=== PATIENT | male | born 1965 | race Caucasian/White ===

== ENCOUNTER 2017-02-20 15:48 | Emergency (ER) | payer SELFPAY ==
--- NOTE | 2017-02-20 15:55 | ER Document Report ---
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 Pain is rated as 10/10 in the upper epigastric region radiating up into his chest and down his abdomen. Hurts all over his abdomen. Never has had this happen before. Mild nausea. No vomiting. Denies any change in bowel or bladder function. Denies any previous history of aneurysm. Does state that he has hypertension and takes Norvasc, lisinopril and aspirin. Also has a history of atrial fibrillation. TRAVEL OUTSIDE OF THE [place] IN LAST 30 DAYS: No - HPI Onset: Just prior to arrival - Related Data Allergies/Adverse Reactions: No Known Allergies Allergy (Verified 06/18/15 19:56) Home Medications: Current Home Medications Amlodipine Besylate [Norvasc 10 mg Tablet] 10 mg PO DAILY 02/20/17 [History] Past Medical History - Social History Smoking Status: Former Smoker Frequency of alcohol use: None Drug Abuse: None Family History: Reviewed & Not Pertinent, Hypertension, Other - Past Medical History Cardiac Medical History: Reports: Hx Hypertension, Other - Atrial fibrillation Renal/ Medical History: Reports: Hx Kidney Stones GI Medical History: Reports: Hx Gastroesophageal Reflux Disease Psychiatric Medical History: Reports: Hx Anxiety, Hx Depression - Immunizations Immunizations up to date: Yes Hx Diphtheria, Pertussis, Tetanus Vaccination: Yes Review of Systems - Review of Systems Constitutional: No symptoms reported, Diaphoresis, Weakness EENT: No symptoms reported Cardiovascular: No symptoms reported, Chest pain Respiratory: No symptoms reported Gastrointestinal: No symptoms reported, Abdomen distended, Abdominal pain Genitourinary: No symptoms reported Male Genitourinary: No symptoms reported Musculoskeletal: No symptoms reported Skin: No symptoms reported Hematologic/Lymphatic: No symptoms reported Neurological/Psychological: No symptoms reported Physical Exam - Vital signs Vitals: Temp Pulse Resp BP Pulse Ox 97.5 F 63 26 H 200/96 H 97 02/20/17 15:54 02/20/17 15:54 02/20/17 15:54 02/20/17 15:54 02/20/17 15:54 Interpretation: Normal, Hypertensive, Bradycardic - General General appearance: Appears well, Alert In distress: Severe - HEENT Head: Normocephalic, Atraumatic Eyes: Normal Pupils: PERRL - Respiratory Respiratory status: No respiratory distress Chest status: Nontender Breath sounds: Normal Chest palpation: Normal - Cardiovascular Rhythm: Regular, Bradycardia Heart sounds: Normal auscultation Murmur: No - Abdominal Inspection: Normal Distension: No distension, Distended Bowel sounds: Hypoactive Tenderness: Nontender, Tender, Other - Diffuse Organomegaly: No organomegaly - Back Back: Normal, Nontender - Extremities General upper extremity: Normal inspection, Nontender, Normal color, Normal ROM , Normal temperature General lower extremity: Normal inspection, Nontender, Normal color, Normal ROM , Normal temperature, Normal weight bearing. No: Nano's sign - Neurological Neuro grossly intact: Yes Cognition: Normal Orientation: AAOx4 [place] Coma Scale Eye Opening: Spontaneous [place] Coma Scale Verbal: Oriented João Coma Scale Motor: Obeys Commands João Coma Scale Total: 15 Speech: Normal Motor strength normal: LUE, RUE, LLE, RLE Sensory: Normal - Psychological Associated symptoms: Normal affect, Normal mood - Skin Skin Temperature: Warm Skin Moisture: Diaphoretic Skin Color: Normal Course - Re-evaluation Re-evalutation: 02/20/17 17:15 Based on physical exam time of triage there was concern for aortic dissection. Patient had very elevated upper extremity blood pressure about almost nonexistent lower extremity and complaining of numbness in the left leg. Stat CT scan of the chest abdomen and pelvis aortogram performed. Stat read pending but I did look at the films while patient was in the scanner and it does appear the patient has a aortic dissection. Call was placed to thoracic surgery at [facility]. Pending transfer at this time. Will start on a nitroglycerin drip as patient's heart rate is already in the 40s. Does not need rate control at this time. Patient is in critical condition. Spoke with Dr. Destin Blackwell who has accepted the patient. - Vital Signs Vital signs: Temp Pulse Resp BP Pulse Ox 97.5 F 63 29 H 177/91 H 93 02/20/17 15:54 02/20/17 15:54 02/20/17 16:46 02/20/17 16:46 02/20/17 16:46 - Laboratory Result Diagrams: 02/20/17 16:34 02/20/17 16:34 Laboratory results interpreted by me: 02/20/17 02/20/17 16:34 16:34 WBC 11.7 H Sodium 147.2 H BUN 24 H Creatinine 1.70 H Est GFR ( Amer) 52 L Est GFR (Non-Af Amer) 43 L Glucose 139 H Calcium 10.4 H - Diagnostic Test Radiology reviewed: Reports reviewed Radiology results interpreted by me: 02/20/17 17:08 CT chest abdomen and pelvis a a dissection protocol appears to have dissection from aortic arch down to abdominal aorta. 02/20/17 17:46 Please see results from radiology. Confirms aortic dissection - EKG Interpretation by Me Rate: Bradycardia Rhythm: A.Fib Critical Care Note - Critical Care Note Total time excluding time spent on procedures (mins): 90 Comments: Hypertension, abdominal pain, aortic dissection Discharge - Discharge Clinical Impression: Aortic dissection Qualifiers: Aortic location: thoracoabdominal aorta Qualified Code(s): I71.03 - Dissection of thoracoabdominal aorta Condition: Critical Disposition: [facility]
[2017-02-20] MEDS ORDERED: HYDROMORPHONE HCL INJ/PF 2 MG/ML AMPULE IV ONE ×2 (16:15→17:38)
[2017-02-20 16:55] LABS: ABSOLUTE EOSINOPHILS # (AUTO) 0.2 10^3/uL (0.0-0.6); ABSOLUTE LYMPHOCYTES (AUTO) 2.5 10^3/uL (0.5-4.7); ABSOLUTE MONOCYTES (AUTO) 0.9 10^3/uL (0.1-1.4); ABSOLUTE NEUT (AUTO) 8.1 10^3/uL (1.7-8.2); BASOPHILS % (AUTO) 0.3 % (0-2); EOSINOPHILS % (AUTO) 1.9 % (0-6); HEMATOCRIT 44.7 % (37.9-51.0); HEMOGLOBIN 15.5 g/dL (13.5-17.0); HGB HCT DIFFERENCE 1.8; LYMPHOCYTES % (AUTO) 21.3 % (13-45); MEAN CORPUSCULAR HEMOGLOBIN 30.5 pg (27.0-33.4); MEAN CORPUSCULAR HGB CONC 34.7 g/dL (32.0-36.0); MEAN CORPUSCULAR VOLUME 88 fl (80-97); MONOCYTES % (AUTO) 7.7 % (3-13); RED BLOOD COUNT 5.08 10^6/uL (4.35-5.55); RED CELL DISTRIBUTION WIDTH 13.2 % (11.5-14.0); SEGMENTED NEUTROPHILS % (AUTO) 68.8 % (42-78); WHITE BLOOD COUNT 11.7 10^3/uL (4.0-10.5)
--- NOTE | 2017-02-20 16:56 | RADIOLOGY REPORT (SQ) ---
EXAM DESCRIPTION: CHEST SINGLE VIEW COMPLETED DATE/TIME: 02/20/2017 4:46 pm REASON FOR STUDY: sob COMPARISON: 06/18/2015 EXAM PARAMETERS: NUMBER OF VIEWS: One view. TECHNIQUE: Single frontal radiographic view of the chest acquired. RADIATION DOSE: NA LIMITATIONS: None. FINDINGS: LUNGS AND PLEURA: No opacities, masses or pneumothorax. No pleural effusion. MEDIASTINUM AND HILAR STRUCTURES: No masses. Contour normal. HEART AND VASCULAR STRUCTURES: Heart normal in size. Normal vasculature. BONES: No acute findings. HARDWARE: None in the chest. OTHER: No other significant finding. IMPRESSION: NO ACUTE RADIOGRAPHIC FINDING IN THE CHEST. TECHNICAL DOCUMENTATION: JOB ID: [id number]
[2017-02-20] MEDS ORDERED: NITROGLYCERIN/D5W 50 MG/250 ML RTUINJ IV PRN (17:07)
[2017-02-20] MEDS ORDERED: NITROGLYCERIN/D5W 50 MG/250 ML RTUINJ IV ONE (17:07)
[2017-02-20 17:08] LABS: ALANINE AMINOTRANSFERASE 55 U/L (21-72); ALBUMIN 4.5 g/dL (3.5-5.0); ALKALINE PHOSPHATASE 70 U/L (38-126); ANION GAP 14 (5-19); ASPARTATE AMINO TRANSFERASE 23 U/L (17-59); BILIRUBIN,DIRECT 0.4 mg/dL (0.0-0.4); BILIRUBIN,TOTAL 0.7 mg/dL (0.2-1.3); BLOOD UREA NITROGEN 24 mg/dL (7-20); CALCIUM 10.4 mg/dL (8.4-10.2); CARBON DIOXIDE 26 mmol/L (22-30); CHLORIDE 107 mmol/L (98-107); CREATINE KINASE 134 U/L (55-170); GLUCOSE 139 mg/dL (75-110); LIPASE 139.7 U/L (23-300); POTASSIUM 4.4 mmol/L (3.6-5.0); SODIUM 147.2 mmol/L (137-145); TOTAL PROTEIN 7.3 g/dL (6.3-8.2)
[2017-02-20 17:19] LABS: CREATINE KINASE MB 1.57 ng/mL (<4.55)
[2017-02-20 17:22] LABS: TROPONIN I < 0.012 ng/mL
[2017-02-20] MEDS ORDERED: ONDANSETRON HCL INJ/PF 4 MG/2 ML SDV ONE (17:22)
[2017-02-20] MEDS ORDERED: HYDROMORPHONE HCL INJ/PF 2 MG/ML AMPULE ONE (17:23)
--- NOTE | 2017-02-20 17:30 | RADIOLOGY REPORT (SQ) ---
EXAM DESCRIPTION: CTA CHEST; CTA ABDOMEN/PELVIS W WO COMPLETED DATE/TIME: 02/20/2017 5:03 pm REASON FOR STUDY: Severe chest and abdominal pain concern for aneury COMPARISON: Chest radiograph 02/20/2017 CONTRAST TYPE AND DOSE: contrast/concentration: Isovue 370.00 mg/ml; Total Contrast Delivered: 100.0 ml; Total Saline Delivered: 60.0 ml RENAL FUNCTION: Due to the severity of the patient's condition, the treating physician opted to proc eed with imaging prior to laboratory results being obtained. TECHNIQUE: CT scan of the chest performed using helical scanning technique with dynamic intravenous contrast injection. Images reviewed with lung, soft tissue and bone windows. Reconstructed coronal a nd sagittal MPR images reviewed. All images stored on PACS. CT scan of the abdomen and pelvis performed with intravenous and oral contrast using helical scanning technique with dynamic intravenous contrast injection. Images reviewed with lung, soft tissue and b one windows. Reconstructed coronal and sagittal MPR images reviewed. Delayed images for evaluation of the urinary system also acquired and evaluated. All images stored on PACS. All CT scanners at this facility use dose modulation, iterative reconstruction, and/or weight based d osing when appropriate to reduce radiation dose to as low as reasonably achievable (ALARA). [facility]: Dose Right [facility]: CareDose [facility]: Dose Right [facility]: Teradose 4D [facility]: [employer] Technologies RADIATION DOSE: Up-to-date CT equipment and radiation dose reduction techniques were employed. CTDIv ol: 22.5 - 72.3 mGy. DLP: 2698 mGy-cm. . LIMITATIONS: None. FINDINGS: CHEST: AXILLAE: No adenopathy. CHEST WALL: No masses. No subcutaneous air. LUNGS: No nodules or masses. No pneumothorax. No infiltrates. PLEURA: No effusions. No calcifications. THYROID: No masses or significant asymmetry. HILAR AND MEDIASTINAL STRUCTURES: No identified masses or abnormal nodes. AORTA AND GREAT VESSELS: There is an aortic dissection which originates just distal to the left subcl randy artery origin, and continues along the abdominal aorta, extending into both iliac artery is not ing non opacification of the left external iliac artery which appears to receive collateral filling a t the level of the inguinal canal. Notably, the left renal artery is not opacified, arising from the false lumen. The remaining visceral branches arise from the true lumen, and demonstrate opacificati on. PULMONARY ARTERIES: No identified pulmonary emboli. Study not optimized for the pulmonary arteries. HEART: No pericardial effusion. HARDWARE AND LIFELINES: None. BONES: No significant finding. OTHER: No other significant finding. ABDOMEN AND PELVIS: LIVER: Normal size. No masses. No dilated ducts. SPLEEN: Normal size. No focal lesions. PANCREAS: No masses. No significant calcifications. No adjacent inflammation or peripancreatic flui d collections. Pancreatic duct not dilated. GALLBLADDER: No identified stones by CT criteria. No inflammatory changes to suggest cholecystitis. ADRENAL GLANDS: No significant masses or asymmetry. RIGHT KIDNEY AND URETER: No solid masses. Nonobstructing nephroliths. No hydronephrosis or hydrou reter. LEFT KIDNEY AND URETER: Non opacification of the left renal artery as discussed above. No solid mass es. Nonobstructing nephroliths. No hydronephrosis or hydroureter. RETROPERITONEUM: No retroperitoneal adenopathy, hemorrhage or masses. LARGE AND SMALL BOWEL: No dilatation. No masses. No wall thickening. APPENDIX: Not visualized. ABDOMINAL WALL: Bilateral fat containing inguinal hernias. PERITONEAL CAVITY: No free air. No free fluid. No peritoneal implants or masses. PELVIS: No mass or free fluid. Normal bladder. BONES: No significant or acute findings. OTHER: No other significant finding. IMPRESSION: Aortic dissection extending from just distal to the left subclavian artery origin into t he bilateral iliac arteries. Non opacification of the left renal artery. Non opacification of the l eft external iliac artery, noting collateral flow re- constituting at the level of the femoral artery . COMMENT: Pertinent findings on the imaging study reported as a CRITICAL RESULT to the ER front Rasheeda daly at17:11 on 02/20/2017. She indicated that Dr. Hendrix is aware of the findings and is currently on the phone with the transfer facility. Category of Critical Result: Aortic dissection TECHNICAL DOCUMENTATION: JOB ID: [id number] Quality ID # [id number]: Final reports with documentation of one or more dose reduction techniques (e.g., Au tomated exposure control, adjustment of the mA and/or kV according to patient size, use of iterative reconstruction technique) 2010 [employer]- All Rights Reserved
[2017-02-20] MEDS ORDERED: ONDANSETRON HCL INJ/PF 4 MG/2 ML SDV IV ONE (17:38)
[2017-02-20] MEDS ORDERED: NITROGLYCERIN 0.4 MG/TAB 25 TAB/BOTTLE SL ONE (17:47)
[2017-02-20 18:56] VITALS: BP 161/74
--- NOTE | 2017-02-22 06:27 | EKG REPORT ---
SEVERITY:- ABNORMAL ECG - SINUS BRADYCARDIA LEFT VENTRICULAR HYPERTROPHY : Confirmed by: Arianna Khan MD 22-Feb-2017 06:26:02
== END 2017-02-20 18:45 | disposition short-term general hospital (02) ==
LOC: ER 15:48
DX: I71.03 Dissection of thoracoabdominal aorta (principal); R10.13 Epigastric pain; R07.9 Chest pain, unspecified; Z87.891 Personal history of nicotine dependence
CPT/HCPCS: 93005; 96376; 99291; 99292; 96374; 96375; 36415; 82553; 82550; 83690; 85025; 80053; 84484; 71010; 71275; 74174; 93010; J1170; J2405; J3490

== ENCOUNTER 2017-03-30 19:00 | Emergency (ER) | payer SELFPAY ==
--- NOTE | 2017-03-30 19:48 | ER Document Report ---
ED Medical Screen (RME) - General Chief Complaint: Foot Pain Stated Complaint: LEFT FOOT PAIN Time Seen by Provider: 03/30/17 19:47 Notes: Patient recently had surgery for aortic dissection. He states he was just discharged from the hospital at [facility] 2 days ago. He states he is having a rash and pain to the left foot. Patient has a 2+ dorsalis pedis pulse on the left. TRAVEL OUTSIDE OF THE [place] IN LAST 30 DAYS: No - Related Data Allergies/Adverse Reactions: No Known Allergies Allergy (Verified 03/30/17 19:04) Past Medical History - Social History Chew tobacco use (# tins/day): No Frequency of alcohol use: None Drug Abuse: None - Past Medical History Cardiac Medical History: Reports: Hx Atrial Fibrillation, Hx Hypertension Renal/ Medical History: Reports: Hx Kidney Stones. Denies: Hx Peritoneal Dialysis GI Medical History: Reports: Hx Gastroesophageal Reflux Disease Psychiatric Medical History: Reports: Hx Anxiety, Hx Depression Past Surgical History: Reports: Hx Cardiac Surgery - stent aorta, Hx Kidney ( Renal Surgery) - stent rt kidney, Hx Vascular Surgery - femoral bypass - Immunizations Immunizations up to date: Yes Hx Diphtheria, Pertussis, Tetanus Vaccination: Yes Physical Exam - Vital signs Vitals: Temp Pulse Resp BP Pulse Ox 97.7 F 57 L 14 153/86 H 98 03/30/17 19:05 03/30/17 19:05 03/30/17 19:05 03/30/17 19:05 03/30/17 19:05 Course - Vital Signs Vital signs: Temp Pulse Resp BP Pulse Ox 97.7 F 57 L 14 153/86 H 98 03/30/17 19:05 03/30/17 19:05 03/30/17 19:05 03/30/17 19:05 03/30/17 19:05
--- NOTE | 2017-03-30 20:08 | RADIOLOGY REPORT (SQ) ---
EXAM DESCRIPTION: FOOT LEFT COMPLETE COMPLETED DATE/TIME: 03/30/2017 7:59 pm REASON FOR STUDY: pain COMPARISON: None. NUMBER OF VIEWS: Three views. TECHNIQUE: AP, lateral and oblique radiographic images acquired of the left foot. LIMITATIONS: None. FINDINGS: MINERALIZATION: Normal. BONES: No acute fracture or dislocation. No worrisome bone lesions. JOINTS: No effusions. SOFT TISSUES: No soft tissue swelling. No foreign body. OTHER: No other significant finding. IMPRESSION: NEGATIVE STUDY OF THE LEFT FOOT. NO RADIOGRAPHIC EVIDENCE OF ACUTE INJURY. TECHNICAL DOCUMENTATION: JOB ID: [id number] [employer]- All Rights Reserved
[2017-03-30 20:30] LABS: ABSOLUTE BASOPHILS # (AUTO) 0.1 10^3/uL (0.0-0.2); ABSOLUTE EOSINOPHILS # (AUTO) 0.5 10^3/uL (0.0-0.6); ABSOLUTE LYMPHOCYTES (AUTO) 1.9 10^3/uL (0.5-4.7); ABSOLUTE MONOCYTES (AUTO) 0.7 10^3/uL (0.1-1.4); BASOPHILS % (AUTO) 1.1 % (0-2); EOSINOPHILS % (AUTO) 8.1 % (0-6); HEMATOCRIT 24.4 % (37.9-51.0); HEMOGLOBIN 8.2 g/dL (13.5-17.0); HGB HCT DIFFERENCE 0.2; LYMPHOCYTES % (AUTO) 30.6 % (13-45); MEAN CORPUSCULAR HGB CONC 33.6 g/dL (32.0-36.0); MEAN CORPUSCULAR VOLUME 86 fl (80-97); MONOCYTES % (AUTO) 11.7 % (3-13); RED BLOOD COUNT 2.83 10^6/uL (4.35-5.55); RED CELL DISTRIBUTION WIDTH 14.3 % (11.5-14.0); SEGMENTED NEUTROPHILS % (AUTO) 48.5 % (42-78); WHITE BLOOD COUNT 6.1 10^3/uL (4.0-10.5)
[2017-03-30 20:50] LABS: ALANINE AMINOTRANSFERASE 49 U/L (21-72); ALBUMIN 3.9 g/dL (3.5-5.0); ALKALINE PHOSPHATASE 111 U/L (38-126); ANION GAP 14 (5-19); ASPARTATE AMINO TRANSFERASE 18 U/L (17-59); BILIRUBIN,DIRECT 0.4 mg/dL (0.0-0.4); BILIRUBIN,TOTAL 0.4 mg/dL (0.2-1.3); BLOOD UREA NITROGEN 35 mg/dL (7-20); CALCIUM 9.6 mg/dL (8.4-10.2); CARBON DIOXIDE 20 mmol/L (22-30); CHLORIDE 110 mmol/L (98-107); CREATININE RESULT 3.61 mg/dL (0.52-1.25); GLUCOSE 94 mg/dL (75-110); POTASSIUM 5.1 mmol/L (3.6-5.0); SODIUM 143.6 mmol/L (137-145)
--- NOTE | 2017-03-30 22:02 | ER Document Report ---
ED General - General Chief Complaint: Foot Pain Stated Complaint: LEFT FOOT PAIN Time Seen by Provider: 03/30/17 19:47 Notes: Patient is a 51 year old male who presents to the ED complaining of left foot sensitivity and pain for approximately one week. PMH s/f aortic dissection on with bifemoral bypass at [facility] and then transfer to [facility] for cath stent placement within his aorta and right renal artery. Complications from his injury resulted in renal failure resulting in HD. HE states his last dialysis was 03/19 and was discharged 03/27. His BUN/Creatinine at d/c was 35/ 3.8 and H/H 26/7.4. Has been making urine without difficulty. Presents this evening complaining of foot sensitivity and pain. He states it has become progressively worse since discharge on wednesday. He has a follow up appointment for this with [facility] vascular surgeon Dr. Lara tomorrow TRAVEL OUTSIDE OF THE [place] IN LAST 30 DAYS: No - Related Data Allergies/Adverse Reactions: No Known Allergies Allergy (Verified 03/30/17 19:04) Past Medical History - Social History Smoking Status: Unknown if Ever Smoked Chew tobacco use (# tins/day): No Frequency of alcohol use: None Drug Abuse: None Family History: Reviewed & Not Pertinent, Hypertension, Other Patient has suicidal ideation: No Patient has homicidal ideation: No - Past Medical History Cardiac Medical History: Reports: Hx Atrial Fibrillation, Hx Hypertension Renal/ Medical History: Reports: Hx Kidney Stones. Denies: Hx Peritoneal Dialysis GI Medical History: Reports: Hx Gastroesophageal Reflux Disease Psychiatric Medical History: Reports: Hx Anxiety, Hx Depression Past Surgical History: Reports: Hx Cardiac Surgery - stent aorta, Hx Kidney ( Renal Surgery) - stent rt kidney, Hx Vascular Surgery - femoral bypass - Immunizations Immunizations up to date: Yes Hx Diphtheria, Pertussis, Tetanus Vaccination: Yes Review of Systems - Review of Systems Constitutional: No symptoms reported Cardiovascular: No symptoms reported Respiratory: No symptoms reported Gastrointestinal: No symptoms reported Musculoskeletal: See HPI Skin: See HPI -: Yes All other systems reviewed and negative Physical Exam - Vital signs Vitals: Temp Pulse Resp BP Pulse Ox 97.7 F 57 L 14 153/86 H 98 03/30/17 19:05 03/30/17 19:05 03/30/17 19:05 03/30/17 19:05 03/30/17 19:05 - General General appearance: Appears well, Alert In distress: None - Cardiovascular Rhythm: Regular Heart sounds: Normal auscultation, S1 appreciated, S2 appreciated Murmur: No Gallop: None auscultated Pulses: Normal: Radial, Femoral, Posterior tibial, Dorsalis pedis Normal capillary refill: Yes - Abdominal Inspection: Normal Distension: No distension Bowel sounds: Normal Tenderness: Nontender Organomegaly: No organomegaly - Extremities General lower extremity: No: Nano's sign Calf: Normal, Tender - along posterior calf. No: Unable to bear weight Ankle: Other - superficial senisitvty to gentle touch. No: Deformity, Ecchymosis, Edema, Limited ROM, Unable to bear weight Foot: Other - superficial sensitivity to gentle touch. No: Deformity, Ecchymosis, Edema, Metatarsal compress. pain, Unable to bear weight - Neurological Neuro grossly intact: Yes Cognition: Normal Orientation: AAOx4 João Coma Scale Eye Opening: Spontaneous [place] Coma Scale Verbal: Oriented [place] Coma Scale Motor: Obeys Commands João Coma Scale Total: 15 Motor strength normal: LLE, RLE Additional motor exam normals: No: Weakness Sensory: Normal - Skin Skin Temperature: Warm - left foot and ankle cooler then right LE. Skin Moisture: Dry Skin Color: Normal Skin Turgor: Elastic Skin irregularity: Rash Location of irregularity: Extremities - bilateral feet and ankles Character of irregularity: Macular, Papular. negative: Vesicular, Erythematous , Petechial Irregularity with: negative: Swelling, Tenderness, Warmth, Lymphangitis, Induration, Thickening, Scaling, Well defined border, Crusting, Inflammation, Weeping, Rough texture-sand paper, Pityriasis rosea, Other Course - Re-evaluation Re-evalutation: 03/30/17 23:02 Patient is a 51 year old male who is hemodynamically stable, no acute distress and afebrile. CBC without evidence of anemia or leukocytosis. Chemistry with a improved BUN and creatinine since discharge. INR subtherapeutic at 1.5. I did consult with [facility] vascular fellow administration specialist Dr. Murphy to obtain pre-discharge labs and consult. Patients labs today have improved. His presentation today is consistent with vasculitis vs neuropathy. No evidence of acute injury on xray. Will discharge home with voltaren gel and to follow up with [facility] surgery tomorrow - Vital Signs Vital signs: Temp Pulse Resp BP Pulse Ox 98.1 F 60 16 151/78 H 100 03/30/17 23:17 03/30/17 23:17 03/30/17 23:17 03/30/17 23:17 03/30/17 23:17 - Laboratory Result Diagrams: 03/30/17 20:09 03/30/17 20:09 Laboratory results interpreted by me: 03/30/17 03/30/17 03/30/17 20:09 20:09 20:09 RBC 2.83 L Hgb 8.2 L Hct 24.4 L RDW 14.3 H Plt Count 451 H Eosinophils % 8.1 H PT 19.4 H Potassium 5.1 H Chloride 110 H Carbon Dioxide 20 L BUN 35 H Creatinine 3.61 H Est GFR ( Amer) 22 L Est GFR (Non-Af Amer) 18 L - Diagnostic Test Radiology reviewed: Image reviewed, Reports reviewed Discharge - Discharge Clinical Impression: Left foot pain Condition: Good Disposition: HOME, SELF-CARE Additional Instructions: Your symptoms today are consistent with either a peripheral neuropathy likely related to your previous procedure and a vasculitis which is inflammation of the small blood vessels in your foot. Please use the medication as directed and follow-up with Dr. Lara tomorrow. Prescriptions: Diclofenac Sodium [Voltaren] 2 - 3 gm TP ASDIR PRN #1 gel..gram. PRN Reason: Referrals: RACHANA GARCIA PA-C [Primary Care Provider] - Follow up as needed
[2017-03-30 22:16] LABS: PROTHROMBIN TIME 19.4 SEC (11.4-15.4)
[2017-03-30] MEDS ORDERED: HYDROCODONE/ACETAMINOPHEN 5-325 MG 6 TAB/DSPK PO PRN (22:55)
[2017-03-30] MEDS ORDERED: HYDROCODONE/ACETAMINOPHEN 5-325 MG TABLET PO ONE (22:55)
[2017-03-30 23:19] VITALS: BP 151/78
== END 2017-03-30 23:17 | disposition home or self-care (01) ==
LOC: ER 19:00
DX: M79.672 Pain in left foot (principal); Z95.828 Presence of other vascular implants and grafts
CPT/HCPCS: 36415; 80053; 85025; 85610; 99283

== ENCOUNTER → 2017-04-27 | Outpatient (CLI) | payer SELFPAY ==
[2017-04-27 18:10] LABS: PROTHROMBIN TIME 15.3 SEC (11.4-15.4)
== END ==
LOC: OD 17:27
PROVIDERS: ATTEND Nurse Practitioner Family
DX: I71.03 Dissection of thoracoabdominal aorta (principal)
CPT/HCPCS: 36415; 85610

== ENCOUNTER → 2017-12-28 | Outpatient (CLI) | payer OTHER ==
[2017-12-28 16:17] LABS: HEMATOCRIT 40.3 % (37.9-51.0); HEMOGLOBIN 13.8 g/dL (13.5-17.0); MEAN CORPUSCULAR HEMOGLOBIN 30.4 pg (27.0-33.4); MEAN CORPUSCULAR HGB CONC 34.2 g/dL (32.0-36.0); MEAN CORPUSCULAR VOLUME 89 fl (80-97); PLATELET COUNT 258 10^3/uL (150-450); RED BLOOD COUNT 4.53 10^6/uL (4.35-5.55); RED CELL DISTRIBUTION WIDTH 13.1 % (11.5-14.0); WHITE BLOOD COUNT 6.8 10^3/uL (4.0-10.5)
[2017-12-28 16:38] LABS: ANION GAP 13 (5-19); BLOOD UREA NITROGEN 35 mg/dL (7-20); CALCIUM 9.8 mg/dL (8.4-10.2); CARBON DIOXIDE 23 mmol/L (22-30); CHLORIDE 110 mmol/L (98-107); GLUCOSE 91 mg/dL (75-110); POTASSIUM 4.7 mmol/L (3.6-5.0); SODIUM 146.4 mmol/L (137-145)
== END ==
LOC: OD 15:07
DX: I71.00 Dissection of unspecified site of aorta (principal); N17.9 Acute kidney failure, unspecified; I48.91 Unspecified atrial fibrillation; I10 Essential (primary) hypertension; D64.9 Anemia, unspecified; R00.1 Bradycardia, unspecified
CPT/HCPCS: 36415; 80048; 85027

== ENCOUNTER 2019-02-27 07:18 | Observation (INO) | payer SELFPAY ==
--- NOTE | 2019-02-27 08:50 | ER Document Report ---
ED Cardiac - General Chief Complaint: Chest Pain Stated Complaint: BACK PAIN, CHEST PAIN Time Seen by Provider: 02/27/19 08:40 Primary Care Provider: ZITA SHAY [NO LOCAL MD] - Follow up as needed TRAVEL OUTSIDE OF THE [place] IN LAST 30 DAYS: No - HPI Notes: 53-year-old male to the emergency department with complaints of left-sided chest pain that radiates down into his left arm and through to his back at 5 AM this morning. He states that he has increased pain with movement and it hurts to touch his chest. He does also endorse nausea and shortness of breath with his symptoms. He also states that he has numbness and tingling into the left arm and to the left leg. 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 This occurred 2 years ago and he was hospitalized for 43 days at [facility]. He states that he also had bilateral leg bypass. She states that he takes a daily baby aspirin. Denies any fevers, chills, vomiting, diaphoresis. He is never had a heart attack that he knows of. There is no known heart attack history in the family. He does smoke. He is on labetalol for high blood pressure as well as Norvasc. He is also being treated for hyperlipidemia. He and his are not sure who his cryogenics repairer is. They cannot remember his current CT surgeon is at [facility]. He is followed by primary care with Emiliana kwok. He did take a BC powder prior to arrival. He has a history of atrial fib and does report that he has had some sensations of palpitations over the past week. Patient takes a baby aspirin daily. He denies any other blood thinners. - Related Data Allergies/Adverse Reactions: No Known Allergies Allergy (Verified 03/30/17 19:04) Past Medical History - General Information source: Patient, Relative - Social History Smoking Status: Current Every Day Smoker Frequency of alcohol use: None Drug Abuse: None Family History: Hypertension, Other Patient has suicidal ideation: No Patient has homicidal ideation: No - Past Medical History Cardiac Medical History: Reports: Hx Atrial Fibrillation, Hx Hypertension Renal/ Medical History: Reports: Hx Kidney Stones. Denies: Hx Peritoneal Dialysis GI Medical History: Reports: Hx Gastroesophageal Reflux Disease Psychiatric Medical History: Reports: Hx Anxiety, Hx Depression Past Surgical History: Reports: Hx Cardiac Surgery - stent aorta, Hx Kidney (Renal Surgery) - stent rt kidney, Hx Vascular Surgery - femoral bypass - Immunizations Immunizations up to date: Yes Hx Diphtheria, Pertussis, Tetanus Vaccination: Yes Review of Systems - Review of Systems Constitutional: denies: Chills, Fever EENT: No symptoms reported Cardiovascular: Chest pain, Palpitations, Heart racing. denies: Orthopnea, Syncope, Dizziness, Lightheaded Respiratory: Short of breath. denies: Cough, Wheezing Gastrointestinal: Nausea. denies: Abdominal pain, Diarrhea, Vomiting Genitourinary: No symptoms reported Musculoskeletal: No symptoms reported Skin: No symptoms reported Neurological/Psychological: No symptoms reported -: Yes All other systems reviewed and negative Physical Exam - Vital signs Vitals: Temp Pulse Resp BP Pulse Ox 97.6 F 48 L 20 129/95 H 96 02/27/19 07:30 02/27/19 07:30 02/27/19 07:30 02/27/19 07:30 02/27/19 07:30 Interpretation: Normal - General General appearance: Appears well, Alert In distress: None - HEENT Head: Normocephalic, Atraumatic Eyes: Normal Pupils: PERRL - Respiratory Respiratory status: No respiratory distress Chest status: Nontender Breath sounds: Normal Chest palpation: Normal - Cardiovascular Rhythm: Regular Heart sounds: Normal auscultation Murmur: No - Abdominal Inspection: Normal Distension: No distension Bowel sounds: Normal Tenderness: Nontender Organomegaly: No organomegaly - Back Back: Normal, Nontender - Neurological Neuro grossly intact: Yes Cognition: Normal Orientation: AAOx4 Errol Coma Scale Eye Opening: Spontaneous Errol Coma Scale Verbal: Oriented Errol Coma Scale Motor: Obeys Commands Errol Coma Scale Total: 15 Speech: Normal Cranial nerves: Normal. No: Facial palsy, Forehead sparing, Gaze palsy, Sensory deficit, Tongue deviation Cerebellar coordination: Other - when asking to perform a left left lift, he states he cannot; however when asked to perform heel to madrigal, he can lift the leg and attempts to perform heel to madrigal -- this is slowed and difficulty for patient. 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 No: Pronator drift - Psychological Associated symptoms: Normal affect, Normal mood - Skin Skin Temperature: Warm Skin Moisture: Dry Skin Color: Normal Course - Re-evaluation Re-evalutation: 02/27/19 14:20 Chest X-Ray 02/27/19 08:42 IMPRESSION: NO ACUTE RADIOGRAPHIC FINDING IN THE CHEST. Head CT 02/27/19 09:06 IMPRESSION: NORMAL BRAIN CT WITHOUT CONTRAST. EVIDENCE OF ACUTE STROKE: NO. Chest/Abdomen CTA 02/27/19 09:59 IMPRESSION: 1. 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 2. Stable dilatation of the ascending aorta. Laboratory 02/27/19 02/27/19 02/27/19 08:52 08:52 08:52 WBC 7.9 RBC 4.97 Hgb 14.8 Hct 43.8 MCV 88 MCH 29.9 MCHC 33.9 RDW 13.1 Plt Count 187 Lymph % (Auto) 23.6 Mccreary % (Auto) 6.2 Eos % (Auto) 2.3 Baso % (Auto) 0.5 Absolute Neuts (auto) 5.3 Absolute Lymphs (auto) 1.9 Absolute Monos (auto) 0.5 Absolute Eos (auto) 0.2 Absolute Basos (auto) 0.0 Seg Neutrophils % 67.4 PT 13.7 INR 1.05 APTT 28.5 Sodium 140.8 Potassium 4.0 Chloride 107 Carbon Dioxide 23 Anion Gap 11 BUN 26 H Creatinine 1.85 H Est GFR ( Amer) 47 L Est GFR (MDRD) Non-Af 39 L Glucose 110 Calcium 9.7 Magnesium 2.2 Total Bilirubin 0.8 Direct Bilirubin 0.1 Neonat Total Bilirubin Not Reportable Neonat Direct Bilirubin Not Reportable Neonat Indirect Bili Not Reportable AST 16 L ALT 19 Alkaline Phosphatase 82 Troponin I NT-Pro-B Natriuret Pep Total Protein 7.3 Albumin 4.3 02/27/19 02/27/19 08:52 12:38 WBC RBC Hgb Hct MCV MCH MCHC RDW Plt Count Lymph % (Auto) Mccreary % (Auto) Eos % (Auto) Baso % (Auto) Absolute Neuts (auto) Absolute Lymphs (auto) Absolute Monos (auto) Absolute Eos (auto) Absolute Basos (auto) Seg Neutrophils % PT INR APTT Sodium Potassium Chloride Carbon Dioxide Anion Gap BUN Creatinine Est GFR ( Amer) Est GFR (MDRD) Non-Af Glucose Calcium Magnesium Total Bilirubin Direct Bilirubin Neonat Total Bilirubin Neonat Direct Bilirubin Neonat Indirect Bili AST ALT Alkaline Phosphatase Troponin I 0.021 0.020 NT-Pro-B Natriuret Pep 948 H Total Protein Albumin Discussed patient with Dr. Sanderson. We agree that patient should be admitted since he has a HEART score of 4. Currently negative for PE and acute aortic dissection. Did discussed patient with Dr. Patel, hospitalist. He agrees with the plan for admission. Would like for the patient to go to telemetry. Aware of CTA, trending trops, initial EKG. Also aware that patient takes a baby aspirin and is not taking another blood thinner. - Vital Signs Vital signs: Temp Pulse Resp BP Pulse Ox 97.6 F 48 L 13 157/117 H 94 02/27/19 07:30 02/27/19 07:30 02/27/19 13:01 02/27/19 13:01 02/27/19 13:01 - Laboratory Result Diagrams: 02/27/19 08:52 02/27/19 08:52 Laboratory results interpreted by me: 02/27/19 02/27/19 08:52 08:52 BUN 26 H Creatinine 1.85 H Est GFR ( Amer) 47 L Est GFR (MDRD) Non-Af 39 L AST 16 L NT-Pro-B Natriuret Pep 948 H - Diagnostic Test Radiology reviewed: Image reviewed, Reports reviewed Discharge - Discharge Clinical Impression: Chest pain Condition: Stable Disposition: ADMITTED INPATIENT Admitting Provider: Vignesh (Hospitalist) Unit Admitted: Telemetry Referrals: [facility] [NO LOCAL MD] - Follow up as needed
[2019-02-27 09:19] LABS: ABSOLUTE EOSINOPHILS # (AUTO) 0.2 10^3/uL (0.0-0.6); ABSOLUTE LYMPHOCYTES (AUTO) 1.9 10^3/uL (0.5-4.7); ABSOLUTE MONOCYTES (AUTO) 0.5 10^3/uL (0.1-1.4); ABSOLUTE NEUT (AUTO) 5.3 10^3/uL (1.7-8.2); BASOPHILS % (AUTO) 0.5 % (0-2); EOSINOPHILS % (AUTO) 2.3 % (0-6); HEMATOCRIT 43.8 % (37.9-51.0); HEMOGLOBIN 14.8 g/dL (13.5-17.0); LYMPHOCYTES % (AUTO) 23.6 % (13-45); MEAN CORPUSCULAR HEMOGLOBIN 29.9 pg (27.0-33.4); MEAN CORPUSCULAR HGB CONC 33.9 g/dL (32.0-36.0); MEAN CORPUSCULAR VOLUME 88 fl (80-97); MONOCYTES % (AUTO) 6.2 % (3-13); PLATELET COUNT 187 10^3/uL (150-450); RED BLOOD COUNT 4.97 10^6/uL (4.35-5.55); RED CELL DISTRIBUTION WIDTH 13.1 % (11.5-14.0); SEGMENTED NEUTROPHILS % (AUTO) 67.4 % (42-78); TOTAL CELLS COUNTED % (AUTO) 100 %; WHITE BLOOD COUNT 7.9 10^3/uL (4.0-10.5)
[2019-02-27 09:28] LABS: INTERNATIONAL RATION (INR) 1.05; PROTHROMBIN TIME 13.7 SEC (11.4-15.4)
[2019-02-27 09:30] LABS: PARTIAL THROMBOPLASTIN TIME 28.5 SEC (23.5-35.8)
[2019-02-27 09:41] LABS: ALBUMIN 4.3 g/dL (3.5-5.0); ALKALINE PHOSPHATASE 82 U/L (38-126); ANION GAP 11 (5-19); ASPARTATE AMINO TRANSFERASE 16 U/L (17-59); BILIRUBIN,DIRECT 0.1 mg/dL (0.0-0.4); BILIRUBIN,TOTAL 0.8 mg/dL (0.2-1.3); BLOOD UREA NITROGEN 26 mg/dL (7-20); CALCIUM 9.7 mg/dL (8.4-10.2); CARBON DIOXIDE 23 mmol/L (22-30); CHLORIDE 107 mmol/L (98-107); GLUCOSE 110 mg/dL (75-110); TOTAL PROTEIN 7.3 g/dL (6.3-8.2)
--- NOTE | 2019-02-27 09:46 | RADIOLOGY REPORT (SQ) ---
EXAM DESCRIPTION: CT HEAD WITHOUT COMPLETED DATE/TIME: 02/27/2019 9:29 am REASON FOR STUDY: left arm numbness, hx of atrial fib COMPARISON: 2009 TECHNIQUE: Axial images acquired through the brain without intravenous contrast. Images reviewed wi th bone, brain and subdural windows. Additional sagittal and coronal reconstructions were generated. Images stored on PACS. All CT scanners at this facility use dose modulation, iterative reconstruction, and/or weight based d osing when appropriate to reduce radiation dose to as low as reasonably achievable (ALARA). [facility]: Dose Right [facility]: CareDose [facility]: Dose Right [facility]: Teradose 4D [facility]: [place] RADIATION DOSE: CT Rad equipment meets quality standard of care and radiation dose reduction techniq ues were employed. CTDIvol: 53.2 mGy. DLP: 1070 mGy-cm. mGy. LIMITATIONS: None. FINDINGS: VENTRICLES: Normal size and contour. CEREBRUM: No masses. No hemorrhage. No midline shift. No evidence for acute infarction. Normal gra y/white matter differentiation. No areas of low density in the white matter. CEREBELLUM: No masses. No hemorrhage. No alteration of density. No evidence for acute infarction. EXTRAAXIAL SPACES: No fluid collections. No masses. ORBITS AND GLOBE: No intra- or extraconal masses. Normal contour of globe without masses. CALVARIUM: No fracture. PARANASAL SINUSES: No fluid or mucosal thickening. SOFT TISSUES: No mass or hematoma. OTHER: No other significant finding. IMPRESSION: NORMAL BRAIN CT WITHOUT CONTRAST. EVIDENCE OF ACUTE STROKE: NO. COMMENT: Quality ID # [id number]: Final reports with documentation of one or more dose reduction techniques (e.g., Automated exposure control, adjustment of the mA and/or kV according to patient size, use of iterative reconstruction technique) TECHNICAL DOCUMENTATION: JOB ID: [id number] [employer]- All Rights Reserved Reading location - IP/workstation name: [email or web address]
[2019-02-27 09:50] LABS: TROPONIN I 0.021 ng/mL
--- NOTE | 2019-02-27 09:53 | RADIOLOGY REPORT (SQ) ---
EXAM DESCRIPTION: CHEST 2 VIEWS COMPLETED DATE/TIME: 02/27/2019 9:39 am REASON FOR STUDY: chest pain COMPARISON: 06/18/2015. EXAM PARAMETERS: NUMBER OF VIEWS: two views TECHNIQUE: Digital Frontal and Lateral radiographic views of the chest acquired. RADIATION DOSE: NA LIMITATIONS: none FINDINGS: LUNGS AND PLEURA: No opacities, masses or pneumothorax. No pleural effusion. MEDIASTINUM AND HILAR STRUCTURES: No masses or contour abnormalities. HEART AND VASCULAR STRUCTURES: Heart normal size. No evidence for failure. BONES: No acute findings. HARDWARE: Aortic stent. OTHER: No other significant finding. IMPRESSION: NO ACUTE RADIOGRAPHIC FINDING IN THE CHEST. TECHNICAL DOCUMENTATION: JOB ID: [id number] [employer]- All Rights Reserved Reading location - IP/workstation name: [email or web address]
[2019-02-27] MEDS ORDERED: LABETALOL HCL 200 MG TABLET PO ONE (10:04)
[2019-02-27] MEDS ORDERED: NORMAL SALINE 500 ML IV ONE (10:06)
[2019-02-27] MEDS ORDERED: MORPHINE SULFATE 10 MG/ML INJ IV ONE (10:31)
--- NOTE | 2019-02-27 10:58 | RADIOLOGY REPORT (SQ) ---
EXAM DESCRIPTION: CTA CHEST COMPLETED DATE/TIME: 02/27/2019 10:42 am REASON FOR STUDY: eval dissection COMPARISON: 02/20/2017 TECHNIQUE: CT scan of the chest performed using helical scanning technique with dynamic intravenous contrast injection. Images reviewed with lung, soft tissue and bone windows. Reconstructed coronal and sagittal MPR images reviewed. Additional 3 dimensional post-processing performed to develop Maximal Intensity Projection images (IL P). All images stored on PACS. All CT scanners at this facility use dose modulation, iterative reconstruction, and/or weight based d osing when appropriate to reduce radiation dose to as low as reasonably achievable (ALARA). [facility]: Dose Right [facility]: CareDose [facility]: Dose Right [facility]: Teradose 4D [facility]: BIOCUREX CONTRAST TYPE AND DOSE: contrast/concentration: Isovue 350.00 mg/ml; Total Contrast Delivered: 68.0 ml; Total Saline Delivered: 70.0 ml RENAL FUNCTION: BUN 26 creatinine 1.85 RADIATION DOSE: CT Rad equipment meets quality standard of care and radiation dose reduction techniq ues were employed. CTDIvol: 18.4 - 36.4 mGy. DLP: 737 mGy-cm. . LIMITATIONS: None. FINDINGS: LUNGS AND PLEURA: No masses, infiltrates, or pneumothorax. No pleural effusions or pleura l calcifications. 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 Chronic dissection flap extends into the visualized portions of the abdominal aorta. Stable dilatation of the ascending aorta 4.4 cm. HEART: No pericardial effusion. PULMONARY ARTERIES: No emboli visualized in the main pulmonary arteries or the segmental branches. HILAR AND MEDIASTINAL STRUCTURES: No identified masses or abnormal nodes. HARDWARE: None in the chest. UPPER ABDOMEN: See above. Limited exam. Stent in the right renal artery partially visualized. THYROID AND OTHER SOFT TISSUES: No masses. No adenopathy. BONES: No acute or significant finding. 3D MIPS: Confirm above findings. OTHER: No other significant finding. IMPRESSION: 1. 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 2. Stable dilatation of the ascending aorta. COMMENT: Quality ID # [id number]: Final reports with documentation of one or more dose reduction techniques (e.g., Automated exposure control, adjustment of the mA and/or kV according to patient size, use of iterative reconstruction technique) TECHNICAL DOCUMENTATION: JOB ID: [id number] [employer]- All Rights Reserved Reading location - IP/workstation name: [email or web address]
[2019-02-27] MEDS ORDERED: ACETAMINOPHEN 650 MG SUPP.RECT PR PRN (14:53)
[2019-02-27] MEDS ORDERED: ONDANSETRON HCL INJ/PF 4 MG/2 ML SDV IV PRN (14:53)
[2019-02-27] MEDS ORDERED: MORPHINE SULFATE 10 MG/ML INJ IV PRN (14:59)
--- NOTE | 2019-02-27 15:09 | PDOC H&P ---
History of Present Illness Admission Date/PCP: 02/27/19 14:46 DALIA HODGE MD Patient complains of: Chest pain History of Present Illness: JOHN PADILLA is a 53 year old male with history of atrial fibrillation, aortic valve repair, history of DVT, history of kidney failure, hypertension came to the emergency room with complaints of left-sided chest pains and tingling sensation in the arms and legs for the last few days. 2 troponins are negative in the emergency room still complaining of left-sided chest pain 08/24. As per the patient the left-sided chest pains associated with radiation to the back and associated nausea. No sweatiness no headaches no dizzy spells. 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 He is said he is has history of atrial fibrillation not sure whether he is on anticoagulation or not. Past Medical History Cardiac Medical History: Reports: Atrial Fibrillation, Hypertension GI Medical History: Reports: Gastroesophageal Reflux Disease Psychiatric Medical History: Reports: Depression Past Surgical History Past Surgical History: Reports: Vascular Surgery - femoral bypass Social History Smoking Status: Current Every Day Smoker Frequency of Alcohol Use: Occasional Hx Recreational Drug Use: Yes Drugs: Marijuana Hx Prescription Drug Abuse: No - Advance Directive Resuscitation Status: Full Code Family History Family History: Hypertension, Other Parental Family History Reviewed: Yes - History of hypertension. Children Family History Reviewed: Yes Sibling(s) Family History Reviewed.: Yes Medication/Allergy Home Medications: Aspirin [Aspirin 325 mg Tablet] 325 mg PO DAILY #90 tablet 06/19/15 Lisinopril 20 mg PO DAILY 06/19/15 Amlodipine Besylate [Norvasc 10 mg Tablet] 10 mg PO DAILY 02/20/17 Diclofenac Sodium [Voltaren] 2 - 3 gm TP ASDIR PRN #1 gel..gram. 03/30/17 Allergies/Adverse Reactions: No Known Allergies Allergy (Verified 03/30/17 19:04) Review of Systems Constitutional: ABSENT: fatigue, fever(s), headache(s), weakness Eyes: ABSENT: visual disturbances Ears: ABSENT: hearing changes Nose, Mouth, and Throat: ABSENT: sore throat Cardiovascular: PRESENT: chest pain Respiratory: ABSENT: hemoptysis Gastrointestinal: PRESENT: nausea. ABSENT: abdominal pain, coffee ground emesis, diarrhea, dysphagia, heartburn, hematemesis Genitourinary: ABSENT: dysuria Musculoskeletal: ABSENT: deformity, joint swelling Neurological: PRESENT: dizziness Psychiatric: ABSENT: anxiety, depression, homidical ideation, suicidal ideation Endocrine: ABSENT: cold intolerance, heat intolerance, polydipsia, polyuria Physical Exam Vital Signs: Temp Pulse Resp BP Pulse Ox 97.6 F 48 L 13 157/117 H 94 02/27/19 07:30 02/27/19 07:30 02/27/19 13:01 02/27/19 13:01 02/27/19 13:01 Intake & Output 02/26/19 02/27/19 02/28/19 06:59 06:59 06:59 Intake Total 500 Balance 500 Weight 97.976 kg General appearance: PRESENT: no acute distress, cooperative, obese Head exam: PRESENT: atraumatic Eye exam: PRESENT: PERRLA Mouth exam: PRESENT: neck supple Teeth exam: PRESENT: poor dentation Neck exam: ABSENT: carotid bruit, JVD, lymphadenopathy, thyromegaly Respiratory exam: PRESENT: decreased breath sounds Cardiovascular exam: PRESENT: irregular rhythm, tachycardia GI/Abdominal exam: PRESENT: normal bowel sounds, soft. ABSENT: distended, guarding, mass, organolmegaly, rebound, tenderness Rectal exam: PRESENT: deferred Extremities exam: PRESENT: full ROM. ABSENT: calf tenderness, clubbing, pedal edema Neurological exam: PRESENT: alert, awake, oriented to person, oriented to place, oriented to time, oriented to situation, CN II-XII grossly intact. ABSENT: motor sensory deficit Psychiatric exam: PRESENT: appropriate affect, normal mood. ABSENT: homicidal ideation, suicidal ideation Results Laboratory Results: 02/27/19 08:52 02/27/19 08:52 02/27/19 02/27/19 08:52 08:52 WBC 7.9 RBC 4.97 Hgb 14.8 Hct 43.8 MCV 88 MCH 29.9 MCHC 33.9 RDW 13.1 Plt Count 187 Seg Neutrophils % 67.4 Sodium 140.8 Potassium 4.0 Chloride 107 Carbon Dioxide 23 Anion Gap 11 BUN 26 H Creatinine 1.85 H Est GFR ( Amer) 47 L Glucose 110 Calcium 9.7 Magnesium 2.2 Total Bilirubin 0.8 AST 16 L Alkaline Phosphatase 82 Total Protein 7.3 Albumin 4.3 02/27/19 02/27/19 08:52 12:38 Troponin I 0.021 0.020 NT-Pro-B Natriuret Pep 948 H Impressions: Chest X-Ray 02/27/19 08:42 IMPRESSION: NO ACUTE RADIOGRAPHIC FINDING IN THE CHEST. Head CT 02/27/19 09:06 IMPRESSION: NORMAL BRAIN CT WITHOUT CONTRAST. EVIDENCE OF ACUTE STROKE: NO. Chest/Abdomen CTA 02/27/19 09:59 IMPRESSION: 1. 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 2. Stable dilatation of the ascending aorta. Assessment and Plan - Diagnosis (1) Chest pain Is this a current diagnosis for this admission?: Yes Plan: 02/27/2019-patient is going to be admitted to [facility]. To follow the troponin trend. Started on aspirin 25 mg p.o. daily, Eliquis 5 mg p.o. twice daily, lipid panel is requested for the morning. Started on oxygen 2 L nasal cannula and IV morphine 1 mg every 4 as needed for chest pains. GI prophylaxis initiated. Echocardiogram was requested. Started on Cardizem 60 mg p.o. twice daily. We are going to get in touch with the primary care physician Emiliana kwok to get further information about medications. CT of the chest was negative for PE in the emergency room. 2 trops are neg (2) Chronic atrial fibrillation Is this a current diagnosis for this admission?: No Plan: 02/27/2019-patient given the history of chronic atrial fibrillation as per the patient he is taking only 325 mg aspirin and a labetalol for the rate control. To start him on Eliquis 5 mg p.o. twice daily because his chads score is around 4. started on Cardizem 60 mg p.o. twice daily. (3) H/O aortic valve repair Is this a current diagnosis for this admission?: No Plan: 02/27/2019-patient given the history of aortic valve repair 2 years ago. As per the patient is a tear in the attic wall went for the surgery and during the hospital course he developed left lower leg DVT and acute renal failure. He is not sure whether he was started on anticoagulation or not. (4) Tobacco abuse Is this a current diagnosis for this admission?: Yes Plan: 02/27/2019-patient is a chronic smoker to start him on nicotine patch 21 mg daily. - Time Time Spent with patient: 25-34 minutes Smoking Cessation Education: over 10 minutes Medications reviewed and adjusted accordingly: Yes Anticipated discharge: Home
[2019-02-27] MEDS ORDERED: HYDRALAZINE HCL INJ/PF 20 MG/1 ML SDV IV PRN (17:41)
[2019-02-27] MEDS: APIXABAN 5 MG TABLET PO SCH (17:55)
[2019-02-27 19:29] LABS: CREATINE KINASE MB 1.02 ng/mL (<4.55); TROPONIN I 0.022 ng/mL
[2019-02-27 20:39] LABS: URINE AMPHETAMINES SCREEN NEGATIVE; URINE BARBITURATES SCREEN NEGATIVE; URINE BENZODIAZEPINES SCREEN NEGATIVE; URINE COCAINE SCREEN NEGATIVE; URINE METHADONE SCREEN NEGATIVE; URINE PHENCYCLIDINE SCREEN NEGATIVE
[2019-02-27 20:44] LABS: URINE MARIJUANA (THC) SCREEN UNCONFIRMED POSITIVE
[2019-02-27 21:31] LABS: CREATINE KINASE MB 1.07 ng/mL (<4.55); TROPONIN I 0.025 ng/mL
[2019-02-27] MEDS: FAMOTIDINE 20 MG TABLET PO SCH (21:54)
[2019-02-27] MEDS: DILTIAZEM HCL 60 MG TABLET PO SCH (21:54)
[2019-02-27] MEDS ORDERED: ATORVASTATIN CALCIUM 10 MG TABLET PO SCH (22:00)
[2019-02-28 03:07] LABS: ABSOLUTE EOSINOPHILS # (AUTO) 0.2 10^3/uL (0.0-0.6); ABSOLUTE LYMPHOCYTES (AUTO) 1.9 10^3/uL (0.5-4.7); ABSOLUTE MONOCYTES (AUTO) 0.6 10^3/uL (0.1-1.4); ABSOLUTE NEUT (AUTO) 5.8 10^3/uL (1.7-8.2); BASOPHILS % (AUTO) 0.5 % (0-2); EOSINOPHILS % (AUTO) 1.9 % (0-6); HEMATOCRIT 42.7 % (37.9-51.0); HEMOGLOBIN 14.7 g/dL (13.5-17.0); LYMPHOCYTES % (AUTO) 22.3 % (13-45); MEAN CORPUSCULAR HEMOGLOBIN 30.1 pg (27.0-33.4); MEAN CORPUSCULAR HGB CONC 34.4 g/dL (32.0-36.0); MEAN CORPUSCULAR VOLUME 87 fl (80-97); MONOCYTES % (AUTO) 7.4 % (3-13); PLATELET COUNT 184 10^3/uL (150-450); RED BLOOD COUNT 4.89 10^6/uL (4.35-5.55); RED CELL DISTRIBUTION WIDTH 13.1 % (11.5-14.0); SEGMENTED NEUTROPHILS % (AUTO) 67.9 % (42-78); TOTAL CELLS COUNTED % (AUTO) 100 %; WHITE BLOOD COUNT 8.5 10^3/uL (4.0-10.5)
[2019-02-28 03:16] LABS: PROTHROMBIN TIME 14.2 SEC (11.4-15.4)
[2019-02-28 03:23] LABS: ALBUMIN 3.9 g/dL (3.5-5.0); ALKALINE PHOSPHATASE 75 U/L (38-126); ANION GAP 8 (5-19); ASPARTATE AMINO TRANSFERASE 16 U/L (17-59); BILIRUBIN,DIRECT 0.2 mg/dL (0.0-0.4); BILIRUBIN,TOTAL 0.7 mg/dL (0.2-1.3); BLOOD UREA NITROGEN 26 mg/dL (7-20); CALCIUM 9.5 mg/dL (8.4-10.2); CARBON DIOXIDE 23 mmol/L (22-30); CHLORIDE 108 mmol/L (98-107); CHOLESTEROL 144.73 mg/dL (0-200); GLUCOSE 98 mg/dL (75-110); TOTAL PROTEIN 6.7 g/dL (6.3-8.2); TRIGLYCERIDES 196 mg/dL (<150)
[2019-02-28 03:34] LABS: CREATINE KINASE MB 0.86 ng/mL (<4.55); DIRECT LDL 98 mg/dL (<100); TROPONIN I 0.019 ng/mL
[2019-02-28 03:38] LABS: VLDL CHOLESTEROL 39.2 mg/dL (10-31)
[2019-02-28] MEDS ORDERED: INFLUENZA QUAD (6MOS+) 2019-20 VAC 0.5 ML SYR IM ONE (08:00)
[2019-02-28 08:47] VITALS: BP 147/81
[2019-02-28] MEDS: FAMOTIDINE 20 MG TABLET PO SCH (09:12)
[2019-02-28] MEDS: APIXABAN 5 MG TABLET PO SCH (09:12)
[2019-02-28] MEDS: DILTIAZEM HCL 60 MG TABLET PO SCH (09:13)
[2019-02-28] MEDS ORDERED: ATORVASTATIN CALCIUM 10 MG TABLET PO SCH (10:00)
[2019-02-28] MEDS ORDERED: LABETALOL HCL 200 MG TABLET PO SCH (10:00)
[2019-02-28] MEDS ORDERED: ASPIRIN 325 MG TABLET PO SCH (10:00)
[2019-02-28] MEDS ORDERED: (PENDING PHARMACY ID) (Pravastatin Sodium [Pravachol] 40 MG) PO SCH (10:00)
[2019-02-28] MEDS ORDERED: AMLODIPINE BESYLATE 5 MG TABLET PO SCH (10:00)
--- NOTE | 2019-02-28 10:01 | PDOC DISCHARGE SUMMARY ---
Impression - Admit/DC Date/PCP Admission Date/Primary Care Provider: 02/27/19 14:46 RACHANA GARCIA PA-C Discharge Date: 02/28/19 - Discharge Diagnosis (1) Chest pain Is this a current diagnosis for this admission?: Yes (2) Chronic atrial fibrillation Is this a current diagnosis for this admission?: No (3) H/O aortic valve repair Is this a current diagnosis for this admission?: No (4) Tobacco abuse Is this a current diagnosis for this admission?: Yes - Assessment Summary: 53 year old male with history of atrial fibrillation, aortic valve repair, history of DVT, history of kidney failure, hypertension came to the emergency room with complaints of left-sided chest pains and tingling sensation in the arms and legs for the last few days. 2 troponins are negative in the emergency room still complaining of left-sided chest pain 08/24. As per the patient the left-sided chest pains associated with radiation to the back and associated nausea. No sweatiness no headaches no dizzy spells. 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 He is said he is has history of atrial fibrillation not sure whether he is on anticoagulation or not. 02/[id number]-old male with history of hypertension, atrial fibrillation, aortic valve repair not on anticoagulation admitted with chest pains. Patient is chest pain-free this morning 3 troponins are negative. He was started on Eliquis 5 mg p.o. twice daily. Patient was strongly advised to follow-up with Dr. Caldwell in 3 to 5 days. 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 Patient is willing to go home today. - Additional Information Resuscitation Status: Full Code Discharge Diet: Cardiac Discharge Activity: Activity As Tolerated Referrals: RACHANA GARCIA PA-C [Primary Care Provider] - 03/10/19 8:00 am RAD CALDWELL MD [ACTIVE STAFF] - (left a message to call with appointment) Prescriptions: Diltiazem HCl [Cardizem 60 mg Tablet] 60 mg PO Q12 #60 tablet Apixaban [Eliquis 5 mg Tablet] 5 mg PO BID #60 tablet Home Medications: Amlodipine Besylate [Norvasc 5 mg Tablet] 5 mg PO DAILY 02/27/19 Aspirin [Ecotrin 81 mg EC Tablet] 81 mg PO DAILY 02/27/19 Pravastatin Sodium [Pravachol] 40 mg PO DAILY 02/27/19 Apixaban [Eliquis 5 mg Tablet] 5 mg PO BID #60 tablet 02/28/19 Diltiazem HCl [Cardizem 60 mg Tablet] 60 mg PO Q12 #60 tablet 02/28/19 History of Present Illiness History of Present Illness: JOHN PADILLA is a 53 year old male with history of atrial fibrillation, aortic valve repair, history of DVT, history of kidney failure, hypertension came to the emergency room with complaints of left-sided chest pains and tingling sensation in the arms and legs for the last few days. 2 troponins are negative in the emergency room still complaining of left-sided chest pain 4/10. As per the patient the left-sided chest pains associated with radiation to the back and associated nausea. No sweatiness no headaches no dizzy spells. 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 He is said he is has history of atrial fibrillation not sure whether he is on anticoagulation or not. Hospital Course Hospital Course: 53 year old male with history of atrial fibrillation, aortic valve repair, histo ry of DVT, history of kidney failure, hypertension came to the emergency room with complaints of left-sided chest pains and tingling sensation in the arms and legs for the last few days. 2 troponins are negative in the emergency room still complaining of left-sided chest pain 4/10. As per the patient the left- sided chest pains associated with radiation to the back and associated nausea. No sweatiness no headaches no dizzy spells. 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 He is said he is has history of atrial fibrillation not sure whether he is on anticoagulation or not. 02/28/2019-patient is chest pain-free this morning 3 sets of troponins are negative. He was started on Eliquis 5 mg p.o. twice daily during the hospital stay. Discussed the case with Dr. Caldwell is going to follow the patient in his office in 3 to 5 days. No acute events in the last 24 hours. Physical Exam Vital Signs: Temp Pulse Resp BP Pulse Ox 98.6 F 59 L 16 147/81 H 98 02/28/19 09:37 02/28/19 09:37 02/28/19 09:37 02/28/19 09:37 02/28/19 09:37 Intake & Output 02/27/19 02/28/19 03/01/19 06:59 06:59 06:59 Intake Total 680 Output Total 525 Balance 155 Weight 93.6 kg General appearance: PRESENT: no acute distress, cooperative Head exam: PRESENT: atraumatic Eye exam: PRESENT: PERRLA Mouth exam: PRESENT: moist, tongue midline Teeth exam: PRESENT: poor dentation Neck exam: ABSENT: carotid bruit, JVD, lymphadenopathy, thyromegaly Respiratory exam: PRESENT: decreased breath sounds Cardiovascular exam: PRESENT: irregular rhythm. ABSENT: diastolic murmur, rubs, systolic murmur GI/Abdominal exam: PRESENT: normal bowel sounds, soft. ABSENT: distended, guarding, mass, organolmegaly, rebound, tenderness Rectal exam: PRESENT: deferred Extremities exam: PRESENT: full ROM. ABSENT: calf tenderness, clubbing, pedal edema Neurological exam: PRESENT: alert, awake, oriented to person, oriented to place, oriented to time, oriented to situation, CN II-XII grossly intact. ABSENT: motor sensory deficit Psychiatric exam: PRESENT: appropriate affect, normal mood. ABSENT: homicidal ideation, suicidal ideation Results Laboratory Results: WBC 8.5 10^3/uL (4.0-10.5) 02/28/19 02:58 RBC 4.89 10^6/uL (4.35-5.55) 02/28/19 02:58 Hgb 14.7 g/dL (13.5-17.0) 02/28/19 02:58 Hct 42.7 % (37.9-51.0) 02/28/19 02:58 MCV 87 fl (80-97) 02/28/19 02:58 MCH 30.1 pg (27.0-33.4) 02/28/19 02:58 MCHC 34.4 g/dL (32.0-36.0) 02/28/19 02:58 RDW 13.1 % (11.5-14.0) 02/28/19 02:58 Plt Count 184 10^3/uL (150-450) 02/28/19 02:58 Lymph % (Auto) 22.3 % (13-45) 02/28/19 02:58 Woodson % (Auto) 7.4 % (3-13) 02/28/19 02:58 Eos % (Auto) 1.9 % (0-6) 02/28/19 02:58 Baso % (Auto) 0.5 % (0-2) 02/28/19 02:58 Absolute Neuts (auto) 5.8 10^3/uL (1.7-8.2) 02/28/19 02:58 Absolute Lymphs (auto) 1.9 10^3/uL (0.5-4.7) 02/28/19 02:58 Absolute Monos (auto) 0.6 10^3/uL (0.1-1.4) 02/28/19 02:58 Absolute Eos (auto) 0.2 10^3/uL (0.0-0.6) 02/28/19 02:58 Absolute Basos (auto) 0.0 10^3/uL (0.0-0.2) 02/28/19 02:58 Seg Neutrophils % 67.9 % (42-78) 02/28/19 02:58 PT 14.2 SEC (11.4-15.4) 02/28/19 02:58 INR 1.10 02/28/19 02:58 APTT 28.5 SEC (23.5-35.8) 02/27/19 08:52 Sodium 139.1 mmol/L (137-145) 02/28/19 02:58 Potassium 4.0 mmol/L (3.6-5.0) 02/28/19 02:58 Chloride 108 mmol/L (98-107) H 02/28/19 02:58 Carbon Dioxide 23 mmol/L (22-30) 02/28/19 02:58 Anion Gap 8 (5-19) 02/28/19 02:58 BUN 26 mg/dL (7-20) H 02/28/19 02:58 Creatinine 1.86 mg/dL (0.52-1.25) H 02/28/19 02:58 Est GFR ( Amer) 46 (>60) L 02/28/19 02:58 Est GFR (MDRD) Non-Af 38 (>60) L 02/28/19 02:58 Glucose 98 mg/dL (75-110) 02/28/19 02:58 Hemoglobin A1c % 5.8 % (4.7-6.0) 02/28/19 02:58 Calcium 9.5 mg/dL (8.4-10.2) 02/28/19 02:58 Magnesium 2.2 mg/dL (1.6-2.3) 02/28/19 02:58 Total Bilirubin 0.7 mg/dL (0.2-1.3) 02/28/19 02:58 Direct Bilirubin 0.2 mg/dL (0.0-0.4) 02/28/19 02:58 Neonat Total Bilirubin Not Reportable 02/28/19 02:58 Neonat Direct Bilirubin Not Reportable 02/28/19 02:58 Neonat Indirect Bili Not Reportable 02/28/19 02:58 AST 16 U/L (17-59) L 02/28/19 02:58 ALT 18 U/L (<50) 02/28/19 02:58 Alkaline Phosphatase 75 U/L (38-126) 02/28/19 02:58 Creatine Kinase 69 U/L (55-170) 02/28/19 02:58 CK-MB (CK-2) 0.86 ng/mL (<4.55) 02/28/19 02:58 Troponin I 0.019 ng/mL 02/28/19 02:58 NT-Pro-B Natriuret Pep 948 pg/mL (5-900) H 02/27/19 08:52 Total Protein 6.7 g/dL (6.3-8.2) 02/28/19 02:58 Albumin 3.9 g/dL (3.5-5.0) 02/28/19 02:58 Triglycerides 196 mg/dL (<150) H 02/28/19 02:58 Cholesterol 144.73 mg/dL (0-200) 02/28/19 02:58 LDL Cholesterol Direct 98 mg/dL (<100) 02/28/19 02:58 VLDL Cholesterol 39.2 mg/dL (10-31) H 02/28/19 02:58 HDL Cholesterol 25 mg/dL (>40) L 02/28/19 02:58 TSH 1.80 uIU/mL (0.47-4.68) 02/28/19 02:58 Urine Opiates Screen UNCONFIRMED POSITIVE 02/27/19 19:25 Urine Methadone Screen NEGATIVE 02/27/19 19:25 Ur Barbiturates Screen NEGATIVE 02/27/19 19:25 Ur Phencyclidine Scrn NEGATIVE 02/27/19 19:25 Ur Amphetamines Screen NEGATIVE 02/27/19 19:25 U Benzodiazepines Scrn NEGATIVE 02/27/19 19:25 Urine Cocaine Screen NEGATIVE 02/27/19 19:25 U Marijuana (THC) Screen UNCONFIRMED POSITIVE 02/27/19 19:25 02/27/19 02/27/19 02/27/19 08:52 12:38 18:48 CK-MB (CK-2) 1.02 Troponin I 0.021 0.020 0.022 NT-Pro-B Natriuret Pep 948 H 02/27/19 02/28/19 20:40 02:58 CK-MB (CK-2) 1.07 0.86 Troponin I 0.025 0.019 NT-Pro-B Natriuret Pep Impressions: Chest X-Ray 02/27/19 08:42 IMPRESSION: NO ACUTE RADIOGRAPHIC FINDING IN THE CHEST. Head CT 02/27/19 09:06 IMPRESSION: NORMAL BRAIN CT WITHOUT CONTRAST. EVIDENCE OF ACUTE STROKE: NO. Chest/Abdomen CTA 02/27/19 09:59 IMPRESSION: 1. 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 2. Stable dilatation of the ascending aorta. Plan Time Spent: Greater than 30 Minutes Stroke Is this a Stroke Patient?: No Acute Heart Failure - Is this a Heart Failure Patient?: No
--- NOTE | 2019-02-28 21:42 | EKG REPORT ---
SEVERITY:- ABNORMAL ECG - ATRIAL FIBRILLATION LEFT VENTRICULAR HYPERTROPHY BORDERLINE PROLONGED QT INTERVAL : Confirmed by: Agnes Colón 28-Feb-2019 21:41:26
--- NOTE | 2019-02-28 22:39 | XCELERA REPORT ---
[address] [address] Transthoracic Echocardiogram Report Name: JOHN PADILLA Age: 53 yrs Gender: Male : 1965 Patient Status: Inpatient Patient Location: [address] [place], [place] [address]B Study Date: 02/27/2019 07:32 PM Height: 69 in Weight: 216 lb BSA: 2.1 m2 Procedure: A two-dimensional transthoracic echocardiogram with color flow and Doppler was performed. Study Quality: Fair. Reason For Study: chest pain History: chest pain. Ordering Physician: DALIA HODGE Performed By: Tayler Sheldon Interpretation Summary The left ventricle is normal in size. There is mild to moderate concentric left ventricular hypertrophy. LV EF is 55% to 60% The left ventricular wall motion is normal. There is no thrombus. o ASD ,VSD , or PFO seen. The right ventricle is normal in size and function. The right atrium is normal. The left atrial size is normal. There is no evidence of mitral valve prolapse. There is no vegetation seen on the mitral valve. There is no mitral valve stenosis. There is a trace amount of mitral regurgitation There is no aortic valvular vegetation. There is no aortic valve stenosis There is no LVOT obstruction. There is a trace amount of aortic regurgitation There is no tricuspid stenosis. There is a mild amount of tricuspid regurgitation There is mild pulmonary hypertension by echo RVSP is 31 to 36 mm of HG , with RA mean of 5 to 10. There is no pulmonic valvular stenosis. There is no pulmonic valvular regurgitation. The aortic root is normal size. The inferior vena cava appeared normal and decreased > 50% with respiration (RAP 5-10 mmHg) There is no pericardial effusion. MMode/2D Measurements & Calculations RVDd: 3.3 cm LVIDd: 4.7 cm FS: 22.7 % Ao root diam: 3.4 cm IVSd: 1.5 cm LVIDs: 3.7 cm EDV(Teich): 104.3 ml Ao root area: 9.1 cm2 LVPWd: 1.3 cm ESV(Teich): 56.8 ml LA dimension: 3.9 cm EF(Teich): 45.6 % Doppler Measurements & Calculations MV E max delvin: MV P1/2t max delvin: AI max delvin: LV V1 max P.8 cm/sec 81.4 cm/sec 314.3 cm/sec 2.6 mmHg MV A max delvin: MV P1/2t: 48.6 msec AI max P.8 mmHgLV V1 max: 29.8 cm/sec MVA(P1/2t): 4.5 cm2 AI dec slope: 80.0 cm/sec MV E/A: 2.2 MV dec slope: 128.6 cm/sec2 AI P1/2t: 715.9 msec 490.9 cm/sec2 MV dec time: 0.18 sec PA V2 max: TR max delvin: AV P1/2t-pr_phl: MV P1/2t-pr_phl: 84.5 cm/sec 256.0 cm/sec 714.0 msec 48.6 msec PA max PG: TR max P.2 mmHg 2.9 mmHg Left Ventricle The left ventricle is normal in size. There is mild to moderate concentric left ventricular hypertrophy. LV EF is 55% to 60%. Left ventricular systolic function is normal. LV diastolic function could not be adequately assessed due to atrial fibrilation. The left ventricular wall motion is normal. There is no thrombus. o ASD ,VSD , or PFO seen. Right Ventricle The right ventricle is normal in size and function. Atria The right atrium is normal. The left atrial size is normal. Mitral Valve There is no evidence of mitral valve prolapse. There is no vegetation seen on the mitral valve. There is no mitral valve stenosis. There is a trace amount of mitral regurgitation. Aortic Valve There is no aortic valvular vegetation. There is no aortic valve stenosis. There is no LVOT obstruction. There is a trace amount of aortic regurgitation. Tricuspid Valve There is no tricuspid stenosis. There is a mild amount of tricuspid regurgitation. There is mild pulmonary hypertension by echo. RVSP is 31 to 36 mm of HG , with RA mean of 5 to 10. Pulmonic Valve There is no pulmonic valvular stenosis. There is no pulmonic valvular regurgitation. Great Vessels The aortic root is normal size. The inferior vena cava appeared normal and decreased > 50% with respiration (RAP 5-10 mmHg). Effusions There is no pericardial effusion. : DALIA HODGE Lakshmi
== END 2019-02-28 11:10 | disposition home or self-care (01) ==
LOC: ER 07:18 → INTOOBSV 14:46 → EH 14:46 → 3W 17:30
PROVIDERS: ADMIT Internal Medicine; ATTEND Internal Medicine
DX: R07.9 Chest pain, unspecified (principal); I48.20 Chronic atrial fibrillation, unspecified; R11.0 Nausea; R20.2 Paresthesia of skin; F17.200 Nicotine dependence, unspecified, uncomplicated; I10 Essential (primary) hypertension; E78.5 Hyperlipidemia, unspecified; E66.9 Obesity, unspecified; R06.02 Shortness of breath; Z23 Encounter for immunization; Z86.718 Personal history of other venous thrombosis and embolism; Z79.82 Long term (current) use of aspirin; Z82.49 Family history of ischemic heart disease and other diseases of the circulatory system; Z98.890 Other specified postprocedural states
CPT/HCPCS: 93005; 99285; 96361; 96374; 36415 ×2; 82553 ×2; 82550 ×2; 83735 ×2; 84443; 85025 ×2; 85610 ×2; 85730; 80053 ×2; 84484 ×2; 80307; 83036; 80061; 83880; 93306; 71046; 70450; 71275; 90686; 93010; G0378 ×3; J0360; J2270; J3490 ×2; J7040

== ENCOUNTER 2019-06-27 09:44 | Inpatient (IN) | payer SELFPAY ==
[2019-06-27] MEDS ORDERED: ASPIRIN 81 MG TABLET, CHEWABLE PO ONE (10:04)
--- NOTE | 2019-06-27 10:06 | ER Document Report ---
ED Medical Screen (RME) - General Chief Complaint: Shortness Of Breath Stated Complaint: SHORTNESS OF BREATH Time Seen by Provider: 06/27/19 09:59 Primary Care Provider: RACHANA GARCIA PA-C [Primary Care Provider] - Follow up as needed Mode of Arrival: Wheelchair Information source: Patient Notes: Patient presents complaining of shortness of breath for the past 3 to 4 days that is worse with exertion. Patient complains of generalized weakness and feeling fatigued. Patient states he developed left-sided chest pain this morning around 9 AM. Patient reports nausea. Patient does complain of feeling faint. Patient states he is supposed to take Eliquis but he could not afford the medication and has been off of it for the past 2 to 3 months. Patient does report a history of hypertension, DVT as well as a previous repair of an aortic valve tear. I have greeted and performed a rapid initial assessment of this patient. A comprehensive ED assessment and evaluation of the patient, analysis of test results and completion of the medical decision making process will be conducted by additional ED providers. TRAVEL OUTSIDE OF THE [place] IN LAST 30 DAYS: No - Related Data Allergies/Adverse Reactions: No Known Allergies Allergy (Verified 06/27/19 09:59) Past Medical History - Past Medical History Cardiac Medical History: Reports: Hx Atrial Fibrillation, Hx Hypertension Renal/ Medical History: Reports: Hx Kidney Stones. Denies: Hx Peritoneal Dialysis GI Medical History: Reports: Hx Gastroesophageal Reflux Disease Psychiatric Medical History: Reports: Hx Anxiety, Hx Depression Past Surgical History: Reports: Hx Cardiac Surgery - stent aorta, Hx Kidney (Renal Surgery) - stent rt kidney, Hx Vascular Surgery - femoral bypass - Immunizations Immunizations up to date: Yes Hx Diphtheria, Pertussis, Tetanus Vaccination: Yes Physical Exam - Vital signs Vitals: Temp Pulse Resp BP Pulse Ox 97.6 F 85 20 135/88 H 96 06/27/19 09:56 06/27/19 09:56 06/27/19 09:56 06/27/19 09:56 06/27/19 09:56 - Respiratory Respiratory status: Tachypnea Chest status: Tender Breath sounds: Normal - Cardiovascular Rhythm: Regular Heart sounds: S1 appreciated, S2 appreciated Course - Vital Signs Vital signs: Temp Pulse Resp BP Pulse Ox 97.6 F 85 20 135/88 H 96 06/27/19 09:56 06/27/19 09:56 06/27/19 09:56 06/27/19 09:56 06/27/19 09:56 Doctor's Discharge - Discharge Referrals: RACHANA GARCIA PA-C [Primary Care Provider] - Follow up as needed
--- NOTE | 2019-06-27 10:11 | EKG REPORT ---
SEVERITY:- ABNORMAL ECG - ATRIAL FIBRILLATION PROBABLE LEFT VENTRICULAR HYPERTROPHY ABNORMAL T, CONSIDER ISCHEMIA, LATERAL LEADS BORDERLINE PROLONGED QT INTERVAL : Confirmed by: Reynaldo Gutiérrez MD 27-Jun-2019 10:10:53
[2019-06-27 10:37] LABS: ABSOLUTE BASOPHILS # (AUTO) 0.1 10^3/uL (0.0-0.2); ABSOLUTE EOSINOPHILS # (AUTO) 0.2 10^3/uL (0.0-0.6); ABSOLUTE LYMPHOCYTES (AUTO) 1.1 10^3/uL (0.5-4.7); ABSOLUTE MONOCYTES (AUTO) 0.5 10^3/uL (0.1-1.4); ABSOLUTE NEUT (AUTO) 5.5 10^3/uL (1.7-8.2); BASOPHILS % (AUTO) 0.7 % (0-2); EOSINOPHILS % (AUTO) 2.2 % (0-6); HEMATOCRIT 38.6 % (37.9-51.0); HEMOGLOBIN 13.6 g/dL (13.5-17.0); MEAN CORPUSCULAR HEMOGLOBIN 31.2 pg (27.0-33.4); MEAN CORPUSCULAR HGB CONC 35.2 g/dL (32.0-36.0); MEAN CORPUSCULAR VOLUME 89 fl (80-97); MONOCYTES % (AUTO) 6.6 % (3-13); PLATELET COUNT 187 10^3/uL (150-450); RED BLOOD COUNT 4.37 10^6/uL (4.35-5.55); RED CELL DISTRIBUTION WIDTH 13.6 % (11.5-14.0); SEGMENTED NEUTROPHILS % (AUTO) 75.5 % (42-78); TOTAL CELLS COUNTED % (AUTO) 100 %; WHITE BLOOD COUNT 7.3 10^3/uL (4.0-10.5)
--- NOTE | 2019-06-27 10:46 | RADIOLOGY REPORT (SQ) ---
EXAM DESCRIPTION: CHEST 2 VIEWS COMPLETED DATE/TIME: 06/27/2019 10:34 am REASON FOR STUDY: cp, sob COMPARISON: 02/27/2019. EXAM PARAMETERS: NUMBER OF VIEWS: two views TECHNIQUE: Digital Frontal and Lateral radiographic views of the chest acquired. RADIATION DOSE: NA LIMITATIONS: none FINDINGS: LUNGS AND PLEURA: Interstitial prominence. No focal infiltrates, masses or pneumothorax. No pleural effusion. MEDIASTINUM AND HILAR STRUCTURES: No masses or contour abnormalities. HEART AND VASCULAR STRUCTURES: Cardiomegaly. Thoracic aortic stent. BONES: No acute findings. HARDWARE: None in the chest. OTHER: No other significant finding. IMPRESSION: CARDIOMEGALY. INTERSTITIAL PROMINENCE MAY BE DUE TO A COMBINATION OF SCARRING AND MILD INTERSTITIAL EDEMA. TECHNICAL DOCUMENTATION: JOB ID: [id number] 2010 [employer]- All Rights Reserved Reading location - IP/workstation name: [email or web address]
[2019-06-27 10:58] LABS: ALBUMIN 3.6 g/dL (3.5-5.0); ALKALINE PHOSPHATASE 76 U/L (38-126); ANION GAP 11 (5-19); ASPARTATE AMINO TRANSFERASE 26 U/L (17-59); BILIRUBIN,DIRECT 0.4 mg/dL (0.0-0.4); BILIRUBIN,TOTAL 1.2 mg/dL (0.2-1.3); BLOOD UREA NITROGEN 30 mg/dL (7-20); CALCIUM 9.1 mg/dL (8.4-10.2); CARBON DIOXIDE 21 mmol/L (22-30); CHLORIDE 110 mmol/L (98-107); GLUCOSE 103 mg/dL (75-110); TOTAL PROTEIN 6.4 g/dL (6.3-8.2)
[2019-06-27 11:15] LABS: TROPONIN I 0.063 ng/mL
[2019-06-27] MEDS ORDERED: FUROSEMIDE INJ/PF 40 MG/4 ML SDV IV ONE (12:20)
--- NOTE | 2019-06-27 12:31 | ER Document Report ---
ED General - General Chief Complaint: Breathing Difficulty Stated Complaint: SHORTNESS OF BREATH Time Seen by Provider: 06/27/19 09:59 Primary Care Provider: RACHANA GARCIA PA-C [Primary Care Provider] - Follow up as needed Mode of Arrival: Wheelchair TRAVEL OUTSIDE OF THE [place] IN LAST 30 DAYS: No - HPI Notes: Patient is a 54-year-old male who presents the emergency department for evaluation of shortness of breath. He states he has had this in the past, but it seems to have been bad over the last 4 days. He states he wakes up suddenly at 4:00 in the morning very short of breath. He has had some swelling in his legs. He denies any chest tightness or pain right now, but states to me he did have some earlier while he was driving. He cannot tell me anything about how long it lasted. He states to me repeatedly that it "is still sore." He does not have any pain at rest, but states it hurts to push on the area. He states he has been taking his medications as prescribed, with the exception of blood thinners. He had some sort of aortic surgery, is supposed to be on Eliquis. He can no longer afford it. He has not further discussed this with his primary care provider, so has been off blood thinners entirely for the last 2 months. - Related Data Allergies/Adverse Reactions: No Known Allergies Allergy (Verified 06/27/19 09:59) Past Medical History - General Information source: Patient - Social History Smoking Status: Former Smoker Chew tobacco use (# tins/day): No Frequency of alcohol use: nightly Drug Abuse: Marijuana Family History: Hypertension, Other Patient has suicidal ideation: No Patient has homicidal ideation: No - Past Medical History Cardiac Medical History: Reports: Hx Atrial Fibrillation, Hx Hypertension Renal/ Medical History: Reports: Hx Kidney Stones. Denies: Hx Peritoneal Dialysis GI Medical History: Reports: Hx Gastroesophageal Reflux Disease Psychiatric Medical History: Reports: Hx Anxiety, Hx Depression Past Surgical History: Reports: Hx Cardiac Surgery - stent aorta, Hx Kidney (Renal Surgery) - stent rt kidney, Hx Vascular Surgery - femoral bypass - Immunizations Immunizations up to date: Yes Hx Diphtheria, Pertussis, Tetanus Vaccination: Yes Review of Systems - Review of Systems Cardiovascular: See HPI Respiratory: See HPI Physical Exam - Vital signs Vitals: Temp Pulse Resp BP Pulse Ox 97.6 F 85 20 135/88 H 96 06/27/19 09:56 06/27/19 09:56 06/27/19 09:56 06/27/19 09:56 06/27/19 09:56 - Notes Notes: Is a 54-year-old male who appears his stated age in no acute distress. He is mildly conversationally dyspneic. Vital signs reviewed, please refer to chart. Head is normocephalic, atraumatic. Pupils equal round, reactive to light. Neck is supple without meningismus. Heart is irregularly irregular. Lungs reveal mild rales. Abdomen is soft, nontender, normoactive bowel sounds throughout. Extremities without cyanosis, clubbing. Posterior calves are nontender. 2+ pitting edema noted bilaterally. Peripheral pulses are equal. Skin is warm and dry. Patient is awake, alert, neurological exam is nonfocal. Course - Re-evaluation Re-evalutation: 06/27/19 12:29 Patient presents emergency department for evaluation. He had initial laboratory investigations and was placed on a air sampling and monitoring. His chest x-ray shows findings consistent with interstitial edema. His EKG shows new lateral ischemic changes. He has had PND. His initial troponin is indeterminately elevated. The patient denies any chest pain today. He is given IV Lasix. Awaiting second troponin, we will continue to monitor. 06/27/19 14:33 Repeat troponin is indeterminate but not positive. Patient is feeling improved, but remains conversationally dyspneic. Will contact cardiology for consultation. 06/27/19 14:[address] Simons. He agrees that given his new onset heart failure, conversational dyspnea, and EKG changes, as well as being off of his blood thinners, it seems reasonable to admit the patient. I spoke with Dr. Hernandez, he will admit the patient. - Vital Signs Vital signs: Temp Pulse Resp BP Pulse Ox 97.6 F 85 27 H 154/124 H 95 06/27/19 09:56 06/27/19 09:56 06/27/19 14:01 06/27/19 14:01 06/27/19 14:01 - Laboratory Result Diagrams: 06/27/19 10:13 06/27/19 10:13 Laboratory results interpreted by me: 06/27/19 06/27/19 10:13 10:13 Chloride 110 H Carbon Dioxide 21 L BUN 30 H Creatinine 1.88 H Est GFR ( Amer) 46 L Est GFR (MDRD) Non-Af 38 L NT-Pro-B Natriuret Pep 8690 H - Diagnostic Test Radiology reviewed: Reports reviewed Radiology results interpreted by me: 06/27/19 12:29 Chest X-Ray 06/27/19 10:04 IMPRESSION: CARDIOMEGALY. INTERSTITIAL PROMINENCE MAY BE DUE TO A COMBINATION OF SCARRING AND MILD INTERSTITIAL EDEMA. - EKG Interpretation by Me Additional EKG results interpreted by me: 06/27/19 12:30 Atrial fibrillation with a rate of 103 bpm. Normal axis, borderline prolonged QT interval. T wave inversions concerning for ischemia on lateral leads, this is new when compared to prior study. Discharge - Discharge Clinical Impression: Congestive heart failure, Abnormal EKG, Medication noncompliance due to financia Condition: Stable Disposition: ADMITTED INPATIENT Admitting Provider: [facility] Unit Admitted: Telemetry - [facility] Referrals: RACHANA GARCIA PA-C [Primary Care Provider] - Follow up as needed
[2019-06-27] MEDS ORDERED: ACETAMINOPHEN 325 MG TABLET PO PRN (16:16)
[2019-06-27] MEDS ORDERED: MAG HYDROX/AL HYDROX/SIMETH SUSP 30 ML UDCUP PO PRN (16:16)
[2019-06-27] MEDS ORDERED: ALBUTEROL SULFATE 0.083% NEB 2.5 MG/3 ML AMPUL NEB PRN (16:16)
[2019-06-27] MEDS ORDERED: AMLODIPINE BESYLATE 5 MG TABLET PO SCH (16:30)
--- NOTE | 2019-06-27 16:43 | PDOC H&P ---
History of Present Illness Admission Date/PCP: 06/27/19 14:59 RACHANA GARCIA PA-C Patient complains of: Shortness of breath, dyspnea on exertion History of Present Illness: JOHN PADILLA is a 54 year old male with a history of atrial fibrillation, DVT, hypertension, who reports potential aortic dissection with aortic graft placement endovascular in 02/2017, who reports to the hospital with complaints of shortness of breath and worsening dyspnea on exertion for the past 4 days. Patient did notice soft onset about a week ago but has been very prominent over the past 4 days. Patient admits to PND but denies orthopnea at this time. Patient does have mild swelling in his lower extremities. Patient denies any history of congestive heart failure. Patient also reports some soreness in the left chest region as well as the left shoulder. States that happens off and on. Patient denies any fever or chills. Patient denies any recent upper respiratory tract infection. Past Medical History Cardiac Medical History: Reports: Atrial Fibrillation, DVT, Hypertension Denies: Congestive Heart Failure Pulmonary Medical History: Denies: Asthma, Chronic Obstructive Pulmonary Disease (COPD) GI Medical History: Reports: Gastroesophageal Reflux Disease Psychiatric Medical History: Reports: Depression Past Surgical History Past Surgical History: Reports: Vascular Surgery - femoral bypass Social History Information Source: Patient Smoking Status: Current Every Day Smoker - States that he quit 4 days ago Electronic Cigarette use?: No Frequency of Alcohol Use: Social - Drinks 2-3 beers almost every day. Last drink was 4 days ago. Hx Recreational Drug Use: Yes Drugs: Marijuana Hx Prescription Drug Abuse: No - Advance Directive Resuscitation Status: Full Code Family History Family History: Hypertension, Other Parental Family History Reviewed: Yes Children Family History Reviewed: NA Sibling(s) Family History Reviewed.: NA Medication/Allergy Home Medications: Amlodipine Besylate [Norvasc 5 mg Tablet] 5 mg PO DAILY 02/27/19 Aspirin [Ecotrin 81 mg EC Tablet] 81 mg PO DAILY 02/27/19 Pravastatin Sodium [Pravachol] 40 mg PO DAILY 02/27/19 Labetalol HCl [Normodyne 200 mg Tablet] 200 mg PO Q12 06/27/19 Sertraline HCl 50 mg PO DAILY 06/27/19 Allergies/Adverse Reactions: No Known Allergies Allergy (Verified 06/27/19 09:59) Review of Systems Constitutional: PRESENT: weakness - Both legs Eyes: ABSENT: visual disturbances Nose, Mouth, and Throat: PRESENT: headache(s) Cardiovascular: PRESENT: chest pain, dyspnea on exertion, palpitations. ABSENT: orthropnea Respiratory: PRESENT: cough, dyspnea. ABSENT: sputum Gastrointestinal: PRESENT: abdominal pain. ABSENT: nausea Genitourinary: ABSENT: dysuria Integumentary: PRESENT: diaphoresis Neurological: ABSENT: confusion Psychiatric: ABSENT: depression Allergic/Immunologic: ABSENT: seasonal rhinorrhea Physical Exam Vital Signs: Temp Pulse Resp BP Pulse Ox 97.6 F 85 27 H 154/124 H 95 06/27/19 09:56 06/27/19 09:56 06/27/19 14:01 06/27/19 14:01 06/27/19 14:01 Intake & Output 06/26/19 06/27/19 06/28/19 06:59 06:59 06:59 Weight 91.6 kg General appearance: PRESENT: no acute distress, cooperative, other - Hoarse voice which he states has been present since prolonged intubation in 2017 Head exam: PRESENT: normocephalic Eye exam: PRESENT: EOMI Mouth exam: PRESENT: neck supple Neck exam: PRESENT: JVD Respiratory exam: PRESENT: chest wall tenderness, crackles - Basilar, symm etrical, unlabored. ABSENT: tachypnea, wheezes Cardiovascular exam: PRESENT: irregular rhythm, +S1, +S2, tachycardia. ABSENT: RRR GI/Abdominal exam: PRESENT: normal bowel sounds, soft, tenderness. ABSENT: rebound, rigid Extremities exam: PRESENT: pedal edema - Trace bilateral pedal edema Neurological exam: PRESENT: alert, awake, oriented to person, oriented to place, oriented to time Psychiatric exam: ABSENT: agitated, anxious Focused psych exam: ABSENT: pressured speech Skin exam: ABSENT: jaundice Results Laboratory Results: 06/27/19 10:13 06/27/19 10:13 06/27/19 06/27/19 10:13 10:13 WBC 7.3 RBC 4.37 Hgb 13.6 Hct 38.6 MCV 89 MCH 31.2 MCHC 35.2 RDW 13.6 Plt Count 187 Seg Neutrophils % 75.5 Sodium 141.8 Potassium 4.0 Chloride 110 H Carbon Dioxide 21 L Anion Gap 11 BUN 30 H Creatinine 1.88 H Est GFR ( Amer) 46 L Glucose 103 Calcium 9.1 Total Bilirubin 1.2 AST 26 Alkaline Phosphatase 76 Total Protein 6.4 Albumin 3.6 06/27/19 06/27/19 10:13 13:20 Troponin I 0.063 0.059 NT-Pro-B Natriuret Pep 8690 H Impressions: Chest X-Ray 06/27/19 10:04 IMPRESSION: CARDIOMEGALY. INTERSTITIAL PROMINENCE MAY BE DUE TO A COMBINATION OF SCARRING AND MILD INTERSTITIAL EDEMA. Assessment and Plan - Diagnosis (1) Acute congestive heart failure Qualifiers: Heart failure type: unspecified Qualified Code(s): I50.9 - Heart failure, unspecified Is this a current diagnosis for this admission?: Yes Plan: Chest x-ray image and results reviewed by me showing evidence of pulmonary edema, BNP significantly elevated, evidence of heart failure on physical exam. It seems to be a new diagnosis Check echocardiogram EF undetermined at this time Strict I's and O's, telemetry, 1200 cc fluid restriction, daily weights Start on Lasix IV 40 mg twice daily Patient was taking labetalol at home. I will continue on Coreg at this time given in uncontrolled A. fib. (2) Hypertension Is this a current diagnosis for this admission?: Yes Plan: Home regimen: Amlodipine and labetalol-these have been stopped. Started on losartan and Coreg. (3) Chest pain Is this a current diagnosis for this admission?: Yes Plan: Denies prior history of coronary artery disease. Showed troponin leak likely secondary to demand ischemia from decompensated heart failure. Cardiology following We will check for response to nitroglycerin sublingual (4) Chronic atrial fibrillation Is this a current diagnosis for this admission?: Yes Plan: Undetermined if paroxysmal versus persistent. I will put on Coreg at this time despite decompensated heart failure as heart rate is still above 110 Patient will need to be on anticoagulation given chads Vasc of 2 Will put on therapeutic Lovenox and work towards converting to an affordable anticoagulation. Patient was not taking Eliquis because he could not afford it. (5) Tobacco abuse Is this a current diagnosis for this admission?: Yes Plan: nicotine replacement offered
--- NOTE | 2019-06-27 17:11 | PDOC CONSULTATION ---
Consultation Consult Date: 06/27/19 Attending physician:: ROGER STEWART Provider Consulted: ALEJANDRO MANCINI Consult reason:: Congestive heart failure History of Present Illness Admission Date/PCP: 06/27/19 14:59 RACHANA GARCIA PA-C Patient complains of: Dyspnea History of Present Illness: JOHN PADILLA is a 54 year old male With medical history significant for type B aortic dissection. He underwent femorofemoral bypass surgery as a TEVAR procedure could not be performed due to inability to maintain access to the true lumen of the aortic dissection. The surgery was complicated by acute renal shutdown. Patient was subsequently transferred to [facility] where apparently thoracic aortic stent was subsequently placed. This is apparent on the chest x-ray and per discussion with patient all the records are not available. Patient reports atrial fibrillation of unknown chronicity but probably more than 5 years by patient report. He was given samples of apixaban but after exhausting the samples he decided not to pursue therapy. There is no report of prior stroke. He is not known to have congestive heart failure but now presents with symptoms suggestive of that including paroxysmal nocturnal dyspnea as well as dyspnea on exertion. Presently has conversational dyspnea but no chest pain. In the emergency room his atrial fibrillation rate was mildly increased initially but at the time of my evaluation his ventricular rate is much better at about 82 bpm. He said he would dabble in spirits-presently drinks up to 3 light beers per day. He does report use of marijuana. He does report tobacco smoking. Presently does not smoke. No familial illnesses reported. Past Medical History Cardiac Medical History: Reports: Atrial Fibrillation, DVT, Hypertension Denies: Congestive Heart Failure Pulmonary Medical History: Denies: Asthma, Chronic Obstructive Pulmonary Disease (COPD) GI Medical History: Reports: Gastroesophageal Reflux Disease Psychiatric Medical History: Reports: Depression Past Surgical History Past Surgical History: Reports: Vascular Surgery - femoral bypass Social History Smoking Status: Current Every Day Smoker - States that he quit 4 days ago Electronic Cigarette use?: No Frequency of Alcohol Use: Social - Drinks 2-3 beers almost every day. Last drink was 4 days ago. Hx Recreational Drug Use: Yes Drugs: Marijuana Hx Prescription Drug Abuse: No - Advance Directive Resuscitation Status: Full Code Family History Family History: Hypertension, Other Parental Family History Reviewed: No - No familial illnesses Children Family History Reviewed: NA Sibling(s) Family History Reviewed.: NA Medication/Allergy Home Medications: Amlodipine Besylate [Norvasc 5 mg Tablet] 5 mg PO DAILY 02/27/19 Aspirin [Ecotrin 81 mg EC Tablet] 81 mg PO DAILY 02/27/19 Pravastatin Sodium [Pravachol] 40 mg PO DAILY 02/27/19 Labetalol HCl [Normodyne 200 mg Tablet] 200 mg PO Q12 06/27/19 Sertraline HCl 50 mg PO DAILY 06/27/19 Allergies/Adverse Reactions: No Known Allergies Allergy (Verified 06/27/19 09:59) Review of Systems Constitutional: ABSENT: as per HPI, anorexia, chills, fatigue, fever(s), headache(s), night sweats, weakness, weight gain, weight loss, other Nose, Mouth, and Throat: PRESENT: as per HPI Cardiovascular: PRESENT: dyspnea on exertion, other - PND Respiratory: PRESENT: dyspnea Physical Exam Vital Signs: Temp Pulse Resp BP Pulse Ox 97.6 F 85 27 H 154/124 H 95 06/27/19 09:56 06/27/19 09:56 06/27/19 14:01 06/27/19 14:01 06/27/19 14:01 Intake & Output 06/26/19 06/27/19 06/28/19 06:59 06:59 06:59 Weight 91.6 kg General appearance: PRESENT: no acute distress, cooperative, well-developed Head exam: PRESENT: atraumatic, normocephalic Eye exam: PRESENT: conjunctiva pink, EOMI Mouth exam: PRESENT: moist Neck exam: PRESENT: JVD Respiratory exam: PRESENT: accessory muscle use, crackles, decreased breath sounds, symmetrical, unlabored Cardiovascular exam: PRESENT: irregular rhythm, +S1, +S2 Pulses: PRESENT: normal radial pulses GI/Abdominal exam: PRESENT: soft Rectal exam: PRESENT: deferred Musculoskeletal exam: PRESENT: normal inspection Neurological exam: PRESENT: alert, awake, oriented to person, oriented to place, oriented to time Psychiatric exam: PRESENT: appropriate affect Skin exam: PRESENT: dry, intact, normal color Results Laboratory Results: 06/27/19 10:13 06/27/19 10:13 06/27/19 06/27/19 10:13 10:13 WBC 7.3 RBC 4.37 Hgb 13.6 Hct 38.6 MCV 89 MCH 31.2 MCHC 35.2 RDW 13.6 Plt Count 187 Seg Neutrophils % 75.5 Sodium 141.8 Potassium 4.0 Chloride 110 H Carbon Dioxide 21 L Anion Gap 11 BUN 30 H Creatinine 1.88 H Est GFR ( Amer) 46 L Glucose 103 Calcium 9.1 Total Bilirubin 1.2 AST 26 Alkaline Phosphatase 76 Total Protein 6.4 Albumin 3.6 06/27/19 06/27/19 10:13 13:20 Troponin I 0.063 0.059 NT-Pro-B Natriuret Pep 8690 H EKG Comments: Twelve-lead EKG. 06/27/2019 Atrial fibrillation with ventricular rate at 103 bpm. Left ventricular hypertrophy. Lateral T inversions. Nonspecific T wave inversion. Probable repolarization abnormality in account of left ventricular hypertrophy. Telemetry shows atrial fibrillation controlled ventricular response at 82 bpm. Impressions: Chest X-Ray 06/27/19 10:04 IMPRESSION: CARDIOMEGALY. INTERSTITIAL PROMINENCE MAY BE DUE TO A COMBINATION OF SCARRING AND MILD INTERSTITIAL EDEMA. Status: Image reviewed by [place] - Thoracic aortic stent is visible. Interstitial scarring versus edema in the lungs. Assessment & Plan - Diagnosis (1) Chronic atrial fibrillation Is this a current diagnosis for this admission?: Yes Plan: Difficult to establish chronicity of atrial fibrillation Given risk factors including vascular disease and probable hypertension systemic anticoagulation is recommended Patient apparently has been noncompliant although anticoagulation was recommended Agree with use of Lovenox with potential transition to an oral agent. Low-dose beta-ann for rate control. We will obtain transthoracic echocardiogram to evaluate left ventricular ejection fraction and assess chamber size and exclude valvular heart disease. (2) Tobacco abuse Is this a current diagnosis for this admission?: Yes Plan: Patient says that he stop smoking cigarettes 7 days prior. (3) Acute congestive heart failure Qualifiers: Heart failure type: unspecified Qualified Code(s): I50.9 - Heart failure, unspecified Is this a current diagnosis for this admission?: Yes Plan: Symptom suggestive of new onset congestive heart failure Low-dose diuretics Watch fluid status Low-dose beta-ann Obtain transthoracic echocardiogram
[2019-06-27] MEDS ORDERED: LOSARTAN POTASSIUM 50 MG TABLET PO ONE (17:45)
[2019-06-27] MEDS: FUROSEMIDE INJ/PF 40 MG/4 ML SDV IV SCH (18:42)
[2019-06-27] MEDS ORDERED: METOPROLOL TARTRATE PF/INJ 5 MG/5 ML SDV IV ONE (19:09)
[2019-06-27] MEDS: CARVEDILOL 6.25 MG TABLET PO SCH (19:14)
[2019-06-27] MEDS: ATORVASTATIN CALCIUM 20 MG TABLET PO SCH (21:34)
[2019-06-27] MEDS: ENOXAPARIN SODIUM INJ 100 MG/1 ML DISP.SYRIN SUBCUT SCH (21:34)
[2019-06-27] MEDS ORDERED: CARVEDILOL 6.25 MG TABLET PO SCH (22:00)
--- NOTE | 2019-06-27 22:07 | XCELERA REPORT ---
[address] [address] Transthoracic Echocardiogram Report Name: JOHN PADILLA Age: 54 yrs Gender: Male : 1965 Patient Status: Inpatient Patient Location: [address] [place], [place] [id number] Study Date: 06/27/2019 05:08 PM History: Type B arotic dissection CHF Height: 69 in Weight: 201 lb BSA: 2.1 m2 Procedure: A complete two-dimensional transthoracic echocardiogram was performed (2D, M-mode, spectral and color flow Doppler). The study was technically difficult with many images being suboptimal in quality. Reason For Study: chf, hx of aortic dissection. Dr Simons to read. Previous Evaluation: No previous studies were available. History: CHF. Smoker: current. Vascular surgeries/interventions: Type B aortic dissection s/p stent. Ordering Physician: ROGER STEWART Performed By: Tayler Sheldon Interpretation Summary The study was technically difficult with many images being suboptimal in quality. Left ventricular systolic function is moderate to severely reduced. The Ejection Fraction estimate is 20-25% The right ventricular systolic function is mildly reduced. There is a mild amount of mitral regurgitation There is a trace to mild amount of aortic regurgitation There is no aortic valve stenosis There is mild pulmonary hypertension by echo There is no pericardial effusion. MMode/2D Measurements & Calculations RVDd: 3.0 cm LVIDd: 5.3 cm FS: 11.1 % Ao root diam: 3.6 cm IVSd: 1.4 cm LVIDs: 4.7 cm EDV(Teich): Ao root area: LVPWd: 1.3 cm 135.6 ml 10.3 cm2 ESV(Teich): LA dimension: 4.5 cm 103.2 ml EF(Teich): 23.9 % LVLd ap4: 8.4 cm SV(MOD-sp4): EDV(MOD-sp4): 28.0 ml 140.0 ml LVLs ap4: 7.9 cm ESV(MOD-sp4): 112.0 ml EF(MOD-sp4): 20.0 % Doppler Measurements & Calculations MV E max delvin: MV P1/2t max delvin: Ao V2 max: AI max delvin: 88.8 cm/sec 87.5 cm/sec 97.0 cm/sec 390.9 cm/sec MV A max delvin: MV P1/2t: 39.7 msec Ao max PG: AI max P.0 cm/sec MVA(P1/2t): 5.5 cm2 3.8 mmHg 61.1 mmHg MV E/A: 2.3 MV dec slope: AI dec slope: 644.8 cm/sec2 165.3 cm/sec2 MV dec time: AI P1/2t: 0.16 sec 692.7 msec LV V1 max PG: PA V2 max: PI end-d delvin: TR max delvin: 1.6 mmHg 66.1 cm/sec 109.5 cm/sec 249.2 cm/sec LV V1 max: PA max P.7 mmHg TR max P.1 cm/sec 24.8 mmHg AV P1/2t-pr_phl: MV P1/2t-pr_phl: 707.0 msec 39.7 msec Left Ventricle The left ventricle is mildly to moderately dilated. There is severe concentric left ventricular hypertrophy. Left ventricular systolic function is moderate to severely reduced. The Ejection Fraction estimate is 20-25%. Doppler measurements suggest pseudonormalized left ventricular relaxation, which is associated with grade II/IV or mild to moderate diastolic dysfunction. There is moderate to severe global hypokinesis of the left ventricle. Right Ventricle The right ventricle is normal size. The right ventricular systolic function is mildly reduced. Atria The right atrium is borderline dilated. The left atrium is moderately dilated. The interatrial septum is intact with no evidence for an atrial septal defect. Mitral Valve The mitral valve leaflets are sclerotic, but show no functional abnormalities. There is no mitral valve stenosis. There is a mild amount of mitral regurgitation. Aortic Valve The aortic valve opens well. There is no aortic valve stenosis. There is a trace to mild amount of aortic regurgitation. Tricuspid Valve The tricuspid valve is normal in structure and function. There is no tricuspid stenosis. There is a mild amount of tricuspid regurgitation. Best estimated right ventricular systolic pressure is elevated at 40-50mmHg. There is mild pulmonary hypertension by echo. Pulmonic Valve The pulmonic valve is normal in structure and function. There is a trace or physiologic amount of pulmonic regurgitation. Great Vessels The aortic root is normal size. Effusions There is no pericardial effusion. : ROGER STEWART Anil
[2019-06-28 05:24] LABS: APPEARANCE,URINE CLEAR; BILIRUBIN,URINE NEGATIVE (NEGATIVE); COLOR,URINE YELLOW; GLUCOSE, URINE NEGATIVE (NEGATIVE); KETONES,URINE NEGATIVE (NEGATIVE); LEUKOCYTE ESTERASE,URINE SMALL (NEGATIVE); NITRITE,URINE NEGATIVE (NEGATIVE); PROTEIN,URINE 30 mg/dL (NEGATIVE); URINE SPECIFIC GRAVITY 1.013; UROBILINOGEN,URINE NEGATIVE mg/dL (<2.0)
[2019-06-28 06:25] LABS: HEMATOCRIT 41.6 % (37.9-51.0); HEMOGLOBIN 14.3 g/dL (13.5-17.0); MEAN CORPUSCULAR HEMOGLOBIN 30.4 pg (27.0-33.4); MEAN CORPUSCULAR HGB CONC 34.3 g/dL (32.0-36.0); MEAN CORPUSCULAR VOLUME 89 fl (80-97); PLATELET COUNT 192 10^3/uL (150-450); RED CELL DISTRIBUTION WIDTH 13.2 % (11.5-14.0); WHITE BLOOD COUNT 6.7 10^3/uL (4.0-10.5)
[2019-06-28 06:28] LABS: INTERNATIONAL RATION (INR) 1.15; PROTHROMBIN TIME 14.7 SEC (11.4-15.4)
[2019-06-28 06:29] LABS: PARTIAL THROMBOPLASTIN TIME 34.7 SEC (23.5-35.8)
[2019-06-28 07:03] LABS: ALBUMIN 3.8 g/dL (3.5-5.0); ALKALINE PHOSPHATASE 80 U/L (38-126); ANION GAP 9 (5-19); ASPARTATE AMINO TRANSFERASE 25 U/L (17-59); BILIRUBIN,DIRECT 0.1 mg/dL (0.0-0.4); BLOOD UREA NITROGEN 32 mg/dL (7-20); CALCIUM 9.4 mg/dL (8.4-10.2); CARBON DIOXIDE 28 mmol/L (22-30); CHLORIDE 105 mmol/L (98-107); GLUCOSE 84 mg/dL (75-110); POTASSIUM 3.9 mmol/L (3.6-5.0); TOTAL PROTEIN 6.4 g/dL (6.3-8.2)
--- NOTE | 2019-06-28 07:35 | EKG REPORT ---
SEVERITY:- ABNORMAL ECG - ATRIAL FIBRILLATION, V-RATE 72-97 LEFT VENTRICULAR HYPERTROPHY ABNORMAL T, CONSIDER ISCHEMIA, ANT-LAT LEADS BORDERLINE PROLONGED QT INTERVAL : Confirmed by: Reynaldo Gutiérrez MD 28-Jun-2019 07:34:49
[2019-06-28] MEDS: ENOXAPARIN SODIUM INJ 100 MG/1 ML DISP.SYRIN SUBCUT SCH ×2 (09:22→21:28)
[2019-06-28] MEDS: FUROSEMIDE INJ/PF 40 MG/4 ML SDV IV SCH ×2 (09:22→17:22)
[2019-06-28] MEDS: SERTRALINE HCL 50 MG TABLET PO SCH (09:23)
[2019-06-28] MEDS: ASPIRIN 81 MG TABLET, ENT COATED PO SCH (09:23)
[2019-06-28] MEDS: CARVEDILOL 6.25 MG TABLET PO SCH ×2 (09:23→21:27)
[2019-06-28] MEDS ORDERED: LOSARTAN POTASSIUM 50 MG TABLET PO SCH (10:00)
[2019-06-28] MEDS ORDERED: LOSARTAN POTASSIUM 25 MG TABLET PO ONE (11:30)
--- NOTE | 2019-06-28 12:58 | PDOC PROGRESS REPORT ---
Subjective Progress Note for:: 06/28/19 Subjective:: Patient is complaining of shortness of breath today. Denies any chest pain at this time. Denies any lightheadedness. Reason For Visit: CHF Physical Exam Vital Signs: Temp Pulse Resp BP Pulse Ox 97.7 F 97 20 140/110 H 99 06/28/19 11:12 06/28/19 11:12 06/28/19 11:12 06/28/19 11:12 06/28/19 11:12 Intake & Output 06/27/19 06/28/19 06/29/19 06:59 06:59 06:59 Intake Total 900 Output Total 2100 Balance -1200 Weight 94.2 kg General appearance: PRESENT: no acute distress, cooperative Neck exam: PRESENT: JVD Respiratory exam: PRESENT: crackles, unlabored. ABSENT: accessory muscle use, tachypnea, wheezes Cardiovascular exam: PRESENT: RRR, +S1, +S2. ABSENT: tachycardia GI/Abdominal exam: PRESENT: soft, tenderness. ABSENT: rebound, rigid Extremities exam: ABSENT: pedal edema Neurological exam: PRESENT: alert, awake Results Laboratory Results: 06/28/19 05:22 06/28/19 05:22 06/28/19 06/28/19 06/28/19 05:10 05:22 05:22 WBC 6.7 RBC 4.70 Hgb 14.3 Hct 41.6 MCV 89 MCH 30.4 MCHC 34.3 RDW 13.2 Plt Count 192 Sodium 141.9 Potassium 3.9 Chloride 105 Carbon Dioxide 28 Anion Gap 9 BUN 32 H Creatinine 2.20 H Est GFR ( Amer) 38 L Glucose 84 Calcium 9.4 Phosphorus 4.0 Magnesium 2.3 Total Bilirubin 1.0 AST 25 Alkaline Phosphatase 80 Total Protein 6.4 Albumin 3.8 TSH Urine Color YELLOW Urine Appearance CLEAR Urine pH 6.0 Ur Specific [place] 1.013 Urine Protein 30 H Urine Glucose (UA) NEGATIVE Urine Ketones NEGATIVE Urine Blood NEGATIVE Urine Nitrite NEGATIVE Ur Leukocyte Esterase SMALL H Urine WBC (Auto) 3 Urine RBC (Auto) 0 06/28/19 05:22 WBC RBC Hgb Hct MCV MCH MCHC RDW Plt Count Sodium Potassium Chloride Carbon Dioxide Anion Gap BUN Creatinine Est GFR ( Amer) Glucose Calcium Phosphorus Magnesium Total Bilirubin AST Alkaline Phosphatase Total Protein Albumin TSH 1.97 Urine Color Urine Appearance Urine pH Ur Specific [place] Urine Protein Urine Glucose (UA) Urine Ketones Urine Blood Urine Nitrite Ur Leukocyte Esterase Urine WBC (Auto) Urine RBC (Auto) 06/27/19 06/27/19 10:13 13:20 Troponin I 0.063 0.059 NT-Pro-B Natriuret Pep 8690 H Impressions: Chest X-Ray 06/27/19 10:04 IMPRESSION: CARDIOMEGALY. INTERSTITIAL PROMINENCE MAY BE DUE TO A COMBINATION OF SCARRING AND MILD INTERSTITIAL EDEMA. Assessment and Plan - Diagnosis (1) Acute congestive heart failure Qualifiers: Heart failure type: combined systolic and diastolic Qualified Code(s): I50.41 - Acute combined systolic (congestive) and diastolic (congestive) heart failure Is this a current diagnosis for this admission?: Yes Plan: New onset CHF. Possible etiologies include alcohol abuse, longstanding hypertension amongst others. Ischemic cardiomyopathy will have to be ruled out with [facility] in outpatient setting. Echocardiogram showing moderate to severe LV systolic dysfunction with EF of 20 to 25%, grade 2 diastolic dysfunction, dilated heart chambers and RVSP of 40- 50mmHg Strict I's and O's, telemetry, 1200 cc fluid restriction, daily weights Continue Lasix IV 40 mg twice daily while monitoring renal function Continue Coreg and losartan Maintain on telemetry Cardiology following (2) Hypertension Qualifiers: Hypertension type: essential hypertension Qualified Code(s): I10 - Essential (primary) hypertension Is this a current diagnosis for this admission?: Yes Plan: Home regimen: Amlodipine and labetalol-these have been stopped. Started on losartan and Coreg. Adjust medications as needed. (3) Chest pain Is this a current diagnosis for this admission?: Yes Plan: None currently. Denies prior history of coronary artery disease. Showed troponin leak likely secondary to demand ischemia from decompensated heart failure. Nitroglycerin sublingual as needed. (4) Chronic atrial fibrillation Is this a current diagnosis for this admission?: Yes Plan: Undetermined if paroxysmal versus persistent. Continue Coreg. Patient will need to be on anticoagulation given chads Vasc of 2 Will put on therapeutic Lovenox and work towards converting to an affordable anticoagulation. Patient was not taking Eliquis because he could not afford it. I will have discharge planning looking to potential options for fatigability of this medication or coupons. (5) Tobacco abuse Is this a current diagnosis for this admission?: Yes Plan: nicotine replacement offered - Time Time Spent with patient: 15-24 minutes
[2019-06-28] MEDS ORDERED: POTASSIUM CHLORIDE 10 MEQ TABLET.ER PO SCH (13:30)
--- NOTE | 2019-06-28 14:05 | PDOC PROGRESS REPORT ---
Subjective Progress Note for:: 06/28/19 Subjective:: Symptomatically feels better. Breathing better. Telemetry shows atrial fibrillation with controlled ventricular response Reason For Visit: CHF Physical Exam Vital Signs: Temp Pulse Resp BP Pulse Ox 97.7 F 97 20 140/110 H 99 06/28/19 11:12 06/28/19 11:12 06/28/19 11:12 06/28/19 11:12 06/28/19 11:12 Intake & Output 06/27/19 06/28/19 06/29/19 06:59 06:59 06:59 Intake Total 900 358 Output Total 2100 1500 Balance -1200 -1142 Weight 94.2 kg General appearance: PRESENT: cooperative, well-developed Head exam: PRESENT: atraumatic, normocephalic Eye exam: PRESENT: conjunctiva pink, EOMI Mouth exam: PRESENT: moist Neck exam: PRESENT: JVD Respiratory exam: PRESENT: decreased breath sounds, symmetrical, unlabored Cardiovascular exam: PRESENT: irregular rhythm, +S1, +S2 Pulses: PRESENT: normal radial pulses GI/Abdominal exam: PRESENT: soft Rectal exam: PRESENT: deferred Musculoskeletal exam: PRESENT: normal inspection Neurological exam: PRESENT: alert, awake, oriented to person, oriented to place, oriented to time, oriented to situation Psychiatric exam: PRESENT: appropriate affect Skin exam: PRESENT: dry, intact, normal color Results Laboratory Results: 06/28/19 05:22 06/28/19 05:22 06/28/19 06/28/19 06/28/19 05:10 05:22 05:22 WBC 6.7 RBC 4.70 Hgb 14.3 Hct 41.6 MCV 89 MCH 30.4 MCHC 34.3 RDW 13.2 Plt Count 192 Sodium 141.9 Potassium 3.9 Chloride 105 Carbon Dioxide 28 Anion Gap 9 BUN 32 H Creatinine 2.20 H Est GFR ( Amer) 38 L Glucose 84 Calcium 9.4 Phosphorus 4.0 Magnesium 2.3 Total Bilirubin 1.0 AST 25 Alkaline Phosphatase 80 Total Protein 6.4 Albumin 3.8 TSH Urine Color YELLOW Urine Appearance CLEAR Urine pH 6.0 Ur Specific [place] 1.013 Urine Protein 30 H Urine Glucose (UA) NEGATIVE Urine Ketones NEGATIVE Urine Blood NEGATIVE Urine Nitrite NEGATIVE Ur Leukocyte Esterase SMALL H Urine WBC (Auto) 3 Urine RBC (Auto) 0 06/28/19 05:22 WBC RBC Hgb Hct MCV MCH MCHC RDW Plt Count Sodium Potassium Chloride Carbon Dioxide Anion Gap BUN Creatinine Est GFR ( Amer) Glucose Calcium Phosphorus Magnesium Total Bilirubin AST Alkaline Phosphatase Total Protein Albumin TSH 1.97 Urine Color Urine Appearance Urine pH Ur Specific [place] Urine Protein Urine Glucose (UA) Urine Ketones Urine Blood Urine Nitrite Ur Leukocyte Esterase Urine WBC (Auto) Urine RBC (Auto) 06/27/19 06/27/19 10:13 13:20 Troponin I 0.063 0.059 NT-Pro-B Natriuret Pep 8690 H EKG Comments: Telemetry shows atrial fibrillation with controlled ventricular response Echocardiogram showed severe left ventricular dysfunction with ejection fraction estimated at 20 to 25%. Impressions: Chest X-Ray 06/27/19 10:04 IMPRESSION: CARDIOMEGALY. INTERSTITIAL PROMINENCE MAY BE DUE TO A COMBINATION OF SCARRING AND MILD INTERSTITIAL EDEMA. Assessment & Plan - Diagnosis (1) Chronic atrial fibrillation Is this a current diagnosis for this admission?: Yes Plan: Duration of atrial fibrillation is unclear. It appears to have been chronic. Patient was initially started on systemic anticoagulation with apixaban. He subsequently decided not to pursue anticoagulation due to economic issues. Presently asymptomatic with rate controlled atrial fibrillation. Given left ventricular dysfunction as well as hypertension patient needs to be on systemic anticoagulation. Hopefully this can be pursued. (2) Tobacco abuse Is this a current diagnosis for this admission?: Yes Plan: Patient was counseled regarding nicotine dependence. (3) Acute congestive heart failure Qualifiers: Heart failure type: combined systolic and diastolic Qualified Code(s): I50.41 - Acute combined systolic (congestive) and diastolic (congestive) heart failure Is this a current diagnosis for this admission?: Yes Plan: Acute decompensated congestive heart failure-systolic Gradually responding to diuretics. Institution of guideline directed medical therapy with beta-blockers and ARB. (4) Dilated cardiomyopathy Is this a current diagnosis for this admission?: Yes Plan: Although records are not available it appears that this is a new finding for this patient. cardiac catheterization has to be pursued to establish absence of triple-vessel disease and left main disease in this young patient. This can be pursued as an outpatient once we medically optimized his heart failure.
[2019-06-28] MEDS ORDERED: CARVEDILOL 6.25 MG TABLET PO ONE (15:26)
[2019-06-28] MEDS: LOSARTAN POTASSIUM 50 MG TABLET PO SCH (17:22)
[2019-06-28] MEDS: METOPROLOL TARTRATE PF/INJ 5 MG/5 ML SDV IV PRN (19:44)
[2019-06-28] MEDS: ATORVASTATIN CALCIUM 20 MG TABLET PO SCH (21:28)
[2019-06-28 21:48] LABS: APPEARANCE,URINE CLEAR; BILIRUBIN,URINE NEGATIVE (NEGATIVE); COLOR,URINE STRAW; GLUCOSE, URINE NEGATIVE (NEGATIVE); KETONES,URINE NEGATIVE (NEGATIVE); LEUKOCYTE ESTERASE,URINE NEGATIVE (NEGATIVE); NITRITE,URINE NEGATIVE (NEGATIVE); PROTEIN,URINE 30 mg/dL (NEGATIVE); URINE SPECIFIC GRAVITY 1.009; UROBILINOGEN,URINE NEGATIVE mg/dL (<2.0)
[2019-06-29 06:47] LABS: ALBUMIN 3.7 g/dL (3.5-5.0); ALKALINE PHOSPHATASE 81 U/L (38-126); ANION GAP 11 (5-19); ASPARTATE AMINO TRANSFERASE 21 U/L (17-59); BILIRUBIN,DIRECT 0.3 mg/dL (0.0-0.4); BILIRUBIN,TOTAL 0.9 mg/dL (0.2-1.3); BLOOD UREA NITROGEN 33 mg/dL (7-20); CALCIUM 9.2 mg/dL (8.4-10.2); CARBON DIOXIDE 28 mmol/L (22-30); CHLORIDE 103 mmol/L (98-107); GLUCOSE 87 mg/dL (75-110); POTASSIUM 3.9 mmol/L (3.6-5.0); TOTAL PROTEIN 6.6 g/dL (6.3-8.2)
[2019-06-29] MEDS: LOSARTAN POTASSIUM 50 MG TABLET PO SCH ×2 (06:59→17:28)
[2019-06-29] MEDS: METOPROLOL TARTRATE PF/INJ 5 MG/5 ML SDV IV PRN ×2 (08:08→19:17)
--- NOTE | 2019-06-29 08:12 | CDI QUERY ---
<LILY JULIAN - Last Filed: 06/29/19 08:11> CDI Query CDI Review: Dear TERRY, To better reflect your patients severity of illness, morbidity, and resource utilization Please LINK any condition to present on admission, if applicable. The terms probable, suspected, likely, possible or still to be ruled out may be used. If you agree, please add to the Progress Notes and Discharge Summary Query Clinical indicators ACUTE RENAL FAILURE? ACUTE ON CHRONIC RENAL FAILURE? CKD STAGE 3? CKD STAGE 4? BUN 30, 32, 33 Cr 1.88, 2.20, 2.07 GFR 31-38 STAGE 3 GFR 30-59 Cr 1.4-2.5 STAGE 4 GFR 15-29 Cr 2.5-4.5 Thank you, LILY [facility] Office [phone] <ROGER STEWART - Last Filed: 07/01/19 11:35> CDI Query Agree with Query: Yes - Stage IV CKD
[2019-06-29] MEDS: FUROSEMIDE INJ/PF 40 MG/4 ML SDV IV SCH ×2 (09:56→17:29)
[2019-06-29] MEDS: ASPIRIN 81 MG TABLET, ENT COATED PO SCH (09:56)
[2019-06-29] MEDS: CARVEDILOL 6.25 MG TABLET PO SCH (09:57)
[2019-06-29] MEDS: SERTRALINE HCL 50 MG TABLET PO SCH (09:58)
[2019-06-29] MEDS: ENOXAPARIN SODIUM INJ 100 MG/1 ML DISP.SYRIN SUBCUT SCH (09:58)
[2019-06-29] MEDS: POTASSIUM CHLORIDE 10 MEQ TABLET.ER PO SCH (10:29)
--- NOTE | 2019-06-29 16:48 | PDOC PROGRESS REPORT ---
Subjective Progress Note for:: 06/29/19 Subjective:: Symptomatically feels better. Breathing better. Wants to go home Reason For Visit: CHF Physical Exam Vital Signs: Temp Pulse Resp BP Pulse Ox 98.5 F 130 H 19 117/99 H 98 06/29/19 11:33 06/29/19 14:00 06/29/19 11:33 06/29/19 11:33 06/29/19 11:33 Intake & Output 06/28/19 06/29/19 06/30/19 06:59 06:59 06:59 Intake Total 900 1160 Output Total 2100 2560 Balance -1200 -1400 Weight 94.2 kg 94 kg General appearance: PRESENT: no acute distress, cooperative, well-developed Head exam: PRESENT: atraumatic, normocephalic Eye exam: PRESENT: conjunctiva pink, EOMI Mouth exam: PRESENT: moist Respiratory exam: PRESENT: clear to auscultation lita, symmetrical, unlabored Cardiovascular exam: PRESENT: irregular rhythm, +S1, +S2 Pulses: PRESENT: normal radial pulses GI/Abdominal exam: PRESENT: soft Rectal exam: PRESENT: deferred Neurological exam: PRESENT: alert, awake, oriented to person, oriented to place, oriented to time, oriented to situation Skin exam: PRESENT: dry, intact, normal color Results Laboratory Results: 06/28/19 05:22 06/29/19 04:42 06/28/19 06/29/19 21:20 04:42 Sodium 141.8 Potassium 3.9 Chloride 103 Carbon Dioxide 28 Anion Gap 11 BUN 33 H Creatinine 2.07 H Est GFR ( Amer) 41 L Glucose 87 Calcium 9.2 Magnesium 2.2 Total Bilirubin 0.9 AST 21 Alkaline Phosphatase 81 Total Protein 6.6 Albumin 3.7 Urine Color STRAW Urine Appearance CLEAR Urine pH 7.0 Ur Specific [place] 1.009 Urine Protein 30 H Urine Glucose (UA) NEGATIVE Urine Ketones NEGATIVE Urine Blood SMALL H Urine Nitrite NEGATIVE Ur Leukocyte Esterase NEGATIVE Urine WBC (Auto) 2 Urine RBC (Auto) 1 06/27/19 06/27/19 10:13 13:20 Troponin I 0.063 0.059 NT-Pro-B Natriuret Pep 8690 H Impressions: Chest X-Ray 06/27/19 10:04 IMPRESSION: CARDIOMEGALY. INTERSTITIAL PROMINENCE MAY BE DUE TO A COMBINATION OF SCARRING AND MILD INTERSTITIAL EDEMA. Assessment & Plan - Diagnosis (1) Chronic atrial fibrillation Is this a current diagnosis for this admission?: Yes Plan: Duration of atrial fibrillation is unclear. It appears to have been chronic. Patient was initially started on systemic anticoagulation with apixaban. He subsequently decided not to pursue anticoagulation due to economic issues. Presently asymptomatic with rate controlled atrial fibrillation. Given left ventricular dysfunction as well as hypertension patient needs to be on systemic anticoagulation. Hopefully this can be pursued. (2) Tobacco abuse Is this a current diagnosis for this admission?: Yes Plan: Patient was counseled regarding nicotine dependence. (3) Acute congestive heart failure Qualifiers: Heart failure type: combined systolic and diastolic Qualified Code(s): I50.41 - Acute combined systolic (congestive) and diastolic (congestive) heart failure Is this a current diagnosis for this admission?: Yes Plan: Acute decompensated congestive heart failure-systolic Institution of guideline directed medical therapy with beta-blockers and ARB. (4) Dilated cardiomyopathy Is this a current diagnosis for this admission?: Yes Plan: Although records are not available it appears that this is a new finding for this patient. cardiac catheterization has to be pursued to establish absence of triple-vessel disease and left main disease in this young patient. This can be pursued as an outpatient once we medically optimized his heart failure.
--- NOTE | 2019-06-29 18:53 | PDOC PROGRESS REPORT ---
Subjective Progress Note for:: 06/29/19 Subjective:: Patient's still having some shortness of breath on ambulation. However feels fine at rest. Denies any chest pain at this time. Reason For Visit: CHF Physical Exam Vital Signs: Temp Pulse Resp BP Pulse Ox 97.6 F 79 16 125/94 H 100 06/29/19 16:27 06/29/19 16:27 06/29/19 16:27 06/29/19 16:27 06/29/19 16:27 Intake & Output 06/28/19 06/29/19 06/30/19 06:59 06:59 06:59 Intake Total 900 1160 Output Total 2100 2560 Balance -1200 -1400 Weight 94.2 kg 94 kg General appearance: PRESENT: no acute distress, cooperative Neck exam: PRESENT: JVD Respiratory exam: PRESENT: clear to auscultation ilta, symmetrical, unlabored. ABSENT: tachypnea, wheezes Cardiovascular exam: PRESENT: RRR, +S1, +S2. ABSENT: tachycardia GI/Abdominal exam: PRESENT: normal bowel sounds, soft. ABSENT: rebound, rigid, tenderness Neurological exam: PRESENT: alert, awake, oriented to person, oriented to place, oriented to time Results Laboratory Results: 06/28/19 05:22 06/29/19 04:42 06/28/19 06/29/19 21:20 04:42 Sodium 141.8 Potassium 3.9 Chloride 103 Carbon Dioxide 28 Anion Gap 11 BUN 33 H Creatinine 2.07 H Est GFR ( Amer) 41 L Glucose 87 Calcium 9.2 Magnesium 2.2 Total Bilirubin 0.9 AST 21 Alkaline Phosphatase 81 Total Protein 6.6 Albumin 3.7 Urine Color STRAW Urine Appearance CLEAR Urine pH 7.0 Ur Specific [place] 1.009 Urine Protein 30 H Urine Glucose (UA) NEGATIVE Urine Ketones NEGATIVE Urine Blood SMALL H Urine Nitrite NEGATIVE Ur Leukocyte Esterase NEGATIVE Urine WBC (Auto) 2 Urine RBC (Auto) 1 06/27/19 06/27/19 10:13 13:20 Troponin I 0.063 0.059 NT-Pro-B Natriuret Pep 8690 H Impressions: Chest X-Ray 06/27/19 10:04 IMPRESSION: CARDIOMEGALY. INTERSTITIAL PROMINENCE MAY BE DUE TO A COMBINATION OF SCARRING AND MILD INTERSTITIAL EDEMA. Assessment and Plan - Diagnosis (1) Acute congestive heart failure Qualifiers: Heart failure type: combined systolic and diastolic Qualified Code(s): I50.41 - Acute combined systolic (congestive) and diastolic (congestive) heart failure Is this a current diagnosis for this admission?: Yes Plan: New onset CHF. Possible etiologies include alcohol abuse, longstanding hypertension amongst others. Ischemic cardiomyopathy will have to be ruled out with [facility] in outpatient setting. Echocardiogram showing moderate to severe LV systolic dysfunction with EF of 20 to 25%, grade 2 diastolic dysfunction, dilated heart chambers and RVSP of 40- 50mmHg Strict I's and O's, telemetry, 1200 cc fluid restriction, daily weights Continue Lasix IV 40 mg twice daily while monitoring renal function Continue Coreg and losartan [dose increased] Maintain on telemetry Cardiology following (2) Hypertension Qualifiers: Hypertension type: essential hypertension Qualified Code(s): I10 - Essential (primary) hypertension Is this a current diagnosis for this admission?: Yes Plan: Home regimen: Amlodipine and labetalol-these have been stopped. Started on losartan and Coreg. Adjust medications as needed. (3) Chest pain Is this a current diagnosis for this admission?: Yes Plan: None currently. Denies prior history of coronary artery disease. Showed troponin leak likely secondary to demand ischemia from decompensated heart failure. Nitroglycerin sublingual as needed. (4) Chronic atrial fibrillation Is this a current diagnosis for this admission?: Yes Plan: Undetermined if paroxysmal versus persistent. Continue Coreg. Transitioned from Lovenox to Xarelto today. (5) Tobacco abuse Is this a current diagnosis for this admission?: Yes Plan: nicotine replacement offered - Time Time Spent with patient: 15-24 minutes
[2019-06-29] MEDS: RIVAROXABAN 10 MG TABLET PO SCH (19:19)
[2019-06-29] MEDS: CARVEDILOL 12.5 MG TABLET PO SCH (21:12)
[2019-06-29] MEDS: ATORVASTATIN CALCIUM 20 MG TABLET PO SCH (21:12)
[2019-06-30 05:41] LABS: HEMATOCRIT 44.3 % (37.9-51.0); HEMOGLOBIN 14.9 g/dL (13.5-17.0); MEAN CORPUSCULAR HEMOGLOBIN 29.9 pg (27.0-33.4); MEAN CORPUSCULAR HGB CONC 33.7 g/dL (32.0-36.0); MEAN CORPUSCULAR VOLUME 89 fl (80-97); PLATELET COUNT 185 10^3/uL (150-450); RED BLOOD COUNT 4.99 10^6/uL (4.35-5.55); RED CELL DISTRIBUTION WIDTH 13.3 % (11.5-14.0); WHITE BLOOD COUNT 6.9 10^3/uL (4.0-10.5)
[2019-06-30] MEDS: LOSARTAN POTASSIUM 50 MG TABLET PO SCH ×2 (05:52→18:09)
[2019-06-30 05:59] LABS: ALBUMIN 3.7 g/dL (3.5-5.0); ALKALINE PHOSPHATASE 78 U/L (38-126); ANION GAP 8 (5-19); ASPARTATE AMINO TRANSFERASE 28 U/L (17-59); BILIRUBIN,DIRECT 0.1 mg/dL (0.0-0.4); BILIRUBIN,TOTAL 0.7 mg/dL (0.2-1.3); BLOOD UREA NITROGEN 36 mg/dL (7-20); CALCIUM 9.4 mg/dL (8.4-10.2); CARBON DIOXIDE 28 mmol/L (22-30); CHLORIDE 105 mmol/L (98-107); GLUCOSE 92 mg/dL (75-110); POTASSIUM 3.8 mmol/L (3.6-5.0); TOTAL PROTEIN 6.1 g/dL (6.3-8.2)
[2019-06-30] MEDS: CARVEDILOL 12.5 MG TABLET PO SCH ×2 (09:54→22:10)
[2019-06-30] MEDS: POTASSIUM CHLORIDE 10 MEQ TABLET.ER PO SCH (09:55)
[2019-06-30] MEDS: FUROSEMIDE INJ/PF 40 MG/4 ML SDV IV SCH ×2 (09:55→18:09)
[2019-06-30] MEDS: ASPIRIN 81 MG TABLET, ENT COATED PO SCH (09:55)
[2019-06-30] MEDS: SERTRALINE HCL 50 MG TABLET PO SCH (09:55)
--- NOTE | 2019-06-30 14:01 | RADIOLOGY REPORT (SQ) ---
EXAM DESCRIPTION: KUB/ABDOMEN (SINGLE VIEW) COMPLETED DATE/TIME: 06/30/2019 12:07 pm REASON FOR STUDY: left lower quad pain COMPARISON: CTA of the chest from 02/27/2019. NUMBER OF VIEWS: One view. TECHNIQUE: AP supine views of the abdomen and pelvis were obtained. LIMITATIONS: None. FINDINGS: BOWEL GAS PATTERN: No dilated loops of bowel. CALCIFICATIONS: Bilateral renal calculi that measure up to 12 mm in diameter. SOFT TISSUES: No abnormality. HARDWARE: Endovascular stent in the right renal artery. BONES: No acute findings. OTHER: No other finding. IMPRESSION: 1. Nonobstructive bowel gas pattern. 2. Bilateral nephrolithiasis. TECHNICAL DOCUMENTATION: JOB ID: [id number] 2010 [employer]- All Rights Reserved Reading location - IP/workstation name: [email or web address]
--- NOTE | 2019-06-30 15:22 | PDOC PROGRESS REPORT ---
Subjective Progress Note for:: 06/30/19 Subjective:: Patient is breathing is better today. Patient is diuresing well. He still complains of left lower quadrant pain and some left flank pain. Pain is not similar to his prior episode of diverticulitis. Reason For Visit: CHF Physical Exam Vital Signs: Temp Pulse Resp BP Pulse Ox 97.5 F 58 L 17 131/95 H 98 06/30/19 11:37 06/30/19 11:37 06/30/19 11:37 06/30/19 11:37 06/30/19 11:37 Intake & Output 06/29/19 06/30/19 07/01/19 06:59 06:59 06:59 Intake Total 1160 750 450 Output Total 2560 2750 800 Balance -1400 -2000 -350 Weight 94 kg General appearance: PRESENT: no acute distress, cooperative Neck exam: ABSENT: JVD Respiratory exam: PRESENT: clear to auscultation lita, unlabored. ABSENT: tachypnea, wheezes Cardiovascular exam: PRESENT: RRR, +S1, +S2. ABSENT: tachycardia GI/Abdominal exam: PRESENT: normal bowel sounds, soft, tenderness. ABSENT: distended, firm, guarding, rebound, rigid Musculoskeletal exam: PRESENT: ambulatory Neurological exam: PRESENT: alert, awake, oriented to person, oriented to place, oriented to time Results Laboratory Results: 06/30/19 04:29 06/30/19 04:29 06/30/19 06/30/19 04:29 04:29 WBC 6.9 RBC 4.99 Hgb 14.9 Hct 44.3 MCV 89 MCH 29.9 MCHC 33.7 RDW 13.3 Plt Count 185 Sodium 141.3 Potassium 3.8 Chloride 105 Carbon Dioxide 28 Anion Gap 8 BUN 36 H Creatinine 2.09 H Est GFR ( Amer) 40 L Glucose 92 Calcium 9.4 Magnesium 2.3 Total Bilirubin 0.7 AST 28 Alkaline Phosphatase 78 Total Protein 6.1 L Albumin 3.7 06/27/19 06/27/19 10:13 13:20 Troponin I 0.063 0.059 NT-Pro-B Natriuret Pep 8690 H Impressions: Chest X-Ray 06/27/19 10:04 IMPRESSION: CARDIOMEGALY. INTERSTITIAL PROMINENCE MAY BE DUE TO A COMBINATION OF SCARRING AND MILD INTERSTITIAL EDEMA. KUB X-Ray 06/30/19 09:57 IMPRESSION: 1. Nonobstructive bowel gas pattern. 2. Bilateral nephrolithiasis. Assessment and Plan - Diagnosis (1) Acute congestive heart failure Qualifiers: Heart failure type: combined systolic and diastolic Qualified Code(s): I50.41 - Acute combined systolic (congestive) and diastolic (congestive) heart failure Is this a current diagnosis for this admission?: Yes Plan: New onset CHF. Possible etiologies include alcohol abuse, longstanding hypertension amongst others. Ischemic cardiomyopathy will have to be ruled out with [facility] in outpatient setting. Echocardiogram showing moderate to severe LV systolic dysfunction with EF of 20 to 25%, grade 2 diastolic dysfunction, dilated heart chambers and RVSP of 40- 50mmHg Continue Lasix IV 40 mg twice a day with plan to convert to oral tomorrow. Continue losartan 50 mg twice daily. Continue Coreg. Patient is diuresing well and maintaining net negative balance (2) Abdominal pain Qualifiers: Abdominal location: left lower quadrant Qualified Code(s): R10.32 - Left lower quadrant pain Is this a current diagnosis for this admission?: Yes Plan: KUB obtained which showed bilateral nephrolithiasis otherwise normal bowel gas pattern. We will obtain CT scan to evaluate for potential obstructive nature of the renal calculi. (3) Hypertension Qualifiers: Hypertension type: essential hypertension Qualified Code(s): I10 - Essential (primary) hypertension Is this a current diagnosis for this admission?: Yes Plan: Home regimen: Amlodipine and labetalol-these have been stopped. losartan and Coreg. Adjust medications as needed. (4) Chest pain Is this a current diagnosis for this admission?: Yes Plan: None currently. Denies prior history of coronary artery disease. Showed troponin leak on admission likely secondary to demand ischemia from decompensated heart failure. Nitroglycerin sublingual as needed. (5) Chronic atrial fibrillation Is this a current diagnosis for this admission?: Yes Plan: Undetermined if paroxysmal versus persistent. Continue Coreg and Xarelto. (6) Tobacco abuse Is this a current diagnosis for this admission?: Yes Plan: nicotine replacement offered - Time Time Spent with patient: 15-24 minutes
--- NOTE | 2019-06-30 16:22 | PDOC PROGRESS REPORT ---
Subjective Progress Note for:: 06/30/19 Subjective:: Symptomatically feels better. Breathing better. Reviewed instructions regarding fluid restriction and salt avoidance. Patient has several questions regarding measurement of fluid. I discussed this with him. No symptoms are endorsed today. Reason For Visit: CHF Physical Exam Vital Signs: Temp Pulse Resp BP Pulse Ox 97.5 F 58 L 17 131/95 H 98 06/30/19 11:37 06/30/19 11:37 06/30/19 11:37 06/30/19 11:37 06/30/19 11:37 Intake & Output 06/29/19 06/30/19 07/01/19 06:59 06:59 06:59 Intake Total 1160 750 450 Output Total 2560 2750 800 Balance -1400 -2000 -350 Weight 94 kg General appearance: PRESENT: no acute distress, well-developed Head exam: PRESENT: atraumatic, normocephalic Eye exam: PRESENT: EOMI Mouth exam: PRESENT: moist Neck exam: PRESENT: JVD Cardiovascular exam: PRESENT: irregular rhythm, +S1, +S2 Pulses: PRESENT: normal radial pulses GI/Abdominal exam: PRESENT: soft Rectal exam: PRESENT: deferred Neurological exam: PRESENT: alert, awake, oriented to person, oriented to place, oriented to time, oriented to situation Psychiatric exam: PRESENT: appropriate affect Skin exam: PRESENT: dry, intact, normal color Results Laboratory Results: 06/30/19 04:29 06/30/19 04:29 06/30/19 06/30/19 04:29 04:29 WBC 6.9 RBC 4.99 Hgb 14.9 Hct 44.3 MCV 89 MCH 29.9 MCHC 33.7 RDW 13.3 Plt Count 185 Sodium 141.3 Potassium 3.8 Chloride 105 Carbon Dioxide 28 Anion Gap 8 BUN 36 H Creatinine 2.09 H Est GFR ( Amer) 40 L Glucose 92 Calcium 9.4 Magnesium 2.3 Total Bilirubin 0.7 AST 28 Alkaline Phosphatase 78 Total Protein 6.1 L Albumin 3.7 06/27/19 06/27/19 10:13 13:20 Troponin I 0.063 0.059 NT-Pro-B Natriuret Pep 8690 H Impressions: Chest X-Ray 06/27/19 10:04 IMPRESSION: CARDIOMEGALY. INTERSTITIAL PROMINENCE MAY BE DUE TO A COMBINATION OF SCARRING AND MILD INTERSTITIAL EDEMA. KUB X-Ray 06/30/19 09:57 IMPRESSION: 1. Nonobstructive bowel gas pattern. 2. Bilateral nephrolithiasis. Assessment & Plan - Diagnosis (1) Chronic atrial fibrillation Is this a current diagnosis for this admission?: Yes Plan: Duration of atrial fibrillation is unclear. It appears to have been chronic. Patient was initially started on systemic anticoagulation with apixaban. He subsequently decided not to pursue anticoagulation due to economic issues. Asymptomatic. Rate controlled. Patient is hypertensive and has vascular disease with history of type B aortic dissection. He also has congestive heart failure. Increased risk of stroke. He needs to be on systemic anticoagulation. Rivaroxaban is being pursued with input from social work. (2) Tobacco abuse Is this a current diagnosis for this admission?: Yes Plan: Patient was counseled regarding nicotine dependence. Patient has concerns reg arding second hand tobacco smoke from his spouse. I discussed the fact that firsthand smoke inhalation is more injurious than secondhand smoke and he advised that he try to quit. (3) Acute congestive heart failure Qualifiers: Heart failure type: combined systolic and diastolic Qualified Code(s): I50.41 - Acute combined systolic (congestive) and diastolic (congestive) heart failure Is this a current diagnosis for this admission?: Yes Plan: Acute decompensated congestive heart failure-systolic Institution of guideline directed medical therapy with beta-blockers and ARB. (4) Dilated cardiomyopathy Is this a current diagnosis for this admission?: Yes Plan: Although records are not available it appears that this is a new finding for this patient. cardiac catheterization has to be pursued to establish absence of triple-vessel disease and left main disease in this young patient. This can be pursued as an outpatient once we medically optimized his heart failure.
[2019-06-30] MEDS: RIVAROXABAN 10 MG TABLET PO SCH (18:09)
[2019-06-30] MEDS: ATORVASTATIN CALCIUM 20 MG TABLET PO SCH (22:10)
--- NOTE | 2019-07-01 04:07 | RADIOLOGY REPORT (SQ) ---
CLINICAL HISTORY: LLQ pain, nephrolithiasis COMPARISON: None. TECHNIQUE: CT ABDOMEN PELVIS WITHOUT IV CONTRAST on 06/30/2019 12:00 AM [employer]ACT[employer]EL[employer] This exam was performed according to our departmental dose-optimization program, which includes automated exposure control, adjustment of the mA and/or kV according to patient size and/or use of iterative reconstruction technique. FINDINGS: The heart is moderately enlarged. There is a trace left pleural effusion. Abdomen: The liver is normal in appearance. There is no biliary dilatation. Gallbladder is decompressed. The pancreas and spleen are normal in appearance. Adrenal glands are normal. Left kidney severely atrophic containing a lower pole calculus measuring 1 cm. Right kidney is mildly atrophic with a bifurcated mid to lower pole stone measuring 1.1 cm. There is scarring of the anterior mid to lower extent. There is probable dissection of the mid to lower abdominal aorta. There is a femorofemoral bypass graft. There is no free air. There is no retroperitoneal adenopathy. Pelvis: There is mild diverticulosis of the distal colon. Urinary bladder is unremarkable. There is no free fluid. There are bilateral small fat-containing inguinal hernias. Appendix is normal. Skeleton: There are no acute osseous findings. No suspicious bony lesions. IMPRESSION: Bilateral nephrolithiasis without hydronephrosis. Suggestion of distal abdominal aortic dissection. CT angiogram, if possible, is recommended for further evaluation
[2019-07-01] MEDS: LOSARTAN POTASSIUM 50 MG TABLET PO SCH (06:02)
[2019-07-01 06:32] LABS: ANION GAP 10 (5-19); BLOOD UREA NITROGEN 40 mg/dL (7-20); CALCIUM 9.8 mg/dL (8.4-10.2); CARBON DIOXIDE 31 mmol/L (22-30); CHLORIDE 102 mmol/L (98-107); GLUCOSE 99 mg/dL (75-110); POTASSIUM 3.8 mmol/L (3.6-5.0)
[2019-07-01] MEDS: SERTRALINE HCL 50 MG TABLET PO SCH (09:33)
[2019-07-01] MEDS: CARVEDILOL 12.5 MG TABLET PO SCH (09:33)
[2019-07-01] MEDS: ASPIRIN 81 MG TABLET, ENT COATED PO SCH (09:33)
[2019-07-01] MEDS: POTASSIUM CHLORIDE 10 MEQ TABLET.ER PO SCH (09:34)
[2019-07-01] MEDS ORDERED: FUROSEMIDE 40 MG TABLET PO SCH (10:00)
--- NOTE | 2019-07-01 11:36 | PDOC DISCHARGE SUMMARY ---
Impression - Admit/DC Date/PCP Admission Date/Primary Care Provider: 06/27/19 14:59 RACHANA GARCIA PA-C Discharge Date: 07/01/19 - Discharge Diagnosis (1) Acute congestive heart failure Is this a current diagnosis for this admission?: Yes (2) Abdominal pain Is this a current diagnosis for this admission?: Yes (3) Hypertension Is this a current diagnosis for this admission?: Yes (4) Chest pain Is this a current diagnosis for this admission?: Yes (5) Chronic atrial fibrillation Is this a current diagnosis for this admission?: Yes (6) Tobacco abuse Is this a current diagnosis for this admission?: Yes (7) Bilateral nephrolithiasis Is this a current diagnosis for this admission?: Yes (8) CKD (chronic kidney disease), stage III Is this a current diagnosis for this admission?: Yes - Additional Information Resuscitation Status: Full Code Discharge Diet: Cardiac Discharge Activity: Activity As Tolerated, Balance Activity w/Rest, Weigh Daily Referrals: RACHANA GARCIA PA-C [Primary Care Provider] - (Please make follow-up appointment with him in 1 week) ALEJANDRO MANCINI MD [ACTIVE STAFF] - MASSIMO HEREDIA MD [NO LOCAL MD] - Prescriptions: Carvedilol [Coreg 12.5 mg Tablet] 12.5 mg PO Q12 #60 tablet Losartan Potassium [Cozaar 50 mg Tablet] 50 mg PO Q12 #60 tablet Potassium Chloride [Klor-Con 10 Meq Tablet ER] 20 meq PO DAILY #15 tablet.er Furosemide [Lasix] 40 mg PO DAILY #30 tablet Atorvastatin Calcium [Lipitor 40 mg Tablet] 40 mg PO QHS #30 tablet Rivaroxaban [Xarelto 10 mg Tablet] 20 mg PO WSUPPER 30 Days tablet Home Medications: Aspirin [Ecotrin 81 mg EC Tablet] 81 mg PO DAILY 02/27/19 Sertraline HCl 50 mg PO DAILY 06/27/19 Atorvastatin Calcium [Lipitor 40 mg Tablet] 40 mg PO QHS #30 tablet 07/01/19 Carvedilol [Coreg 12.5 mg Tablet] 12.5 mg PO Q12 #60 tablet 07/01/19 Furosemide [Lasix] 40 mg PO DAILY #30 tablet 07/01/19 Losartan Potassium [Cozaar 50 mg Tablet] 50 mg PO Q12 #60 tablet 07/01/19 Potassium Chloride [Klor-Con 10 Meq Tablet ER] 20 meq PO DAILY #15 tablet.er 07/01/19 Rivaroxaban [Xarelto 10 mg Tablet] 20 mg PO WSUPPER 30 Days tablet 07/01/19 History of Present Illiness History of Present Illness: JOHN PADILLA is a 54 year old male with a history of atrial fibrillation, DVT, hypertension, who reports potential aortic dissection with aortic graft placement endovascular in 02/2017, who reports to the hospital with complaints of shortness of breath and worsening dyspnea on exertion for the past 4 days. Patient did notice soft onset about a week ago but has been very prominent over the past 4 days. Patient admits to PND but denies orthopnea at this time. Patient does have mild swelling in his lower extremities. Patient denies any history of congestive heart failure. Patient also reports some soreness in the left chest region as well as the left shoulder. States that happens off and on. Patient denies any fever or chills. Patient denies any recent upper respiratory tract infection. Hospital Course Hospital Course: Patient was diagnosed with acute congestive heart failure and subsequently admitted. Patient was subsequently started on Lasix IV and diuresed effectively. Echocardiogram revealed the patient does have systolic heart failure with ejection fraction of 20 to 25% and dilated cardiomyopathy. Patient was started on losartan and Coreg. His amlodipine and labetalol were discontinued. Patient was also started on Xarelto for his persistent atrial fibrillation given his elevated chads Vasc score. Patient has been seen by wood stock blank handler while in the hospital. Patient's respiratory status has significantly improved and patient has been tolerating well on room air. Ambulated patient today and he had no respiratory distress whatsoever and his heart rate did not persist above 110. Patient's heart failure regimen will be further titrated in the outpatient setting by Dr. Alejandro Mancini and further ischemic work-up will be done and would need consideration of LifeVest at that time. Patient also complained of left lower quadrant pain. He did have a history of diverticulitis but CT abdomen showed no evidence of diverticulitis. He did pickler helper nonobstructive nephrolithiasis involving both kidneys and shrunken kidneys indicating of CKD stage III given his GFR. Patient has been i nstructed to follow-up with delinquent tax collector assistant as well as given information for urologist to follow-up with. Patient has been discharged in stable conditions. Physical Exam Vital Signs: Temp Pulse Resp BP Pulse Ox 97.8 F 39 L 17 127/79 H 97 07/01/19 07:55 07/01/19 07:55 07/01/19 07:55 07/01/19 07:55 07/01/19 07:55 Intake & Output 06/30/19 07/01/19 07/02/19 06:59 06:59 06:59 Intake Total 750 1550 Output Total 2750 2550 Balance -2000 -1000 Weight 94 kg General appearance: PRESENT: no acute distress, cooperative Neck exam: ABSENT: JVD Respiratory exam: PRESENT: clear to auscultation lita Cardiovascular exam: PRESENT: +S1, +S2 Results Laboratory Results: WBC 6.9 10^3/uL (4.0-10.5) 06/30/19 04:29 RBC 4.99 10^6/uL (4.35-5.55) 06/30/19 04:29 Hgb 14.9 g/dL (13.5-17.0) 06/30/19 04:29 Hct 44.3 % (37.9-51.0) 06/30/19 04:29 MCV 89 fl (80-97) 06/30/19 04:29 MCH 29.9 pg (27.0-33.4) 06/30/19 04:29 MCHC 33.7 g/dL (32.0-36.0) 06/30/19 04:29 RDW 13.3 % (11.5-14.0) 06/30/19 04:29 Plt Count 185 10^3/uL (150-450) 06/30/19 04:29 Lymph % (Auto) 15.0 % (13-45) 06/27/19 10:13 [place] % (Auto) 6.6 % (3-13) 06/27/19 10:13 Eos % (Auto) 2.2 % (0-6) 06/27/19 10:13 Baso % (Auto) 0.7 % (0-2) 06/27/19 10:13 Absolute Neuts (auto) 5.5 10^3/uL (1.7-8.2) 06/27/19 10:13 Absolute Lymphs (auto) 1.1 10^3/uL (0.5-4.7) 06/27/19 10:13 Absolute Monos (auto) 0.5 10^3/uL (0.1-1.4) 06/27/19 10:13 Absolute Eos (auto) 0.2 10^3/uL (0.0-0.6) 06/27/19 10:13 Absolute Basos (auto) 0.1 10^3/uL (0.0-0.2) 06/27/19 10:13 Seg Neutrophils % 75.5 % (42-78) 06/27/19 10:13 PT 14.7 SEC (11.4-15.4) 06/28/19 05:22 INR 1.15 06/28/19 05:22 APTT 34.7 SEC (23.5-35.8) 06/28/19 05:22 Sodium 142.7 mmol/L (137-145) 07/01/19 05:36 Potassium 3.8 mmol/L (3.6-5.0) 07/01/19 05:36 Chloride 102 mmol/L (98-107) 07/01/19 05:36 Carbon Dioxide 31 mmol/L (22-30) H 07/01/19 05:36 Anion Gap 10 (5-19) 07/01/19 05:36 BUN 40 mg/dL (7-20) H 07/01/19 05:36 Creatinine 2.23 mg/dL (0.52-1.25) H 07/01/19 05:36 Est GFR ( Amer) 37 (>60) L 07/01/19 05:36 Est GFR (MDRD) Non-Af 31 (>60) L 07/01/19 05:36 Glucose 99 mg/dL (75-110) 07/01/19 05:36 Calcium 9.8 mg/dL (8.4-10.2) 07/01/19 05:36 Phosphorus 4.0 mg/dL (2.5-4.5) 06/28/19 05:22 Magnesium 2.3 mg/dL (1.6-2.3) 07/01/19 05:36 Total Bilirubin 0.7 mg/dL (0.2-1.3) 06/30/19 04:29 Direct Bilirubin 0.1 mg/dL (0.0-0.4) 06/30/19 04:29 Neonat Total Bilirubin Not Reportable 06/30/19 04:29 Neonat Direct Bilirubin Not Reportable 06/30/19 04:29 Neonat Indirect Bili Not Reportable 06/30/19 04:29 AST 28 U/L (17-59) 06/30/19 04:29 ALT 35 U/L (<50) 06/30/19 04:29 Alkaline Phosphatase 78 U/L (38-126) 06/30/19 04:29 Troponin I 0.059 ng/mL 06/27/19 13:20 NT-Pro-B Natriuret Pep 8690 pg/mL (<125) H 06/27/19 10:13 Total Protein 6.1 g/dL (6.3-8.2) L 06/30/19 04:29 Albumin 3.7 g/dL (3.5-5.0) 06/30/19 04:29 TSH 1.97 uIU/mL (0.47-4.68) 06/28/19 05:22 Urine Color STRAW 06/28/19 21:20 Urine Appearance CLEAR 06/28/19 21:20 Urine pH 7.0 (5.0-9.0) 06/28/19 21:20 Ur Specific [place] 1.009 06/28/19 21:20 Urine Protein 30 mg/dL (NEGATIVE) H 06/28/19 21:20 Urine Glucose (UA) NEGATIVE mg/dL (NEGATIVE) 06/28/19 21:20 Urine Ketones NEGATIVE mg/dL (NEGATIVE) 06/28/19 21:20 Urine Blood SMALL (NEGATIVE) H 06/28/19 21:20 Urine Nitrite NEGATIVE (NEGATIVE) 06/28/19 21:20 Urine Bilirubin NEGATIVE (NEGATIVE) 06/28/19 21:20 Urine Urobilinogen NEGATIVE mg/dL (<2.0) 06/28/19 21:20 Ur Leukocyte Esterase NEGATIVE (NEGATIVE) 06/28/19 21:20 Urine WBC (Auto) 2 /HPF 06/28/19 21:20 Urine RBC (Auto) 1 /HPF 06/28/19 21:20 U Hyaline Cast (Auto) 1 /LPF 06/28/19 05:10 Urine Mucus (Auto) RARE /LPF 06/28/19 21:20 Urine Ascorbic Acid NEGATIVE (NEGATIVE) 06/28/19 21:20 06/27/19 06/27/19 10:13 13:20 Troponin I 0.063 0.059 NT-Pro-B Natriuret Pep 8690 H Impressions: Chest X-Ray 06/27/19 10:04 IMPRESSION: CARDIOMEGALY. INTERSTITIAL PROMINENCE MAY BE DUE TO A COMBINATION OF SCARRING AND MILD INTERSTITIAL EDEMA. Abdomen/Pelvis CT 06/30/19 00:00 IMPRESSION: Bilateral nephrolithiasis without hydronephrosis. Suggestion of distal abdominal aortic dissection. CT angiogram, if possible, is recommended for further evaluation KUB X-Ray 06/30/19 09:57 IMPRESSION: 1. Nonobstructive bowel gas pattern. 2. Bilateral nephrolithiasis. Plan Time Spent: Less than 30 Minutes Stroke Is this a Stroke Patient?: No Acute Heart Failure - Is this a Heart Failure Patient?: Yes Documentation of LVEF assessment?: Yes LVEF < 40%?: Yes-if yes answer questions a through e a) Discharged on ACEI?: N/A Discharged on ARB b) Discharges on ARB?: Yes c) Discharged on ARNI?: No-Document Contraindications Reason(s) not discharged on ARNI: VIRAL d) Discharged on evidence-based Beta ann(carvedilol, sustained release metoprolol succinate, or bisoprolol)?: Yes e) For LVEF <35%, discharged on Aldosterone antagonist?: No-document contraincations Reason(s) not discharged on Aldosterone antagonist for LVEF < 35%: Other - Patient needs to be optimized on beta-ann and ARB before adding Aldactone. Cargo Broker recommends holding off on Aldactone for now especially given his renal dysfunction and he will gradually consider at discharge in the outpatient setting. 3. Anticoagulant therapy for permanect/persistent/paraoxysmal Afib or Aflutter: Yes
[2019-07-01 15:13] VITALS: BP 108/71
== END 2019-07-01 14:30 | disposition home or self-care (01) | DRG 291 ==
LOC: ER 09:44 → EH 14:59 → 4W 17:59
PROVIDERS: ADMIT Internal Medicine; ATTEND Internal Medicine
DX: I13.0 Hypertensive heart and chronic kidney disease with heart failure and stage 1 through stage 4 chronic kidney disease, or unspecified chronic kidney disease (principal); I50.41 Acute combined systolic (congestive) and diastolic (congestive) heart failure; I48.20 Chronic atrial fibrillation, unspecified; N18.4 Chronic kidney disease, stage 4 (severe); T50.996A Underdosing of other drugs, medicaments and biological substances, initial encounter; I42.0 Dilated cardiomyopathy; N20.0 Calculus of kidney; K21.9 Gastro-esophageal reflux disease without esophagitis; F41.8 Other specified anxiety disorders; F17.210 Nicotine dependence, cigarettes, uncomplicated; Z91.120 Patient's intentional underdosing of medication regimen due to financial hardship; Y92.018 Other place in single-family (private) house as the place of occurrence of the external cause; Z86.718 Personal history of other venous thrombosis and embolism
CPT/HCPCS: 36415; 71046; 74018; 74176; 80048; 80053; 81001; 83735; 83880; 84100; 84443; 84484; 85025; 85027; 85610; 85730; 93005; 93010; 93306; 96374; 99285; J1650; J1940; J3490

== ENCOUNTER 2019-07-18 07:44 | Inpatient (IN) | payer SELFPAY ==
[2019-07-18 08:19] LABS: ABSOLUTE EOSINOPHILS # (AUTO) 0.2 10^3/uL (0.0-0.6); ABSOLUTE LYMPHOCYTES (AUTO) 1.6 10^3/uL (0.5-4.7); ABSOLUTE MONOCYTES (AUTO) 0.6 10^3/uL (0.1-1.4); ABSOLUTE NEUT (AUTO) 5.9 10^3/uL (1.7-8.2); BASOPHILS % (AUTO) 0.6 % (0-2); EOSINOPHILS % (AUTO) 2.6 % (0-6); HEMATOCRIT 40.8 % (37.9-51.0); LYMPHOCYTES % (AUTO) 19.4 % (13-45); MEAN CORPUSCULAR HEMOGLOBIN 30.4 pg (27.0-33.4); MEAN CORPUSCULAR HGB CONC 34.4 g/dL (32.0-36.0); MEAN CORPUSCULAR VOLUME 89 fl (80-97); MONOCYTES % (AUTO) 7.2 % (3-13); PLATELET COUNT 146 10^3/uL (150-450); RED BLOOD COUNT 4.61 10^6/uL (4.35-5.55); RED CELL DISTRIBUTION WIDTH 13.2 % (11.5-14.0); SEGMENTED NEUTROPHILS % (AUTO) 70.2 % (42-78); TOTAL CELLS COUNTED % (AUTO) 100 %; WHITE BLOOD COUNT 8.4 10^3/uL (4.0-10.5)
[2019-07-18 08:25] LABS: INTERNATIONAL RATION (INR) 1.21; PROTHROMBIN TIME 15.4 SEC (11.4-15.4)
[2019-07-18 08:42] LABS: ALBUMIN 3.7 g/dL (3.5-5.0); ALKALINE PHOSPHATASE 68 U/L (38-126); ANION GAP 8 (5-19); ASPARTATE AMINO TRANSFERASE 24 U/L (17-59); BILIRUBIN,TOTAL 0.9 mg/dL (0.2-1.3); BLOOD UREA NITROGEN 36 mg/dL (7-20); CALCIUM 9.5 mg/dL (8.4-10.2); CARBON DIOXIDE 25 mmol/L (22-30); CHLORIDE 109 mmol/L (98-107); CREATINE KINASE 53 U/L (55-170); GLUCOSE 98 mg/dL (75-110); POTASSIUM 4.2 mmol/L (3.6-5.0)
[2019-07-18 08:54] LABS: CREATINE KINASE MB 1.54 ng/mL (<4.55)
[2019-07-18 08:57] LABS: TROPONIN I 0.042 ng/mL
--- NOTE | 2019-07-18 10:15 | ER Document Report ---
Entered by GULSHAN COCHRAN SCRIBE 07/18/19 0907 Acting as scribe for:SUKHI MCKNIGHT MD ED General - General Chief Complaint: Chest Pain > 30 Stated Complaint: DIFFICULTY BREATHING,CHEST PAIN Time Seen by Provider: 07/18/19 09:01 Primary Care Provider: RACHANA GARCIA PA-C [Primary Care Provider] - Follow up as needed Mode of Arrival: Ambulatory Information source: Patient Notes: This 54-year-old male patient presents to the emergency department today with complaints of "fluid on his lungs". Patient states he has had a productive cough since this morning and he describes his sputum as "salty white phlegm". Patient is scheduled to have a cardiac catheterization on 07/21/2019 and is followed by Dr. Ruddy Simons for cardiology. Patient has a known ejection fraction of 25%. Patient states that his shortness of breath becomes worse when he lies flat, adding that it has "been like this a while but it is worse now". Patient complains of chest wall pain with his cough. TRAVEL OUTSIDE OF THE [place] IN LAST 30 DAYS: No - Related Data Allergies/Adverse Reactions: No Known Allergies Allergy (Verified 07/18/19 07:59) Past Medical History - General Information source: Patient - Social History Smoking Status: Former Smoker Cigarette use (# per day): No Chew tobacco use (# tins/day): No Frequency of alcohol use: None Drug Abuse: None Lives with: Family Family History: Reviewed & Not Pertinent, Hypertension, Other Patient has suicidal ideation: No Patient has homicidal ideation: No - Past Medical History Cardiac Medical History: Reports: Hx Atrial Fibrillation, Hx DVT, Hx Hypertension Renal/ Medical History: Reports: Hx Kidney Stones GI Medical History: Reports: Hx Gastroesophageal Reflux Disease Psychiatric Medical History: Reports: Hx Anxiety, Hx Depression Past Surgical History: Reports: Hx Cardiac Surgery - stent aorta, Hx Kidney (Renal Surgery) - stent rt kidney, Hx Vascular Surgery - femoral bypass - Immunizations Immunizations up to date: Yes Hx Diphtheria, Pertussis, Tetanus Vaccination: Yes Review of Systems - Review of Systems Constitutional: No symptoms reported EENT: No symptoms reported Cardiovascular: No symptoms reported Respiratory: See HPI, Cough, Sputum, Other - chest wall pain Gastrointestinal: No symptoms reported Genitourinary: No symptoms reported Male Genitourinary: No symptoms reported Musculoskeletal: No symptoms reported Skin: No symptoms reported Hematologic/Lymphatic: No symptoms reported Neurological/Psychological: No symptoms reported -: Yes All other systems reviewed and negative Physical Exam - Vital signs Vitals: Temp Pulse Resp BP Pulse Ox 97.5 F 50 L 22 H 137/107 H 97 07/18/19 07:52 07/18/19 07:52 07/18/19 07:52 07/18/19 07:52 07/18/19 07:52 - Notes Notes: Physical Exam: General: Alert, appears well. Hoarse sounding voice. HEENT: Normocephalic. Atraumatic. PERRL. Extraocular movements intact. Oropharynx clear. Neck: Supple. Non-tender. Respiratory: Mildly tachypneic with bibasilar rales. Cardiovascular: Tachycardic, irregularly irregular. Abdominal: Normal Inspection. Non-tender. No distension. Normal Bowel Sounds. Back: No gross abnormalities. Extremities: Moves all four extremities. Upper extremities: Normal inspection. Normal ROM. Lower extremities: 1-2+ edema bilaterally. Neurological: Normal cognition. AAOx4. Normal speech. Psychological: Normal affect. Normal Mood. Skin: Warm. Dry. Normal color. Course - Vital Signs Vital signs: Temp Pulse Resp BP Pulse Ox 97.5 F 50 L 29 H 150/116 H 95 07/18/19 07:52 07/18/19 07:52 07/18/19 10:30 07/18/19 10:30 07/18/19 10:30 - Laboratory Result Diagrams: 07/18/19 08:06 07/18/19 08:06 Laboratory results interpreted by me: 07/18/19 07/18/19 07/18/19 08:06 08:06 08:06 Plt Count 146 L Chloride 109 H BUN 36 H Creatinine 2.12 H Est GFR ( Amer) 40 L Est GFR (MDRD) Non-Af 33 L Creatine Kinase 53 L NT-Pro-B Natriuret Pep 12124 H Total Protein 6.0 L - Diagnostic Test Radiology reviewed: Image reviewed, Reports reviewed - Chest x-ray shows trace interstitial edema, similar compared to 06/27/2019. Stable cardiomegaly and a descending thoracic aorta stent graft. - EKG Interpretation by De EKG shows normal: [place], Intervals, QRS Complexes, ST-T Waves Rate: Normal - 85 Rhythm: A.Fib Voltage: Consistant with LVH - Consults JONNY Muñiz Time consulted: 12:30 Consulted provider: will come to ER Critical Care Note - Critical Care Note Total time excluding time spent on procedures (mins): 40 Discharge - Discharge Clinical Impression: Dilated cardiomyopathy, Anxiety, Chronic atrial fibrillation, unspecified Congestive heart failure (CHF) Qualifiers: Heart failure type: unspecified Heart failure chronicity: acute on chronic Qualified Code(s): I50.9 - Heart failure, unspecified Condition: Stable Disposition: ADMITTED INPATIENT Admitting Provider: Chucky (Hospitalist) Unit Admitted: Telemetry Referrals: RACHANA GARCIA PA-C [Primary Care Provider] - Follow up as needed I personally performed the services described in the documentation, reviewed and edited the documentation which was dictated to the scribe in my presence, and it accurately records my words and actions.
--- NOTE | 2019-07-18 10:28 | RADIOLOGY REPORT (SQ) ---
EXAM DESCRIPTION: CHEST SINGLE VIEW COMPLETED DATE/TIME: 07/18/2019 9:38 am REASON FOR STUDY: Short of breath, cough, history of CHF COMPARISON: Chest film 06/27/2019 CT angio chest 02/27/2019 EXAM PARAMETERS: NUMBER OF VIEWS: One view. TECHNIQUE: Single frontal radiographic view of the chest acquired. RADIATION DOSE: NA LIMITATIONS: None. FINDINGS: LUNGS AND PLEURA: Few [place] lines at both lung bases indicating mild interstitial edema. No gross pleural effusions or alveolar edema. No dense consolidation worrisome for pneumonia. MEDIASTINUM AND HILAR STRUCTURES: No masses. Contour normal. HEART AND VASCULAR STRUCTURES: Stable massive cardiomegaly. BONES: No acute findings. HARDWARE: Descending thoracic aorta stent graft OTHER: No other significant finding. IMPRESSION: Trace interstitial edema similar compared to 06/27/2019. Stable cardiomegaly and descending thoracic aorta stent graft TECHNICAL DOCUMENTATION: JOB ID: [id number] 2010 [employer]- All Rights Reserved Reading location - IP/workstation name: Unknown
[2019-07-18 11:53] LABS: A TYPE INFLUENZA AG NEGATIVE (NEGATIVE); B INFLUENZA AG NEGATIVE (NEGATIVE)
[2019-07-18] MEDS ORDERED: FUROSEMIDE INJ/PF 100 MG/10 ML SDV IV ONE (12:19)
[2019-07-18] MEDS ORDERED: LORAZEPAM INJ 2 MG/1 ML VIAL IV ONE (13:47)
[2019-07-18] MEDS ORDERED: ONDANSETRON HCL INJ/PF 4 MG/2 ML SDV IV PRN (13:48)
[2019-07-18] MEDS ORDERED: ACETAMINOPHEN 325 MG TABLET PO PRN (13:48)
[2019-07-18] MEDS ORDERED: MAG HYDROX/AL HYDROX/SIMETH SUSP 30 ML UDCUP PO PRN (13:48)
[2019-07-18] MEDS ORDERED: ONDANSETRON 4 MG TAB.RAPDIS PO PRN (13:48)
[2019-07-18] MEDS ORDERED: HYDRALAZINE HCL INJ/PF 20 MG/1 ML SDV IV ONE ×2 (14:00→16:00)
[2019-07-18] MEDS ORDERED: HEPARIN SOD (PORCINE) 5,000 UNIT/ML 1 ML VIAL SUBCUT SCH (14:00)
--- NOTE | 2019-07-18 14:23 | PDOC CONSULTATION ---
Consultation Consult Date: 07/18/19 Provider Consulted: ALEJANDRO MANCINI Consult reason:: Congestive heart failure History of Present Illness Admission Date/PCP: 07/18/19 12:53 RACHANA GARCIA PA-C Patient complains of: Dyspnea and orthopnea History of Present Illness: JOHN PADILLA is a 54 year old male Who is known to from a previous hospitalization also came to see me in the office. His active problems are as follows 1. Atrial fibrillation-unknown chronicity. 2. Dilated cardiomyopathy-etiology unknown 3. Type B aortic dissection status post thoracic stenting 4. Systemic hypertension 5. Systemic anticoagulation-rivaroxaban 6. Chronic kidney disease Patient was admitted to [facility] with acute decompensated congestive heart failure. He was admitted with atrial fibrillation with poorly controlled ventricular rate at the same time. He does not report ever been cardioverted. Duration of A. fib is uncertain. He was started on rate control medications. He was diuresed. Echocardiogram performed moderately decreased left ventricular ejection fraction estimated at 20 to 25%. This was a new finding for this patient. During the past admission he was diuresed and his A. fib was rate controlled and he was discharged in stable condition. He was subsequently evaluated in the office. At that time we discussed proceeding with cardiac catheterization to exclude obstructive coronary artery disease as cause of his cardiomyopathy. Patient was hesitant to proceed with the procedure and wanted to speak with his spouse. He claims today that he left messages to the effect that he was agreeable to the procedure. How ever we have not received any messages. Further patient also decided to stop his systemic anticoagulation although the procedure was not scheduled. Presently in the emergency room patient endorses dyspnea as well as orthopnea. He does not report palpitations although he is in atrial fibrillation with mildly elevated ventricular rate in the low 100s to 120 bpm. He has been smoking cigarettes and is trying to cut down. There is report of heavy alcohol use in the past. Apparently this is also diminished. Past Medical History Cardiac Medical History: Reports: Atrial Fibrillation, DVT, Hypertension Denies: Congestive Heart Failure Pulmonary Medical History: Denies: Asthma, Chronic Obstructive Pulmonary Disease (COPD) GI Medical History: Reports: Gastroesophageal Reflux Disease Psychiatric Medical History: Reports: Depression Past Surgical History Past Surgical History: Reports: Vascular Surgery - femoral bypass Social History Lives with: Family Smoking Status: Former Smoker Frequency of Alcohol Use: Heavy Hx Recreational Drug Use: Yes Drugs: Marijuana Hx Prescription Drug Abuse: No Family History Family History: Reviewed & Not Pertinent, Hypertension, Other Parental Family History Reviewed: No - No familial illnesses Children Family History Reviewed: NA Sibling(s) Family History Reviewed.: NA Medication/Allergy Home Medications: Aspirin [Ecotrin 81 mg EC Tablet] 81 mg PO DAILY 02/27/19 Sertraline HCl 50 mg PO DAILY 06/27/19 Atorvastatin Calcium [Lipitor 40 mg Tablet] 40 mg PO QHS #30 tablet 07/01/19 Carvedilol [Coreg 12.5 mg Tablet] 12.5 mg PO Q12 #60 tablet 07/01/19 Furosemide [Lasix] 40 mg PO DAILY #30 tablet 07/01/19 Losartan Potassium [Cozaar 50 mg Tablet] 50 mg PO Q12 #60 tablet 07/01/19 Potassium Chloride [Klor-Con 10 Meq Tablet ER] 20 meq PO DAILY #15 tablet.er 07/01/19 Rivaroxaban [Xarelto 10 mg Tablet] 20 mg PO WSUPPER 30 Days tablet 07/01/19 Allergies/Adverse Reactions: No Known Allergies Allergy (Verified 07/18/19 07:59) Review of Systems Constitutional: PRESENT: fatigue Cardiovascular: PRESENT: dyspnea on exertion, orthropnea Respiratory: PRESENT: dyspnea Gastrointestinal: PRESENT: as per HPI Genitourinary: PRESENT: difficulty urinating Musculoskeletal: PRESENT: as per HPI Physical Exam Vital Signs: Temp Pulse Resp BP Pulse Ox 98.0 F 50 L 11 L 134/121 H 97 07/18/19 11:59 07/18/19 07:52 07/18/19 13:30 07/18/19 13:30 07/18/19 13:30 Intake & Output 07/17/19 07/18/19 07/19/19 06:59 06:59 06:59 Output Total 800 Balance -800 Weight 98.9 kg General appearance: PRESENT: cooperative, mild distress, well-developed Head exam: PRESENT: atraumatic, normocephalic Eye exam: PRESENT: EOMI Mouth exam: PRESENT: neck supple Neck exam: PRESENT: JVD Respiratory exam: PRESENT: accessory muscle use, decreased breath sounds, rales, symmetrical Cardiovascular exam: PRESENT: irregular rhythm, +S1, +S2, systolic murmur Pulses: PRESENT: normal radial pulses GI/Abdominal exam: PRESENT: soft Rectal exam: PRESENT: deferred Musculoskeletal exam: PRESENT: normal inspection Neurological exam: PRESENT: alert, awake, oriented to person, oriented to place Psychiatric exam: PRESENT: unusual affect Skin exam: PRESENT: dry, intact, normal color Results Laboratory Results: 07/18/19 08:06 07/18/19 08:06 07/18/19 07/18/19 08:06 08:06 WBC 8.4 RBC 4.61 Hgb 14.0 Hct 40.8 MCV 89 MCH 30.4 MCHC 34.4 RDW 13.2 Plt Count 146 L Seg Neutrophils % 70.2 Sodium 141.6 Potassium 4.2 Chloride 109 H Carbon Dioxide 25 Anion Gap 8 BUN 36 H Creatinine 2.12 H Est GFR ( Amer) 40 L Glucose 98 Calcium 9.5 Total Bilirubin 0.9 AST 24 Alkaline Phosphatase 68 Total Protein 6.0 L Albumin 3.7 07/18/19 07/18/19 07/18/19 08:06 08:06 08:06 Creatine Kinase 53 L CK-MB (CK-2) 1.54 Troponin I 0.042 NT-Pro-B Natriuret Pep 61453 H EKG Comments: EKG 07/18/2019. Independently reviewed by me. Atrial fibrillation with controlled ventricular response Telemetry shows atrial fibrillation with rapid ventricular response at 110 bpm. Impressions: Chest X-Ray 07/18/19 09:15 IMPRESSION: Trace interstitial edema similar compared to 06/27/2019. Stable cardiomegaly and descending thoracic aorta stent graft Status: Image reviewed by me - Chest x-ray with mild interstitial edema. Thoracic aorta with stent. Assessment & Plan - Diagnosis (1) Chronic atrial fibrillation Is this a current diagnosis for this admission?: Yes Plan: Atrial fibrillation of unknown chronicity. Patient reports having been on systemic anticoagulation therapy. Probably in th e last year. Does not report cardioversion His ventricular response is not adequately controlled presently With diuresis and institution of beta-blockers this hopefully will be better controlled. (2) Congestive heart failure Qualifiers: Heart failure type: unspecified Heart failure chronicity: acute on chronic Qualified Code(s): I50.9 - Heart failure, unspecified Is this a current diagnosis for this admission?: Yes Plan: Acute decompensated systolic congestive heart failure New finding of dilated cardiomyopathy with left ventricular ejection fraction 20 to 25% Presently not euvolemic. Admit for intravenous diuretics and continuation of guideline directed medical therapy. At the present time we will not proceed with evaluation of coronaries given the fact that he is acutely decompensated with congestive heart failure. This can be pursued as an outpatient once we have diuresed him and he is more euvolemic. (3) Acute congestive heart failure Qualifiers: Heart failure type: combined systolic and diastolic Qualified Code(s): I50.41 - Acute combined systolic (congestive) and diastolic (congestive) heart failure Is this a current diagnosis for this admission?: Yes Plan: Acute decompensated congestive heart failure Systolic NYHA class II symptoms Institution of IV diuretics Guideline directed medical therapy Evaluation of coronaries to be pursued later once patient is more euvolemic (4) CKD (chronic kidney disease), stage III Is this a current diagnosis for this admission?: Yes Plan: Diminished creatinine clearance As we diurese him will potentially creatinine - Notes Notes: Acutely decompensated systolic congestive heart failure Atrial fibrillation with poorly controlled ventricular response Admit for intravenous diuretics and controlled ventricular response. Evaluation of coronaries can be pursued later as an outpatient. Patient stopped systemic anticoagulation on his own. This has to be reinstituted given atrial fibrillation and congestive heart failure
--- NOTE | 2019-07-18 14:27 | PDOC H&P ---
History of Present Illness Admission Date/PCP: 07/18/19 12:53 RACHANA GARCIA PA-C History of Present Illness: JOHN PADILLA is a 54 year old male who was admitted through the emergency room today for shortness of breath. Patient was just discharged home from the hospital recently on the with new onset CHF. Patient states he is done fairly well until the last day or 2 when he once again started getting short of breath primarily at nighttime. Patient states he has not missed any of his medication. States he feels like a lot his problem is "anxiety". Patient's ejection fracture was approximately 20% there was talk that the patient would need a cardiac cath in the near future. Patient's cardiology specialist, Dr. Simons, is going to see the patient while he is here. Patient's blood pressure is also elevated in the emergency room, however he is stable for admission to the hospital. Patient also has a history of chronic atrial fib Past Medical History Cardiac Medical History: Reports: Atrial Fibrillation, DVT, Hypertension Denies: Congestive Heart Failure Pulmonary Medical History: Denies: Asthma, Chronic Obstructive Pulmonary Disease (COPD) GI Medical History: Reports: Gastroesophageal Reflux Disease Psychiatric Medical History: Reports: Depression Past Surgical History Past Surgical History: Reports: Vascular Surgery - femoral bypass Social History Lives with: Family Smoking Status: Former Smoker Frequency of Alcohol Use: Heavy Hx Recreational Drug Use: Yes Drugs: Marijuana Hx Prescription Drug Abuse: No - Advance Directive Resuscitation Status: Full Code Family History Family History: Reviewed & Not Pertinent, Hypertension, Other Parental Family History Reviewed: No Children Family History Reviewed: No Sibling(s) Family History Reviewed.: No Medication/Allergy Home Medications: Aspirin [Ecotrin 81 mg EC Tablet] 81 mg PO DAILY 02/27/19 Sertraline HCl 50 mg PO DAILY 06/27/19 Atorvastatin Calcium [Lipitor 40 mg Tablet] 40 mg PO QHS #30 tablet 07/01/19 Carvedilol [Coreg 12.5 mg Tablet] 12.5 mg PO Q12 #60 tablet 07/01/19 Furosemide [Lasix] 40 mg PO DAILY #30 tablet 07/01/19 Losartan Potassium [Cozaar 50 mg Tablet] 50 mg PO Q12 #60 tablet 07/01/19 Potassium Chloride [Klor-Con 10 Meq Tablet ER] 20 meq PO DAILY #15 tablet.er 07/01/19 Rivaroxaban [Xarelto 10 mg Tablet] 20 mg PO WSUPPER 30 Days tablet 07/01/19 Allergies/Adverse Reactions: No Known Allergies Allergy (Verified 07/18/19 07:59) Review of Systems Constitutional: ABSENT: chills, fever(s), headache(s), weight gain, weight loss Cardiovascular: PRESENT: dyspnea on exertion Respiratory: PRESENT: dyspnea Neurological: ABSENT: abnormal gait, abnormal speech, confusion, dizziness, focal weakness, syncope Psychiatric: PRESENT: anxiety Physical Exam Vital Signs: Temp Pulse Resp BP Pulse Ox 98.0 F 50 L 11 L 134/121 H 97 07/18/19 11:59 07/18/19 07:52 07/18/19 13:30 07/18/19 13:30 07/18/19 13:30 Intake & Output 07/17/19 07/18/19 07/19/19 06:59 06:59 06:59 Output Total 800 Balance -800 Weight 98.9 kg General appearance: PRESENT: mild distress, other - Patient has an unusual demeanor and complains of "anxiety" Respiratory exam: PRESENT: rales - With bases Cardiovascular exam: PRESENT: RRR. ABSENT: diastolic murmur, rubs, systolic murmur Extremities exam: PRESENT: +1 edema Neurological exam: PRESENT: alert, awake, oriented to person, oriented to place, oriented to time, oriented to situation, CN II-XII grossly intact. ABSENT: motor sensory deficit Psychiatric exam: PRESENT: anxious, appropriate affect, normal mood. ABSENT: homicidal ideation, suicidal ideation Results Laboratory Results: 07/18/19 08:06 07/18/19 08:06 07/18/19 07/18/19 08:06 08:06 WBC 8.4 RBC 4.61 Hgb 14.0 Hct 40.8 MCV 89 MCH 30.4 MCHC 34.4 RDW 13.2 Plt Count 146 L Seg Neutrophils % 70.2 Sodium 141.6 Potassium 4.2 Chloride 109 H Carbon Dioxide 25 Anion Gap 8 BUN 36 H Creatinine 2.12 H Est GFR ( Amer) 40 L Glucose 98 Calcium 9.5 Total Bilirubin 0.9 AST 24 Alkaline Phosphatase 68 Total Protein 6.0 L Albumin 3.7 07/18/19 07/18/19 07/18/19 08:06 08:06 08:06 Creatine Kinase 53 L CK-MB (CK-2) 1.54 Troponin I 0.042 NT-Pro-B Natriuret Pep [id number] H Impressions: Chest X-Ray 07/18/19 09:15 IMPRESSION: Trace interstitial edema similar compared to 06/27/2019. Stable cardiomegaly and descending thoracic aorta stent graft Assessment and Plan - Plan Summary Summary: Patient will be admitted to the hospital for IV diuretics as well as continuing his beta-blockers and statins Serial labs will be followed Patient will also be given as needed medication for his anxiety Patient will be seen in consultation by cardiology - Time Time Spent with patient: 35 or more minutes
[2019-07-18 15:07] LABS: APPEARANCE,URINE CLEAR; BILIRUBIN,URINE NEGATIVE (NEGATIVE); COLOR,URINE COLORLESS; GLUCOSE, URINE NEGATIVE (NEGATIVE); KETONES,URINE NEGATIVE (NEGATIVE); LEUKOCYTE ESTERASE,URINE NEGATIVE (NEGATIVE); NITRITE,URINE NEGATIVE (NEGATIVE); PROTEIN,URINE NEGATIVE (NEGATIVE); URINE SPECIFIC GRAVITY 1.004; UROBILINOGEN,URINE NEGATIVE mg/dL (<2.0)
[2019-07-18] MEDS ORDERED: HYDRALAZINE HCL INJ/PF 20 MG/1 ML SDV IV SCH (15:30)
[2019-07-18 16:01] LABS: CREATINE KINASE MB 1.49 ng/mL (<4.55)
[2019-07-18 16:13] LABS: TROPONIN I 0.039 ng/mL
[2019-07-18] MEDS: RIVAROXABAN 10 MG TABLET PO SCH (18:06)
[2019-07-18] MEDS: FUROSEMIDE INJ/PF 40 MG/4 ML SDV IV SCH (18:06)
--- NOTE | 2019-07-18 18:59 | EKG REPORT ---
SEVERITY:- ABNORMAL ECG - ATRIAL FIBRILLATION, V-RATE 68-109 PROBABLE LVH WITH SECONDARY REPOL ABNRM : Confirmed by: Reynaldo Gutiérrez MD 18-Jul-2019 18:58:41
[2019-07-18] MEDS: OXYCODONE-ACETAMINOPHEN 5-325 MG TABLET PO PRN (20:20)
[2019-07-18] MEDS ORDERED: LORAZEPAM 0.5 MG TABLET PO PRN (21:04)
[2019-07-18 21:19] LABS: CREATINE KINASE MB 1.52 ng/mL (<4.55); TROPONIN I 0.042 ng/mL
[2019-07-18] MEDS: FAMOTIDINE 20 MG TABLET PO SCH (21:41)
[2019-07-18] MEDS: CARVEDILOL 12.5 MG TABLET PO SCH (21:41)
[2019-07-18] MEDS: POTASSIUM CHLORIDE 10 MEQ TABLET.ER PO SCH (21:41)
[2019-07-18] MEDS: LOSARTAN POTASSIUM 50 MG TABLET PO SCH (21:42)
[2019-07-18] MEDS: ATORVASTATIN CALCIUM 40 MG TABLET PO SCH (21:42)
[2019-07-18] MEDS: TEMAZEPAM 7.5 MG CAPSULE PO PRN (21:45)
[2019-07-19 02:42] LABS: ABSOLUTE BASOPHILS # (AUTO) 0.1 10^3/uL (0.0-0.2); ABSOLUTE EOSINOPHILS # (AUTO) 0.3 10^3/uL (0.0-0.6); ABSOLUTE LYMPHOCYTES (AUTO) 1.8 10^3/uL (0.5-4.7); ABSOLUTE MONOCYTES (AUTO) 0.6 10^3/uL (0.1-1.4); ABSOLUTE NEUT (AUTO) 5.3 10^3/uL (1.7-8.2); BASOPHILS % (AUTO) 0.6 % (0-2); EOSINOPHILS % (AUTO) 3.6 % (0-6); HEMATOCRIT 43.3 % (37.9-51.0); HEMOGLOBIN 14.8 g/dL (13.5-17.0); LYMPHOCYTES % (AUTO) 22.1 % (13-45); MEAN CORPUSCULAR HEMOGLOBIN 30.2 pg (27.0-33.4); MEAN CORPUSCULAR HGB CONC 34.2 g/dL (32.0-36.0); MEAN CORPUSCULAR VOLUME 88 fl (80-97); PLATELET COUNT 148 10^3/uL (150-450); RED BLOOD COUNT 4.89 10^6/uL (4.35-5.55); RED CELL DISTRIBUTION WIDTH 13.8 % (11.5-14.0); SEGMENTED NEUTROPHILS % (AUTO) 66.7 % (42-78); TOTAL CELLS COUNTED % (AUTO) 100 %
[2019-07-19 02:59] LABS: ANION GAP 9 (5-19); BLOOD UREA NITROGEN 39 mg/dL (7-20); CALCIUM 9.3 mg/dL (8.4-10.2); CARBON DIOXIDE 29 mmol/L (22-30); CHLORIDE 104 mmol/L (98-107); GLUCOSE 127 mg/dL (75-110); POTASSIUM 3.8 mmol/L (3.6-5.0)
[2019-07-19 03:11] LABS: CREATINE KINASE MB 1.31 ng/mL (<4.55); TROPONIN I 0.067 ng/mL
[2019-07-19] MEDS: FUROSEMIDE INJ/PF 40 MG/4 ML SDV IV SCH ×2 (05:17→17:18)
--- NOTE | 2019-07-19 07:34 | EKG REPORT ---
SEVERITY:- ABNORMAL ECG - ATRIAL FIBRILLATION LEFT VENTRICULAR HYPERTROPHY CONSIDER ANTERIOR INFARCT ABNORMAL T, CONSIDER ISCHEMIA, LATERAL LEADS : Confirmed by: Reynaldo Gutiérrez MD 19-Jul-2019 07:33:30
--- NOTE | 2019-07-19 09:27 | PDOC PROGRESS REPORT ---
Subjective Progress Note for:: 07/19/19 Subjective:: Patient sitting up at the side of the bed. He reports improvement in dyspnea. Feels much better. A friend is visiting with him. Conversing with ease. Reason For Visit: CHF,HYPERTENSION,ANXIETY,SOB,PAROXYSMAL ATRIAL FIB Physical Exam Vital Signs: Temp Pulse Resp BP Pulse Ox 98.4 F 94 18 128/96 H 90 L 07/19/19 04:16 07/19/19 04:16 07/19/19 04:16 07/19/19 04:16 07/19/19 04:16 Intake & Output 07/18/19 07/19/19 07/20/19 06:59 06:59 06:59 Intake Total 1460 Output Total 6750 Balance -5290 Weight 89.6 kg General appearance: PRESENT: no acute distress, cooperative, well-developed Head exam: PRESENT: atraumatic, normocephalic Eye exam: PRESENT: conjunctiva pink, EOMI Mouth exam: PRESENT: moist Neck exam: PRESENT: JVD Respiratory exam: PRESENT: crackles, decreased breath sounds, symmetrical, unlabored Cardiovascular exam: PRESENT: irregular rhythm, +S1, +S2 Pulses: PRESENT: normal radial pulses GI/Abdominal exam: PRESENT: soft Rectal exam: PRESENT: deferred Musculoskeletal exam: PRESENT: normal inspection Neurological exam: PRESENT: alert, awake, oriented to person, oriented to place, oriented to time, oriented to situation Psychiatric exam: PRESENT: unusual affect Skin exam: PRESENT: dry, intact, normal color Results Laboratory Results: 07/19/19 02:24 07/19/19 02:24 07/18/19 07/19/19 07/19/19 14:52 02:24 02:24 WBC 8.0 RBC 4.89 Hgb 14.8 Hct 43.3 MCV 88 MCH 30.2 MCHC 34.2 RDW 13.8 Plt Count 148 L Seg Neutrophils % 66.7 Sodium 142.0 Potassium 3.8 Chloride 104 Carbon Dioxide 29 Anion Gap 9 BUN 39 H Creatinine 2.24 H Est GFR ( Amer) 37 L Glucose 127 H Calcium 9.3 Urine Color COLORLESS Urine Appearance CLEAR Urine pH 7.0 Ur Specific [place] 1.004 Urine Protein NEGATIVE Urine Glucose (UA) NEGATIVE Urine Ketones NEGATIVE Urine Blood SMALL H Urine Nitrite NEGATIVE Ur Leukocyte Esterase NEGATIVE Urine WBC (Auto) 1 07/18/19 07/18/1920 08:06 08:06 08:06 Creatine Kinase 53 L CK-MB (CK-2) 1.54 Troponin I 0.042 NT-Pro-B Natriuret Pep [id number] H 07/18/19 07/18/19 07/19/19 15:19 20:37 02:24 Creatine Kinase CK-MB (CK-2) 1.49 1.52 1.31 Troponin I 0.039 0.042 0.067 NT-Pro-B Natriuret Pep 07/19/19 02:24 Creatine Kinase CK-MB (CK-2) Troponin I NT-Pro-B Natriuret Pep [id number] H EKG Comments: Telemetry shows atrial fibrillation controlled ventricular response at 92 bpm. Impressions: Chest X-Ray 07/18/19 09:15 IMPRESSION: Trace interstitial edema similar compared to 06/27/2019. Stable cardiomegaly and descending thoracic aorta stent graft Assessment & Plan - Diagnosis (1) Chronic atrial fibrillation Is this a current diagnosis for this admission?: Yes Plan: Presently on rate control strategy as we are anticipating performing cardiac authorization for which systemic anticoagulation will have to be interrupted. He is rate controlled without symptoms Continue beta-ann Continue systemic anticoagulation (2) Congestive heart failure Qualifiers: Heart failure type: unspecified Heart failure chronicity: acute on chronic Qualified Code(s): I50.9 - Heart failure, unspecified Is this a current diagnosis for this admission?: Yes Plan: Acute decompensated congestive heart failure-systolic Volume overloaded yesterday with good improvement clinically in the last 24 hours. Would recommend continuing diuresis while monitoring creatinine level. Anticipate switching to oral diuretic in the next 24 hours. (3) CKD (chronic kidney disease), stage III Is this a current diagnosis for this admission?: Yes Plan: Monitor creatinine as we diurese. - Notes Notes: Presenting with acute decompensated congestive heart failure and volume overload. Patient has responded to intravenous diuretic therapy. Anticipate switching to oral diuretic therapy. Continue systemic anticoagulation as part of management for atrial fibrillation. He is presently only on rate control medications. Will arrange for cardiac catheterization as an outpatient.
[2019-07-19] MEDS: DOCUSATE SODIUM 100 MG CAPSULE PO SCH (09:36)
[2019-07-19] MEDS: POTASSIUM CHLORIDE 10 MEQ TABLET.ER PO SCH ×2 (09:36→21:56)
[2019-07-19] MEDS: CARVEDILOL 12.5 MG TABLET PO SCH ×2 (09:36→21:56)
[2019-07-19] MEDS: SERTRALINE HCL 50 MG TABLET PO SCH (09:36)
[2019-07-19] MEDS: LOSARTAN POTASSIUM 50 MG TABLET PO SCH ×2 (09:37→21:56)
[2019-07-19] MEDS: FAMOTIDINE 20 MG TABLET PO SCH ×2 (09:37→21:57)
--- NOTE | 2019-07-19 10:54 | PDOC PROGRESS REPORT ---
Subjective Progress Note for:: 07/19/19 Reason For Visit: CHF,HYPERTENSION,ANXIETY,SOB,PAROXYSMAL ATRIAL FIB 07/19/2019 CHF, hypertension, anxiety, shortness of breath, paroxysmal atrial fib Physical Exam Vital Signs: Temp Pulse Resp BP Pulse Ox 97.7 F 98 16 126/92 H 95 07/19/19 08:25 07/19/19 08:25 07/19/19 08:25 07/19/19 08:25 07/19/19 08:25 Intake & Output 07/18/19 07/19/19 07/20/19 06:59 06:59 06:59 Intake Total 1460 Output Total 6750 Balance -5290 Weight 89.6 kg General appearance: PRESENT: no acute distress Respiratory exam: PRESENT: clear to auscultation lita. ABSENT: rales, rhonchi, wheezes Cardiovascular exam: PRESENT: RRR. ABSENT: diastolic murmur, rubs, systolic murmur Neurological exam: PRESENT: alert, awake, oriented to person, oriented to place, oriented to time, oriented to situation, CN II-XII grossly intact. ABSENT: motor sensory deficit Psychiatric exam: PRESENT: anxious Results Laboratory Results: 07/19/19 02:24 07/19/19 02:24 07/18/19 07/19/19 07/19/19 14:52 02:24 02:24 WBC 8.0 RBC 4.89 Hgb 14.8 Hct 43.3 MCV 88 MCH 30.2 MCHC 34.2 RDW 13.8 Plt Count 148 L Seg Neutrophils % 66.7 Sodium 142.0 Potassium 3.8 Chloride 104 Carbon Dioxide 29 Anion Gap 9 BUN 39 H Creatinine 2.24 H Est GFR ( Amer) 37 L Glucose 127 H Calcium 9.3 Urine Color COLORLESS Urine Appearance CLEAR Urine pH 7.0 Ur Specific [place] 1.004 Urine Protein NEGATIVE Urine Glucose (UA) NEGATIVE Urine Ketones NEGATIVE Urine Blood SMALL H Urine Nitrite NEGATIVE Ur Leukocyte Esterase NEGATIVE Urine WBC (Auto) 1 07/18/19 07/18/19 07/18/19 08:06 08:06 08:06 Creatine Kinase 53 L CK-MB (CK-2) 1.54 Troponin I 0.042 NT-Pro-B Natriuret Pep [id number] H 07/18/19 07/18/19 07/19/19 15:19 20:37 02:24 Creatine Kinase CK-MB (CK-2) 1.49 1.52 1.31 Troponin I 0.039 0.042 0.067 NT-Pro-B Natriuret Pep 07/19/19 02:24 Creatine Kinase CK-MB (CK-2) Troponin I NT-Pro-B Natriuret Pep [id number] H Impressions: Chest X-Ray 07/18/19 09:15 IMPRESSION: Trace interstitial edema similar compared to 06/27/2019. Stable cardiomegaly and descending thoracic aorta stent graft Assessment and Plan - Diagnosis (1) Anxiety Is this a current diagnosis for this admission?: Yes (2) Chronic atrial fibrillation Is this a current diagnosis for this admission?: Yes (3) Congestive heart failure Qualifiers: Heart failure type: unspecified Heart failure chronicity: acute on chronic Qualified Code(s): I50.9 - Heart failure, unspecified Is this a current diagnosis for this admission?: Yes (4) Dilated cardiomyopathy Is this a current diagnosis for this admission?: Yes (5) CKD (chronic kidney disease), stage III Is this a current diagnosis for this admission?: Yes (6) Hypertension Qualifiers: Hypertension type: essential hypertension Qualified Code(s): I10 - [place] [facility] (primary) hypertension Is this a current diagnosis for this admission?: Yes - Plan Summary Summary: Patient will be admitted to the hospital for IV diuretics as well as continuing his beta-blockers and statins Serial labs will be followed Patient will also be given as needed medication for his anxiety Patient will be seen in consultation by cardiology 07/19/2019 Patient is doing significantly better today with much less shortness of breath, speaking in full sentences. Less edema Patient has been seen by cardiology who agrees with continuing of IV diuretics for the next 24 hours then transferring to p.o. diuretics. He also is going to try to set up a outpatient cardiac catheterization for the patient Temperature is 97.7 pulse 94 and regular, pressure well controlled 126/92 O2 sat 95% on room air White count remains normal BUN and creatinine are still slightly elevated, going back at least 3 years patient has had these numbers to be elevated and this appears to be his baseline BNP is still elevated at 16,700 All 3 troponins were elevated however CK-MB indexes were normal. This is probably based on his CHF as opposed to acute ischemic coronary disease We will continue the patient's Xarelto, Lasix 40 mg IV every 12 hours, as well as his other medications Patient seems satisfied with his progress today - Time Time Spent with patient: 25-34 minutes
--- NOTE | 2019-07-19 16:16 | CDI QUERY ---
CDI Query CDI Review: Dear Provider: To better reflect your patients severity of illness, morbidity, and resource utilization Please specify and document in the Progress Notes and Discharge Summary if you are monitoring / treating / evaluating any of the following conditions: Query Clinical indicators Please document in your Progress Note and Discharge Summary if you agree with the consults diagnosis of: Acutely decompensated systolic congestive heart failure Per Cardiology Note: Reason For Visit: CHF,HYPERTENSION,ANXIETY,SOB,PAROXYSMAL ATRIAL FIB Acute decompensated systolic congestive heart failure New finding of dilated cardiomyopathy with left ventricular ejection fraction 20 to 25% Acutely decompensated systolic congestive heart failure Atrial fibrillation with poorly controlled ventricular response Per Hospitalist Note: Congestive heart failure Qualifiers: Heart failure type: unspecified Heart failure chronicity: acute on chronic Qualified Code(s): I50.9 - Heart failure, unspecified Is this a current diagnosis for this admission?: Yes The terms probable, suspected, likely, possible or still to be ruled out may be used if you are unable to determine the exact nature of a condition. Thank you, Clinical Documentation Physician Advisors JAI Dolan RN, BSN RN Office [phone] Office [phone]
[2019-07-19] MEDS: RIVAROXABAN 10 MG TABLET PO SCH (17:18)
[2019-07-19] MEDS: ATORVASTATIN CALCIUM 40 MG TABLET PO SCH (21:56)
[2019-07-19] MEDS: OXYCODONE-ACETAMINOPHEN 5-325 MG TABLET PO PRN (21:56)
[2019-07-20] MEDS: FUROSEMIDE INJ/PF 40 MG/4 ML SDV IV SCH (05:26)
[2019-07-20] MEDS: DOCUSATE SODIUM 100 MG CAPSULE PO SCH (10:23)
[2019-07-20] MEDS: SERTRALINE HCL 50 MG TABLET PO SCH (10:23)
[2019-07-20] MEDS: CARVEDILOL 12.5 MG TABLET PO SCH ×2 (10:23→21:23)
[2019-07-20] MEDS: PANTOPRAZOLE SODIUM 20 MG TABLET.DR PO SCH (10:23)
[2019-07-20] MEDS: POTASSIUM CHLORIDE 10 MEQ TABLET.ER PO SCH ×2 (10:23→21:23)
[2019-07-20] MEDS: FAMOTIDINE 20 MG TABLET PO SCH ×2 (10:23→21:23)
[2019-07-20] MEDS: LOSARTAN POTASSIUM 50 MG TABLET PO SCH ×2 (10:23→21:24)
--- NOTE | 2019-07-20 11:20 | PDOC PROGRESS REPORT ---
Subjective Progress Note for:: 07/20/19 Reason For Visit: CHF,HYPERTENSION,ANXIETY,SOB,PAROXYSMAL ATR 07/20/2019 CHF exacerbation, hypertension, anxiety, paroxysmal atrial fib Physical Exam Vital Signs: Temp Pulse Resp BP Pulse Ox 98.4 F 93 18 117/80 91 L 07/20/19 00:00 07/20/19 00:00 07/20/19 00:00 07/20/19 00:00 07/20/19 00:00 Intake & Output 07/19/19 07/20/19 07/21/19 06:59 06:59 06:59 Intake Total 1460 3270 Output Total 6750 3175 Balance -5290 95 Weight 89.6 kg 90.4 kg General appearance: PRESENT: no acute distress Respiratory exam: PRESENT: clear to auscultation lita. ABSENT: rales, rhonchi, wheezes Cardiovascular exam: PRESENT: RRR. ABSENT: diastolic murmur, rubs, systolic murmur Neurological exam: PRESENT: alert, awake, oriented to person, oriented to place, oriented to time, oriented to situation, CN II-XII grossly intact. ABSENT: motor sensory deficit Psychiatric exam: PRESENT: appropriate affect, normal mood. ABSENT: homicidal ideation, suicidal ideation Results Laboratory Results: 07/19/19 02:24 07/19/19 02:24 07/18/19 07/18/19 07/18/19 08:06 08:06 08:06 Creatine Kinase 53 L CK-MB (CK-2) 1.54 Troponin I 0.042 NT-Pro-B Natriuret Pep [id number] H 07/18/19 07/18/19 07/19/19 15:19 20:37 02:24 Creatine Kinase CK-MB (CK-2) 1.49 1.52 1.31 Troponin I 0.039 0.042 0.067 NT-Pro-B Natriuret Pep 07/19/19 07/20/19 02:24 05:58 Creatine Kinase CK-MB (CK-2) Troponin I NT-Pro-B Natriuret Pep 23077 H 6340 H Impressions: Chest X-Ray 07/18/19 09:15 IMPRESSION: Trace interstitial edema similar compared to 06/27/2019. Stable cardiomegaly and descending thoracic aorta stent graft Assessment and Plan - Diagnosis (1) Anxiety Is this a current diagnosis for this admission?: Yes (2) Chronic atrial fibrillation Is this a current diagnosis for this admission?: Yes (3) Dilated cardiomyopathy Is this a current diagnosis for this admission?: Yes (4) CKD (chronic kidney disease), stage III Is this a current diagnosis for this admission?: Yes (5) Hypertension Qualifiers: Hypertension type: essential hypertension Qualified Code(s): I10 - [place] (primary) hypertension Is this a current diagnosis for this admission?: Yes (6) Acute on chronic systolic (congestive) heart failure Is this a current diagnosis for this admission?: Yes - Plan Summary Summary: Patient will be admitted to the hospital for IV diuretics as well as continuing his beta-blockers and statins Serial labs will be followed Patient will also be given as needed medication for his anxiety Patient will be seen in consultation by cardiology 07/19/2019 Patient is doing significantly better today with much less shortness of breath, speaking in full sentences. Less edema Patient has been seen by cardiology who agrees with continuing of IV diuretics for the next 24 hours then transferring to p.o. diuretics. He also is going to try to set up a outpatient cardiac catheterization for the patient Temperature is 97.7 pulse 94 and regular, pressure well controlled 126/92 O2 sat 95% on room air White count remains normal BUN and creatinine are still slightly elevated, going back at least 3 years patient has had these numbers to be elevated and this appears to be his baseline BNP is still elevated at 16,700 All 3 troponins were elevated however CK-MB indexes were normal. This is probably based on his CHF as opposed to acute ischemic coronary disease We will continue the patient's Xarelto, Lasix 40 mg IV every 12 hours, as well as his other medications Patient seems satisfied with his progress today 07/20/2019 Patient's vital signs appear stable, oxygen saturation slightly low but this was in the middle of the night when patient was asleep on room air Patient is asking to go home Labs appear to be stable in fact his BNP today is down to 6340 I have switched him over today to p.o. Lasix. If he does well today I will discharge him tomorrow morning He can follow-up with cardiology as an outpatient Patient appears to be medically stable - Time Time Spent with patient: 15-24 minutes
--- NOTE | 2019-07-20 17:05 | PDOC PROGRESS REPORT ---
Subjective Progress Note for:: 07/20/19 Subjective:: Patient sitting up at the side of the bed. He reports improvement in dyspnea. Feels much better. On telemerty continues to be in atrial fibrillation. With activity V rate increases to 120-130 bpm Reason For Visit: CHF,HYPERTENSION,ANXIETY,SOB,PAROXYSMAL ATRIAL FIB Physical Exam Vital Signs: Temp Pulse Resp BP Pulse Ox 98.4 F 93 18 117/80 91 L 07/20/19 00:00 07/20/19 00:00 07/20/19 00:00 07/20/19 00:00 07/20/19 00:00 Intake & Output 07/19/19 07/20/19 07/21/19 06:59 06:59 06:59 Intake Total 1460 3270 Output Total 6750 3175 Balance -5290 95 Weight 89.6 kg 90.4 kg General appearance: PRESENT: no acute distress, cooperative, well-developed Head exam: PRESENT: atraumatic, normocephalic Eye exam: PRESENT: conjunctiva pink, EOMI Teeth exam: PRESENT: poor dentation Neck exam: PRESENT: JVD Respiratory exam: PRESENT: crackles, decreased breath sounds, symmetrical, unlabored Cardiovascular exam: PRESENT: irregular rhythm, +S1, +S2 Pulses: PRESENT: normal radial pulses GI/Abdominal exam: PRESENT: soft Rectal exam: PRESENT: deferred Neurological exam: PRESENT: alert, awake, oriented to person, oriented to place, oriented to time, oriented to situation Psychiatric exam: PRESENT: appropriate affect Skin exam: PRESENT: dry, intact, normal color Results Laboratory Results: 07/19/19 02:24 07/19/19 02:24 07/18/19 07/18/19 07/18/19 08:06 08:06 08:06 Creatine Kinase 53 L CK-MB (CK-2) 1.54 Troponin I 0.042 NT-Pro-B Natriuret Pep 13741 H 07/18/19 07/18/19 07/19/19 15:19 20:37 02:24 Creatine Kinase CK-MB (CK-2) 1.49 1.52 1.31 Troponin I 0.039 0.042 0.067 NT-Pro-B Natriuret Pep 07/19/19 07/20/19 02:24 05:58 Creatine Kinase CK-MB (CK-2) Troponin I NT-Pro-B Natriuret Pep 00271 H 6340 H EKG Comments: Telemerty review Afib V rate 90-100 bpm Increases to 120-130 bpm with activity. Occasional aberrant conduction Impressions: Chest X-Ray 07/18/19 09:15 IMPRESSION: Trace interstitial edema similar compared to 06/27/2019. Stable cardiomegaly and descending thoracic aorta stent graft Assessment & Plan - Diagnosis (1) Chronic atrial fibrillation Is this a current diagnosis for this admission?: Yes Plan: Presently on rate control strategy as we are anticipating performing cardiac catheterization for which systemic anticoagulation will have to be interrupted. He is rate controlled without symptoms Continue beta-ann. Up titrate dose; continues to have increased V rate with activity. Hesitant to use digoxin given CKD Continue systemic anticoagulation- Rivaroxaban (2) CKD (chronic kidney disease), stage III Is this a current diagnosis for this admission?: Yes Plan: Monitor creatinine as we diurese. (3) Acute on chronic systolic (congestive) heart failure Is this a current diagnosis for this admission?: Yes Plan: Improving with diuretic therapy Agree with switch to oral diuretics with euvolemia Need to be on GDMT with ARB and BB Continue maintenance diuretic. - Notes Notes: Will need out patient cardiac cath once CHF has been optimized.
[2019-07-20] MEDS: FUROSEMIDE 40 MG TABLET PO SCH (18:17)
[2019-07-20] MEDS: RIVAROXABAN 10 MG TABLET PO SCH (18:17)
[2019-07-20] MEDS: TEMAZEPAM 7.5 MG CAPSULE PO PRN (21:23)
[2019-07-20] MEDS: ATORVASTATIN CALCIUM 40 MG TABLET PO SCH (21:23)
[2019-07-20] MEDS: OXYCODONE-ACETAMINOPHEN 5-325 MG TABLET PO PRN (21:24)
[2019-07-21] MEDS: SERTRALINE HCL 50 MG TABLET PO SCH (10:28)
[2019-07-21] MEDS: FAMOTIDINE 20 MG TABLET PO SCH (10:28)
[2019-07-21] MEDS: POTASSIUM CHLORIDE 10 MEQ TABLET.ER PO SCH (10:28)
[2019-07-21] MEDS: CARVEDILOL 12.5 MG TABLET PO SCH (10:28)
[2019-07-21] MEDS: FUROSEMIDE 40 MG TABLET PO SCH (10:28)
[2019-07-21] MEDS: DOCUSATE SODIUM 100 MG CAPSULE PO SCH (10:28)
[2019-07-21] MEDS: PANTOPRAZOLE SODIUM 20 MG TABLET.DR PO SCH (10:29)
[2019-07-21] MEDS: LOSARTAN POTASSIUM 50 MG TABLET PO SCH (10:29)
[2019-07-21 13:55] VITALS: BP 117/80
== END 2019-07-21 14:50 | disposition home or self-care (01) | DRG 291 ==
LOC: ER 07:44 → EH 12:53 → 5 15:44
PROVIDERS: ADMIT Hospitalist; ATTEND Hospitalist
DX: I13.0 Hypertensive heart and chronic kidney disease with heart failure and stage 1 through stage 4 chronic kidney disease, or unspecified chronic kidney disease (principal); I50.43 Acute on chronic combined systolic (congestive) and diastolic (congestive) heart failure; I48.20 Chronic atrial fibrillation, unspecified; N18.3 Chronic kidney disease, stage 3 (moderate); I50.9 Heart failure, unspecified; I42.0 Dilated cardiomyopathy; F41.9 Anxiety disorder, unspecified; Z86.718 Personal history of other venous thrombosis and embolism; K21.9 Gastro-esophageal reflux disease without esophagitis; F32.9 Major depressive disorder, single episode, unspecified; Z95.828 Presence of other vascular implants and grafts; Z79.01 Long term (current) use of anticoagulants; F17.210 Nicotine dependence, cigarettes, uncomplicated; Z79.82 Long term (current) use of aspirin; Z79.899 Other long term (current) drug therapy; Z82.49 Family history of ischemic heart disease and other diseases of the circulatory system
CPT/HCPCS: 36415; 71045; 80048; 80053; 81001; 82550; 82553; 83880; 84484; 85025; 85610; 87804; 93005; 93010; 96374; 99291; J0360; J1940; J2060; J3490

== ENCOUNTER 2019-07-25 14:17 | Inpatient (IN) | payer SELFPAY ==
--- NOTE | 2019-07-25 15:30 | ER Document Report ---
ED Medical Screen (RME) - General Chief Complaint: Breathing Difficulty Stated Complaint: DIFFICULTY BREATHING Time Seen by Provider: 07/25/19 15:23 Primary Care Provider: RACHANA GARCIA PA-C [Primary Care Provider] - Follow up as needed Mode of Arrival: Wheelchair Information source: Patient Notes: 54-year-old male with history of CHF hypertension presents to the emergency department with complaints of difficulty breathing weight gain chest pain shortness of breath. Reports chest pain started yesterday. Also reports he is gained 7 pounds in 1 day. Complains of abdominal fullness. Denies fever vomiting diarrhea. Reports his primary care discussed sending him to [facility] for a cath. I have greeted and performed a rapid initial assessment of this patient. A comprehensive ED assessment and evaluation of the patient, analysis of test results and completion of the medical decision making process will be conducted by additional ED providers. TRAVEL OUTSIDE OF THE [place] IN LAST 30 DAYS: No - Related Data Allergies/Adverse Reactions: No Known Allergies Allergy (Verified 07/25/19 15:19) Past Medical History - Past Medical History Cardiac Medical History: Reports: Hx Atrial Fibrillation, Hx DVT, Hx Hypertension Denies: Hx Congestive Heart Failure Pulmonary Medical History: Denies: Hx Asthma, Hx COPD Renal/ Medical History: Reports: Hx Kidney Stones. Denies: Hx Peritoneal Dialysis GI Medical History: Reports: Hx Gastroesophageal Reflux Disease Psychiatric Medical History: Reports: Hx Anxiety, Hx Depression Past Surgical History: Reports: Hx Cardiac Surgery - stent aorta, Hx Kidney (Renal Surgery) - stent rt kidney, Hx Vascular Surgery - femoral bypass - Immunizations Immunizations up to date: Yes Hx Diphtheria, Pertussis, Tetanus Vaccination: Yes Physical Exam - Vital signs Vitals: Temp Pulse Resp BP Pulse Ox 98.4 F 100 20 135/99 H 98 07/25/19 14:20 07/25/19 14:20 07/25/19 14:20 07/25/19 14:20 07/25/19 14:20 Course - Vital Signs Vital signs: Temp Pulse Resp BP Pulse Ox 98.4 F 100 20 135/99 H 98 07/25/19 14:20 07/25/19 14:20 07/25/19 14:20 07/25/19 14:20 07/25/19 14:20 Doctor's Discharge - Discharge Referrals: BUNDLE,RACHANA, PA-C [Primary Care Provider] - Follow up as needed
--- NOTE | 2019-07-25 15:58 | RADIOLOGY REPORT (SQ) ---
EXAM DESCRIPTION: CHEST 2 VIEWS COMPLETED DATE/TIME: 07/25/2019 3:44 pm REASON FOR STUDY: CP DIFFICULTY BREATHING CHF COMPARISON: 07/18/2019 EXAM PARAMETERS: NUMBER OF VIEWS: two views TECHNIQUE: Digital Frontal and Lateral radiographic views of the chest acquired. RADIATION DOSE: NA LIMITATIONS: none FINDINGS: LUNGS AND PLEURA: Bilateral interstitial airspace disease. Small left effusion. MEDIASTINUM AND HILAR STRUCTURES: No masses or contour abnormalities. HEART AND VASCULAR STRUCTURES: Heart is enlarged. The central vascular prominence. Aortic stent gra ft is in place in the aortic arch. BONES: No acute findings. HARDWARE: None in the chest. OTHER: No other significant finding. IMPRESSION: Cardiomegaly and mild vascular congestion. Similar findings were noted on prior study. TECHNICAL DOCUMENTATION: JOB ID: [id number] 2010 [employer]- All Rights Reserved Reading location - IP/workstation name: [email or web address]
--- NOTE | 2019-07-25 17:02 | ER Document Report ---
ED General - General Chief Complaint: Breathing Difficulty Stated Complaint: DIFFICULTY BREATHING Time Seen by Provider: 07/25/19 15:23 Mode of Arrival: Wheelchair Information source: Patient Notes: Patient is a 54-year-old male presenting to the emergency department chief complaint of shortness of breath. Patient is also complaining of left-sided chest pressure/discomfort. Patient states he has a history of atrial fibrillation and congestive heart failure. He states that this morning he ended up having increased shortness of breath has to sit upright or even somewhat lean forward in order to get a decent breath. Patient states that he may have had a little more salt than he should have over the past couple of days. Patient states he has been taking his medications. Patient denies fevers chills nausea vomiting or diarrhea. Patient denies travel history trauma history or any obvious sick exposures. TRAVEL OUTSIDE OF THE [place] IN LAST 30 DAYS: No - HPI Onset: This morning Onset/Duration: Persistent Quality of pain: Pressure Severity: Mild Pain Level: 2 Associated symptoms: Chest pain, Shortness of breath Exacerbated by: Movement Relieved by: Denies Similar symptoms previously: Yes Recently seen / treated by doctor: Yes - Related Data Allergies/Adverse Reactions: No Known Allergies Allergy (Verified 07/25/19 15:19) Past Medical History - General Information source: Patient, [facility] Records - Social History Smoking Status: Former Smoker Chew tobacco use (# tins/day): No Frequency of alcohol use: Rare Lives with: Family Family History: Reviewed & Not Pertinent, Hypertension, Other Patient has suicidal ideation: No Patient has homicidal ideation: No - Past Medical History Cardiac Medical History: Reports: Hx Atrial Fibrillation, Hx DVT, Hx Hypertension Denies: Hx Congestive Heart Failure Pulmonary Medical History: Denies: Hx Asthma, Hx COPD Renal/ Medical History: Reports: Hx Kidney Stones. Denies: Hx Peritoneal Dialysis GI Medical History: Reports: Hx Gastroesophageal Reflux Disease Psychiatric Medical History: Reports: Hx Anxiety, Hx Depression Past Surgical History: Reports: Hx Cardiac Surgery - stent aorta, Hx Kidney (Renal Surgery) - stent rt kidney, Hx Vascular Surgery - femoral bypass - Immunizations Immunizations up to date: Yes Hx Diphtheria, Pertussis, Tetanus Vaccination: Yes Review of Systems - Review of Systems Notes: REVIEW OF SYSTEMS: CONSTITUTIONAL : Per HPI EENT: Denies eye, ear, throat, or mouth pain or symptoms. Denies nasal or sinus congestion. CARDIOVASCULAR: Per HPI RESPIRATORY: Per HPI GASTROINTESTINAL: Denies abdominal pain. Denies nausea, vomiting, or diarrhea. Denies constipation. GENITOURINARY: Denies difficulty urinating, painful urination, burning, frequency, or blood in urine. MUSCULOSKELETAL: Denies neck or back pain or joint pain or swelling. SKIN: Denies rash or skin lesions. HEMATOLOGIC : Denies easy bruising or bleeding. NEUROLOGICAL: Denies altered mental status or loss of consciousness. Denies headache. Denies weakness or paralysis or loss of use of either side. Denies problems with gait or speech. Denies sensory or motor loss. PSYCHIATRIC: Denies suicidal or homicidal ideations 10 Systems are negative unless otherwise specified above Physical Exam - Vital signs Vitals: Temp Pulse Resp BP Pulse Ox 98.4 F 100 20 135/99 H 98 07/25/19 14:20 07/25/19 14:20 07/25/19 14:20 07/25/19 14:20 07/25/19 14:20 - Notes Notes: PHYSICAL EXAMINATION: GENERAL: Well-appearing, well-nourished and in no acute distress. HEAD: Atraumatic, normocephalic. EYES: Pupils equal round and reactive to light, extraocular movements intact, sclera anicteric, conjunctiva are normal. ENT: nares patent, oropharynx clear without exudates. Moist mucous membranes. NECK: Normal range of motion, supple without lymphadenopathy, no appreciable JVD LUNGS: Mild crackles to the bases. HEART: Irregularly irregular and tachycardic ABDOMEN: Soft, nontender, normal bowel sounds. No guarding, no rebound. No masses appreciated. EXTREMITIES: Active full range of motion, no pitting or edema. No cyanosis. 2+ pulses x4 NEUROLOGICAL: No focal neurological deficits. Moves all extremities spontaneously and on command. SKIN: Warm, Dry, and intact. Normal turgor, no rashes or lesions noted. Course - Re-evaluation Re-evalutation: 07/25/19 17:55 IV access was obtained blood work was obtained EKG was obtained demonstrating atrial fibrillation with a ventricular response in the 1 teens. Portable chest x-ray was obtained. Aspirin and nitro per chest pain protocol was administered. Patient was given 20 mg of Cardizem IV which resulted in heart rate in the 70s. Cardizem drip is being held at this time. Waiting on lab work results. 07/25/19 18:39 Patient has been maintained on a hall monitor while in the emergency department. Patient has remained stable. Initial troponin is minimally positive. Repeat troponin will be obtained 3 hours after the initial. Patient did respond well to Cardizem heart rate in the 70s and 80s. Patient is maintained same. Drip has not been started at this time because of his dramatic response. Patient has been written for 40 mg IV Lasix to initiate diuresis. It is noted that the patient also has renal insufficiency. Patient has been consulted to the hospitalist for admission. Patient is stable at this time. - Vital Signs Vital signs: Temp Pulse Resp BP Pulse Ox 98.4 F 100 11 L 131/112 H 98 07/25/19 14:20 07/25/19 14:20 07/25/19 19:16 07/25/19 19:16 07/25/19 19:16 - Laboratory Result Diagrams: 07/25/19 17:30 07/25/19 17:30 Laboratory results interpreted by me: 07/25/19 07/25/19 07/25/19 17:30 17:30 17:30 RDW 14.1 H Chloride 109 H BUN 31 H Creatinine 2.03 H Est GFR ( Amer) 42 L Est GFR (MDRD) Non-Af 35 L Magnesium ALT 63 H NT-Pro-B Natriuret Pep 31158 H 07/25/19 17:30 RDW Chloride BUN Creatinine Est GFR ( Amer) Est GFR (MDRD) Non-Af Magnesium 2.4 H ALT NT-Pro-B Natriuret Pep - Diagnostic Test Radiology reviewed: Reports reviewed - EKG Interpretation by Me Rate: Tachycardia Rhythm: A.Fib Voltage: Consistant with LVH When compared to previous EKG there are: No significant change Critical Care Note - Critical Care Note Total time excluding time spent on procedures (mins): 40 Comments: Please allow 40 minutes of critical care time exclusive of separately billable procedures for multiple re-evaluations medical management and consultation with hospitalist in regards to management of this critically ill patient. Discharge - Discharge Clinical Impression: Atrial fibrillation with RVR, Shortness of breath, Renal insufficiency Condition: Fair Disposition: ADMITTED INPATIENT Admitting Provider: Anastacio (Hospitalist) Unit Admitted: Telemetry
[2019-07-25] MEDS ORDERED: NITROGLYCERIN 2% OINTMENT 1 GM PACKET TP ONE (17:15)
[2019-07-25] MEDS ORDERED: ASPIRIN 81 MG TABLET, CHEWABLE PO ONE (17:15)
[2019-07-25] MEDS ORDERED: DILTIAZEM HCL INJ 25 MG/5 ML VIAL IV ONE (17:18)
[2019-07-25] MEDS ORDERED: DILTIAZEM HCL/D5W 125 MG/125 ML RTUINJ IV PRN (17:19)
[2019-07-25 17:43] LABS: ABSOLUTE BASOPHILS # (AUTO) 0.1 10^3/uL (0.0-0.2); ABSOLUTE EOSINOPHILS # (AUTO) 0.2 10^3/uL (0.0-0.6); ABSOLUTE MONOCYTES (AUTO) 0.7 10^3/uL (0.1-1.4); ABSOLUTE NEUT (AUTO) 5.3 10^3/uL (1.7-8.2); BASOPHILS % (AUTO) 0.7 % (0-2); EOSINOPHILS % (AUTO) 2.7 % (0-6); HEMATOCRIT 44.7 % (37.9-51.0); HEMOGLOBIN 15.3 g/dL (13.5-17.0); LYMPHOCYTES % (AUTO) 24.1 % (13-45); MEAN CORPUSCULAR HEMOGLOBIN 30.6 pg (27.0-33.4); MEAN CORPUSCULAR HGB CONC 34.3 g/dL (32.0-36.0); MEAN CORPUSCULAR VOLUME 89 fl (80-97); PLATELET COUNT 157 10^3/uL (150-450); RED BLOOD COUNT 5.01 10^6/uL (4.35-5.55); RED CELL DISTRIBUTION WIDTH 14.1 % (11.5-14.0); SEGMENTED NEUTROPHILS % (AUTO) 63.5 % (42-78); TOTAL CELLS COUNTED % (AUTO) 100 %; WHITE BLOOD COUNT 8.3 10^3/uL (4.0-10.5)
[2019-07-25 18:07] LABS: ALBUMIN 4.2 g/dL (3.5-5.0); ALKALINE PHOSPHATASE 80 U/L (38-126); ANION GAP 9 (5-19); ASPARTATE AMINO TRANSFERASE 33 U/L (17-59); BLOOD UREA NITROGEN 31 mg/dL (7-20); CALCIUM 9.6 mg/dL (8.4-10.2); CARBON DIOXIDE 24 mmol/L (22-30); CHLORIDE 109 mmol/L (98-107); GLUCOSE 96 mg/dL (75-110); POTASSIUM 4.5 mmol/L (3.6-5.0)
[2019-07-25 18:17] LABS: CREATINE KINASE MB 1.28 ng/mL (<4.55)
[2019-07-25 18:22] LABS: TROPONIN I 0.091 ng/mL
[2019-07-25] MEDS ORDERED: FUROSEMIDE INJ/PF 40 MG/4 ML SDV IV ONE (18:27)
[2019-07-25] MEDS ORDERED: ACETAMINOPHEN 325 MG TABLET PO PRN (19:06)
[2019-07-25] MEDS ORDERED: MAGNESIUM HYDROXIDE SUSP 30 ML UDCUP PO PRN (19:06)
[2019-07-25] MEDS ORDERED: MAG HYDROX/AL HYDROX/SIMETH SUSP 30 ML UDCUP PO PRN (19:06)
--- NOTE | 2019-07-25 19:35 | EKG REPORT ---
SEVERITY:- ABNORMAL ECG - ATRIAL FIBRILLATION, V-RATE 73-152 PROBABLE LVH WITH SECONDARY REPOL ABNRM PROLONGED QT INTERVAL : Confirmed by: Agnes Colón 25-Jul-2019 19:33:43
[2019-07-25] MEDS: POTASSIUM CHLORIDE 10 MEQ TABLET.ER PO SCH (22:47)
[2019-07-25] MEDS: LOSARTAN POTASSIUM 50 MG TABLET PO SCH (22:47)
[2019-07-25] MEDS: CARVEDILOL 12.5 MG TABLET PO SCH (22:47)
[2019-07-25] MEDS: ARIPIPRAZOLE 5 MG TABLET PO SCH (22:48)
[2019-07-25] MEDS: ATORVASTATIN CALCIUM 40 MG TABLET PO SCH (22:48)
[2019-07-25] MEDS: RIVAROXABAN 10 MG TABLET PO SCH (22:50)
[2019-07-26 03:11] LABS: ABSOLUTE EOSINOPHILS # (AUTO) 0.2 10^3/uL (0.0-0.6); ABSOLUTE MONOCYTES (AUTO) 0.7 10^3/uL (0.1-1.4); ABSOLUTE NEUT (AUTO) 4.2 10^3/uL (1.7-8.2); BASOPHILS % (AUTO) 0.6 % (0-2); HEMOGLOBIN 13.7 g/dL (13.5-17.0); LYMPHOCYTES % (AUTO) 28.1 % (13-45); MEAN CORPUSCULAR HEMOGLOBIN 30.1 pg (27.0-33.4); MEAN CORPUSCULAR HGB CONC 34.2 g/dL (32.0-36.0); MEAN CORPUSCULAR VOLUME 88 fl (80-97); MONOCYTES % (AUTO) 10.3 % (3-13); PLATELET COUNT 136 10^3/uL (150-450); RED BLOOD COUNT 4.54 10^6/uL (4.35-5.55); RED CELL DISTRIBUTION WIDTH 13.5 % (11.5-14.0); TOTAL CELLS COUNTED % (AUTO) 100 %; WHITE BLOOD COUNT 7.2 10^3/uL (4.0-10.5)
[2019-07-26 03:25] LABS: ANION GAP 9 (5-19); BLOOD UREA NITROGEN 34 mg/dL (7-20); CALCIUM 8.8 mg/dL (8.4-10.2); CARBON DIOXIDE 27 mmol/L (22-30); CHLORIDE 107 mmol/L (98-107); GLUCOSE 85 mg/dL (75-110); POTASSIUM 3.8 mmol/L (3.6-5.0)
--- NOTE | 2019-07-26 05:22 | PDOC H&P ---
History of Present Illness Admission Date/PCP: 07/25/19 18:52 RACHANA GARCIA PA-C Patient complains of: Shortness of breath History of Present Illness: JOHN PADILLA is a 54 year old male with a past medical history of chronic atrial fibrillation, systolic heart failure, stage III CKD, anxiety with panic attack, tobacco and cannabis dependence. He presents 24 hours after the onset of a panic attack associated with shortness of breath and palpitations prompting evaluation emergency room. He is found to be in A. fib with RVR and rate of 140, pulmonary vascular congestion, prolonged QT and CKD at baseline. He admits to abrupt discontinuation of tobacco and cannabis approximately 1 week ago. He admits to intermittent use of his medications including Coreg, trazodone and sertraline. Wholly discontinuing Xarelto several weeks ago. He denies homicidal or suicidal ideation. Past Medical History Cardiac Medical History: Reports: Atrial Fibrillation, DVT, Hypertension Denies: Congestive Heart Failure Pulmonary Medical History: Denies: Asthma, Chronic Obstructive Pulmonary Disease (COPD) GI Medical History: Reports: Gastroesophageal Reflux Disease Psychiatric Medical History: Reports: Depression, Substance Abuse, Tobacco Dependency Denies: Alcohol Dependency Past Surgical History Past Surgical History: Reports: Vascular Surgery - femoral bypass Social History Information Source: Patient Lives with: Family Smoking Status: Former Smoker Electronic Cigarette use?: No Number of Years Smokin Last Time Smoked: couple months ago Frequency of Alcohol Use: None Hx Recreational Drug Use: Yes - quit all drug/ alcohol/ tobacco use couple months ago Drugs: Marijuana Hx Prescription Drug Abuse: No - Advance Directive Resuscitation Status: Full Code Family History Family History: Hypertension, Other Parental Family History Reviewed: Yes Children Family History Reviewed: Yes Sibling(s) Family History Reviewed.: Yes Medication/Allergy Home Medications: Aspirin [Ecotrin 81 mg EC Tablet] 81 mg PO DAILY 02/27/19 Sertraline HCl 50 mg PO DAILY 06/27/19 Furosemide [Lasix] 40 mg PO DAILY #30 tablet 07/01/19 Atorvastatin Calcium [Lipitor 40 mg Tablet] 40 mg PO QHS tablet 07/21/19 Losartan Potassium [Cozaar 50 mg Tablet] 50 mg PO Q12 #0 tablet 07/21/19 Rivaroxaban [Xarelto 10 mg Tablet] 20 mg PO WSUPPER tablet 07/21/19 Carvedilol [Coreg 12.5 mg Tablet] 12.5 mg PO Q12 07/25/19 Potassium Chloride [Klor-Con 10 Meq Tablet ER] 20 meq PO DAILY 07/25/19 Allergies/Adverse Reactions: No Known Allergies Allergy (Verified 07/25/19 15:19) Review of Systems Constitutional: ABSENT: chills, fever(s), headache(s), weight gain, weight loss Eyes: ABSENT: visual disturbances Ears: ABSENT: hearing changes Cardiovascular: ABSENT: chest pain, dyspnea on exertion, edema, orthropnea, palpitations Respiratory: ABSENT: cough, hemoptysis Gastrointestinal: ABSENT: abdominal pain, constipation, diarrhea, hematemesis, hematochezia, nausea, vomiting Genitourinary: ABSENT: dysuria, hematuria Musculoskeletal: ABSENT: joint swelling Integumentary: ABSENT: rash, wounds Neurological: ABSENT: abnormal gait, abnormal speech, confusion, dizziness, focal weakness, syncope Psychiatric: PRESENT: as per HPI, anxiety, depression. ABSENT: homidical ideation, suicidal ideation Endocrine: ABSENT: cold intolerance, heat intolerance, polydipsia, polyuria Hematologic/Lymphatic: ABSENT: easy bleeding, easy bruising Physical Exam Vital Signs: Temp Pulse Resp BP Pulse Ox 97.3 F 89 24 H 143/107 H 97 07/25/19 22:15 07/26/19 02:00 07/25/19 22:15 07/25/19 22:15 07/25/19 22:15 Intake & Output 07/24/19 07/25/19 07/26/19 11:59 11:59 11:59 Intake Total 120 Balance 120 Weight 96.2 kg General appearance: PRESENT: no acute distress, cooperative, well-developed, well-nourished Head exam: PRESENT: atraumatic, normocephalic Eye exam: PRESENT: conjunctiva pink, EOMI, PERRLA. ABSENT: scleral icterus Ear exam: PRESENT: normal external ear exam Mouth exam: PRESENT: moist, tongue midline Neck exam: ABSENT: carotid bruit, JVD, lymphadenopathy, thyromegaly Respiratory exam: PRESENT: crackles, prolonged expiratory phas, tachypnea. ABSENT: rales, rhonchi, wheezes Cardiovascular exam: PRESENT: irregular rhythm, tachycardia. ABSENT: diastolic murmur, rubs, systolic murmur Pulses: PRESENT: normal dorsalis pedis pul Vascular exam: PRESENT: normal capillary refill GI/Abdominal exam: PRESENT: normal bowel sounds, soft. ABSENT: distended, guarding, mass, organolmegaly, rebound, tenderness Rectal exam: PRESENT: deferred Extremities exam: PRESENT: full ROM. ABSENT: calf tenderness, clubbing, pedal edema Neurological exam: PRESENT: alert, awake, oriented to person, oriented to place, oriented to time, oriented to situation, CN II-XII grossly intact. ABSENT: motor sensory deficit Psychiatric exam: PRESENT: anxious, appropriate affect, unusual affect. ABSENT: homicidal ideation, suicidal ideation Skin exam: PRESENT: dry, intact, warm. ABSENT: cyanosis, rash Results Laboratory Results: 07/26/19 02:54 07/26/19 02:54 07/25/19 07/25/19 07/25/19 17:30 17:30 17:30 WBC 8.3 RBC 5.01 Hgb 15.3 Hct 44.7 MCV 89 MCH 30.6 MCHC 34.3 RDW 14.1 H Plt Count 157 Seg Neutrophils % 63.5 Sodium 141.9 Potassium 4.5 Chloride 109 H Carbon Dioxide 24 Anion Gap 9 BUN 31 H Creatinine 2.03 H Est GFR ( Amer) 42 L Glucose 96 Calcium 9.6 Magnesium 2.4 H Total Bilirubin 1.0 AST 33 Alkaline Phosphatase 80 Total Protein 7.0 Albumin 4.2 07/26/19 07/26/19 02:54 02:54 WBC 7.2 RBC 4.54 Hgb 13.7 Hct 40.0 MCV 88 MCH 30.1 MCHC 34.2 RDW 13.5 Plt Count 136 L Seg Neutrophils % 58.0 Sodium 143.3 Potassium 3.8 Chloride 107 Carbon Dioxide 27 Anion Gap 9 BUN 34 H Creatinine 1.99 H Est GFR ( Amer) 43 L Glucose 85 Calcium 8.8 Magnesium Total Bilirubin AST Alkaline Phosphatase Total Protein Albumin 07/25/19 07/25/19 07/25/19 17:30 20:20 21:05 CK-MB (CK-2) 1.28 Troponin I 0.091 Cancelled 0.085 NT-Pro-B Natriuret Pep 28412 H 07/26/19 02:54 CK-MB (CK-2) Troponin I 0.084 NT-Pro-B Natriuret Pep Impressions: Chest X-Ray 07/25/19 15:26 IMPRESSION: Cardiomegaly and mild vascular congestion. Similar findings were noted on prior study. Assessment and Plan - Diagnosis (1) Atrial fibrillation with RVR Is this a current diagnosis for this admission?: Yes Plan: Xarelto and IV Cardizem initiated, home dose Coreg ordered. (2) Prolonged QT interval Is this a current diagnosis for this admission?: Yes Plan: Likely secondary to trazodone and sertraline both held in favor of Abilify trial (3) Anxiety Is this a current diagnosis for this admission?: Yes Plan: Discontinue trazodone and sertraline secondary to prolonged QT, trial of Abilify, follow-up TSH (4) Hypertension Qualifiers: Hypertension type: essential hypertension Qualified Code(s): I10 - Essential (primary) hypertension Is this a current diagnosis for this admission?: Yes Plan: Coreg ordered, resume ZULAY inhibitor as blood pressure allows. (5) Tobacco abuse Is this a current diagnosis for this admission?: Yes Plan: Tobacco cessation counseling performed, nicotine replacement options discussed over 20 minutes. (6) CKD (chronic kidney disease) stage 3, GFR 30-59 ml/min Is this a current diagnosis for this admission?: Yes Plan: At baseline. Avoid nephrotoxic meds and doses, follow-up chemistry - Time Time Spent with patient: 25-34 minutes - Inpatient Certification Medical Necessity: Need Close Monitoring Due to Risk of Patient Decompensation
[2019-07-26] MEDS ORDERED: FUROSEMIDE 40 MG TABLET PO SCH (10:00)
[2019-07-26] MEDS: FUROSEMIDE INJ/PF 40 MG/4 ML SDV IV SCH (10:10)
[2019-07-26] MEDS: CARVEDILOL 12.5 MG TABLET PO SCH ×2 (10:11→21:42)
[2019-07-26] MEDS: POTASSIUM CHLORIDE 10 MEQ TABLET.ER PO SCH ×2 (10:11→21:41)
[2019-07-26] MEDS: LOSARTAN POTASSIUM 50 MG TABLET PO SCH ×2 (10:11→21:41)
[2019-07-26] MEDS: ASPIRIN 81 MG TABLET, ENT COATED PO SCH (10:11)
[2019-07-26] MEDS: DOCUSATE SODIUM 100 MG CAPSULE PO SCH (10:11)
[2019-07-26] MEDS ORDERED: CARVEDILOL 12.5 MG TABLET PO ONE ×3 (11:35→14:30)
[2019-07-26] MEDS: RIVAROXABAN 10 MG TABLET PO SCH (18:06)
--- NOTE | 2019-07-26 18:37 | PDOC PROGRESS REPORT ---
Subjective Progress Note for:: 07/26/19 Subjective:: No adverse events overnight. He is been on his oral medications and his heart rate was still pretty high this morning, and his blood pressure was a little bit elevated as well. He has been breathing comfortably on room air. Reason For Visit: AFIB HEART FAILURE Physical Exam Vital Signs: Temp Pulse Resp BP Pulse Ox 97.6 F 70 18 129/99 H 97 07/26/19 16:12 07/26/19 16:12 07/26/19 16:12 07/26/19 16:12 07/26/19 16:12 Intake & Output 07/25/19 07/26/19 07/27/19 06:59 06:59 06:59 Intake Total 500 980 Output Total 1000 1600 Balance -500 -620 Weight 92.6 kg General appearance: PRESENT: no acute distress, cooperative, disheveled, obese Respiratory exam: PRESENT: crackles, symmetrical, unlabored. ABSENT: accessory muscle use, chest wall tenderness, clear to auscultation lita, prolonged expiratory phas - Bibasilar, retraction, rhonchi, tachypnea, wheezes Cardiovascular exam: PRESENT: irregular rhythm, +S1, +S2 Pulses: PRESENT: normal carotid pulses Vascular exam: PRESENT: normal capillary refill GI/Abdominal exam: PRESENT: normal bowel sounds, soft. ABSENT: distended, g uarding, rebound, tenderness Extremities exam: PRESENT: pedal edema, +1 edema. ABSENT: clubbing Musculoskeletal exam: PRESENT: normal inspection. ABSENT: deformity Neurological exam: PRESENT: alert, awake, oriented to person, oriented to place, oriented to situation Psychiatric exam: PRESENT: appropriate affect, normal mood Skin exam: PRESENT: dry, warm Results Laboratory Results: 07/26/19 02:54 07/26/19 02:54 07/25/19 07/26/19 07/26/19 17:30 02:54 02:54 WBC 7.2 RBC 4.54 Hgb 13.7 Hct 40.0 MCV 88 MCH 30.1 MCHC 34.2 RDW 13.5 Plt Count 136 L Seg Neutrophils % 58.0 Sodium 143.3 Potassium 3.8 Chloride 107 Carbon Dioxide 27 Anion Gap 9 BUN 34 H Creatinine 1.99 H Est GFR ( Amer) 43 L Glucose 85 Calcium 8.8 Magnesium 2.4 H 07/25/19 07/25/1907/24/20 17:30 20:20 21:05 CK-MB (CK-2) 1.28 Troponin I 0.091 Cancelled 0.085 NT-Pro-B Natriuret Pep [id number] H 07/26/19 07/26/19 02:54 10:15 CK-MB (CK-2) Troponin I 0.084 0.065 NT-Pro-B Natriuret Pep Impressions: Chest X-Ray 07/25/19 15:26 IMPRESSION: Cardiomegaly and mild vascular congestion. Similar findings were noted on prior study. Assessment and Plan - Diagnosis (1) Atrial fibrillation with RVR Is this a current diagnosis for this admission?: Yes Plan: He is anticoagulated. I increased his Coreg to 25 mg twice a day and his heart rate has slowed down into the 70s now. (2) CKD (chronic kidney disease) stage 3, GFR 30-59 ml/min Is this a current diagnosis for this admission?: Yes Plan: Creatinine actually improved after some diuresis, in his usual range (3) Acute combined systolic and diastolic heart failure Is this a current diagnosis for this admission?: Yes Plan: He follows up with Dr. Simons as an outpatient. He got overloaded this time probably because of atrial fibrillation. He is responding to diuresis. - Time Time Spent with patient: 15-24 minutes
[2019-07-26] MEDS: ARIPIPRAZOLE 5 MG TABLET PO SCH (21:41)
[2019-07-26] MEDS: ATORVASTATIN CALCIUM 40 MG TABLET PO SCH (21:42)
[2019-07-27] MEDS: FUROSEMIDE INJ/PF 40 MG/4 ML SDV IV SCH (09:44)
[2019-07-27] MEDS: DOCUSATE SODIUM 100 MG CAPSULE PO SCH (09:45)
[2019-07-27] MEDS: ASPIRIN 81 MG TABLET, ENT COATED PO SCH (09:45)
[2019-07-27] MEDS: CARVEDILOL 12.5 MG TABLET PO SCH (09:45)
[2019-07-27] MEDS: LOSARTAN POTASSIUM 50 MG TABLET PO SCH ×2 (09:45→22:03)
[2019-07-27] MEDS: POTASSIUM CHLORIDE 10 MEQ TABLET.ER PO SCH ×2 (09:45→22:03)
[2019-07-27] MEDS ORDERED: DIGOXIN INJ 0.5 MG/2 ML AMPULE IV ONE ×2 (12:30→18:00)
--- NOTE | 2019-07-27 16:32 | PDOC PROGRESS REPORT ---
Subjective Progress Note for:: 07/27/19 Subjective:: No adverse events overnight. He wanted to go home today but his heart rate is still uncontrolled despite the fact that we increase his Coreg yesterday. I spoke with his detective private eye Dr. Simons and he recommended switching him to Toprol XL and adding digoxin. Reason For Visit: AFIB HEART FAILURE Physical Exam Vital Signs: Temp Pulse Resp BP Pulse Ox 97.5 F 110 H 16 114/88 H 96 07/27/19 04:16 07/27/19 14:00 07/27/19 04:16 07/27/19 04:16 07/27/19 04:16 Intake & Output 07/26/19 07/27/19 07/28/19 06:59 06:59 06:59 Intake Total 500 1298 Output Total 1000 2175 Balance -500 -877 Weight 92.6 kg General appearance: PRESENT: no acute distress, cooperative, disheveled, obese Respiratory exam: PRESENT: symmetrical, unlabored. ABSENT: accessory muscle use, chest wall tenderness, clear to auscultation lita, prolonged expiratory phase, retraction, rhonchi, tachypnea, wheezes Cardiovascular exam: PRESENT: irregular rhythm, +S1, +S2 Pulses: PRESENT: normal carotid pulses Vascular exam: PRESENT: normal capillary refill GI/Abdominal exam: PRESENT: normal bowel sounds, soft. ABSENT: distended, guarding, rebound, tenderness Extremities exam: PRESENT: Trace edema. ABSENT: clubbing Musculoskeletal exam: PRESENT: normal inspection. ABSENT: deformity Neurological exam: PRESENT: alert, awake, oriented to person, oriented to place, oriented to situation Psychiatric exam: PRESENT: appropriate affect, normal mood Skin exam: PRESENT: dry, warm Results Laboratory Results: 07/26/19 02:54 07/26/19 02:54 07/25/19 07/25/19 07/25/19 17:30 20:20 21:05 CK-MB (CK-2) 1.28 Troponin I 0.091 Cancelled 0.085 NT-Pro-B Natriuret Pep [id number] H 07/26/19 07/26/19 02:54 10:15 CK-MB (CK-2) Troponin I 0.084 0.065 NT-Pro-B Natriuret Pep Impressions: Chest X-Ray 07/25/19 15:26 IMPRESSION: Cardiomegaly and mild vascular congestion. Similar findings were noted on prior study. Assessment and Plan - Diagnosis (1) Atrial fibrillation with RVR Is this a current diagnosis for this admission?: Yes Plan: Talk to his detective private eye Dr. Simons she is going to come see him this afternoon. I switched him to Toprol-XL and discontinued his Coreg and have given him a dose of digoxin per Dr. Simons's recommendation. (2) CKD (chronic kidney disease) stage 3, GFR 30-59 ml/min Is this a current diagnosis for this admission?: Yes Plan: Monitoring his creatinine which is at baseline. (3) Acute combined systolic and diastolic heart failure Is this a current diagnosis for this admission?: Yes Plan: Change Coreg to Toprol-XL as noted above, continue other medications for optimization. - Time Time Spent with patient: 15-24 minutes
--- NOTE | 2019-07-27 16:39 | PDOC CONSULTATION ---
Consultation Consult Date: 07/27/19 Attending physician:: BAKARI GARCIA Provider Consulted: ALEJANDRO MANCINI Consult reason:: Congestive heart failure History of Present Illness Admission Date/PCP: 07/25/19 18:52 RACHANA GARCIA PA-C Patient complains of: Dyspnea History of Present Illness: JOHN PADILLA is a 54 year old male With the following active problems 1. Atrial fibrillation with rapid ventricular response 2. Dilated cardiomyopathy-etiology unknown 3. Left ventricular dysfunction-ejection fraction 25% 4. Congestive heart dexmhrk-pikldhhk-kbdfpcs decompensated 5. Noncompliance 6. Systemic anticoagulation 7. Type B aortic dissection Status post repair 8. Chronic kidney disease 54-year-old male with atrial fibrillation of unknown duration who was not on systemic anticoagulation initially when I met him and was also found to have acute decompensated systolic congestive heart failure. Patient has had 2 recent hospital admissions for the same problem. On both occasions we have diuresed him pretty well and gotten rate control. The plan subsequently was to evaluate him for occlusive coronary artery disease given new diagnosis of left ventricular dysfunction and with known peripheral vascular disease. Patient is a former smoker as well. However attempts to arrange this study have been hampered by bouts of acute decompensated congestive heart failure and will have to get him euvolemic. Patient endorses that he has orthopnea and PND at the moment. He also admits to not following dietary restrictions and adhering to a no salt added diet. Presently he is rate controlled. Former smoker No familial illnesses. Past Medical History Cardiac Medical History: Reports: Atrial Fibrillation, DVT, Hypertension Denies: Congestive Heart Failure Pulmonary Medical History: Denies: Asthma, Chronic Obstructive Pulmonary Disease (COPD) GI Medical History: Reports: Gastroesophageal Reflux Disease Psychiatric Medical History: Reports: Depression, Substance Abuse, Tobacco Dependency Denies: Alcohol Dependency Past Surgical History Past Surgical History: Reports: Vascular Surgery - femoral bypass Social History Lives with: Family Smoking Status: Former Smoker Electronic Cigarette use?: No Number of Years Smokin Last Time Smoked: couple months ago Frequency of Alcohol Use: None Hx Recreational Drug Use: Yes - quit all drug/ alcohol/ tobacco use couple months ago Drugs: Marijuana Hx Prescription Drug Abuse: No - Advance Directive Resuscitation Status: Full Code Family History Family History: Hypertension, Other Parental Family History Reviewed: Yes - No familial illnesses Children Family History Reviewed: NA Sibling(s) Family History Reviewed.: NA Medication/Allergy Home Medications: Aspirin [Ecotrin 81 mg EC Tablet] 81 mg PO DAILY 02/27/19 Sertraline HCl 50 mg PO DAILY 06/27/19 Furosemide [Lasix] 40 mg PO DAILY #30 tablet 07/01/19 Atorvastatin Calcium [Lipitor 40 mg Tablet] 40 mg PO QHS tablet 07/21/19 Losartan Potassium [Cozaar 50 mg Tablet] 50 mg PO Q12 #0 tablet 07/21/19 Rivaroxaban [Xarelto 10 mg Tablet] 20 mg PO WSUPPER tablet 07/21/19 Carvedilol [Coreg 12.5 mg Tablet] 12.5 mg PO Q12 07/25/19 Potassium Chloride [Klor-Con 10 Meq Tablet ER] 20 meq PO DAILY 07/25/19 Allergies/Adverse Reactions: No Known Allergies Allergy (Verified 07/25/19 15:19) Review of Systems Nose, Mouth, and Throat: PRESENT: as per HPI Cardiovascular: PRESENT: as per HPI Gastrointestinal: PRESENT: as per HPI Physical Exam Vital Signs: Temp Pulse Resp BP Pulse Ox 97.5 F 110 H 16 114/88 H 96 07/27/19 04:16 07/27/19 14:00 07/27/19 04:16 07/27/19 04:16 07/27/19 04:16 Intake & Output 07/26/19 07/27/19 07/28/19 06:59 06:59 06:59 Intake Total 500 1298 Output Total 1000 2175 Balance -500 -877 Weight 92.6 kg General appearance: PRESENT: no acute distress, cooperative, well-developed Head exam: PRESENT: atraumatic, normocephalic Eye exam: PRESENT: conjunctiva pink, EOMI Respiratory exam: PRESENT: crackles, decreased breath sounds, prolonged expiratory phas, rales, symmetrical Cardiovascular exam: PRESENT: irregular rhythm, +S1, +S2 Pulses: PRESENT: normal radial pulses GI/Abdominal exam: PRESENT: soft Rectal exam: PRESENT: deferred Neurological exam: PRESENT: alert, awake, oriented to person, oriented to place, oriented to time, oriented to situation Psychiatric exam: PRESENT: unusual affect Skin exam: PRESENT: dry, intact, normal color Results Laboratory Results: 07/26/19 02:54 07/26/19 02:54 07/25/19 07/25/19 07/25/19 17:30 20:20 21:05 CK-MB (CK-2) 1.28 Troponin I 0.091 Cancelled 0.085 NT-Pro-B Natriuret Pep 60653 H 07/26/19 07/26/19 02:54 10:15 CK-MB (CK-2) Troponin I 0.084 0.065 NT-Pro-B Natriuret Pep EKG Comments: Telemetry shows atrial fibrillation with ventricular rate at 105 bpm. Twelve-lead EKG shows atrial fibrillation with poorly controlled ventricular response 140 bpm, LVH with repolarization abnormality versus tachycardia induced ST-T changes. Impressions: Chest X-Ray 07/25/19 15:26 IMPRESSION: Cardiomegaly and mild vascular congestion. Similar findings were noted on prior study. Status: Image reviewed by me - Pulmonary edema, cardiomegaly, thoracic aortic stent Assessment & Plan - Diagnosis (1) Acute congestive heart failure Qualifiers: Heart failure type: combined systolic and diastolic Qualified Code(s): I50.41 - Acute combined systolic (congestive) and diastolic (congestive) heart failure Is this a current diagnosis for this admission?: Yes Plan: Acute decompensated systolic congestive heart failure Initiate diuretic therapy Watch creatinine as we diurese Presently has crackles and is symptomatic. (2) Dilated cardiomyopathy Is this a current diagnosis for this admission?: Yes Plan: Dilated cardiomyopathy-unknown etiology Given young age and multiple risk factors for coronary artery disease I do feel strongly that he deserves evaluation invasively of his coronaries. However he needs to be somewhat euvolemic before we can arrange for this. Meanwhile continue guideline directed medical therapy consisting of beta-ann and ZULAY inhibition as tolerated. (3) Atrial fibrillation with RVR Is this a current diagnosis for this admission?: Yes Plan: Rate control measures presently We will plan on cardioversion once more euvolemic and ischemia evaluation has been completed Continue systemic anticoagulation For rate control metoprolol can be used as opposed to the use of carvedilol with a more pronounced effect on heart rate with less hypotensive effect. Careful use of digoxin with measurement of levels can also be an option. Would not use calcium channel blockers with known LV dysfunction (4) CKD (chronic kidney disease) stage 3, GFR 30-59 ml/min Is this a current diagnosis for this admission?: Yes Plan: Known CKD. We will monitor creatinine as we diurese him
[2019-07-27] MEDS ORDERED: DIGOXIN INJ 0.5 MG/2 ML AMPULE ONE (17:26)
[2019-07-27] MEDS: RIVAROXABAN 10 MG TABLET PO SCH (17:30)
[2019-07-27] MEDS: METOPROLOL SUCCINATE 50 MG TAB.SR.24H PO SCH (22:03)
[2019-07-27] MEDS: ARIPIPRAZOLE 5 MG TABLET PO SCH (22:03)
[2019-07-27] MEDS: ATORVASTATIN CALCIUM 40 MG TABLET PO SCH (22:03)
[2019-07-28 06:53] LABS: ANION GAP 12 (5-19); BLOOD UREA NITROGEN 35 mg/dL (7-20); CALCIUM 9.5 mg/dL (8.4-10.2); CARBON DIOXIDE 24 mmol/L (22-30); CHLORIDE 106 mmol/L (98-107); GLUCOSE 106 mg/dL (75-110); POTASSIUM 4.1 mmol/L (3.6-5.0)
[2019-07-28] MEDS: LOSARTAN POTASSIUM 50 MG TABLET PO SCH (10:08)
[2019-07-28] MEDS: DOCUSATE SODIUM 100 MG CAPSULE PO SCH (10:08)
[2019-07-28] MEDS: METOPROLOL SUCCINATE 50 MG TAB.SR.24H PO SCH (10:08)
[2019-07-28] MEDS: ASPIRIN 81 MG TABLET, ENT COATED PO SCH (10:09)
[2019-07-28] MEDS: POTASSIUM CHLORIDE 10 MEQ TABLET.ER PO SCH (10:09)
[2019-07-28] MEDS: FUROSEMIDE INJ/PF 40 MG/4 ML SDV IV SCH (10:58)
[2019-07-28 13:15] VITALS: BP 126/78
--- NOTE | 2019-07-28 17:25 | PDOC DISCHARGE SUMMARY ---
Impression - Admit/DC Date/PCP Admission Date/Primary Care Provider: 07/25/19 18:52 RACHANA GARCIA PA-C Discharge Date: 07/28/19 - Discharge Diagnosis (1) Atrial fibrillation with RVR Is this a current diagnosis for this admission?: Yes (2) CKD (chronic kidney disease) stage 3, GFR 30-59 ml/min Is this a current diagnosis for this admission?: Yes (3) Acute combined systolic and diastolic heart failure Is this a current diagnosis for this admission?: Yes - Additional Information Resuscitation Status: Full Code Discharge Diet: Cardiac Discharge Activity: Activity As Tolerated, Balance Activity w/Rest, Weigh Daily Referrals: RACHANA GARCIA PA-C [Primary Care Provider] - 08/03/19 1:30 pm ALEJANDRO SIMONS MD [ACTIVE STAFF] - (3-5 days left 2 messages (1:11)) Prescriptions: Aripiprazole [Abilify 5 mg Tablet] 10 mg PO QHS #60 tablet Metoprolol Succinate [Toprol Xl 50 mg Tab.sr] 50 mg PO Q12 #60 tab.sr.24h Home Medications: Aspirin [Ecotrin 81 mg EC Tablet] 81 mg PO DAILY 02/27/19 Furosemide [Lasix] 40 mg PO DAILY #30 tablet 07/01/19 Atorvastatin Calcium [Lipitor 40 mg Tablet] 40 mg PO QHS tablet 07/21/19 Losartan Potassium [Cozaar 50 mg Tablet] 50 mg PO Q12 #0 tablet 07/21/19 Rivaroxaban [Xarelto 10 mg Tablet] 20 mg PO WSUPPER tablet 07/21/19 Potassium Chloride [Klor-Con 10 Meq Tablet ER] 20 meq PO DAILY 07/25/19 Aripiprazole [Abilify 5 mg Tablet] 10 mg PO QHS #60 tablet 07/28/19 Metoprolol Succinate [Toprol Xl 50 mg Tab.sr] 50 mg PO Q12 #60 tab.sr.24h 07/28/19 History of Present Illiness History of Present Illness: JOHN PADILLA is a 54 year old male with a past medical history of chronic atrial fibrillation, systolic heart failure, stage III CKD, anxiety with panic attack, tobacco and cannabis dependence. He presents 24 hours after the onset of a panic attack associated with shortness of breath and palpitations prompting evaluation emergency room. He is found to be in A. fib with RVR and rate of 140, pulmonary vascular congestion, prolonged QT and CKD at baseline. He admits to abrupt discontinuation of tobacco and cannabis approximately 1 week ago. He admits to intermittent use of his medications including Coreg, trazodone and sertraline. Wholly discontinuing Xarelto several weeks ago. He denies homicidal or suicidal ideation. Hospital Course Hospital Course: We had a hard time getting his heart rate under control, so we switched him off of his Coreg and put him on Toprol-XL so we can titrated to better effect. Fortunately we were able to do this and not have to add any other rate controlling medications. He was seen in consultation by his agricultural aircraft pilot Dr. Simons. He will follow-up with him in 3 to 5 days. His labs and examination were reassuring and we discharged him in stable condition. Physical Exam Vital Signs: Temp Pulse Resp BP Pulse Ox 97.3 F 92 16 130/88 H 98 07/28/19 12:53 07/28/19 12:53 07/28/19 12:53 07/28/19 12:53 07/28/19 12:53 Intake & Output 07/27/19 07/28/19 07/29/19 06:59 06:59 06:59 Intake Total 1298 1525 240 Output Total 2175 2350 825 Balance -877 -825 -585 Weight 99.5 kg General appearance: PRESENT: no acute distress, cooperative, disheveled, obese Respiratory exam: PRESENT: symmetrical, unlabored. ABSENT: accessory muscle use, chest wall tenderness, clear to auscultation lita, prolonged expiratory phase, retraction, rhonchi, tachypnea, wheezes Cardiovascular exam: PRESENT: irregular rhythm, +S1, +S2 Pulses: PRESENT: normal carotid pulses Vascular exam: PRESENT: normal capillary refill GI/Abdominal exam: PRESENT: normal bowel sounds, soft. ABSENT: distended, guarding, rebound, tenderness Extremities exam: PRESENT: Trace edema. ABSENT: clubbing Musculoskeletal exam: PRESENT: normal inspection. ABSENT: deformity Neurological exam: PRESENT: alert, awake, oriented to person, oriented to place, oriented to situation Psychiatric exam: PRESENT: appropriate affect, normal mood Skin exam: PRESENT: dry, warm Results Laboratory Results: WBC 7.2 10^3/uL (4.0-10.5) 07/26/19 02:54 RBC 4.54 10^6/uL (4.35-5.55) 07/26/19 02:54 Hgb 13.7 g/dL (13.5-17.0) 07/26/19 02:54 Hct 40.0 % (37.9-51.0) 07/26/19 02:54 MCV 88 fl (80-97) 07/26/19 02:54 MCH 30.1 pg (27.0-33.4) 07/26/19 02:54 MCHC 34.2 g/dL (32.0-36.0) 07/26/19 02:54 RDW 13.5 % (11.5-14.0) 07/26/19 02:54 Plt Count 136 10^3/uL (150-450) L 07/26/19 02:54 Lymph % (Auto) 28.1 % (13-45) 07/26/19 02:54 [place] % (Auto) 10.3 % (3-13) 07/26/19 02:54 Eos % (Auto) 3.0 % (0-6) 07/26/19 02:54 Baso % (Auto) 0.6 % (0-2) 07/26/19 02:54 Absolute Neuts (auto) 4.2 10^3/uL (1.7-8.2) 07/26/19 02:54 Absolute Lymphs (auto) 2.0 10^3/uL (0.5-4.7) 07/26/19 02:54 Absolute Monos (auto) 0.7 10^3/uL (0.1-1.4) 07/26/19 02:54 Absolute Eos (auto) 0.2 10^3/uL (0.0-0.6) 07/26/19 02:54 Absolute Basos (auto) 0.0 10^3/uL (0.0-0.2) 07/26/19 02:54 Seg Neutrophils % 58.0 % (42-78) 07/26/19 02:54 Sodium 141.7 mmol/L (137-145) 07/28/19 06:28 Potassium 4.1 mmol/L (3.6-5.0) 07/28/19 06:28 Chloride 106 mmol/L (98-107) 07/28/19 06:28 Carbon Dioxide 24 mmol/L (22-30) 07/28/19 06:28 Anion Gap 12 (5-19) 07/28/19 06:28 BUN 35 mg/dL (7-20) H 07/28/19 06:28 Creatinine 1.99 mg/dL (0.52-1.25) H 07/28/19 06:28 Est GFR ( Amer) 43 (>60) L 07/28/19 06:28 Est GFR (MDRD) Non-Af 35 (>60) L 07/28/19 06:28 Glucose 106 mg/dL (75-110) 07/28/19 06:28 Calcium 9.5 mg/dL (8.4-10.2) 07/28/19 06:28 Magnesium 2.4 mg/dL (1.6-2.3) H 07/25/19 17:30 Total Bilirubin 1.0 mg/dL (0.2-1.3) 07/25/19 17:30 Direct Bilirubin 0.0 mg/dL (0.0-0.4) 07/25/19 17:30 Neonat Total Bilirubin Not Reportable 07/25/19 17:30 Neonat Direct Bilirubin Not Reportable 07/25/19 17:30 Neonat Indirect Bili Not Reportable 07/25/19 17:30 AST 33 U/L (17-59) 07/25/19 17:30 ALT 63 U/L (<50) H 07/25/19 17:30 Alkaline Phosphatase 80 U/L (38-126) 07/25/19 17:30 CK-MB (CK-2) 1.28 ng/mL (<4.55) 07/25/19 17:30 Troponin I 0.065 ng/mL 07/26/19 10:15 NT-Pro-B Natriuret Pep 22440 pg/mL (<125) H 07/25/19 17:30 Total Protein 7.0 g/dL (6.3-8.2) 07/25/19 17:30 Albumin 4.2 g/dL (3.5-5.0) 07/25/19 17:30 07/25/19 07/25/19 07/25/19 17:30 20:20 21:05 CK-MB (CK-2) 1.28 Troponin I 0.091 Cancelled 0.085 NT-Pro-B Natriuret Pep 38838 H 07/26/19 07/26/19 02:54 10:15 CK-MB (CK-2) Troponin I 0.084 0.065 NT-Pro-B Natriuret Pep Impressions: Chest X-Ray 07/25/19 15:26 IMPRESSION: Cardiomegaly and mild vascular congestion. Similar findings were noted on prior study. Plan Time Spent: Greater than 30 Minutes Stroke Is this a Stroke Patient?: No Acute Heart Failure - Is this a Heart Failure Patient?: Yes Documentation of LVEF assessment?: Yes LVEF < 40%?: Yes-if yes answer questions a through e a) Discharged on ACEI?: Yes b) Discharges on ARB?: No-document contraindications Reason(s) not discharged on ARB: Other - ZULAY inhibitor c) Discharged on ARNI?: No-Document Contraindications Reason(s) not discharged on ARNI: Not previously tolerating ACEI or ARB d) Discharged on evidence-based Beta ann(carvedilol, sustained release metoprolol succinate, or bisoprolol)?: Yes e) For LVEF <35%, discharged on Aldosterone antagonist?: No-document contraincations Reason(s) not discharged on Aldosterone antagonist for LVEF < 35%: Renal dysfunction (creatinine >2.5 mg/dL in men or 2.0 mg/dL in women) 3. Anticoagulant therapy for permanect/persistent/paraoxysmal Afib or Aflutter: Yes Follow-up Appointment scheduled within 7 days?: Yes
== END 2019-07-28 15:05 | disposition home or self-care (01) | DRG 308 ==
LOC: ER 14:17 → EH 18:52 → 3W 22:11
PROVIDERS: ADMIT Internal Medicine; ATTEND Family Medicine
DX: I48.20 Chronic atrial fibrillation, unspecified (principal); I50.23 Acute on chronic systolic (congestive) heart failure; I13.0 Hypertensive heart and chronic kidney disease with heart failure and stage 1 through stage 4 chronic kidney disease, or unspecified chronic kidney disease; I42.0 Dilated cardiomyopathy; N18.3 Chronic kidney disease, stage 3 (moderate); R94.31 Abnormal electrocardiogram [ECG] [EKG]; K21.9 Gastro-esophageal reflux disease without esophagitis; F41.8 Other specified anxiety disorders; Z86.718 Personal history of other venous thrombosis and embolism; Z91.14 Patient's other noncompliance with medication regimen; Z79.01 Long term (current) use of anticoagulants; Z79.82 Long term (current) use of aspirin; Z79.899 Other long term (current) drug therapy
CPT/HCPCS: 36415; 71046; 80048; 80053; 82553; 83735; 83880; 84484; 85025; 93005; 93010; 96374; 99285; J1160; J1940; J3490

== ENCOUNTER 2019-08-16 04:09 | Observation (INO) | payer SELFPAY ==
[2019-08-16] MEDS ORDERED: LEVALBUTEROL HCL NEB 1.25 MG/3 ML AMPUL NEB ONE (04:31)
--- NOTE | 2019-08-16 04:33 | ER Document Report ---
ED Respiratory Problem - General Chief Complaint: Shortness Of Breath Stated Complaint: SHORTNESS OF BREATH Time Seen by Provider: 08/16/19 04:23 Notes: Patient is a 54-year-old male that comes emergency department for chief complaint of shortness of breath. He states this started at about noon when he was working outside. He denies any significant cough, denies wheezing, fever, congestion, nausea/vomiting, fever/chills, or chest pain. He does report bilateral lower extremity swelling and he states he thinks he has gained about 12 pounds since his last admission a couple of months ago. He states this was at [place], he states he had a negative heart cath at that time although he was told that he had an ejection fraction of only 20%. He states he is compliant with his home medications. He stopped smoking 2 months ago, denies history of asthma, uncertain if he has COPD. He does have a history of nephrectomy, DVT, A. fib, CHF, hypertension, and he is on Xarelto. TRAVEL OUTSIDE OF THE [place] IN LAST 30 DAYS: No - Related Data Allergies/Adverse Reactions: No Known Allergies Allergy (Verified 08/16/19 04:36) Past Medical History - General Information source: Patient - Social History Smoking Status: Former Smoker Frequency of alcohol use: None Drug Abuse: None Lives with: Family Family History: Hypertension, Other - Past Medical History Cardiac Medical History: Reports: Hx Atrial Fibrillation, Hx Congestive Heart Failure, Hx DVT, Hx Hypertension Pulmonary Medical History: Reports: Hx COPD Denies: Hx Asthma Renal/ Medical History: Reports: Hx Kidney Stones. Denies: Hx Peritoneal Dialysis GI Medical History: Reports: Hx Gastroesophageal Reflux Disease Psychiatric Medical History: Reports: Hx Anxiety, Hx Depression Past Surgical History: Reports: Hx Cardiac Surgery - stent aorta, Hx Kidney (Renal Surgery) - stent rt kidney, Hx Vascular Surgery - femoral bypass - Immunizations Immunizations up to date: Yes Hx Diphtheria, Pertussis, Tetanus Vaccination: Yes Review of Systems - Review of Systems Constitutional: No symptoms reported EENT: No symptoms reported Cardiovascular: See HPI Respiratory: See HPI Gastrointestinal: No symptoms reported Genitourinary: No symptoms reported Male Genitourinary: No symptoms reported Musculoskeletal: No symptoms reported Skin: No symptoms reported Hematologic/Lymphatic: No symptoms reported Neurological/Psychological: No symptoms reported Physical Exam - Vital signs Vitals: Pulse Ox 97 08/16/19 04:18 - Notes Notes: GENERAL: Slightly anxious but not in severe distress, alert and cooperative HEAD: Normocephalic, atraumatic. EYES: Pupils equal, round, and reactive to light. Extraocular movements intact. ENT: Oral mucosa moist, tongue midline. Oropharynx unremarkable. Airway patent. LUNGS: Mild tachypnea, decreased breath sounds bilaterally, expiratory wheezes bilaterally. Mild tenderness over the chest wall generally. HEART: Irregularly irregular, borderline tachycardia ABDOMEN: Soft, non-tender. Non-distended. EXTREMITIES: Bilateral lower extremity edema, normal distal pulses and sensation, no cyanosis BACK: no cervical, thoracic, lumbar midline tenderness. No saddle anesthesia, normal distal neurovascular exam. Moves all extremities in full range of motion. NEUROLOGICAL: Alert and oriented x3. Normal speech. Cranial nerves II through XII grossly intact. Strength 5/5 in all extremities. PSYCH: Slightly anxious SKIN: Warm, dry, normal turgor. No rashes or lesions noted. Course - Re-evaluation Re-evalutation: On initial evaluation patient with rapid breathing, expiratory wheezes, decreased lung sounds. He is not hypoxic. He also has lower extremity edema bilaterally. He is in atrial fibrillation but this is chronic. CBC nonspecific, chemistry nonspecific, venous blood gas unremarkable. BNP is elevated at greater than 11,000, troponin elevated and indeterminate but this is similar compared to prior. Patient is not having chest pain except with cough. EKG nonspecific. Chest x-ray unremarkable. On reevaluation wheezing has resolved after Xopenex, however now I can hear rales in the lower extremities. I did discuss with patient. Patient does feel somewhat improved, he wants to try to ambulate. He did ambulate, he became very short of breath very rapidly and we had to place him back in the bed. His lowest oxygen saturation off oxygen was 89%, he was placed on 2 L nasal cannula with good results. Patient is requesting admission. I feel patient has a mixed COPD exacerbation with CHF exacerbation. Discussed with Eron Hunter PA-C, patient accepted to medical floor observation under hospitalist Dr. Locke. - Vital Signs Vital signs: Temp Pulse Resp BP Pulse Ox 23 H 142/105 H 97 08/16/19 07:01 08/16/19 07:01 08/16/19 07:01 - Laboratory Result Diagrams: 08/16/19 04:30 08/16/19 04:30 Laboratory results interpreted by me: 08/16/19 08/16/19 08/16/19 04:30 04:30 04:30 RDW 15.2 H Chloride 108 H BUN 35 H Creatinine 2.04 H Est GFR ( Amer) 42 L Est GFR (MDRD) Non-Af 34 L NT-Pro-B Natriuret Pep 12413 H Discharge - Discharge Clinical Impression: COPD exacerbation, Wheezing, Shortness of breath CHF exacerbation Qualifiers: Heart failure type: unspecified Qualified Code(s): I50.9 - Heart failure, unspecified Condition: Stable Disposition: ADMITTED OBSERVATION Admitting Provider: Chucky (Hospitalist) Mellisa Hunter PA-C Unit Admitted: Medical Floor
[2019-08-16 04:47] LABS: ABSOLUTE EOSINOPHILS # (AUTO) 0.2 10^3/uL (0.0-0.6); ABSOLUTE LYMPHOCYTES (AUTO) 1.5 10^3/uL (0.5-4.7); ABSOLUTE MONOCYTES (AUTO) 0.6 10^3/uL (0.1-1.4); ABSOLUTE NEUT (AUTO) 5.3 10^3/uL (1.7-8.2); BASOPHILS % (AUTO) 0.5 % (0-2); EOSINOPHILS % (AUTO) 2.7 % (0-6); HEMATOCRIT 41.2 % (37.9-51.0); HEMOGLOBIN 13.9 g/dL (13.5-17.0); LYMPHOCYTES % (AUTO) 19.9 % (13-45); MEAN CORPUSCULAR HEMOGLOBIN 30.2 pg (27.0-33.4); MEAN CORPUSCULAR HGB CONC 33.7 g/dL (32.0-36.0); MEAN CORPUSCULAR VOLUME 90 fl (80-97); MONOCYTES % (AUTO) 8.2 % (3-13); PLATELET COUNT 198 10^3/uL (150-450); RED BLOOD COUNT 4.61 10^6/uL (4.35-5.55); RED CELL DISTRIBUTION WIDTH 15.2 % (11.5-14.0); SEGMENTED NEUTROPHILS % (AUTO) 68.7 % (42-78); TOTAL CELLS COUNTED % (AUTO) 100 %; WHITE BLOOD COUNT 7.7 10^3/uL (4.0-10.5)
[2019-08-16 05:03] LABS: ALBUMIN 3.7 g/dL (3.5-5.0); ALKALINE PHOSPHATASE 70 U/L (38-126); ANION GAP 9 (5-19); ASPARTATE AMINO TRANSFERASE 21 U/L (17-59); BILIRUBIN,DIRECT 0.2 mg/dL (0.0-0.4); BILIRUBIN,TOTAL 0.9 mg/dL (0.2-1.3); BLOOD UREA NITROGEN 35 mg/dL (7-20); CALCIUM 9.8 mg/dL (8.4-10.2); CARBON DIOXIDE 23 mmol/L (22-30); CHLORIDE 108 mmol/L (98-107); GLUCOSE 109 mg/dL (75-110); POTASSIUM 3.7 mmol/L (3.6-5.0); TOTAL PROTEIN 6.5 g/dL (6.3-8.2)
[2019-08-16 05:12] LABS: VENOUS BLOOD BASE EXCESS -0.1 mmol/L; VENOUS BLOOD PCO2 37.6 mmHg (35-63); VENOUS BLOOD PH 7.42 (7.30-7.42)
--- NOTE | 2019-08-16 05:15 | RADIOLOGY REPORT (SQ) ---
EXAM DESCRIPTION: [facility]: XR CHEST 1 VIEW CLINICAL HISTORY: 54 years Male; shortness of breath; COMPARISON: 07/18/2019 FINDINGS: Lungs are clear, with no focal infiltrate, pneumothorax, or pleural effusion. Heart is enlarged as on prior exam. Aortic stent is again noted. Mediastinum is unchanged. Bony structures are unremarkable. IMPRESSION: 1. No acute pulmonary findings. 2. Cardiomegaly and previous aortic stent as on prior exam.
[2019-08-16 05:28] LABS: TROPONIN I 0.071 ng/mL
[2019-08-16] MEDS ORDERED: METHYLPREDNISOLONE INJ 125 MG/2 ML SDV IV ONE (06:16)
[2019-08-16] MEDS ORDERED: FUROSEMIDE INJ/PF 20 MG/2 ML SDV IV ONE (06:16)
--- NOTE | 2019-08-16 08:28 | EKG REPORT ---
SEVERITY:- ABNORMAL ECG - ATRIAL FIBRILLATION, V-RATE 77-130 LVH WITH SECONDARY REPOLARIZATION ABNORMALITY PROLONGED QT INTERVAL : Confirmed by: Agnes Colón 16-Aug-2019 08:27:54
[2019-08-16] MEDS ORDERED: OXYCODONE-ACETAMINOPHEN 5-325 MG TABLET PO PRN (11:42)
[2019-08-16] MEDS ORDERED: ONDANSETRON 4 MG TAB.RAPDIS PO PRN (11:42)
[2019-08-16] MEDS ORDERED: ACETAMINOPHEN 325 MG TABLET PO PRN (11:42)
[2019-08-16] MEDS ORDERED: MAG HYDROX/AL HYDROX/SIMETH SUSP 30 ML UDCUP PO PRN (11:42)
[2019-08-16] MEDS ORDERED: LEVALBUTEROL HCL NEB 1.25 MG/3 ML AMPUL NEB PRN (11:42)
[2019-08-16] MEDS ORDERED: TEMAZEPAM 7.5 MG CAPSULE PO PRN (11:42)
[2019-08-16] MEDS ORDERED: ONDANSETRON HCL INJ/PF 4 MG/2 ML SDV IV PRN (11:42)
[2019-08-16 12:29] LABS: APPEARANCE,URINE CLEAR; BILIRUBIN,URINE NEGATIVE (NEGATIVE); COLOR,URINE YELLOW; GLUCOSE, URINE NEGATIVE (NEGATIVE); KETONES,URINE TRACE mg/dL (NEGATIVE); PROTEIN,URINE 100 mg/dL (NEGATIVE); UROBILINOGEN,URINE NEGATIVE mg/dL (<2.0)
[2019-08-16] MEDS: HYDRALAZINE HCL 50 MG TABLET PO SCH ×2 (14:40→21:18)
[2019-08-16] MEDS: ISOSORBIDE DINITRATE 10 MG TABLET PO SCH ×2 (14:40→21:18)
[2019-08-16] MEDS ORDERED: RIVAROXABAN 10 MG TABLET PO SCH (17:00)
[2019-08-16] MEDS: FUROSEMIDE 40 MG TABLET PO SCH (17:14)
[2019-08-16] MEDS: POTASSIUM CHLORIDE 10 MEQ TABLET.ER PO SCH (17:14)
[2019-08-16] MEDS ORDERED: HYDRALAZINE HCL INJ/PF 20 MG/1 ML SDV IV PRN (18:05)
[2019-08-16] MEDS: METOPROLOL SUCCINATE 50 MG TAB.SR.24H PO SCH (21:18)
[2019-08-16] MEDS: VALSARTAN 80 MG TABLET PO SCH (21:18)
[2019-08-16] MEDS: FAMOTIDINE 20 MG TABLET PO SCH (21:22)
[2019-08-16] MEDS ORDERED: ARIPIPRAZOLE 5 MG TABLET PO SCH (22:00)
[2019-08-17 04:59] LABS: ANION GAP 8 (5-19); BLOOD UREA NITROGEN 42 mg/dL (7-20); CALCIUM 9.3 mg/dL (8.4-10.2); CARBON DIOXIDE 24 mmol/L (22-30); CHLORIDE 108 mmol/L (98-107); GLUCOSE 136 mg/dL (75-110); POTASSIUM 4.4 mmol/L (3.6-5.0)
[2019-08-17] MEDS: HYDRALAZINE HCL 50 MG TABLET PO SCH (05:07)
[2019-08-17] MEDS: ISOSORBIDE DINITRATE 10 MG TABLET PO SCH (05:07)
[2019-08-17] MEDS: FUROSEMIDE 40 MG TABLET PO SCH (09:38)
[2019-08-17] MEDS: VALSARTAN 80 MG TABLET PO SCH (09:38)
[2019-08-17] MEDS: FAMOTIDINE 20 MG TABLET PO SCH (09:39)
[2019-08-17] MEDS: METOPROLOL SUCCINATE 50 MG TAB.SR.24H PO SCH (09:39)
[2019-08-17] MEDS: POTASSIUM CHLORIDE 10 MEQ TABLET.ER PO SCH (09:39)
[2019-08-17] MEDS ORDERED: ASPIRIN 81 MG TABLET, ENT COATED PO SCH (10:00)
[2019-08-17] MEDS ORDERED: DOCUSATE SODIUM 100 MG CAPSULE PO SCH (10:00)
[2019-08-17 10:18] VITALS: BP 121/91
[2019-08-17] MEDS ORDERED: FUROSEMIDE INJ/PF 20 MG/2 ML SDV IV ONE (11:22)
--- NOTE | 2019-08-17 19:06 | PDOC H&P ---
History of Present Illness Admission Date/PCP: 08/16/19 07:52 RACHANA GARCIA PA-C History of Present Illness: JOHN PADILLA is a 54 year old male who was recently been admitted to the hospital several times in the last 2 months for CHF and atrial fib. On this occasion patient presents back to the emergency room and shortness of breath. Since he was last here he had a cardiac catheterization which was normal. Patient is noncompliant with his diet as well as his liquid intake and possibly his medications as well. She has an elevated BNP which will always be elevated, and elevated troponin which also will always be elevated. She will now be admitted for gentle diuresis observation. Did get better in the emergency room with his wheezing with a nebulizer treatment, Xopenex, however oxygen saturation was still 89% on room air and it was felt that he needed to be put in an op status for further evaluation Past Medical History Cardiac Medical History: Reports: Atrial Fibrillation, Congestive Heart Failure, DVT, Hypertension Pulmonary Medical History: Reports: Chronic Obstructive Pulmonary Disease (COPD) Denies: Asthma GI Medical History: Reports: Gastroesophageal Reflux Disease Psychiatric Medical History: Reports: Depression Past Surgical History Past Surgical History: Reports: Vascular Surgery - femoral bypass Social History Lives with: Family Smoking Status: Former Smoker Last Time Smoked: 02/14/19 Frequency of Alcohol Use: None Hx Recreational Drug Use: Yes - QUIT IN 2019 Drugs: Marijuana Hx Prescription Drug Abuse: No - Advance Directive Resuscitation Status: Full Code Family History Family History: Hypertension, Other Parental Family History Reviewed: No Children Family History Reviewed: No Sibling(s) Family History Reviewed.: No Medication/Allergy Home Medications: Aspirin [Ecotrin 81 mg EC Tablet] 81 mg PO DAILY 02/27/19 Rivaroxaban [Xarelto 10 mg Tablet] 20 mg PO WSUPPER tablet 07/21/19 Potassium Chloride [Klor-Con 10 Meq Tablet ER] 20 meq PO BID 07/25/19 Aripiprazole [Abilify 5 mg Tablet] 10 mg PO QHS #60 tablet 07/28/19 Metoprolol Succinate [Toprol Xl 50 mg Tab.sr] 50 mg PO Q12 #60 tab.sr.24h Furosemide [Lasix] 40 mg PO BID 08/16/19 Hydralazine HCl [Apresoline 50 mg Tablet] 50 mg PO Q8 08/16/19 Isosorbide Dinitrate [Isordil Titradose 10 mg Tablet] 10 mg PO Q8 08/16/19 Valsartan [Diovan 80 mg Tablet] 80 mg PO Q12 08/16/19 Acetaminophen [Tylenol 325 mg Tablet] 650 mg PO Q4HP PRN tablet 08/17/19 Docusate Sodium [Colace 100 mg Capsule] 100 mg PO DAILY capsule 08/17/19 Famotidine [Pepcid 20 mg Tablet] 20 mg PO Q12 tablet 08/17/19 Levalbuterol Tartrate [Xopenex Hfa] 15 gm IH Q6HP PRN 15 Days #1 hfa.aer.ad 08/17/19 Mag Hydrox/Al Hydrox/Simeth [Maalox Plus Susp 30 Udcup] 30 ml PO Q6HP PRN udc 08/17/19 Allergies/Adverse Reactions: No Known Allergies Allergy (Verified 08/16/19 04:36) Review of Systems Constitutional: ABSENT: chills, fever(s), headache(s), weight gain, weight loss Cardiovascular: PRESENT: dyspnea on exertion. ABSENT: chest pain, edema, orthropnea, palpitations Respiratory: PRESENT: cough, dyspnea Gastrointestinal: ABSENT: abdominal pain, constipation, diarrhea, hematemesis, hematochezia, nausea, vomiting Neurological: ABSENT: abnormal gait, abnormal speech, confusion, dizziness, focal weakness, syncope Psychiatric: ABSENT: anxiety, depression, homidical ideation, suicidal ideation Physical Exam Vital Signs: Temp Pulse Resp BP Pulse Ox 98.2 F 36 L 18 121/91 H 98 08/17/19 12:09 08/17/19 12:09 08/17/19 12:09 08/17/19 07:47 08/17/19 12:09 Intake & Output 08/16/19 08/17/19 08/18/19 06:59 06:59 06:59 Intake Total 960 Output Total 760 Balance 200 Weight 98.5 kg 98.6 kg General appearance: PRESENT: no acute distress, well-developed, well-nourished, other - In no distress Respiratory exam: PRESENT: decreased breath sounds Cardiovascular exam: PRESENT: RRR. ABSENT: diastolic murmur, rubs, systolic murmur Neurological exam: PRESENT: alert, awake, oriented to person, oriented to place, oriented to time, oriented to situation, CN II-XII grossly intact. ABSENT: motor sensory deficit Psychiatric exam: PRESENT: appropriate affect, normal mood. ABSENT: homicidal ideation, suicidal ideation Results Laboratory Results: 08/16/19 04:30 08/17/19 04:26 08/17/19 04:26 Sodium 139.5 Potassium 4.4 Chloride 108 H Carbon Dioxide 24 Anion Gap 8 BUN 42 H Creatinine 2.17 H Est GFR ( Amer) 39 L Glucose 136 H Calcium 9.3 08/16/19 08/17/19 04:30 04:26 Troponin I 0.071 NT-Pro-B Natriuret Pep 96990 H 72320 H Impressions: Chest X-Ray 08/16/19 04:31 IMPRESSION: 1. No acute pulmonary findings. 2. Cardiomegaly and previous aortic stent as on prior exam. Assessment and Plan - Diagnosis (1) Anxiety Is this a current diagnosis for this admission?: Yes (2) Atrial fibrillation with RVR Is this a current diagnosis for this admission?: Yes (3) CHF exacerbation Qualifiers: Heart failure type: unspecified Qualified Code(s): I50.9 - Heart failure, unspecified Is this a current diagnosis for this admission?: Yes (4) CKD (chronic kidney disease), stage III Is this a current diagnosis for this admission?: Yes (5) Hypertension Qualifiers: Hypertension type: essential hypertension Qualified Code(s): I10 - Essential (primary) hypertension Is this a current diagnosis for this admission?: Yes (6) Shortness of breath Is this a current diagnosis for this admission?: Yes (7) Tobacco abuse Is this a current diagnosis for this admission?: Yes (8) Wheezing Is this a current diagnosis for this admission?: Yes - Plan Summary Summary: Patient will be admitted to the hospital for observation status, emetics as needed. Possibly we will discharge in the morning on the same medications - Time Time Spent with patient: 35 or more minutes
== END 2019-08-17 12:50 | disposition home or self-care (01) ==
LOC: ER 04:09 → EH 07:52 → 4S 09:23
PROVIDERS: ADMIT Hospitalist; ATTEND Physician Assistant
DX: F41.9 Anxiety disorder, unspecified (principal); I48.20 Chronic atrial fibrillation, unspecified; I13.0 Hypertensive heart and chronic kidney disease with heart failure and stage 1 through stage 4 chronic kidney disease, or unspecified chronic kidney disease; I50.9 Heart failure, unspecified; N18.3 Chronic kidney disease, stage 3 (moderate); R06.02 Shortness of breath; R06.2 Wheezing; R05 Cough; F32.9 Major depressive disorder, single episode, unspecified; K21.9 Gastro-esophageal reflux disease without esophagitis; J44.1 Chronic obstructive pulmonary disease with (acute) exacerbation; R79.89 Other specified abnormal findings of blood chemistry; Z87.891 Personal history of nicotine dependence; Z90.5 Acquired absence of kidney; Z86.718 Personal history of other venous thrombosis and embolism; Z82.49 Family history of ischemic heart disease and other diseases of the circulatory system; Z95.820 Peripheral vascular angioplasty status with implants and grafts; Z96.0 Presence of urogenital implants; Z91.11 Patient's noncompliance with dietary regimen
CPT/HCPCS: 93005; 94640; 99285; 96374; 96375; 36415 ×2; 85025; 80048; 80053; 81001; 84484; 82803; 83880 ×2; 71045; 93010; J1940 ×2; J3490 ×5; J2930; G0378

== ENCOUNTER 2019-08-22 09:11 | Emergency (ER) | payer SELFPAY ==
[2019-08-22 10:19] LABS: ABSOLUTE EOSINOPHILS # (AUTO) 0.2 10^3/uL (0.0-0.6); ABSOLUTE LYMPHOCYTES (AUTO) 1.3 10^3/uL (0.5-4.7); ABSOLUTE MONOCYTES (AUTO) 0.7 10^3/uL (0.1-1.4); BASOPHILS % (AUTO) 0.5 % (0-2); EOSINOPHILS % (AUTO) 2.3 % (0-6); HEMATOCRIT 40.8 % (37.9-51.0); LYMPHOCYTES % (AUTO) 16.2 % (13-45); MEAN CORPUSCULAR HEMOGLOBIN 30.6 pg (27.0-33.4); MEAN CORPUSCULAR HGB CONC 34.2 g/dL (32.0-36.0); MEAN CORPUSCULAR VOLUME 89 fl (80-97); MONOCYTES % (AUTO) 8.7 % (3-13); PLATELET COUNT 171 10^3/uL (150-450); RED BLOOD COUNT 4.57 10^6/uL (4.35-5.55); RED CELL DISTRIBUTION WIDTH 15.4 % (11.5-14.0); SEGMENTED NEUTROPHILS % (AUTO) 72.3 % (42-78); TOTAL CELLS COUNTED % (AUTO) 100 %; WHITE BLOOD COUNT 8.3 10^3/uL (4.0-10.5)
[2019-08-22 10:25] LABS: ALBUMIN 3.7 g/dL (3.5-5.0); ALKALINE PHOSPHATASE 72 U/L (38-126); ANION GAP 7 (5-19); ASPARTATE AMINO TRANSFERASE 27 U/L (17-59); BILIRUBIN,DIRECT 0.2 mg/dL (0.0-0.4); BLOOD UREA NITROGEN 36 mg/dL (7-20); CALCIUM 9.2 mg/dL (8.4-10.2); CARBON DIOXIDE 26 mmol/L (22-30); CHLORIDE 105 mmol/L (98-107); GLUCOSE 143 mg/dL (75-110); TOTAL PROTEIN 6.2 g/dL (6.3-8.2)
[2019-08-22 10:42] LABS: TROPONIN I 0.059 ng/mL
--- NOTE | 2019-08-22 10:48 | RADIOLOGY REPORT (SQ) ---
EXAM DESCRIPTION: CHEST SINGLE VIEW IMAGES COMPLETED DATE/TIME: 08/22/2019 10:39 am REASON FOR STUDY: cough COMPARISON: 08/16/2019 EXAM PARAMETERS: NUMBER OF VIEWS: One view. TECHNIQUE: Single frontal radiographic view of the chest acquired. RADIATION DOSE: NA LIMITATIONS: None. FINDINGS: LUNGS AND PLEURA: Linear scarring in the left midlung field. No consolidation or effusion s. MEDIASTINUM AND HILAR STRUCTURES: No masses. Contour normal. HEART AND VASCULAR STRUCTURES: Heart is enlarged. No failure. Aortic stent graft is in place. BONES: No acute findings. HARDWARE: None in the chest. OTHER: No other significant finding. IMPRESSION: Stable cardiomegaly. Scarring in the left midlung field. No acute findings. TECHNICAL DOCUMENTATION: JOB ID: [id number] 2010 [employer]- All Rights Reserved Reading location - IP/workstation name: [email or web address]
[2019-08-22] MEDS ORDERED: FUROSEMIDE INJ/PF 40 MG/4 ML SDV IV ONE (10:57)
--- NOTE | 2019-08-22 11:04 | ER Document Report ---
ED General - General Chief Complaint: Breathing Difficulty Stated Complaint: SHORTNESS OF BREATH Time Seen by Provider: 08/22/19 09:25 Primary Care Provider: RACHANA GARCIA PA-C [Primary Care Provider] - Follow up as needed Mode of Arrival: Ambulatory Information source: Patient TRAVEL OUTSIDE OF THE [place] IN LAST 30 DAYS: No - HPI Notes: Due to the coronavirus pandemic in this patient's presenting symptoms this visit was conducted through telemedicine. Patient states that he has been having shortness of breath since he left the hospital several days ago. He is also had some cough. No significant pain. No vomiting or diarrhea. Patient has multiple visits here for similar complaints in the past. He denies any known co ronavirus exposures. No recent travel. No known fevers. Patient shortness of breath is moderate. Is worse with exertion and better with rest. Has been constant no significant radiation. Patient states he has been taking all of his medications like he supposed to. He states he "tries to watch my diet". He states that he has not had any alcohol or tobacco in approximately 3 months. - Related Data Allergies/Adverse Reactions: No Known Allergies Allergy (Verified 08/16/19 04:36) Past Medical History - General Information source: Patient - Social History Smoking Status: Former Smoker Chew tobacco use (# tins/day): No Frequency of alcohol use: quit drinking 3 months ago Drug Abuse: Marijuana Family History: Hypertension, Other Patient has suicidal ideation: No Patient has homicidal ideation: No - Past Medical History Cardiac Medical History: Reports: Hx Atrial Fibrillation, Hx Congestive Heart Failure, Hx DVT, Hx Hypertension Pulmonary Medical History: Reports: Hx COPD Denies: Hx Asthma Renal/ Medical History: Reports: Hx Kidney Stones. Denies: Hx Peritoneal Dialysis GI Medical History: Reports: Hx Gastroesophageal Reflux Disease Psychiatric Medical History: Reports: Hx Anxiety, Hx Depression Past Surgical History: Reports: Hx Cardiac Surgery - stent aorta, Hx Kidney (Renal Surgery) - stent rt kidney, Hx Vascular Surgery - femoral bypass - Immunizations Immunizations up to date: Yes Hx Diphtheria, Pertussis, Tetanus Vaccination: Yes Review of Systems - Review of Systems Constitutional: denies: Chills, Fever Cardiovascular: Palpitations. denies: Chest pain Respiratory: Short of breath. denies: Sputum -: Yes All other systems reviewed and negative Physical Exam - Vital signs Interpretation: Normal - General General appearance: Appears well, Alert - HEENT Head: Normocephalic, Atraumatic Eyes: Normal - Respiratory Respiratory status: No respiratory distress Breath sounds: No: Nonproductive cough, Productive cough - Cardiovascular Rhythm: Irregularly irregular - Abdominal Inspection: Normal Distension: Distended - Back Back: Normal, Nontender - Extremities General upper extremity: Normal inspection, Normal color, Normal ROM General lower extremity: Normal inspection, Normal color, Normal ROM, Normal weight bearing. No: Nano's sign - Neurological Neuro grossly intact: Yes Cognition: Normal Orientation: AAOx4 João Coma Scale Eye Opening: Spontaneous João Coma Scale Verbal: Oriented [place] Coma Scale Motor: Obeys Commands João Coma Scale Total: 15 Speech: Normal - Psychological Associated symptoms: Normal affect, Normal mood - Skin Skin Temperature: Warm Skin Moisture: Dry Skin Color: Normal Course - Re-evaluation Re-evalutation: 08/22/19 11:02 Patient's entire exam done with telemedicine due to pandemic and patient's presenting symptoms. This seems most likely the patient's symptoms are somewhat psychogenic as well as related to his congestive heart failure. He does have a known history of repeated visits for failure as well as a history of a very poor ejection fraction. I am going to give him an extra dose of Lasix however his laboratories look stable to slightly better than his previous admission. His x- ray shows no new changes. His vital signs are stable. I have observed the patient through telemedicine walking about the room without any problems. I think that the patient would do best during this pandemic cannot be admitted to the hospital. I have relayed this to the patient. His EKG also has no new changes. Patient is asked if he can be tested for coronavirus. I think this is a reasonable request considered patient's repeated frequent visits it would be best to know his coronavirus status. - Laboratory Result Diagrams: 08/22/19 09:45 08/22/19 09:45 Laboratory results interpreted by me: 08/22/19 08/22/19 08/22/19 09:45 09:45 09:45 RDW 15.4 H BUN 36 H Creatinine 1.82 H Est GFR ( Amer) 47 L Est GFR (MDRD) Non-Af 39 L Glucose 143 H NT-Pro-B Natriuret Pep 30043 H Total Protein 6.2 L - Diagnostic Test Radiology reviewed: Image reviewed, Reports reviewed - EKG Interpretation by Me Rate: Tachycardia - 117 Rhythm: A.Fib Voltage: Increased voltage When compared to previous EKG there are: No significant change Discharge - Discharge Clinical Impression: Chronic atrial fibrillation, Anxiety Dyspnea Qualifiers: Dyspnea type: dyspnea on exertion Qualified Code(s): R06.00 - Dyspnea, unspecified Condition: Stable Disposition: HOME, SELF-CARE Instructions: Dyspnea, Nonspecific ([facility]) Additional Instructions: Please call your primary care doctor as soon as possible to arrange follow-up Referrals: RACHANA GARCIA PA-C [Primary Care Provider] - Follow up tomorrow
[2019-08-22 11:49] LABS: A TYPE INFLUENZA AG NEGATIVE (NEGATIVE); B INFLUENZA AG NEGATIVE (NEGATIVE)
[2019-08-22 12:03] VITALS: BP 162/90
== END 2019-08-22 12:01 | disposition home or self-care (01) ==
LOC: ER 09:11
DX: I48.20 Chronic atrial fibrillation, unspecified (principal); F41.9 Anxiety disorder, unspecified; R06.00 Dyspnea, unspecified; R06.02 Shortness of breath; Z20.828 Contact with and (suspected) exposure to other viral communicable diseases; Z87.891 Personal history of nicotine dependence
CPT/HCPCS: 99285; 96374; 36415; 85025; 87635; 80053; 84484; 87804; 83880; 71045; J1940

== ENCOUNTER 2019-09-04 16:22 | Emergency (ER) | payer SELFPAY ==
[2019-09-04 16:53] LABS: ABSOLUTE EOSINOPHILS # (AUTO) 0.2 10^3/uL (0.0-0.6); ABSOLUTE LYMPHOCYTES (AUTO) 1.2 10^3/uL (0.5-4.7); ABSOLUTE MONOCYTES (AUTO) 0.6 10^3/uL (0.1-1.4); ABSOLUTE NEUT (AUTO) 6.9 10^3/uL (1.7-8.2); BASOPHILS % (AUTO) 0.5 % (0-2); EOSINOPHILS % (AUTO) 2.1 % (0-6); HEMATOCRIT 39.6 % (37.9-51.0); HEMOGLOBIN 13.6 g/dL (13.5-17.0); LYMPHOCYTES % (AUTO) 13.1 % (13-45); MEAN CORPUSCULAR HEMOGLOBIN 31.2 pg (27.0-33.4); MEAN CORPUSCULAR HGB CONC 34.3 g/dL (32.0-36.0); MEAN CORPUSCULAR VOLUME 91 fl (80-97); MONOCYTES % (AUTO) 7.1 % (3-13); PLATELET COUNT 182 10^3/uL (150-450); RED BLOOD COUNT 4.36 10^6/uL (4.35-5.55); RED CELL DISTRIBUTION WIDTH 16.2 % (11.5-14.0); SEGMENTED NEUTROPHILS % (AUTO) 77.2 % (42-78); TOTAL CELLS COUNTED % (AUTO) 100 %; WHITE BLOOD COUNT 8.9 10^3/uL (4.0-10.5)
[2019-09-04 17:01] LABS: INTERNATIONAL RATION (INR) 1.09; PROTHROMBIN TIME 14.2 SEC (11.4-15.4)
--- NOTE | 2019-09-04 17:01 | ER Document Report ---
ED Medical Screen (RME) - General Chief Complaint: General Weakness Stated Complaint: GENERAL WEAKNESS Time Seen by Provider: 09/04/19 16:33 Primary Care Provider: RACHANA GARCIA PA-C [Primary Care Provider] - Follow up as needed Notes: HPI: 54-year-old male with history of heart failure, atrial fibrillation, hypertension, DVT, COPD, femoral bypass, cardiomyopathy presenting for shortness of breath worse over the last week. Patient with recent admission 3 weeks ago for similar complaints. Patient reports significant swelling of the stomach and legs. Also states he has been out of his Xarelto over the last 3 to 4 days which he takes for his atrial fibrillation. Patient presenting by EMS. I have greeted and performed a rapid initial assessment of this patient. A comprehensive ED assessment and evaluation of the patient, analysis of test results and completion of the medical decision making process will be conducted by additional ED providers PHYSICAL EXAMINATION: Patient appears to be dyspneic at rest. He has some expiratory wheezing and crackles in the bases on auscultation. Heartbeat is irregular. He has 1+ edema bilateral lower extremities, mild distention of the abdomen. I have greeted and performed a rapid initial assessment of this patient. A comprehensive ED assessment and evaluation of the patient, analysis of test results and completion of medical decision making process will be conducted by an additional ED providers. Charge nurse has been made aware of need for bed in the acute side ER TRAVEL OUTSIDE OF THE [place] IN LAST 30 DAYS: No - Related Data Allergies/Adverse Reactions: No Known Allergies Allergy (Verified 08/16/19 04:36) Past Medical History - Past Medical History Cardiac Medical History: Reports: Hx Atrial Fibrillation, Hx Congestive Heart Failure, Hx DVT, Hx Hypertension Pulmonary Medical History: Reports: Hx COPD Denies: Hx Asthma Renal/ Medical History: Reports: Hx Kidney Stones. Denies: Hx Peritoneal Dialysis GI Medical History: Reports: Hx Gastroesophageal Reflux Disease Psychiatric Medical History: Reports: Hx Anxiety, Hx Depression Past Surgical History: Reports: Hx Cardiac Surgery - stent aorta, Hx Kidney (Renal Surgery) - stent rt kidney, Hx Vascular Surgery - femoral bypass - Immunizations Immunizations up to date: Yes Hx Diphtheria, Pertussis, Tetanus Vaccination: Yes Course - Laboratory Result Diagrams: 09/04/19 16:39 09/04/19 16:39 Doctor's Discharge - Discharge Referrals: BUNDLE,RACHANA, PA-C [Primary Care Provider] - Follow up as needed
[2019-09-04 17:09] LABS: ALBUMIN 3.7 g/dL (3.5-5.0); ALKALINE PHOSPHATASE 69 U/L (38-126); ANION GAP 6 (5-19); ASPARTATE AMINO TRANSFERASE 32 U/L (17-59); BILIRUBIN,DIRECT 0.2 mg/dL (0.0-0.4); BILIRUBIN,TOTAL 1.5 mg/dL (0.2-1.3); BLOOD UREA NITROGEN 31 mg/dL (7-20); CALCIUM 8.7 mg/dL (8.4-10.2); CARBON DIOXIDE 26 mmol/L (22-30); CHLORIDE 107 mmol/L (98-107); CREATINE KINASE 70 U/L (55-170); GLUCOSE 95 mg/dL (75-110); POTASSIUM 4.2 mmol/L (3.6-5.0); TOTAL PROTEIN 6.4 g/dL (6.3-8.2)
--- NOTE | 2019-09-04 17:17 | RADIOLOGY REPORT (SQ) ---
EXAM DESCRIPTION: CHEST SINGLE VIEW IMAGES COMPLETED DATE/TIME: 09/04/2019 5:09 pm REASON FOR STUDY: dyspnea COMPARISON: None. NUMBER OF VIEWS: One view. TECHNIQUE: Single frontal radiographic view of the chest acquired. LIMITATIONS: None. FINDINGS: LUNGS AND PLEURA: Mild areas of linear subsegmental atelectasis/scar. MEDIASTINUM AND HILAR STRUCTURES: Stable contours. Postoperative changes related to the aorta, which is mildly ectatic and tortuous but without change. HEART AND VASCULAR STRUCTURES: Cardiac enlargement with minimal vascular congestion. BONES: No acute findings. HARDWARE: None in the chest. OTHER: No other significant finding. IMPRESSION: Stable chest. As above. Includes cardiac enlargement with slight vascular congestion. TECHNICAL DOCUMENTATION: JOB ID: [id number] 2010 [employer]- All Rights Reserved Reading location - IP/workstation name: [email or web address]
[2019-09-04 17:18] LABS: CREATINE KINASE MB 2.51 ng/mL (<4.55)
[2019-09-04 17:48] LABS: TROPONIN I 0.055 ng/mL
[2019-09-04] MEDS ORDERED: FUROSEMIDE INJ/PF 40 MG/4 ML SDV IV ONE (19:27)
[2019-09-04] MEDS ORDERED: LEVALBUTEROL HCL NEB 1.25 MG/3 ML AMPUL NEB ONE (19:49)
[2019-09-04 21:08] LABS: APPEARANCE,URINE CLEAR; BILIRUBIN,URINE NEGATIVE (NEGATIVE); COLOR,URINE YELLOW; GLUCOSE, URINE NEGATIVE (NEGATIVE); KETONES,URINE NEGATIVE (NEGATIVE); LEUKOCYTE ESTERASE,URINE NEGATIVE (NEGATIVE); NITRITE,URINE NEGATIVE (NEGATIVE); PROTEIN,URINE 30 mg/dL (NEGATIVE); URINE SPECIFIC GRAVITY 1.009; UROBILINOGEN,URINE NEGATIVE mg/dL (<2.0)
--- NOTE | 2019-09-04 22:52 | EKG REPORT ---
SEVERITY:- ABNORMAL ECG - ATRIAL FIBRILLATION, V-RATE 81-135 PROBABLE LVH WITH SECONDARY REPOL ABNRM PROLONGED QT INTERVAL : Confirmed by: Agnes Colón 04-Sep-2019 22:51:18
--- NOTE | 2019-09-04 22:59 | ER Document Report ---
ED Respiratory Problem - General Chief Complaint: Shortness Of Breath Stated Complaint: GENERAL WEAKNESS Time Seen by Provider: 09/04/19 16:33 Primary Care Provider: RACHANA GARCIA PA-C [Primary Care Provider] - Follow up as needed Mode of Arrival: Wheelchair Information source: Patient Notes: RME HPI: 54-year-old male with history of heart failure, atrial fibrillation, hypertension, DVT, COPD, femoral bypass, cardiomyopathy presenting for shortness of breath worse over the last week. Patient with recent admission 3 weeks ago for similar complaints. Patient reports significant swelling of the stomach and legs. Also states he has been out of his Xarelto over the last 3 to 4 days which he takes for his atrial fibrillation. Patient presenting by EMS. TRAVEL OUTSIDE OF THE [place] IN LAST 30 DAYS: No - Related Data Allergies/Adverse Reactions: No Known Allergies Allergy (Verified 08/16/19 04:36) Home Medications: ASpirin. Metoprolol. Lasix. Hydralazine. Valsartan. Potassium chloride. Isosorb. Xarelto. inhaler Past Medical History - General Information source: Patient - Social History Smoking Status: Former Smoker Family History: Hypertension, Other Patient has suicidal ideation: No Patient has homicidal ideation: No - Past Medical History Cardiac Medical History: Reports: Hx Atrial Fibrillation, Hx Congestive Heart Failure, Hx DVT, Hx Hypertension Pulmonary Medical History: Reports: Hx COPD Denies: Hx Asthma Renal/ Medical History: Reports: Hx Kidney Stones. Denies: Hx Peritoneal Dialysis GI Medical History: Reports: Hx Gastroesophageal Reflux Disease Psychiatric Medical History: Reports: Hx Anxiety, Hx Depression Past Surgical History: Reports: Hx Cardiac Surgery - stent aorta, Hx Kidney ( Renal Surgery) - stent rt kidney, Hx Vascular Surgery - femoral bypass - Immunizations Immunizations up to date: Yes Hx Diphtheria, Pertussis, Tetanus Vaccination: Yes Review of Systems - Review of Systems Cardiovascular: Dyspnea, Edema Respiratory: Short of breath Male Genitourinary: Other - SCROTAL SWELLING Physical Exam - Vital signs Vitals: Pulse Ox 97 09/04/19 16:34 - Notes Notes: PHYSICAL EXAMINATION: GENERAL: Appears stated age, well-nourished and in mild distress. HEAD: Atraumatic, normocephalic. EYES: Pupils equal round and reactive to light, extraocular movements intact, sclera anicteric, conjunctiva are normal. ENT: Nares patent, oropharynx clear without exudates. Moist mucous membranes. NECK: Normal range of motion, supple without lymphadenopathy LUNGS: Breath sounds clear to auscultation bilaterally and equal. No wheezes rales or rhonchi. HEART: Regular rate and rhythm without murmurs ABDOMEN: Soft, nontender, nondistended abdomen. No guarding, no rebound. No masses appreciated. Musculoskeletal: Normal range of motion, 2+ pitting edema. No cyanosis. : Erythema noted to skin folds near left testicle. Scrotal edema noted. NEUROLOGICAL: Cranial nerves grossly intact. Normal speech. Normal sensory, motor exams PSYCH: Normal mood, normal affect. SKIN: Warm, Dry, normal turgor, no rashes or lesions noted. Course - Re-evaluation Re-evalutation: Laboratory 09/04/19 09/04/19 09/04/19 16:39 16:39 16:39 WBC 8.9 RBC 4.36 Hgb 13.6 Hct 39.6 MCV 91 MCH 31.2 MCHC 34.3 RDW 16.2 H Plt Count 182 Lymph % (Auto) 13.1 [place] % (Auto) 7.1 Eos % (Auto) 2.1 Baso % (Auto) 0.5 Absolute Neuts (auto) 6.9 Absolute Lymphs (auto) 1.2 Absolute Monos (auto) 0.6 Absolute Eos (auto) 0.2 Absolute Basos (auto) 0.0 Seg Neutrophils % 77.2 PT 14.2 INR 1.09 Sodium 138.9 Potassium 4.2 Chloride 107 Carbon Dioxide 26 Anion Gap 6 BUN 31 H Creatinine 1.83 H Est GFR ( Amer) 47 L Est GFR (MDRD) Non-Af 39 L Glucose 95 Calcium 8.7 Total Bilirubin 1.5 H Direct Bilirubin 0.2 Neonat Total Bilirubin Not Reportable Neonat Direct Bilirubin Not Reportable Neonat Indirect Bili Not Reportable AST 32 ALT 36 Alkaline Phosphatase 69 Creatine Kinase 70 CK-MB (CK-2) Troponin I NT-Pro-B Natriuret Pep Total Protein 6.4 Albumin 3.7 Urine Color Urine Appearance Urine pH Ur Specific [place] Urine Protein Urine Glucose (UA) Urine Ketones Urine Blood Urine Nitrite Urine Bilirubin Urine Urobilinogen Ur Leukocyte Esterase Urine WBC (Auto) Urine Mucus (Auto) Urine Ascorbic Acid 09/04/19 09/04/19 09/04/19 16:39 16:39 19:30 WBC RBC Hgb Hct MCV MCH MCHC RDW Plt Count Lymph % (Auto) [place] % (Auto) Eos % (Auto) Baso % (Auto) Absolute Neuts (auto) Absolute Lymphs (auto) Absolute Monos (auto) Absolute Eos (auto) Absolute Basos (auto) Seg Neutrophils % PT INR Sodium Potassium Chloride Carbon Dioxide Anion Gap BUN Creatinine Est GFR ( Amer) Est GFR (MDRD) Non-Af Glucose Calcium Total Bilirubin Direct Bilirubin Neonat Total Bilirubin Neonat Direct Bilirubin Neonat Indirect Bili AST ALT Alkaline Phosphatase Creatine Kinase CK-MB (CK-2) 2.51 Troponin I 0.055 0.058 NT-Pro-B Natriuret Pep 79960 H Total Protein Albumin Urine Color Urine Appearance Urine pH Ur Specific [place] Urine Protein Urine Glucose (UA) Urine Ketones Urine Blood Urine Nitrite Urine Bilirubin Urine Urobilinogen Ur Leukocyte Esterase Urine WBC (Auto) Urine Mucus (Auto) Urine Ascorbic Acid 09/04/19 20:35 WBC RBC Hgb Hct MCV MCH MCHC RDW Plt Count Lymph % (Auto) [place] % (Auto) Eos % (Auto) Baso % (Auto) Absolute Neuts (auto) Absolute Lymphs (auto) Absolute Monos (auto) Absolute Eos (auto) Absolute Basos (auto) Seg Neutrophils % PT INR Sodium Potassium Chloride Carbon Dioxide Anion Gap BUN Creatinine Est GFR ( Amer) Est GFR (MDRD) Non-Af Glucose Calcium Total Bilirubin Direct Bilirubin Neonat Total Bilirubin Neonat Direct Bilirubin Neonat Indirect Bili AST ALT Alkaline Phosphatase Creatine Kinase CK-MB (CK-2) Troponin I NT-Pro-B Natriuret Pep Total Protein Albumin Urine Color YELLOW Urine Appearance CLEAR Urine pH 7.0 Ur Specific [place] 1.009 Urine Protein 30 H Urine Glucose (UA) NEGATIVE Urine Ketones NEGATIVE Urine Blood NEGATIVE Urine Nitrite NEGATIVE Urine Bilirubin NEGATIVE Urine Urobilinogen NEGATIVE Ur Leukocyte Esterase NEGATIVE Urine WBC (Auto) 4 Urine Mucus (Auto) RARE Urine Ascorbic Acid NEGATIVE Chest X-Ray 09/04/19 16:34 IMPRESSION: Stable chest. As above. Includes cardiac enlargement with slight vascular congestion. Patient's chest x-ray shows slight vascular congestion, similar with previous x- rays. His BNP is elevated at 12,500 which is at patient's baseline. Patient did have increased work of breathing on arrival however he has shown some improvement in the emergency department today. We ambulated him with a pulse ox and his oxygen saturation stayed above 96%. 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 He feels comfortable being discharged home, we went over strict ED return precautions which he will return for if needed. Close follow-up with PCP. - Vital Signs Vital signs: Temp Pulse Resp BP Pulse Ox 98.2 F 140 H 29 H 130/109 H 99 09/04/19 17:50 09/04/19 17:50 09/04/19 23:00 09/04/19 22:00 09/04/19 23:00 - Laboratory Result Diagrams: 09/04/19 16:39 09/04/19 16:39 Laboratory results interpreted by me: 09/04/19 09/04/19 09/04/19 16:39 16:39 16:39 RDW 16.2 H BUN 31 H Creatinine 1.83 H Est GFR ( Amer) 47 L Est GFR (MDRD) Non-Af 39 L Total Bilirubin 1.5 H NT-Pro-B Natriuret Pep 98606 H Urine Protein 09/04/19 20:35 RDW BUN Creatinine Est GFR ( Amer) Est GFR (MDRD) Non-Af Total Bilirubin NT-Pro-B Natriuret Pep Urine Protein 30 H - Diagnostic Test Radiology reviewed: Image reviewed, Reports reviewed - EKG Interpretation by Me Rate: Tachycardia Rhythm: A.Fib When compared to previous EKG there are: Previous EKG unavailable Discharge - Discharge Clinical Impression: Shortness of breath CHF exacerbation Qualifiers: Heart failure type: unspecified Qualified Code(s): I50.9 - Heart failure, unspecified Condition: Stable Disposition: HOME, SELF-CARE Additional Instructions: Congestive Heart Failure You have been diagnosed as having congestive heart failure (CHF). CHF occurs when the heart is unable to pump blood efficiently, leading to fluid buildup in the veins and lungs. Typical symptoms are swelling of the legs, shortness of breath on minor exertion, and fatigue. CHF is treated with salt restriction, medicine to eliminate excess water and salt from the body, and medication to help the heart contract more efficiently. Eliminate added salt and salty foods in your diet. Decrease your activity until excess fluid has been eliminated. It will also be helpful to raise the head of your bed so you can sleep more easily. Keep a daily record of your weight. This will help your physician monitor your progress. Once extra water has been eliminated, light aerobic exercise daily -- such as walking -- will be helpful (unless your physician has told you to restrict activity for other reasons). Be sure to follow up with the physician as instructed. Contact the doctor at once if you worsen in any way. Please keep the appointment that you have set up with your machine silk screen printer. Please also call your primary care provider and let her know that you cannot afford the current blood thinner that you are on. See if she can start you on something else as it is important that you stay on something. Please return to the emergency department any new or worsening symptoms we are happy to re-evaluate you. Prescriptions: Albuterol Sulfate [Proair HFA Inhalation Aerosol 8.5 gm MDI] 2 puff IH Q4H PRN #1 [id number] PRN Reason: Referrals: RACHANA GARCIA PA-C [Primary Care Provider] - Follow up as needed
[2019-09-04 23:08] VITALS: BP 130/109
== END 2019-09-04 23:45 | disposition home or self-care (01) ==
LOC: ER 16:22
DX: I11.0 Hypertensive heart disease with heart failure (principal); I50.9 Heart failure, unspecified; I43 Cardiomyopathy in diseases classified elsewhere; J44.9 Chronic obstructive pulmonary disease, unspecified; R00.0 Tachycardia, unspecified; I48.91 Unspecified atrial fibrillation; L53.9 Erythematous condition, unspecified; N50.89 Other specified disorders of the male genital organs; Z79.82 Long term (current) use of aspirin; Z79.899 Other long term (current) drug therapy; Z86.718 Personal history of other venous thrombosis and embolism; Z87.891 Personal history of nicotine dependence; Z95.5 Presence of coronary angioplasty implant and graft
CPT/HCPCS: 93005; 94640; 99285; 96374; 36415; 82553; 82550; 85025; 85610; 80053; 81001; 84484; 83880; 71045; 93010; J1940; J3490

== ENCOUNTER 2019-10-05 16:00 | Emergency (ER) | payer SELFPAY ==
--- NOTE | 2019-10-05 16:53 | ER Document Report ---
ED General - General Chief Complaint: Chest Pain Stated Complaint: FALL/LEFT FOOT, CHEST WALL PAIN Time Seen by Provider: 10/05/19 16:32 Primary Care Provider: RACHANA GARCIA PA-C [Primary Care Provider] - Follow up as needed Notes: 51-year-old male presents with syncope. The patient was in triage having presented with some chest pain or shortness of breath and been found to be in rapid A. fib. While he was being assessed by the triage provider he had an episode of bradycardia down to 30 lost all of his color and lost consciousness. Was wheeled urgently back to bed 9 white was called to see him. On my arrival we laid him flat his color returned he was tachycardic to the 130s and able to speak with me. Per nursing his recently here and they know him, he apparently has a pretty reasonable intellectual disability TRAVEL OUTSIDE OF THE [place] IN LAST 30 DAYS: No - Related Data Allergies/Adverse Reactions: No Known Allergies Allergy (Verified 08/16/19 04:36) Home Medications: Lasix, Warfarin, Metoprolol Past Medical History - Social History Smoking Status: Former Smoker Family History: Hypertension, Other Patient has homicidal ideation: No - Past Medical History Cardiac Medical History: Reports: Hx Atrial Fibrillation, Hx Congestive Heart F ailure, Hx DVT, Hx Hypertension Pulmonary Medical History: Reports: Hx COPD Denies: Hx Asthma Renal/ Medical History: Reports: Hx Kidney Stones. Denies: Hx Peritoneal Dialysis GI Medical History: Reports: Hx Gastroesophageal Reflux Disease Psychiatric Medical History: Reports: Hx Anxiety, Hx Depression Past Surgical History: Reports: Hx Cardiac Surgery - stent aorta, Hx Kidney (Renal Surgery) - stent rt kidney, Hx Vascular Surgery - femoral bypass - Immunizations Immunizations up to date: Yes Hx Diphtheria, Pertussis, Tetanus Vaccination: Yes Review of Systems - Review of Systems Notes: REVIEW OF SYSTEMS GEN: Denies fever, chills, weight loss ENT: Denies sore throat, nasal discharge, ear pain EYES: Denies blurry vision, eye pain, discharge CV: Denies chest pain, palpitations, edema RESP: Denies cough, shortness of breath, wheezing GI: Denies abdominal pain, nausea, vomiting, diarrhea MSK: Denies joint pain/swelling, edema, SKIN: Denies rash, skin lesions LYMPH: Denies swollen glands/lymph nodes NEURO: Denies headache, focal weakness or numbness, dizziness PSYCH: Denies depression, suicidal or homicidal ideation PHYSICAL EXAMINATION General: No acute distress, well-nourished Head: Atraumatic, normocephalic ENT: Mouth normal, oropharynx moist, no exudates or tonsillar enlargement Eyes: Conjunctiva normal, pupils equal, lids normal Neck: No JVD, supple, no guarding CVS: Normal rate, regular rhythm, no murmurs Resp: No resp distress, equal and normal breath sounds bilaterally GI: Nondistended, soft, no tenderness to palpation, no rebound or guarding Ext: No deformities, no edema, normal range of motion in upper and lower ext Back: No CVA or midline TTP Skin: No rash, warm Lymphatic: No lymphadeopathy noted Neuro: Awake, alert. Face symmetric. GCS 15. Physical Exam - Vital signs Vitals: Temp Pulse Resp BP Pulse Ox 98.6 F 83 18 94/79 L 96 10/05/19 16:03 10/05/19 16:03 10/05/19 16:03 10/05/19 16:03 10/05/19 16:03 Course - Re-evaluation Re-evalutation: 10/05/19 19:12 Presents with syncope and bradycardia in the setting of previous complaint of chest pain and rapid A. fib. Complicated history which is not all apparent to me based on reviewing his chart. He has a middle actual disability so history is difficult. I see gentleman in rapid atrial fibrillation who is respiratory status is stable and he was maintaining a good blood pressure/perfusion. Repeat EKG does not show worsening rhythm or ischemia. Consideration was given to PE, he is anticoagulated has a solitary kidney and a baseline creatinine near 2. I feel that given his ongoing anticoagulation he is not in need of an emergent CT scan. We will continue Lovenox for him. After a period of observation in the ED his pressure stayed stopped solid so I started some Cardizem. I do not see an etiology for his A. fib. His labs are essentially normal I did a bedside echo which showed poor EF but no effusion and a normal aortic root. After discussing him with [facility] they let me know that he is not actually been there but they found in their records a previous encounter at [facility] for an aortic valve issue. He is not exactly sure what this is but on exam he has no scars to suggest that he had a dissection that was proximal or replacement. We will continue current plan with [facility]. He has been accepted by Dr. OROZCO - Vital Signs Vital signs: Temp Pulse Resp BP Pulse Ox 98.6 F 83 19 129/87 H 94 10/05/19 16:31 10/05/19 16:03 10/05/19 18:30 10/05/19 18:11 10/05/19 18:30 - Laboratory Result Diagrams: 10/05/19 16:45 10/05/19 16:45 Laboratory results interpreted by me: 10/05/19 10/05/19 10/05/19 16:45 16:45 16:45 WBC 10.7 H RDW 14.8 H Lymph % (Auto) 11.9 L PT 16.3 H BUN 34 H Creatinine 2.19 H Est GFR ( Amer) 38 L Est GFR (MDRD) Non-Af 32 L - Diagnostic Test Radiology reviewed: Image reviewed, Reports reviewed - EKG Interpretation by Me EKG shows normal: Sinus rhythm Rate: Tachycardia Rhythm: A.Fib Procedures - Ultrasound/Bedside Ultrasound/Bedside Ultrasound: Other - Slightly decreased cardiac output overall with atrial fibrillation. No pericardial effusion. Aortic root appears normal without dissection flap or dilation Critical Care Note - Critical Care Note Total time excluding time spent on procedures (mins): 72 Comments: The above patient is critically ill. Not including procedures, but including direct re-evaluations, speaking with patient and/or consultants, interpreting results, and documenting, I spent the total amount of minute listed listed above on critical care time Discharge - Discharge Clinical Impression: Rapid atrial fibrillation Chest pain, unspecified Qualifiers: Chest pain type: other chest pain Qualified Code(s): R07.89 - Other chest pain Condition: Good Disposition: [facility] Referrals: RACHANA GARCIA PA-C [Primary Care Provider] - Follow up as needed
--- NOTE | 2019-10-05 16:56 | ER Document Report ---
ED Medical Screen (RME) - General Chief Complaint: Chest Pain Stated Complaint: FALL/LEFT FOOT, CHEST WALL PAIN Time Seen by Provider: 10/05/19 16:32 Primary Care Provider: RACHANA GARCIA PA-C [Primary Care Provider] - Follow up as needed TRAVEL OUTSIDE OF THE [place] IN LAST 30 DAYS: No - HPI Notes: 10/05/19 16:51 54-year-old male with an extensive medical history of A. fib, CHF, hypertension, kidney disease, COPD presents to the emergency room by private car for complaints of chest pain that started last night and shortness of breath that started around 3 PM today. Patient reports last night that he slipped out in the rain and fell on his back injuring his left foot and complaining of back pain. Patient is on anticoagulant therapy, warfarin. Patient reports he did not take his metoprolol until 3:00 this afternoon because he laid in bed until noon. While assessing the patient, patient became less responsive while in the wheelchair, checking his heart rate on oxygenation level, heart rate went down to 40s to 39 and was unable to respond to me or the nurse. Patient was immediately taken back room 9 in the ER, crash cart was brought and Dr. Everardo Beyer, ER emergency room doctor came to the bedside to evaluate patient. Patient placed immediately on monitoring tech where his heart rate did return back to the 130s. Disposition was given to Dr. Beyer at bedside and was report. I have greeted and performed a rapid initial assessment of this patient. A comprehensive ED assessment and evaluation of the patient, analysis of test results and completion of the medical decision making process will be conducted by additional ED providers. PHYSICAL EXAMINATION: CV: Bradycardic LUNGS: Wheezing in upper lobes. no respiratory distress 10/05/19 16:57 10/05/19 16:58 - Related Data Allergies/Adverse Reactions: No Known Allergies Allergy (Verified 08/16/19 04:36) Home Medications: Lasix, Warfarin, Metoprolol Past Medical History - Past Medical History Cardiac Medical History: Reports: Hx Atrial Fibrillation, Hx Congestive Heart Failure, Hx DVT, Hx Hypertension Pulmonary Medical History: Reports: Hx COPD Denies: Hx Asthma Renal/ Medical History: Reports: Hx Kidney Stones. Denies: Hx Peritoneal Dialysis GI Medical History: Reports: Hx Gastroesophageal Reflux Disease Psychiatric Medical History: Reports: Hx Anxiety, Hx Depression Past Surgical History: Reports: Hx Cardiac Surgery - stent aorta, Hx Kidney (Renal Surgery) - stent rt kidney, Hx Vascular Surgery - femoral bypass - Immunizations Immunizations up to date: Yes Hx Diphtheria, Pertussis, Tetanus Vaccination: Yes Physical Exam - Vital signs Vitals: Temp Pulse Resp BP Pulse Ox 98.6 F 83 18 94/79 L 96 10/05/19 16:03 10/05/19 16:03 10/05/19 16:03 10/05/19 16:03 10/05/19 16:03 Course - Vital Signs Vital signs: Temp Pulse Resp BP Pulse Ox 98.6 F 83 18 94/79 L 96 10/05/19 16:31 10/05/19 16:03 10/05/19 16:03 10/05/19 16:03 10/05/19 16:03 Doctor's Discharge - Discharge Referrals: RACHANA GARCIA PA-C [Primary Care Provider] - Follow up as needed
[2019-10-05 17:09] LABS: ABSOLUTE BASOPHILS # (AUTO) 0.1 10^3/uL (0.0-0.2); ABSOLUTE EOSINOPHILS # (AUTO) 0.3 10^3/uL (0.0-0.6); ABSOLUTE LYMPHOCYTES (AUTO) 1.3 10^3/uL (0.5-4.7); ABSOLUTE MONOCYTES (AUTO) 1.2 10^3/uL (0.1-1.4); ABSOLUTE NEUT (AUTO) 7.9 10^3/uL (1.7-8.2); BASOPHILS % (AUTO) 0.7 % (0-2); EOSINOPHILS % (AUTO) 2.4 % (0-6); HEMATOCRIT 44.2 % (37.9-51.0); HEMOGLOBIN 14.9 g/dL (13.5-17.0); LYMPHOCYTES % (AUTO) 11.9 % (13-45); MEAN CORPUSCULAR HEMOGLOBIN 30.1 pg (27.0-33.4); MEAN CORPUSCULAR HGB CONC 33.6 g/dL (32.0-36.0); MEAN CORPUSCULAR VOLUME 90 fl (80-97); MONOCYTES % (AUTO) 11.3 % (3-13); PLATELET COUNT 172 10^3/uL (150-450); RED BLOOD COUNT 4.93 10^6/uL (4.35-5.55); RED CELL DISTRIBUTION WIDTH 14.8 % (11.5-14.0); SEGMENTED NEUTROPHILS % (AUTO) 73.7 % (42-78); TOTAL CELLS COUNTED % (AUTO) 100 %; WHITE BLOOD COUNT 10.7 10^3/uL (4.0-10.5)
--- NOTE | 2019-10-05 17:09 | RADIOLOGY REPORT (SQ) ---
EXAM DESCRIPTION: CHEST SINGLE VIEW IMAGES COMPLETED DATE/TIME: 10/05/2019 5:01 pm REASON FOR STUDY: sob COMPARISON: 09/04/2019. EXAM PARAMETERS: NUMBER OF VIEWS: One view. TECHNIQUE: Single frontal radiographic view of the chest acquired. RADIATION DOSE: NA LIMITATIONS: Overlying pad partially obscures the mid chest. FINDINGS: LUNGS AND PLEURA: No opacities, masses or pneumothorax. No pleural effusion. MEDIASTINUM AND HILAR STRUCTURES: No masses. Contour normal. HEART AND VASCULAR STRUCTURES: Stable cardiomegaly. BONES: No acute findings. HARDWARE: Aortic stent. OTHER: No other significant finding. IMPRESSION: STABLE CARDIOMEGALY. NO ACUTE RADIOGRAPHIC FINDING IN THE CHEST. TECHNICAL DOCUMENTATION: JOB ID: [id number] 2010 [employer]- All Rights Reserved Reading location - IP/workstation name: [email or web address]
[2019-10-05 17:11] LABS: PROTHROMBIN TIME 16.3 SEC (11.4-15.4)
[2019-10-05 17:12] LABS: PARTIAL THROMBOPLASTIN TIME 29.3 SEC (23.5-35.8)
[2019-10-05 17:20] LABS: ANION GAP 8 (5-19); BLOOD UREA NITROGEN 34 mg/dL (7-20); CALCIUM 9.9 mg/dL (8.4-10.2); CARBON DIOXIDE 30 mmol/L (22-30); CHLORIDE 102 mmol/L (98-107); GLUCOSE 89 mg/dL (75-110); POTASSIUM 3.9 mmol/L (3.6-5.0)
--- NOTE | 2019-10-05 17:43 | RADIOLOGY REPORT (SQ) ---
EXAM DESCRIPTION: FOOT LEFT 2 VIEWS IMAGES COMPLETED DATE/TIME: 10/05/2019 5:31 pm REASON FOR STUDY: Trauma, left foot pain COMPARISON: 03/30/2017 NUMBER OF VIEWS: Two views. TECHNIQUE: AP and lateral radiographic images acquired of the left foot. LIMITATIONS: None. FINDINGS: MINERALIZATION: Normal. BONES: No acute fracture or dislocation. No worrisome bone lesions. JOINTS: No effusions. SOFT TISSUES: No soft tissue swelling. No foreign body. OTHER: No other significant finding. IMPRESSION: NEGATIVE STUDY OF THE LEFT FOOT. NO RADIOGRAPHIC EVIDENCE OF ACUTE INJURY. TECHNICAL DOCUMENTATION: JOB ID: [id number] 2010 [employer]- All Rights Reserved Reading location - IP/workstation name: [email or web address]
[2019-10-05] MEDS ORDERED: METOPROLOL TARTRATE PF/INJ 5 MG/5 ML SDV IV ONE (17:52)
[2019-10-05] MEDS ORDERED: DILTIAZEM HCL INJ 25 MG/5 ML VIAL ONE (18:06)
[2019-10-05] MEDS ORDERED: DILTIAZEM HCL INJ 25 MG/5 ML VIAL IV ONE (18:07)
[2019-10-05] MEDS ORDERED: DILTIAZEM HCL/D5W 125 MG/125 ML RTUINJ IV PRN (18:14)
[2019-10-05] MEDS ORDERED: ENOXAPARIN SODIUM INJ 120 MG/0.8 ML DISP.SYRIN SUBCUT SCH ×2 (19:15→19:30)
[2019-10-05 20:30] VITALS: BP 120/94
--- NOTE | 2019-10-05 21:00 | EKG REPORT ---
SEVERITY:- ABNORMAL ECG - ATRIAL FIBRILLATION, V-RATE 101-172 LVH WITH SECONDARY REPOLARIZATION ABNORMALITY BORDERLINE PROLONGED QT INTERVAL : Confirmed by: Arianna Khan MD 05-Oct-2019 20:59:51
--- NOTE | 2019-10-05 21:00 | EKG REPORT ---
SEVERITY:- ABNORMAL ECG - ATRIAL FIBRILLATION, V-RATE 89-183 LVH WITH SECONDARY REPOLARIZATION ABNORMALITY BORDERLINE PROLONGED QT INTERVAL : Confirmed by: Arianna Khan MD 05-Oct-2019 20:59:57
== END 2019-10-05 20:43 | disposition short-term general hospital (02) ==
LOC: ER 16:00
DX: I48.91 Unspecified atrial fibrillation (principal); R07.9 Chest pain, unspecified; M79.672 Pain in left foot; R07.89 Other chest pain; R06.02 Shortness of breath; Z79.01 Long term (current) use of anticoagulants; Z79.899 Other long term (current) drug therapy; Z87.891 Personal history of nicotine dependence; I50.9 Heart failure, unspecified; I11.0 Hypertensive heart disease with heart failure; J44.9 Chronic obstructive pulmonary disease, unspecified
CPT/HCPCS: 93005; 96376; 99291; 96372; 96365; 36415; 82962; 85025; 85610; 85730; 80048; 84484; 71045; 73620; 93010; J3490 ×2; J1650

== ENCOUNTER 2019-11-15 07:22 | Observation (INO) | payer SELFPAY ==
--- NOTE | 2019-11-15 08:59 | ER Document Report ---
ED General - General Chief Complaint: Abdominal Pain Stated Complaint: ABDOMINAL PAIN Time Seen by Provider: 11/15/19 08:30 Primary Care Provider: RACHANA GARCIA PA-C [Primary Care Provider] - Follow up as needed Notes: 54-year-old male with past medical history of congestive heart failure, abdominal aortic aneurysm, COPD presenting today with shortness of breath starting yesterday. Worsening last night. Worse with lying down with exertion. Reports that he has had some abdominal pain today with his abdominal dis tention. Become short of breath when talking with provider. No acute distress while sitting comfortably. States he had a brief episode of chest pain last night but denies currently being in any chest pain. States that he has not taken his Lasix in 2 days. He has not taken his morning medications. TRAVEL OUTSIDE OF THE [place] IN LAST 30 DAYS: No - Related Data Allergies/Adverse Reactions: No Known Allergies Allergy (Verified 08/16/19 04:36) Home Medications: lasix Past Medical History - Social History Smoking Status: Unknown if Ever Smoked Family History: Hypertension, Other - Past Medical History Cardiac Medical History: Reports: Hx Atrial Fibrillation, Hx Congestive Heart Failure, Hx DVT, Hx Hypertension Pulmonary Medical History: Reports: Hx COPD Denies: Hx Asthma Renal/ Medical History: Reports: Hx Kidney Stones. Denies: Hx Peritoneal Dialysis GI Medical History: Reports: Hx Gastroesophageal Reflux Disease Psychiatric Medical History: Reports: Hx Anxiety, Hx Depression Past Surgical History: Reports: Hx Cardiac Surgery - stent aorta, Hx Kidney (Renal Surgery) - stent rt kidney, Hx Vascular Surgery - femoral bypass - Immunizations Immunizations up to date: Yes Hx Diphtheria, Pertussis, Tetanus Vaccination: Yes Review of Systems - Review of Systems Constitutional: No symptoms reported EENT: No symptoms reported Cardiovascular: See HPI Respiratory: See HPI Gastrointestinal: See HPI Genitourinary: No symptoms reported Male Genitourinary: No symptoms reported Musculoskeletal: No symptoms reported Skin: No symptoms reported Physical Exam - Vital signs Vitals: Temp Pulse Resp BP Pulse Ox 97.5 F 104 H 20 144/104 H 95 11/15/19 07:26 11/15/19 07:26 11/15/19 07:26 11/15/19 07:26 11/15/19 07:26 Interpretation: Hypertensive, Tachycardic. No: Febrile - Notes Notes: Adult General: GENERAL: Alert, interacts well. No acute distress HEAD: Normocephalic, atraumatic EYES: Pupils equal, round and reactive to light. Extraocular movements intact. ENT: Airway patent. Nares patent. NECK: Full range of motion. Supple. Trachea midline. LUNGS: Wheezes in bilateral lower lung lyon. Decreased lung sounds in right lower lobe. No respiratory distress. Nontender chest wall. HEART: Irregularly irregular. No murmurs, rubs or gallops. ABDOMEN: Soft, mild tenderness to all 4 quadrants. distended. Bowel sounds present in all 4 quadrants. No rebound, guarding or masses. GENITOURINARY: Deferred EXTREMITIES: Moves all 4 extremities spontaneously. No edema, normal radial and dorsal pedis pulses bilaterally. No cyanosis. BACK: No cervical, thoracic, lumbar midline tenderness. No saddle anesthesia, normal distal neurovascular exam. Moves all extremities with full range of motion. NEUROLOGICAL: Alert and oriented x3. Normal speech. Cranial nerves II through XII grossly intact. Strength 5/ 5 in all extremities. PSYCH: Normal affect, normal mood. SKIN: Warm, dry, normal turgor. No rashes or lesions noted. Course - Re-evaluation Re-evalutation: 11/15/19 11:11 Patient was reevaluated. He continues to have worsening abdominal pain with this distention. I will go ahead and CT his abdomen. Chest x-ray shows atelectasis and small effusion. States that the shortness of breath is better but he remains hypoxic and is fluctuating in and out of A. fib RVR. current's respiratory rate is 26 this is fluctuating as well between low 20's and upper 30's. He is hypertensive in the 150/110s. Provided 40 mg of IV Lasix. Discussed case with Dr. Nolasco who recommends adding 10 mg of diltiazem. Currently on 2 L of nasal cannula. Not on oxygen at home. 11/15/19 11:13 Patient was reevaluated and states he is no longer short of breath but is currently on 2 L of nasal cannula. CT scan shows inflammation around the pancreas. Lipase is 77. Patient was trialed off the oxygen and his O2 began to drop slightly. Patient was walked up the hallway and he bradycardia down to the 30s. His O2 sats stayed in the mid 90s. I suspect patient is having an acute exacerbation of his CHF. Discussed case with Dr. Monte who is agreeable to admission. - Vital Signs Vital signs: Temp Pulse Resp BP Pulse Ox 97.5 F 104 H 29 H 144/116 H 99 11/15/19 07:26 11/15/19 07:26 11/15/19 11:01 11/15/19 11:01 11/15/19 11:01 - Laboratory Result Diagrams: 11/15/19 09:04 11/15/19 09:04 Laboratory results interpreted by me: 11/15/19 11/15/19 11/15/19 09:04 09:04 09:04 WBC 10.6 H RDW 15.8 H Lymph % (Auto) 11.7 L Absolute Neuts (auto) 8.3 H Seg Neutrophils % 78.2 H Chloride 110 H Carbon Dioxide 20 L BUN 25 H Creatinine 1.94 H Est GFR ( Amer) 44 L Est GFR (MDRD) Non-Af 36 L Glucose 117 H Total Bilirubin 2.0 H NT-Pro-B Natriuret Pep 01187 H Urine Protein Urine Urobilinogen 11/15/19 09:31 WBC RDW Lymph % (Auto) Absolute Neuts (auto) Seg Neutrophils % Chloride Carbon Dioxide BUN Creatinine Est GFR ( Amer) Est GFR (MDRD) Non-Af Glucose Total Bilirubin NT-Pro-B Natriuret Pep Urine Protein >=500 H Urine Urobilinogen 2.0 H - EKG Interpretation by Me Additional EKG results interpreted by me: 11/15/19 10:17 afib ventricular rate of 83-136 left ventricular hypertrophy. Prolonged QTC at 503. Rate of 105. No ST segment elevations or depressions. Discharge - Discharge Clinical Impression: Acute exacerbation of CHF (congestive heart failure) Qualifiers: Heart failure type: unspecified Qualified Code(s): I50.9 - Heart failure, unspecified Condition: Stable Disposition: ADMITTED OBSERVATION Admitting Provider: Mell (Hospitalist) Unit Admitted: Telemetry Referrals: RACHANA GARCIA PA-C [Primary Care Provider] - Follow up as needed
[2019-11-15] MEDS ORDERED: METOPROLOL SUCCINATE 25 MG TAB.SR.24H PO ONE (09:01)
[2019-11-15 09:25] LABS: ABSOLUTE BASOPHILS # (AUTO) 0.1 10^3/uL (0.0-0.2); ABSOLUTE EOSINOPHILS # (AUTO) 0.1 10^3/uL (0.0-0.6); ABSOLUTE LYMPHOCYTES (AUTO) 1.2 10^3/uL (0.5-4.7); ABSOLUTE MONOCYTES (AUTO) 0.9 10^3/uL (0.1-1.4); ABSOLUTE NEUT (AUTO) 8.3 10^3/uL (1.7-8.2); BASOPHILS % (AUTO) 1.1 % (0-2); EOSINOPHILS % (AUTO) 0.6 % (0-6); HEMATOCRIT 43.9 % (37.9-51.0); HEMOGLOBIN 14.9 g/dL (13.5-17.0); LYMPHOCYTES % (AUTO) 11.7 % (13-45); MEAN CORPUSCULAR HEMOGLOBIN 30.8 pg (27.0-33.4); MEAN CORPUSCULAR VOLUME 91 fl (80-97); MONOCYTES % (AUTO) 8.4 % (3-13); PLATELET COUNT 169 10^3/uL (150-450); RED BLOOD COUNT 4.85 10^6/uL (4.35-5.55); RED CELL DISTRIBUTION WIDTH 15.8 % (11.5-14.0); SEGMENTED NEUTROPHILS % (AUTO) 78.2 % (42-78); TOTAL CELLS COUNTED % (AUTO) 100 %; WHITE BLOOD COUNT 10.6 10^3/uL (4.0-10.5)
--- NOTE | 2019-11-15 09:29 | RADIOLOGY REPORT (SQ) ---
EXAM DESCRIPTION: CHEST SINGLE VIEW IMAGES COMPLETED DATE/TIME: 11/15/2019 9:18 am REASON FOR STUDY: SOB COMPARISON: 10/05/2019 EXAM PARAMETERS: NUMBER OF VIEWS: One view. TECHNIQUE: Single frontal radiographic view of the chest acquired. RADIATION DOSE: NA LIMITATIONS: None. FINDINGS: LUNGS AND PLEURA: Left retrocardiac airspace disease. Probable left effusion. Minimal ri ght basilar atelectasis. MEDIASTINUM AND HILAR STRUCTURES: No masses. Contour normal. HEART AND VASCULAR STRUCTURES: Heart is enlarged. There is no overt failure. Endovascular thoracic aorta stent graft is in place. BONES: No acute findings. HARDWARE: As above. OTHER: No other significant finding. IMPRESSION: Cardiomegaly with left basilar atelectasis or pneumonia. Small left effusion. Minimal right basilar atelectasis. TECHNICAL DOCUMENTATION: JOB ID: [id number] 2010 [employer]- All Rights Reserved Reading location - IP/workstation name: [email or web address]
[2019-11-15] MEDS ORDERED: FUROSEMIDE INJ/PF 20 MG/2 ML SDV IV ONE ×2 (09:50→10:38)
[2019-11-15 10:03] LABS: ALBUMIN 4.5 g/dL (3.5-5.0); ALKALINE PHOSPHATASE 87 U/L (38-126); ANION GAP 9 (5-19); ASPARTATE AMINO TRANSFERASE 35 U/L (17-59); BILIRUBIN,DIRECT 0.2 mg/dL (0.0-0.4); BLOOD UREA NITROGEN 25 mg/dL (7-20); CALCIUM 9.4 mg/dL (8.4-10.2); CARBON DIOXIDE 20 mmol/L (22-30); CHLORIDE 110 mmol/L (98-107); GLUCOSE 117 mg/dL (75-110); POTASSIUM 4.2 mmol/L (3.6-5.0); TOTAL PROTEIN 7.9 g/dL (6.3-8.2)
[2019-11-15 10:05] LABS: TROPONIN I 0.063 ng/mL
[2019-11-15] MEDS ORDERED: DILTIAZEM HCL INJ 25 MG/5 ML VIAL IV ONE (11:01)
--- NOTE | 2019-11-15 11:13 | EKG REPORT ---
SEVERITY:- ABNORMAL ECG - ATRIAL FIBRILLATION, V-RATE 83-136 LEFT VENTRICULAR HYPERTROPHY PROLONGED QT INTERVAL : Confirmed by: Arianna Khan MD 15-Nov-2019 11:13:14
--- NOTE | 2019-11-15 12:29 | RADIOLOGY REPORT (SQ) ---
EXAM DESCRIPTION: CT ABD/PELVIS NO ORAL OR IV IMAGES COMPLETED DATE/TIME: 11/15/2019 12:15 pm REASON FOR STUDY: abdominal distention and tenderness COMPARISON: 06/30/2019 TECHNIQUE: CT scan of the abdomen and pelvis performed without intravenous or oral contrast. Images reviewed with lung, soft tissue, and bone windows. Reconstructed coronal and sagittal MPR images revi ewed. All images stored on PACS. All CT scanners at this facility use dose modulation, iterative reconstruction, and/or weight based d osing when appropriate to reduce radiation dose to as low as reasonably achievable (ALARA). [facility]: Dose Right [facility]: CareDose [facility]: Dose Right [facility]: Teradose 4D [facility]: [employer] RADIATION DOSE: mGy. LIMITATIONS: None. FINDINGS: LOWER CHEST: Mild bilateral pleural thickening. No consolidation or effusion. NON-CONTRASTED LIVER, SPLEEN, ADRENALS: Evaluation limited by lack of IV contrast. No identified sign ificant masses. PANCREAS: Mild inflammatory changes surrounding the pancreatic head with stranding in the surrounding peritoneal fat. Findings most likely represent earlier mild pancreatitis. GALLBLADDER: Gallstones. No surrounding edema. RIGHT KIDNEY AND URETER: No suspicious masses. Assessment limited by lack of IV contrast. Nonobstru cting right renal stones. Stable nonspecific right perinephric stranding. Scarring in the lower peter e. No hydronephrosis or hydroureter. LEFT KIDNEY AND URETER: Small atrophic left kidney. Dystrophic calcification. No hydronephrosis o r hydroureter. AORTA AND RETROPERITONEUM: Stable in appearance no aneurysmal dilatation. Right renal artery stent i s in place. There is a fem-fem bypass in place. BOWEL AND PERITONEAL CAVITY: No evidence of obstruction. Small volume ascites with fluid surrounding the liver there is free fluid in the left lower quadrant and a small amount of free fluid the pelvis . APPENDIX: Normal. PELVIS, BLADDER, AND ABDOMINAL WALL:Trace amount of free fluid. BONES: No significant findings. OTHER: No other significant finding. IMPRESSION: Mild inflammatory changes surround the pancreas. There is small volume ascites. No elsi dence of bowel obstruction. Findings are suspicious for mild or early pancreatitis. There are galls tones no surrounding inflammatory changes. COMMENT: Quality ID # [id number]: Final reports with documentation of one or more dose reduction techniques (e.g., Automated exposure control, adjustment of the mA and/or kV according to patient size, use of iterative reconstruction technique) TECHNICAL DOCUMENTATION: JOB ID: [id number] 2010 [employer]- All Rights Reserved Reading location - IP/workstation name: [email or web address]
[2019-11-15 12:32] LABS: APPEARANCE,URINE CLEAR; BILIRUBIN,URINE NEGATIVE (NEGATIVE); COLOR,URINE YELLOW; GLUCOSE, URINE NEGATIVE (NEGATIVE); KETONES,URINE NEGATIVE (NEGATIVE); LEUKOCYTE ESTERASE,URINE NEGATIVE (NEGATIVE); NITRITE,URINE NEGATIVE (NEGATIVE); PROTEIN,URINE >=500 mg/dL (NEGATIVE); URINE SPECIFIC GRAVITY 1.019
[2019-11-15] MEDS ORDERED: ONDANSETRON 4 MG TAB.RAPDIS PO PRN (18:21)
[2019-11-15] MEDS ORDERED: ACETAMINOPHEN 325 MG TABLET PO PRN (18:21)
[2019-11-15] MEDS ORDERED: ONDANSETRON HCL INJ/PF 4 MG/2 ML SDV IV PRN (18:21)
[2019-11-15] MEDS ORDERED: IPRATROPIUM/ALBUTEROL 0.5-2.5 MG/3 ML AMPUL NEB PRN (18:21)
[2019-11-15] MEDS ORDERED: (PENDING PHARMACY ID) (Albuterol Sulfate 2 PUFF) IH PRN (18:25)
--- NOTE | 2019-11-15 18:38 | PDOC H&P ---
History of Present Illness Admission Date/PCP: 11/15/19 14:08 RACHANA GARCIA PA-C History of Present Illness: JOHN PADILLA is a 54 year old male with past medical history significant for systolic CHF, atrial fibrillation chronic, history of DVT on chronic warfarin, COPD, AAA who presents with a 2-day history of progressive shortness of breath/AGUAYO/abdominal distention consistent with his previous CHF exacerbations per patient. Patient states he ran out of his medications approximately 3 days prior to admission. He states he tried to get in contact with his PCP but was unable to do so to get refills. Previous echocardiogram that I reviewed personally showed EF approximately 20 to 25% with systolic dysfunction. Patient is followed by Dr. Simons in cardiology. EKG showed A. fib with RVR and patient was subsequently given 10 mg IV diltiazem by ED. Rate was thereafter controlled and he was started on his home medications. Patient started on IV Lasix 40 mg twice daily. ED also got a CT scan of his abdomen/pelvis given the patient's history of AAA in order to rule out dissection and the CT scan did not show any acute findings other than some mild pulmonary effusions. Troponin was elevated but consistent with prior values and flat x2. BNP notably elevated at 18,000. CT abdomen pelvis also showed inflamed pancreas however lipase is normal. Patient admitted to [facility] observation for diuresis and acute CHF exacerbation. Past Medical History Cardiac Medical History: Reports: Atrial Fibrillation, Congestive Heart Failure, DVT, Hypertension Pulmonary Medical History: Reports: Chronic Obstructive Pulmonary Disease (COPD) Denies: Asthma GI Medical History: Reports: Gastroesophageal Reflux Disease Psychiatric Medical History: Reports: Depression Past Surgical History Past Surgical History: Reports: Vascular Surgery - femoral bypass Social History Information Source: Patient, Emergency Med Personnel Lives with: Family Smoking Status: Unknown if Ever Smoked Frequency of Alcohol Use: None Hx Recreational Drug Use: Yes - QUIT IN 2019 Drugs: Marijuana Hx Prescription Drug Abuse: No - Advance Directive Resuscitation Status: Full Code Surrogate healthcare decision maker:: Felicedamoustapha Armijo Family History Family History: Reviewed & Not Pertinent, Hypertension, Malignancy, Other Parental Family History Reviewed: Yes Children Family History Reviewed: Yes Sibling(s) Family History Reviewed.: Yes Medication/Allergy Home Medications: RX: Aspirin [Ecotrin 81 mg EC Tablet] 81 mg PO DAILY 02/27/19 RX: Potassium Chloride [Klor-Con 10 Meq Tablet ER] 20 meq PO DAILY 07/25/19 RX: Furosemide [Lasix] 40 mg PO BID 08/16/19 RX: Hydralazine HCl [Apresoline 50 mg Tablet] 50 mg PO Q8 08/16/19 RX: Isosorbide Dinitrate [Isordil Titradose 10 mg Tablet] 10 mg PO TID 08/16/19 RX: Valsartan [Diovan 80 mg Tablet] 80 mg PO Q12 08/16/19 RX: Albuterol Sulfate [Proair HFA Inhalation Aerosol 8.5 gm MDI] 2 puff IH Q4HP PRN 11/15/19 RX: Metoprolol Succinate [Toprol Xl 50 mg Tab.sr] 25 mg PO DAILY 11/15/19 Sertraline HCl [Zoloft 50 mg Tablet] 50 mg PO DAILY 11/15/19 Warfarin Sodium [Coumadin 5 mg Tablet] 5 mg PO DAILY 11/15/19 Allergies/Adverse Reactions: No Known Allergies Allergy (Verified 08/16/19 04:36) Review of Systems All systems: reviewed and no additional remarkable complaints except as stated - Per HPI, otherwise negative Physical Exam Vital Signs: Temp Pulse Resp BP Pulse Ox 97.8 F 98 17 152/110 H 93 11/15/19 17:34 11/15/19 17:34 11/15/19 17:34 11/15/19 17:34 11/15/19 17:34 Intake & Output 11/14/19 11/15/19 11/16/19 06:59 06:59 06:59 Output Total 1500 Balance -1500 Weight 102 kg General appearance: PRESENT: no acute distress, obese, well-developed, well- nourished Head exam: PRESENT: atraumatic, normocephalic Eye exam: PRESENT: conjunctiva pink Mouth exam: PRESENT: moist Respiratory exam: PRESENT: clear to auscultation lita, crackles - Scant crackles bilateral lung bases. ABSENT: rales, wheezes Cardiovascular exam: PRESENT: RRR. ABSENT: diastolic murmur, rubs, systolic murmur GI/Abdominal exam: PRESENT: distended - Positive fluid wave, normal bowel sounds, soft. ABSENT: guarding, mass, organolmegaly, rebound, tenderness Rectal exam: PRESENT: deferred Extremities exam: ABSENT: pedal edema Neurological exam: PRESENT: alert, awake, oriented to person, oriented to place, oriented to time, oriented to situation Psychiatric exam: PRESENT: appropriate affect Skin exam: PRESENT: dry, intact, warm Results Laboratory Results: 11/15/19 09:04 11/15/19 09:04 11/15/19 11/15/19 11/15/19 09:04 09:04 09:04 WBC 10.6 H RBC 4.85 Hgb 14.9 Hct 43.9 MCV 91 MCH 30.8 MCHC 34.0 RDW 15.8 H Plt Count 169 Seg Neutrophils % 78.2 H Sodium 139.4 Potassium 4.2 Chloride 110 H Carbon Dioxide 20 L Anion Gap 9 BUN 25 H Creatinine 1.94 H Est GFR ( Amer) 44 L Glucose 117 H Calcium 9.4 Total Bilirubin 2.0 H AST 35 Alkaline Phosphatase 87 Total Protein 7.9 Albumin 4.5 Lipase 77.7 Urine Color Urine Appearance Urine pH Ur Specific [place] Urine Protein Urine Glucose (UA) Urine Ketones Urine Blood Urine Nitrite Ur Leukocyte Esterase Urine WBC (Auto) Urine RBC (Auto) 11/15/19 09:31 WBC RBC Hgb Hct MCV MCH MCHC RDW Plt Count Seg Neutrophils % Sodium Potassium Chloride Carbon Dioxide Anion Gap BUN Creatinine Est GFR ( Amer) Glucose Calcium Total Bilirubin AST Alkaline Phosphatase Total Protein Albumin Lipase Urine Color YELLOW Urine Appearance CLEAR Urine pH 6.0 Ur Specific [place] 1.019 Urine Protein >=500 H Urine Glucose (UA) NEGATIVE Urine Ketones NEGATIVE Urine Blood NEGATIVE Urine Nitrite NEGATIVE Ur Leukocyte Esterase NEGATIVE Urine WBC (Auto) 8 Urine RBC (Auto) 2 11/15/19 11/15/19 09:04 14:00 Troponin I 0.063 0.061 NT-Pro-B Natriuret Pep 26626 H Impressions: Chest X-Ray 11/15/19 08:01 IMPRESSION: Cardiomegaly with left basilar atelectasis or pneumonia. Small left effusion. Minimal right basilar atelectasis. Abdomen/Pelvis CT 11/15/19 11:10 IMPRESSION: Mild inflammatory changes surround the pancreas. There is small volume ascites. No evidence of bowel obstruction. Findings are suspicious for mild or early pancreatitis. There are gallstones no surrounding inflammatory changes. Assessment and Plan - Diagnosis (1) Acute combined systolic and diastolic heart failure Is this a current diagnosis for this admission?: Yes Plan: 2-day history progressive shortness of breath/AGUAYO/abdominal distention with fluid EKG showed A. fib with RVR IV Lasix 40 mg twice daily Cardiac diet Follows with Dr. Simons in cardiology Will need refills for oral Lasix at discharge (2) Atrial fibrillation with RVR Is this a current diagnosis for this admission?: Yes Plan: No longer in RVR after admission after ED gave 10 mg IV diltiazem Restart home metoprolol Continue home Coumadin, pharmacy to dose Trend INR (3) CKD (chronic kidney disease) stage 3, GFR 30-59 ml/min Is this a current diagnosis for this admission?: Yes Plan: Creatinine approximately baseline Trend BMP while diuresing (4) H/O aortic valve repair Is this a current diagnosis for this admission?: Yes Plan: Coumadin as above (5) COPD (chronic obstructive pulmonary disease) Is this a current diagnosis for this admission?: Yes Plan: Not in exacerbation Duo nebs as needed (6) History of DVT (deep vein thrombosis) Is this a current diagnosis for this admission?: Yes - Time Time Spent with patient: 35 or more minutes Medications reviewed and adjusted accordingly: Yes Anticipated discharge: Home Within: within 48 hours
--- NOTE | 2019-11-15 18:39 | ADVANCED CARE ---
- Diagnosis (1) Acute combined systolic and diastolic heart failure Diagnosis Current: Yes (2) Atrial fibrillation with RVR Diagnosis Current: Yes (3) CKD (chronic kidney disease) stage 3, GFR 30-59 ml/min Diagnosis Current: Yes (4) H/O aortic valve repair Diagnosis Current: Yes (5) COPD (chronic obstructive pulmonary disease) Diagnosis Current: Yes (6) History of DVT (deep vein thrombosis) Diagnosis Current: Yes Attendance: Patient Resuscitation Status: Full Code Discussion: All aspects of code status discussed with patient/POA including cardioversion, chest compressions, and intubation and the patient/POA indicated they wish to be full code MPOA is designated as: Cabrera Armijo Time Spent: Greater than 17 minutes
[2019-11-15] MEDS ORDERED: ALBUTEROL SULFATE HFA (90 MCG/PUFF) 200 PUFF/8.5 GM MDI IH PRN (18:42)
[2019-11-15] MEDS: FUROSEMIDE INJ/PF 40 MG/4 ML SDV IV SCH (18:46)
[2019-11-15 19:49] LABS: HEMATOCRIT 43.1 % (37.9-51.0); HEMOGLOBIN 14.8 g/dL (13.5-17.0); MEAN CORPUSCULAR HEMOGLOBIN 31.3 pg (27.0-33.4); MEAN CORPUSCULAR HGB CONC 34.3 g/dL (32.0-36.0); MEAN CORPUSCULAR VOLUME 91 fl (80-97); PLATELET COUNT 163 10^3/uL (150-450); RED BLOOD COUNT 4.72 10^6/uL (4.35-5.55); RED CELL DISTRIBUTION WIDTH 16.3 % (11.5-14.0); WHITE BLOOD COUNT 9.3 10^3/uL (4.0-10.5)
[2019-11-15 19:57] LABS: INTERNATIONAL RATION (INR) 1.39; PROTHROMBIN TIME 17.2 SEC (11.4-15.4)
[2019-11-15] MEDS ORDERED: HYDRALAZINE HCL 50 MG TABLET PO ONE (20:00)
[2019-11-15 20:06] LABS: ANION GAP 8 (5-19); BLOOD UREA NITROGEN 24 mg/dL (7-20); CALCIUM 9.2 mg/dL (8.4-10.2); CARBON DIOXIDE 24 mmol/L (22-30); CHLORIDE 107 mmol/L (98-107); GLUCOSE 162 mg/dL (75-110)
[2019-11-15] MEDS: ISOSORBIDE DINITRATE 10 MG TABLET PO SCH (21:58)
[2019-11-15] MEDS: HYDRALAZINE HCL 50 MG TABLET PO SCH (21:58)
[2019-11-15] MEDS: VALSARTAN 80 MG TABLET PO SCH (21:58)
[2019-11-15] MEDS ORDERED: WARFARIN SODIUM 1 MG TABLET PO SCH (22:00)
[2019-11-15 22:54] LABS: APPEARANCE,URINE CLEAR; BILIRUBIN,URINE NEGATIVE (NEGATIVE); COLOR,URINE YELLOW; GLUCOSE, URINE NEGATIVE (NEGATIVE); KETONES,URINE NEGATIVE (NEGATIVE); LEUKOCYTE ESTERASE,URINE NEGATIVE (NEGATIVE); NITRITE,URINE NEGATIVE (NEGATIVE); PROTEIN,URINE NEGATIVE (NEGATIVE); URINE SPECIFIC GRAVITY 1.008
[2019-11-16] MEDS: ISOSORBIDE DINITRATE 10 MG TABLET PO SCH ×2 (05:31→13:41)
[2019-11-16] MEDS: FUROSEMIDE INJ/PF 40 MG/4 ML SDV IV SCH (05:31)
[2019-11-16] MEDS: HYDRALAZINE HCL 50 MG TABLET PO SCH ×2 (05:31→13:41)
[2019-11-16 06:32] LABS: ABSOLUTE EOSINOPHILS # (AUTO) 0.2 10^3/uL (0.0-0.6); ABSOLUTE LYMPHOCYTES (AUTO) 1.1 10^3/uL (0.5-4.7); ABSOLUTE MONOCYTES (AUTO) 0.7 10^3/uL (0.1-1.4); ABSOLUTE NEUT (AUTO) 6.3 10^3/uL (1.7-8.2); BASOPHILS % (AUTO) 0.5 % (0-2); EOSINOPHILS % (AUTO) 2.6 % (0-6); HEMATOCRIT 41.7 % (37.9-51.0); HEMOGLOBIN 14.2 g/dL (13.5-17.0); LYMPHOCYTES % (AUTO) 13.6 % (13-45); MEAN CORPUSCULAR HEMOGLOBIN 30.7 pg (27.0-33.4); MEAN CORPUSCULAR HGB CONC 34.2 g/dL (32.0-36.0); MEAN CORPUSCULAR VOLUME 90 fl (80-97); PLATELET COUNT 154 10^3/uL (150-450); RED BLOOD COUNT 4.65 10^6/uL (4.35-5.55); RED CELL DISTRIBUTION WIDTH 16.1 % (11.5-14.0); SEGMENTED NEUTROPHILS % (AUTO) 75.3 % (42-78); TOTAL CELLS COUNTED % (AUTO) 100 %; WHITE BLOOD COUNT 8.4 10^3/uL (4.0-10.5)
[2019-11-16 07:09] LABS: PROTHROMBIN TIME 17.3 SEC (11.4-15.4)
[2019-11-16] MEDS: VALSARTAN 80 MG TABLET PO SCH (09:31)
[2019-11-16] MEDS ORDERED: ASPIRIN 81 MG TABLET, ENT COATED PO SCH (10:00)
[2019-11-16] MEDS ORDERED: (PENDING PHARMACY ID) (Warfarin Sodium 5 MG) PO SCH (10:00)
[2019-11-16] MEDS ORDERED: POTASSIUM CHLORIDE 10 MEQ TABLET.ER PO SCH (10:00)
[2019-11-16] MEDS ORDERED: SERTRALINE HCL 50 MG TABLET PO SCH (10:00)
[2019-11-16] MEDS ORDERED: DOCUSATE SODIUM 100 MG CAPSULE PO SCH (10:00)
[2019-11-16] MEDS ORDERED: METOPROLOL SUCCINATE 50 MG TAB.SR.24H PO SCH (10:00)
--- NOTE | 2019-11-16 15:59 | PDOC DISCHARGE SUMMARY ---
Impression - Admit/DC Date/PCP Admission Date/Primary Care Provider: 11/15/19 14:08 RACHANA GARCIA PA-C Discharge Date: 11/16/19 - Discharge Diagnosis (1) Acute combined systolic and diastolic heart failure Is this a current diagnosis for this admission?: Yes (2) Atrial fibrillation with RVR Is this a current diagnosis for this admission?: Yes (3) CKD (chronic kidney disease) stage 3, GFR 30-59 ml/min Is this a current diagnosis for this admission?: Yes (4) H/O aortic valve repair Is this a current diagnosis for this admission?: Yes (5) COPD (chronic obstructive pulmonary disease) Is this a current diagnosis for this admission?: Yes (6) History of DVT (deep vein thrombosis) Is this a current diagnosis for this admission?: Yes - Additional Information Resuscitation Status: Full Code Discharge Diet: Cardiac, Other (Comments) Discharge Activity: Activity As Tolerated, Balance Activity w/Rest, Weigh Daily Referrals: RACHANA GARCIA PA-C [Primary Care Provider] - Follow up as needed Prescriptions: RX: Furosemide [Lasix 40 mg Tablet] 40 mg PO BID #60 tablet Home Medications: RX: Aspirin [Ecotrin 81 mg EC Tablet] 81 mg PO DAILY 02/27/19 RX: Potassium Chloride [Klor-Con 10 Meq Tablet ER] 20 meq PO DAILY 07/25/19 RX: Hydralazine HCl [Apresoline 50 mg Tablet] 50 mg PO Q8 08/16/19 RX: Isosorbide Dinitrate [Isordil Titradose 10 mg Tablet] 10 mg PO TID 08/16/19 RX: Valsartan [Diovan 80 mg Tablet] 80 mg PO Q12 08/16/19 RX: Albuterol Sulfate [Proair HFA Inhalation Aerosol 8.5 gm MDI] 2 puff IH Q4HP PRN 11/15/19 RX: Metoprolol Succinate [Toprol Xl 50 mg Tab.sr] 25 mg PO DAILY 11/15/19 RX: Sertraline HCl [Zoloft 50 mg Tablet] 50 mg PO DAILY 11/15/19 RX: Warfarin Sodium [Coumadin 5 mg Tablet] 5 mg PO DAILY 11/15/19 RX: Furosemide [Lasix 40 mg Tablet] 40 mg PO BID #60 tablet 11/16/19 History of Present Illiness History of Present Illness: JOHN PADILLA is a 54 year old male with past medical history significant for systolic CHF, atrial fibrillation chronic, history of DVT on chronic warfarin, COPD, AAA who presents with a 2-day history of progressive shortness of breath/AGUAYO/abdominal distention consistent with his previous CHF exacerbations per patient. Patient states he ran out of his medications approximately 3 days prior to admission. He states he tried to get in contact with his PCP but was unable to do so to get refills. Previous echocardiogram that I reviewed personally showed EF approximately 20 to 25% with systolic dysfunction. Patient is followed by Dr. Simons in cardiology. EKG showed A. fib with RVR and patient was subsequently given 10 mg IV diltiazem by ED. Rate was thereafter controlled and he was started on his home medications. Patient started on IV Lasix 40 mg twice daily. ED also got a CT scan of his abdomen/pelvis given the patient's history of AAA in order to rule out dissection and the CT scan did not show any acute findings other than some mild pulmonary effusions. Troponin was elevated but consistent with prior values and flat x2. BNP notably elevated at 18,000. CT abdomen pelvis also showed inflamed pancreas however lipase is normal. Patient admitted to [facility] observation for diuresis and acute CHF exacerbation. Hospital Course Hospital Course: Patient here for acute combined systolic and diastolic CHF exacerbation. Diuresed with IV Lasix over 2 days time with very good response, weaned completely off of supplemental oxygen, per patient breathing back at baseline. I had extensive conversation with the patient regarding his medication compliance. It is unclear if he actually has very poor insight into his medical problems or if he is outright refusing to take his medications and then making it appear as though he does not understand. I have spoken with multiple other physicians who have cared for him and they each recall that he has been notoriously noncompliant with his medications over the past several months. I discussed all the ways the patient can seek out refills on his medications if he runs out of them. Patient does not appear to be taking his Coumadin though he states he is doing so. INR is subtherapeutic here and he has a history of atrial fibrillation and a DVT in 2017 that has not recurred per patient. Unclear if this was actually a DVT or an arterial clot as patient states he had a thrombectomy but does not remember anything else about this event. Patient does not wish to stay in the hospital to be bridged with Lovenox back to Coumadin. Patient states he has a supply of Lovenox from a recent admission at [facility] from which she was sent home with another bridge from Lovenox to Coumadin. He states he would like to resume this and follow-up with his PCP on Wednesday for an INR check. He states his PCP has not checked his INR or attempted to change his Coumadin dose over the past 2 months. I discussed the importance of having therapeutic INR and the risks of not doing so. I have refilled the patient's Lasix and look through all of his home medications that he brought to the hospital. Lasix is the only medication that he does not have currently. He has multiple refills for all his other medications per my review of his pill bottles. Unfortunately, I believe the patient will be back for many subsequent admissions if he continues to not take his medications as prescribed. Physical Exam Vital Signs: Temp Pulse Resp BP Pulse Ox 97.9 F 116 H 18 139/107 H 94 11/16/19 12:03 11/16/19 13:37 11/16/19 13:37 11/16/19 12:03 11/16/19 13:37 Intake & Output 11/15/19 11/16/19 11/17/19 06:59 06:59 06:59 Intake Total 920 617 Output Total 2900 1475 Balance -1979 -858 Weight 102 kg General appearance: PRESENT: no acute distress, well-developed, well-nourished Head exam: PRESENT: atraumatic, normocephalic Eye exam: PRESENT: conjunctiva pink Mouth exam: PRESENT: moist Respiratory exam: PRESENT: clear to auscultation lita. ABSENT: rales, rhonchi, wheezes Cardiovascular exam: PRESENT: RRR. ABSENT: diastolic murmur, rubs, systolic murmur GI/Abdominal exam: PRESENT: normal bowel sounds, soft. ABSENT: distended, guarding, mass, organolmegaly, rebound, tenderness Extremities exam: ABSENT: pedal edema Neurological exam: PRESENT: alert, awake, oriented to person, oriented to place, oriented to time, oriented to situation Psychiatric exam: PRESENT: appropriate affect Skin exam: PRESENT: dry, intact, warm Results Laboratory Results: WBC 8.4 10^3/uL (4.0-10.5) 11/16/19 05:42 RBC 4.65 10^6/uL (4.35-5.55) 11/16/19 05:42 Hgb 14.2 g/dL (13.5-17.0) 11/16/19 05:42 Hct 41.7 % (37.9-51.0) 11/16/19 05:42 MCV 90 fl (80-97) 11/16/19 05:42 MCH 30.7 pg (27.0-33.4) 11/16/19 05:42 MCHC 34.2 g/dL (32.0-36.0) 11/16/19 05:42 RDW 16.1 % (11.5-14.0) H 11/16/19 05:42 Plt Count 154 10^3/uL (150-450) 11/16/19 05:42 Lymph % (Auto) 13.6 % (13-45) 11/16/19 05:42 Dawes % (Auto) 8.0 % (3-13) 11/16/19 05:42 Eos % (Auto) 2.6 % (0-6) 11/16/19 05:42 Baso % (Auto) 0.5 % (0-2) 11/16/19 05:42 Absolute Neuts (auto) 6.3 10^3/uL (1.7-8.2) 11/16/19 05:42 Absolute Lymphs (auto) 1.1 10^3/uL (0.5-4.7) 11/16/19 05:42 Absolute Monos (auto) 0.7 10^3/uL (0.1-1.4) 11/16/19 05:42 Absolute Eos (auto) 0.2 10^3/uL (0.0-0.6) 11/16/19 05:42 Absolute Basos (auto) 0.0 10^3/uL (0.0-0.2) 11/16/19 05:42 Seg Neutrophils % 75.3 % (42-78) 11/16/19 05:42 PT 17.3 SEC (11.4-15.4) H 11/16/19 05:42 INR 1.40 11/16/19 05:42 Sodium 138.6 mmol/L (137-145) 11/15/19 19:27 Potassium 4.0 mmol/L (3.6-5.0) 11/15/19 19:27 Chloride 107 mmol/L (98-107) 11/15/19 19:27 Carbon Dioxide 24 mmol/L (22-30) 11/15/19 19:27 Anion Gap 8 (5-19) 11/15/19 19:27 BUN 24 mg/dL (7-20) H 11/15/19 19:27 Creatinine 1.88 mg/dL (0.52-1.25) H 11/15/19 19:27 Est GFR ( Amer) 46 (>60) L 11/15/19 19:27 Est GFR (MDRD) Non-Af 38 (>60) L 11/15/19 19:27 Glucose 162 mg/dL (75-110) H 11/15/19 19:27 Calcium 9.2 mg/dL (8.4-10.2) 11/15/19 19:27 Magnesium 2.4 mg/dL (1.6-2.3) H 11/16/19 05:42 Total Bilirubin 2.0 mg/dL (0.2-1.3) H 11/15/19 09:04 Direct Bilirubin 0.2 mg/dL (0.0-0.4) 11/15/19 09:04 Neonat Total Bilirubin Not Reportable 11/15/19 09:04 Neonat Direct Bilirubin Not Reportable 11/15/19 09:04 Neonat Indirect Bili Not Reportable 11/15/19 09:04 AST 35 U/L (17-59) 11/15/19 09:04 ALT 33 U/L (<50) 11/15/19 09:04 Alkaline Phosphatase 87 U/L (38-126) 11/15/19 09:04 Troponin I 0.058 ng/mL 11/16/19 00:47 NT-Pro-B Natriuret Pep 64863 pg/mL (<125) H 11/15/19 09:04 Total Protein 7.9 g/dL (6.3-8.2) 11/15/19 09:04 Albumin 4.5 g/dL (3.5-5.0) 11/15/19 09:04 Lipase 77.7 U/L (23-300) 11/15/19 09:04 Urine Color YELLOW 11/15/19 22:30 Urine Appearance CLEAR 11/15/19 22:30 Urine pH 7.0 (5.0-9.0) 11/15/19 22:30 Ur Specific Rochelle 1.008 11/15/19 22:30 Urine Protein NEGATIVE mg/dL (NEGATIVE) 11/15/19 22:30 Urine Glucose (UA) NEGATIVE mg/dL (NEGATIVE) 11/15/19 22:30 Urine Ketones NEGATIVE mg/dL (NEGATIVE) 11/15/19 22:30 Urine Blood NEGATIVE (NEGATIVE) 11/15/19 22:30 Urine Nitrite NEGATIVE (NEGATIVE) 11/15/19 22:30 Urine Bilirubin NEGATIVE (NEGATIVE) 11/15/19 22:30 Urine Urobilinogen 2.0 mg/dL (<2.0) H 11/15/19 22:30 Ur Leukocyte Esterase NEGATIVE (NEGATIVE) 11/15/19 22:30 Urine WBC (Auto) 2 /HPF 11/15/19 22:30 Urine RBC (Auto) 1 /HPF 11/15/19 22:30 Urine Mucus (Auto) RARE /LPF 11/15/19 22:30 Urine Ascorbic Acid NEGATIVE (NEGATIVE) 11/15/19 22:30 11/15/19 11/15/19 11/15/19 09:04 14:00 19:27 Troponin I 0.063 0.061 0.067 NT-Pro-B Natriuret Pep 02173 H 11/16/19 00:47 Troponin I 0.058 NT-Pro-B Natriuret Pep Impressions: Chest X-Ray 11/15/19 08:01 IMPRESSION: Cardiomegaly with left basilar atelectasis or pneumonia. Small left effusion. Minimal right basilar atelectasis. Abdomen/Pelvis CT 11/15/19 11:10 IMPRESSION: Mild inflammatory changes surround the pancreas. There is small volume ascites. No evidence of bowel obstruction. Findings are suspicious for mild or early pancreatitis. There are gallstones no surrounding inflammatory changes. Stroke Is this a Stroke Patient?: No Acute Heart Failure - Is this a Heart Failure Patient?: Yes Documentation of LVEF assessment?: Yes LVEF: LVEF Less Than or Equal to 35% Anticoagulant Therapy: Yes Discharged on Evidence-Based Beta Blockers: Yes Discharged on ARNI?: No-Document Contraindications Reason(s) not discharged on ARNI: ACEI use within the prior 36 hours Discharged on ARB?: Yes For LVEF <35%, discharged on Aldosterone Antagonist?: Yes Follow-up Appointment scheduled within 7 days?: Yes
[2019-11-16 16:24] VITALS: BP 132/101
[2019-11-16] MEDS ORDERED: WARFARIN SODIUM 3 MG TABLET PO SCH (22:00)
== END 2019-11-16 17:40 | disposition home or self-care (01) ==
LOC: ER 07:22 → EH 14:08 → 4W 17:33
PROVIDERS: ADMIT Internal Medicine; ATTEND Internal Medicine
DX: I13.0 Hypertensive heart and chronic kidney disease with heart failure and stage 1 through stage 4 chronic kidney disease, or unspecified chronic kidney disease (principal); I50.43 Acute on chronic combined systolic (congestive) and diastolic (congestive) heart failure; N18.3 Chronic kidney disease, stage 3 (moderate); I48.20 Chronic atrial fibrillation, unspecified; J44.9 Chronic obstructive pulmonary disease, unspecified; E66.9 Obesity, unspecified; R09.02 Hypoxemia; R10.9 Unspecified abdominal pain; Z91.14 Patient's other noncompliance with medication regimen; Z79.82 Long term (current) use of aspirin; Z79.899 Other long term (current) drug therapy; Z86.718 Personal history of other venous thrombosis and embolism; Z95.828 Presence of other vascular implants and grafts
CPT/HCPCS: 93005; 96376; 99285; 96374; 96375; 36415 ×2; 83690; 83735; 85025 ×2; 85610 ×2; 80053; 81001; 84484 ×2; 83880; 71045; 74176; 93010; J3490 ×6; J1940 ×3; G0378

== ENCOUNTER 2020-01-27 07:38 | Emergency (ER) | payer SELFPAY ==
[2020-01-27 08:13] LABS: ABSOLUTE EOSINOPHILS # (AUTO) 0.2 10^3/uL (0.0-0.6); ABSOLUTE LYMPHOCYTES (AUTO) 1.1 10^3/uL (0.5-4.7); ABSOLUTE MONOCYTES (AUTO) 0.6 10^3/uL (0.1-1.4); ABSOLUTE NEUT (AUTO) 5.8 10^3/uL (1.7-8.2); BASOPHILS % (AUTO) 0.6 % (0-2); HEMATOCRIT 43.9 % (37.9-51.0); HEMOGLOBIN 15.1 g/dL (13.5-17.0); LYMPHOCYTES % (AUTO) 14.6 % (13-45); MEAN CORPUSCULAR HEMOGLOBIN 31.7 pg (27.0-33.4); MEAN CORPUSCULAR HGB CONC 34.3 g/dL (32.0-36.0); MEAN CORPUSCULAR VOLUME 93 fl (80-97); MONOCYTES % (AUTO) 7.7 % (3-13); PLATELET COUNT 176 10^3/uL (150-450); RED BLOOD COUNT 4.75 10^6/uL (4.35-5.55); RED CELL DISTRIBUTION WIDTH 15.6 % (11.5-14.0); SEGMENTED NEUTROPHILS % (AUTO) 75.1 % (42-78); TOTAL CELLS COUNTED % (AUTO) 100 %; WHITE BLOOD COUNT 7.7 10^3/uL (4.0-10.5)
[2020-01-27] MEDS ORDERED: FUROSEMIDE INJ/PF 20 MG/2 ML SDV IV ONE (08:28)
[2020-01-27 08:51] LABS: ALBUMIN 4.5 g/dL (3.5-5.0); ALKALINE PHOSPHATASE 89 U/L (38-126); ANION GAP 10 (5-19); ASPARTATE AMINO TRANSFERASE 34 U/L (17-59); BILIRUBIN,DIRECT 0.5 mg/dL (0.0-0.4); BILIRUBIN,TOTAL 1.4 mg/dL (0.2-1.3); BLOOD UREA NITROGEN 32 mg/dL (7-20); CALCIUM 9.4 mg/dL (8.4-10.2); CARBON DIOXIDE 25 mmol/L (22-30); CHLORIDE 107 mmol/L (98-107); GLUCOSE 119 mg/dL (75-110); POTASSIUM 4.4 mmol/L (3.6-5.0); TOTAL PROTEIN 7.4 g/dL (6.3-8.2)
--- NOTE | 2020-01-27 09:09 | RADIOLOGY REPORT (SQ) ---
EXAM DESCRIPTION: CHEST SINGLE VIEW IMAGES COMPLETED DATE/TIME: 01/27/2020 7:50 am REASON FOR STUDY: sob COMPARISON: 12/19/2019 EXAM PARAMETERS: NUMBER OF VIEWS: One view. TECHNIQUE: Single frontal radiographic view of the chest acquired. RADIATION DOSE: NA LIMITATIONS: None. FINDINGS: LUNGS AND PLEURA: No focal consolidation, pleural effusion, or pneumothorax. MEDIASTINUM AND HILAR STRUCTURES: Stable. HEART AND VASCULAR STRUCTURES: Stable cardiomegaly without central vascular congestion. BONES: No acute findings. HARDWARE: Aortic stent. OTHER: No other significant finding. IMPRESSION: Stable radiographic appearance of the chest. No evidence of acute cardiopulmonary abnor mality. TECHNICAL DOCUMENTATION: JOB ID: [id number] 2010 [employer]- All Rights Reserved Reading location - IP/workstation name: [email or web address]
[2020-01-27 09:17] LABS: APPEARANCE,URINE CLEAR; BILIRUBIN,URINE NEGATIVE (NEGATIVE); COLOR,URINE YELLOW; GLUCOSE, URINE NEGATIVE (NEGATIVE); KETONES,URINE NEGATIVE (NEGATIVE); LEUKOCYTE ESTERASE,URINE TRACE (NEGATIVE); NITRITE,URINE NEGATIVE (NEGATIVE); PROTEIN,URINE 100 mg/dL (NEGATIVE); URINE SPECIFIC GRAVITY 1.014; UROBILINOGEN,URINE NEGATIVE mg/dL (<2.0)
[2020-01-27 10:10] LABS: TROPONIN I 0.106 ng/mL
[2020-01-27] MEDS ORDERED: HYDRALAZINE HCL INJ/PF 20 MG/1 ML SDV IV ONE ×2 (10:18→12:38)
[2020-01-27] MEDS ORDERED: POTASSIUM CHLORIDE 10 MEQ TABLET.ER PO ONE (10:19)
[2020-01-27] MEDS ORDERED: METOPROLOL SUCCINATE 50 MG TAB.SR.24H PO ONE (10:19)
[2020-01-27] MEDS ORDERED: VALSARTAN 80 MG TABLET PO ONE (10:20)
--- NOTE | 2020-01-27 14:23 | ER Document Report ---
Entered by GULSHAN COCHRAN SCRIBE 01/27/20 0842 Acting as scribe for:ALBERTO MCKINNEY MD ED Respiratory Problem - General Chief Complaint: Shortness Of Breath Stated Complaint: SHORTNESS OF BREATH Time Seen by Provider: 01/27/20 08:04 Primary Care Provider: RACHANA GARCIA PA-C [Primary Care Provider] - Follow up as needed Information source: Patient Notes: This 54 year old male patient presents to the emergency department today with complaints of "fluid in my lungs". Patient has a history of CHF and had been out of Lasix for 4 days, restarting it yesterday. Patient states he has been short of breath for several days and he noticed abdominal swelling last night. Patient's shortness of breath is exacerbated with supine positioning. Patient states he has had a slight intermittent cough as well as nausea a few days ago. TRAVEL OUTSIDE OF THE [place] IN LAST 30 DAYS: No - Related Data Allergies/Adverse Reactions: No Known Allergies Allergy (Verified 01/27/20 08:29) Past Medical History - General Information source: Patient - Social History Smoking Status: Unknown if Ever Smoked Cigarette use (# per day): No Frequency of alcohol use: None Drug Abuse: None Lives with: Family Family History: Reviewed & Not Pertinent, Hypertension, Malignancy, Other - Past Medical History Cardiac Medical History: Reports: Hx Atrial Fibrillation, Hx Congestive Heart Failure, Hx DVT, Hx Hypertension, Hx Peripheral Vascular Disease Pulmonary Medical History: Reports: Hx COPD Renal/ Medical History: Reports: Hx Kidney Stones, Hx Renal Insufficiency GI Medical History: Reports: Hx Gastroesophageal Reflux Disease Psychiatric Medical History: Reports: Hx Anxiety, Hx Depression Past Surgical History: Reports: Hx Cardiac Surgery - stent aorta, Hx Kidney (Renal Surgery) - Right renal artery stent, Hx Valve Replacement - Possibly had an aortic valve replacement, patient is a very vague and poor, Hx Vascular Surgery - Aortic arch & upper thoracic aorta endovascular graft, Other - Femorofemoral bypass graft. - Immunizations Immunizations up to date: Yes Hx Diphtheria, Pertussis, Tetanus Vaccination: Yes Review of Systems - Review of Systems Constitutional: No symptoms reported EENT: No symptoms reported Cardiovascular: See HPI, Chest pain Respiratory: See HPI, Cough, Short of breath Gastrointestinal: See HPI, Abdomen distended, Nausea Genitourinary: No symptoms reported Male Genitourinary: No symptoms reported Musculoskeletal: No symptoms reported Skin: No symptoms reported Hematologic/Lymphatic: No symptoms reported Neurological/Psychological: No symptoms reported -: Yes All other systems reviewed and negative Physical Exam - Vital signs Vitals: Resp Pulse Ox 32 H 97 01/27/20 07:57 01/27/20 07:57 - Notes Notes: Physical Exam: General: Alert, appears well. HEENT: Normocephalic. Atraumatic. PERRL. Extraocular movements intact. Oropharynx clear. Neck: Supple. Non-tender. Respiratory: Mild respiratory distress. Diminished breath sounds at the bases bilaterally, there is slight expiratory wheeze in the right lung base. Cardiovascular: Regular rate and rhythm. Abdominal: Normal Inspection. Non-tender. No distension. Normal Bowel Sounds. Back: No gross abnormalities. Extremities: Moves all four extremities. Upper extremities: Normal inspection. Normal ROM. Lower extremities: Normal inspection. No edema. Normal ROM. Neurological: Normal cognition. AAOx4. Normal speech. Psychological: Normal affect. Normal Mood. Skin: Warm. Dry. Normal color. Course - Re-evaluation Re-evalutation: 01/27/20 14:11 Patient has diuresed 4 L of fluid feels much better. Blood pressures improved. Chest pain-free. - Vital Signs Vital signs: Temp Pulse Resp BP Pulse Ox 21 H 139/100 H 98 01/27/20 13:33 01/27/20 13:33 01/27/20 13:33 01/27/20 14:11 Vital signs improved blood pressure is 139/100. - Laboratory Result Diagrams: 01/27/20 08:00 01/27/20 08:00 Laboratory results interpreted by me: 01/27/20 01/27/20 01/27/20 08:00 08:00 08:00 RDW 15.6 H BUN 32 H Creatinine 1.77 H Est GFR ( Amer) 49 L Est GFR (MDRD) Non-Af 40 L Glucose 119 H Total Bilirubin 1.4 H Direct Bilirubin 0.5 H NT-Pro-B Natriuret Pep 9800 H Urine Protein Ur Leukocyte Esterase 01/27/20 08:58 RDW BUN Creatinine Est GFR ( Amer) Est GFR (MDRD) Non-Af Glucose Total Bilirubin Direct Bilirubin NT-Pro-B Natriuret Pep Urine Protein 100 H Ur Leukocyte Esterase TRACE H 01/27/20 14:11 Patient laboratory show a BNP of 9800 with a trace level of indeterminate troponin leak x2. Case discussed with Dr. 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 Other laboratories insignificant for any significant problems BUN is 32 c reatinine 1.7. 01/27/20 14:13 Chest x-ray shows cardiomegaly congestive heart failure markings prior surgery noted. - Diagnostic Test Radiology reviewed: Image reviewed - EKG Interpretation by Me Additional EKG results interpreted by me: 01/27/20 14:13 Twelve-lead EKG initial one at 819 today shows atrial fibrillation with a ventricular rate of 85 left ventricular hypertrophy. Prolonged QT interval. And repolarization changes is consistent with LVH. Repeat twelve-lead EKG shows atrial fibrillation with a variable ventricular rate between 77 and 121. LVH with secondary repolarization abnormalities. And a borderline prolonged QT interval. No other acute process. Discharge - Discharge Clinical Impression: CHF (congestive heart failure), Chronic atrial fibrillation, Hypertension Disposition: HOME, SELF-CARE Additional Instructions: Today you had a CHF exacerbation due to lack of medications over the past 3 days. Not you have your medications to take and you should be able to stay out of congestive heart failure Dr. Mancini and I discussed your case and there was you are stable enough to be transferred home on the same medications that you are on today. Follow-up with Dr. Mancini as an outpatient. Referrals: RACHANA GARCIA PA-C [Primary Care Provider] - Follow up as needed ALEJANDRO MANCINI MD [ACTIVE STAFF] - Follow up in 1 week I personally performed the services described in the documentation, reviewed and edited the documentation which was dictated to the scribe in my presence, and it accurately records my words and actions.
[2020-01-27 14:39] VITALS: BP 134/96
--- NOTE | 2020-01-29 02:50 | EKG REPORT ---
SEVERITY:- ABNORMAL ECG - ATRIAL FIBRILLATION, V-RATE 77-121 LVH WITH SECONDARY REPOLARIZATION ABNORMALITY BORDERLINE PROLONGED QT INTERVAL : Confirmed by: Ruddy Simons MD 29-Jan-2020 02:49:24
--- NOTE | 2020-01-29 02:51 | EKG REPORT ---
SEVERITY:- ABNORMAL ECG - ATRIAL FIBRILLATION LEFT VENTRICULAR HYPERTROPHY PROLONGED QT INTERVAL : Confirmed by: Ruddy Simons MD 29-Jan-2020 02:49:33
== END 2020-01-27 14:39 | disposition home or self-care (01) ==
LOC: ER 07:38
DX: I48.20 Chronic atrial fibrillation, unspecified (principal); I11.0 Hypertensive heart disease with heart failure; I50.9 Heart failure, unspecified; R06.02 Shortness of breath; R19.00 Intra-abdominal and pelvic swelling, mass and lump, unspecified site; R05 Cough; R11.0 Nausea; Z79.899 Other long term (current) drug therapy; J44.9 Chronic obstructive pulmonary disease, unspecified
CPT/HCPCS: 93005; 96376; 99285; 96374; 96375; 36415; 85025; 80053; 81001; 84484; 83880; 71045; 93010; J1940; J0360; J3490

== ENCOUNTER 2020-04-23 03:51 | Inpatient (IN) | payer SELFPAY ==
[2020-04-23] MEDS ORDERED: MAGNESIUM SULFATE PF/INJ 40 MEQ/10 ML SDV IV ONE (04:36)
[2020-04-23] MEDS ORDERED: METHYLPREDNISOLONE INJ 125 MG/2 ML SDV IV ONE (04:36)
[2020-04-23] MEDS ORDERED: METOPROLOL TARTRATE PF/INJ 5 MG/5 ML SDV IV ONE ×2 (04:39→09:18)
[2020-04-23] MEDS ORDERED: ACETAMINOPHEN WITH CODEINE #3 TABLET PO ONE (04:52)
--- NOTE | 2020-04-23 05:43 | RADIOLOGY REPORT (SQ) ---
EXAM DESCRIPTION: XR CHEST 1 VIEW COMPLETED DATE/TME: 04/23/2020 05:13 CLINICAL HISTORY: 54 years, Male, cough SOB COMPARISON: January 27, 2020 NUMBER OF VIEWS: 1 TECHNIQUE: Portable AP upright view of the chest was obtained at 5:08 AM LIMITATIONS: None. FINDINGS: There is stable cardiac enlargement. Aortic stent graft is again identified. Lungs appear clear. There is no evidence of pleural effusion or pneumothorax. No definite acute bony abnormality is seen. IMPRESSION: No acute abnormality as above. copyright 2010 [employer]- All Rights Reserved
[2020-04-23 06:35] LABS: ABSOLUTE EOSINOPHILS # (AUTO) 0.2 10^3/uL (0.0-0.6); ABSOLUTE LYMPHOCYTES (AUTO) 1.6 10^3/uL (0.5-4.7); ABSOLUTE MONOCYTES (AUTO) 0.7 10^3/uL (0.1-1.4); ABSOLUTE NEUT (AUTO) 5.9 10^3/uL (1.7-8.2); BASOPHILS % (AUTO) 0.5 % (0-2); EOSINOPHILS % (AUTO) 2.9 % (0-6); HEMATOCRIT 42.3 % (37.9-51.0); HEMOGLOBIN 14.2 g/dL (13.5-17.0); LYMPHOCYTES % (AUTO) 18.3 % (13-45); MEAN CORPUSCULAR HEMOGLOBIN 30.9 pg (27.0-33.4); MEAN CORPUSCULAR HGB CONC 33.7 g/dL (32.0-36.0); MEAN CORPUSCULAR VOLUME 92 fl (80-97); MONOCYTES % (AUTO) 8.6 % (3-13); PLATELET COUNT 191 10^3/uL (150-450); RED BLOOD COUNT 4.62 10^6/uL (4.35-5.55); RED CELL DISTRIBUTION WIDTH 14.5 % (11.5-14.0); SEGMENTED NEUTROPHILS % (AUTO) 69.7 % (42-78); TOTAL CELLS COUNTED % (AUTO) 100 %; WHITE BLOOD COUNT 8.5 10^3/uL (4.0-10.5)
[2020-04-23 06:38] LABS: VENOUS BLOOD BASE EXCESS -1.2 mmol/L; VENOUS BLOOD HCO3 24.4 mmol/L (20-32); VENOUS BLOOD PCO2 43.9 mmHg (35-63); VENOUS BLOOD PH 7.36 (7.30-7.42)
[2020-04-23 06:50] LABS: ALBUMIN 3.8 g/dL (3.5-5.0); ALKALINE PHOSPHATASE 87 U/L (38-126); ANION GAP 8 (5-19); ASPARTATE AMINO TRANSFERASE 27 U/L (17-59); BILIRUBIN,DIRECT 0.4 mg/dL (0.0-0.4); BILIRUBIN,TOTAL 1.5 mg/dL (0.2-1.3); BLOOD UREA NITROGEN 24 mg/dL (7-20); CALCIUM 9.2 mg/dL (8.4-10.2); CARBON DIOXIDE 27 mmol/L (22-30); CHLORIDE 105 mmol/L (98-107); CREATINE KINASE 123 U/L (55-170); GLUCOSE 111 mg/dL (75-110); POTASSIUM 4.2 mmol/L (3.6-5.0); TOTAL PROTEIN 6.3 g/dL (6.3-8.2)
[2020-04-23 07:07] LABS: TROPONIN I 0.158 ng/mL
[2020-04-23] MEDS ORDERED: AZITHROMYCIN 250 MG TABLET PO ONE (07:41)
[2020-04-23] MEDS ORDERED: ASPIRIN 81 MG TABLET, CHEWABLE PO ONE (07:41)
--- NOTE | 2020-04-23 07:58 | ER Document Report ---
ED General - General Chief Complaint: Shortness Of Breath Stated Complaint: DIFFICULTY BREATHING,CONGESTION,STOMACH PAIN Primary Care Provider: RACHANA GARCIA PA-C [Primary Care Provider] - Follow up as needed Notes: 54-year-old male with CHF with reduced EF on Lasix, A. fib on warfarin and metoprolol, smoking presents with 1 week of shortness of breath associated with frequent coughing productive of scant white nonbloody sputum, subjective fever, malaise, myalgia, nasal congestion. Patient says he feels pain diffusely over his chest when coughing but denies exertional chest pain or pleuritic chest pain. Has been taking albuterol with transient relief. Patient denies recent hospitalizations, recent steroids, lower extremity edema, recent cardiac evaluation, change in meds, medication noncompliance, orthopnea TRAVEL OUTSIDE OF THE [place] IN LAST 30 DAYS: No - Related Data Allergies/Adverse Reactions: No Known Allergies Allergy (Verified 01/27/20 08:29) Past Medical History - General Information source: Patient, [facility] Records - Social History Smoking Status: Current Every Day Smoker Drug Abuse: Marijuana Family History: Reviewed & Not Pertinent, Hypertension, Malignancy, Other - Past Medical History Cardiac Medical History: Reports: Hx Atrial Fibrillation, Hx Congestive Heart Failure, Hx DVT, Hx Hypertension, Hx Peripheral Vascular Disease Pulmonary Medical History: Reports: Hx COPD Denies: Hx Asthma Renal/ Medical History: Reports: Hx Kidney Stones, Hx Renal Insufficiency. Denies: Hx Peritoneal Dialysis GI Medical History: Reports: Hx Gastroesophageal Reflux Disease Psychiatric Medical History: Reports: Hx Anxiety, Hx Depression Past Surgical History: Reports: Hx Cardiac Surgery - stent aorta, Hx Kidney (Renal Surgery) - Right renal artery stent, Hx Valve Replacement - Possibly had an aortic valve replacement, patient is a very vague and poor, Hx Vascular Surgery - Aortic arch & upper thoracic aorta endovascular graft, Other - Femorofemoral bypass graft. - Immunizations Immunizations up to date: Yes Hx Diphtheria, Pertussis, Tetanus Vaccination: Yes Review of Systems - Review of Systems Notes: REVIEW OF SYSTEMS: CONSTITUTIONAL : + fever, chills, or sweats. EENT: + recent cold/sinus symptoms, + throat pain CARDIOVASCULAR: + chest pain, -REBA RESPIRATORY: + cough, + shortness of breath. GASTROINTESTINAL: Denies abdominal pain, nausea/vomiting. GENITOURINARY: Denies difficulty urinating, painful urination. MUSCULOSKELETAL: Denies neck pain, back pain. SKIN: Denies rash or skin lesions. HEMATOLOGIC : Denies easy bruising or bleeding. LYMPHATIC: Denies swollen, enlarged glands. NEUROLOGICAL: Denies headache, denies change in gait. PSYCHIATRIC: Denies anxiety or stress or depression. Physical Exam - Vital signs Vitals: Temp Pulse Resp BP Pulse Ox 97.8 F 140 H 32 H 138/86 H 97 04/23/20 04:18 04/23/20 04:18 04/23/20 04:18 04/23/20 04:18 04/23/20 04:18 - Notes Notes: PHYSICAL EXAMINATION: GENERAL: Uncomfortable but nontoxic-appearing middle-aged man with frequent coughing in no acute distress HEAD: Atraumatic, normocephalic. EYES: Pupils equal round and appropriate constriction, sclera anicteric, conjunctiva are normal. ENT: nares patent, moist mucous membranes. NECK: Normal range of motion, supple without lymphadenopathy LUNGS: Mildly tachypneic, no accessory muscle use, speaking in full sentences, bilateral expiratory wheezing, normal air movement, no tripoding, managing secretions HEART: Tachycardic irregular rhythm without murmurs ABDOMEN: Soft, nontender, no guarding, no masses, no CVAT EXTREMITIES: Normal range of motion, no pitting or edema. No cyanosis. NEUROLOGICAL: Awake, alert, conversing appropriately, moves all extremities spontaneously. PSYCH: Normal mood, normal affect. SKIN: Warm, Dry, normal turgor, no rashes or lesions noted. Course - Re-evaluation Re-evalutation: 04/23/20 07:55 Patient presents with chest pain shortness of breath likely secondary to COPD exacerbation precipitated by viral illness complicated by A. fib with RVR. Patient's rate improved with metoprolol IV. Exam consistent with COPD exacerbation, no signs of volume overload clinically. Cardiomegaly present on chest x-ray and BNP elevated but close to baseline. Patient's troponin elevated and greater than prior elevations, but given likelihood of being precipitated by demand from tachycardia and acute illness and no signs of acute ischemia on EKG patient appropriate for conservative management with aspirin and trending troponin at this time. Patient mildly tachypneic but no signs of impending respiratory failure, no indications for BiPAP currently. Discussed case with Dr. Locke who has accepted patient to telemetry observation. Given treatment for COPD exacerbation and Covid and flu swabs pending. The patient was evaluated during the global COVID-19 pandemic and that diagnosis was suspected/considered upon their initial presentation. Their evaluation, treatment and testing was consistent with current guidelines for patients who present with complaints or symptoms that may be related to COVID-19. - Vital Signs Vital signs: Temp Pulse Resp BP Pulse Ox 98.4 F 140 H 19 136/116 H 95 04/23/20 07:00 04/23/20 04:18 04/23/20 07:01 04/23/20 07:01 04/23/20 07:01 - Laboratory Result Diagrams: 04/23/20 05:59 04/23/20 05:59 Laboratory results interpreted by me: 04/23/20 04/23/20 04/23/20 05:59 05:59 05:59 RDW 14.5 H BUN 24 H Creatinine 1.74 H Est GFR ( Amer) 50 L Est GFR (MDRD) Non-Af 41 L Glucose 111 H Total Bilirubin 1.5 H NT-Pro-B Natriuret Pep 25920 H - EKG Interpretation by Me Additional EKG results interpreted by me: 04/23/20 07:59 Atrial fibrillation with rapid ventricular response, no significant ST elevations or depressions, lateral T wave inversions not significantly changed from prior EKG Discharge - Discharge Clinical Impression: Viral syndrome, COPD exacerbation, Rapid atrial fibrillation Disposition: ADMITTED OBSERVATION Admitting Provider: Chucky (Hospitalist) Unit Admitted: Telemetry Referrals: RACHANA GARCIA PA-C [Primary Care Provider] - Follow up as needed
[2020-04-23] MEDS ORDERED: METOPROLOL TARTRATE 25 MG TABLET PO ONE (07:59)
[2020-04-23 08:14] LABS: INTERNATIONAL RATION (INR) 1.12; PROTHROMBIN TIME 14.6 SEC (11.4-15.4)
[2020-04-23 08:15] LABS: PARTIAL THROMBOPLASTIN TIME 34.2 SEC (23.5-35.8)
[2020-04-23] MEDS ORDERED: ALBUTEROL SULFATE HFA (90 MCG/PUFF) 8 GM MDI IH PRN (09:18)
[2020-04-23] MEDS ORDERED: TEMAZEPAM 15 MG CAPSULE PO PRN (09:18)
[2020-04-23] MEDS ORDERED: PROMETHAZINE HCL INJ 25 MG/1 ML VIAL IV PRN (09:18)
[2020-04-23] MEDS ORDERED: MAGNESIUM HYDROXIDE SUSP 30 ML UDCUP PO PRN (09:18)
[2020-04-23] MEDS ORDERED: MAG HYDROX/AL HYDROX/SIMETH SUSP 30 ML UDCUP PO PRN (09:18)
[2020-04-23] MEDS ORDERED: ACETAMINOPHEN 325 MG TABLET PO PRN (09:18)
[2020-04-23] MEDS ORDERED: HYDRALAZINE HCL 50 MG TABLET PO PRN (09:35)
[2020-04-23] MEDS ORDERED: PHENOL/SODIUM PHENOLATE 100 SPRAY/177 ML BOTTLE PO PRN (09:38)
--- NOTE | 2020-04-23 09:56 | PDOC H&P ---
History of Present Illness Admission Date/PCP: 04/23/20 08:03 RACHANA GARCIA PA-C Patient complains of: Patient actually was complaining about abdominal pain. He also had cough with shortness of breath. History of Present Illness: JOHN PADILLA is a 54 year old male with a past medical history of atrial fibrillation, congestive heart failure with ejection fraction of 20 to 25%, DVT and hypertension. He also has a history of COPD and reflux. His vascular mcneal rgery history includes femoral bypass and dissecting aortic aneurysm. He reports that he required a nephrectomy when he had the dissecting aneurysm. He reports that he has been coughing and slightly short of breath for approximately 1 week. He has been out of one of his blood pressure medicines and he cannot remember the name of the medicine. His stomach was hurting and this was the primary reason for him to present to the emergency department. He has been coughing a lot. He reports coughing up white frothy sputum and admits to fever but does not have an exact temperature reading. His coughing was so bad that his abdomen began to hurt. He also noticed a tight feeling when breathing and possibly when trying to swallow. There was no evidence that food actually stuck in his throat. His BNP was elevated as was his troponin (0.158). With his cardiovascular history and slightly elevated troponin as well as markedly elevated brain natruretic peptide he will be admitted. Because of his cough and shortness of breath he will have influenza and Covid testing. In addition we will be treating him for possible COPD and exacerbation of heart failure. His atrial fibrillation with rapid ventricular response will be treated with metoprolol primarily. We will also try and investigate the second medication in use. Dr. Miracle Simons is his primary feather sawyer. Lastly his INR was subtherapeutic at 1.12. Will bridge with Lovenox until INR is therapeutic. Past Medical History Cardiac Medical History: Reports: Atrial Fibrillation, Congestive Heart Failure, DVT, Hypertension, Peripheral Vascular Disease Pulmonary Medical History: Reports: Chronic Obstructive Pulmonary Disease (COPD) Denies: Asthma Renal/ Medical History: Reports: Chronic Kidney Disease GI Medical History: Reports: Gastroesophageal Reflux Disease Psychiatric Medical History: Reports: Depression Past Surgical History Past Surgical History: Reports: Valve Replacement - Possibly had an aortic valve replacement, patient is a very vague and poor, Vascular Surgery - Aortic arch & upper thoracic aorta endovascular graft, Other - Femorofemoral bypass graft, nephrectomy (left) Social History Information Source: Patient Lives with: Alone - in September and his mother last month. Smoking Status: Former Smoker Electronic Cigarette use?: No Frequency of Alcohol Use: None Hx Recreational Drug Use: Yes - QUIT IN 2018 Drugs: Marijuana Hx Prescription Drug Abuse: No - Advance Directive Resuscitation Status: Full Code Surrogate healthcare decision maker:: With the current changes in his immediate family will need to further discuss his choice of a primary decision maker. Family History Family History: Hypertension, Malignancy, Other Parental Family History Reviewed: Yes Children Family History Reviewed: Yes Sibling(s) Family History Reviewed.: Yes Medication/Allergy Home Medications: Potassium Chloride [Klor-Con 10 Meq Tablet ER] 20 meq PO DAILY 07/25/19 Hydralazine HCl [Apresoline 50 mg Tablet] 50 mg PO Q8 08/16/19 Valsartan [Diovan 80 mg Tablet] 80 mg PO Q12 08/16/19 Metoprolol Succinate [Toprol Xl 50 mg Tab.sr] 25 mg PO DAILY 11/15/19 Sertraline HCl [Zoloft 50 mg Tablet] 50 mg PO DAILY 11/15/19 Warfarin Sodium [Jantoven 5 mg Tablet] 5 mg PO DAILY 11/15/19 Allergies/Adverse Reactions: No Known Allergies Allergy (Verified 01/27/20 08:29) Review of Systems All systems: reviewed and no additional remarkable complaints except as stated Constitutional: PRESENT: fever(s) Nose, Mouth, and Throat: PRESENT: sore throat Respiratory: PRESENT: cough, dyspnea, sputum Gastrointestinal: PRESENT: abdominal pain Genitourinary: PRESENT: nocturia Psychiatric: PRESENT: depression Physical Exam Vital Signs: Temp Pulse Resp BP Pulse Ox 98.4 F 140 H 19 136/116 H 95 04/23/20 07:00 04/23/20 04:18 04/23/20 07:01 04/23/20 07:01 04/23/20 07:01 Intake & Output 04/22/20 04/23/20 04/24/20 06:59 06:59 06:59 Weight 95.254 kg General appearance: PRESENT: cooperative, mild distress, well-developed Head exam: PRESENT: atraumatic, normocephalic Eye exam: PRESENT: conjunctiva pink, EOMI. ABSENT: PERRLA, scleral icterus Ear exam: PRESENT: normal external ear exam. ABSENT: bleeding, drainage Mouth exam: PRESENT: moist, tongue midline Respiratory exam: PRESENT: clear to auscultation lita, symmetrical, tachypnea. ABSENT: accessory muscle use, rales, rhonchi, wheezes Cardiovascular exam: PRESENT: irregular rhythm, tachycardia GI/Abdominal exam: PRESENT: normal bowel sounds, soft, tenderness - Diffuse nonspecific mild tenderness. ABSENT: distended, guarding Rectal exam: PRESENT: deferred Gentrourinary exam: ABSENT: indwelling catheter Extremities exam: ABSENT: calf tenderness, pedal edema Musculoskeletal exam: PRESENT: ambulatory, normal inspection. ABSENT: deformity, dislocation Neurological exam: PRESENT: alert, awake, oriented to person, oriented to place, oriented to time, oriented to situation, CN II-XII grossly intact. ABSENT: altered Psychiatric exam: PRESENT: appropriate affect. ABSENT: agitated, anxious Focused psych exam: ABSENT: delusional, paranoid, restlessness Skin exam: PRESENT: dry, normal color, warm. ABSENT: cyanosis, rash Results Laboratory Results: 04/23/20 05:59 04/23/20 05:59 04/23/20 04/23/20 04/23/20 05:59 05:59 05:59 WBC 8.5 RBC 4.62 Hgb 14.2 Hct 42.3 MCV 92 MCH 30.9 MCHC 33.7 RDW 14.5 H Plt Count 191 Seg Neutrophils % 69.7 VBG pH 7.36 VBG pCO2 43.9 VBG HCO3 24.4 VBG Base Excess -1.2 Sodium 140.3 Potassium 4.2 Chloride 105 Carbon Dioxide 27 Anion Gap 8 BUN 24 H Creatinine 1.74 H Est GFR ( Amer) 50 L Glucose 111 H Calcium 9.2 Total Bilirubin 1.5 H AST 27 Alkaline Phosphatase 87 Total Protein 6.3 Albumin 3.8 04/23/20 04/23/20 05:59 05:59 Creatine Kinase 123 Troponin I 0.158 NT-Pro-B Natriuret Pep 36931 H Impressions: Chest X-Ray 04/23/20 04:36 IMPRESSION: No acute abnormality as above. 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 Is this a current diagnosis for this admission?: Yes (5) Longstanding persistent atrial fibrillation Is this a current diagnosis for this admission?: Yes (6) CKD (chronic kidney disease) stage 3, GFR 30-59 ml/min Is this a current diagnosis for this admission?: Yes (7) Hypertension Qualifiers: Hypertension type: essential hypertension Qualified Code(s): I10 - Essential (primary) hypertension Is this a current diagnosis for this admission?: Yes (8) COPD (chronic obstructive pulmonary disease) Qualifiers: COPD type: unspecified COPD Qualified Code(s): J44.9 - Chronic obstructive pulmonary disease, unspecified Is this a current diagnosis for this admission?: Yes (9) History of DVT (deep vein thrombosis) Is this a current diagnosis for this admission?: Yes (10) Gastroesophageal reflux disease Qualifiers: Esophagitis presence: esophagitis presence not specified Qualified Code(s): K21.9 - Gastro-esophageal reflux disease without esophagitis Is this a current diagnosis for this admission?: Yes - Plan Summary Summary: (1) Viral syndrome (2) Atrial fibrillation with RVR (3) Elevated troponin I level (4) Acute on chronic combined systolic (congestive) and diastolic (congestive) heart failure (5) Longstanding persistent atrial fibrillation (6) CKD (chronic kidney disease) stage 3, GFR 30-59 ml/min (7) Hypertension (8) COPD (chronic obstructive pulmonary disease) (9) History of DVT (deep vein thrombosis) (10) Gastroesophageal reflux disease We will continue valsartan, Lasix and metoprolol. We will try and investigate the missing antihypertensive medication. He was on isosorbide mononitrate previously. We will hold on this for the time being. We will check serial troponins. He does have an echocardiogram performed at this hospital in June. EF is 20 to 25% with grade 2/4 diastolic failure. Continue current medications and adjust diuresis accordingly He is status post nephrectomy with chronic renal insufficiency. We will monitor his renal function as well as intake and output. We will start proton pump inhibitor for suspected reflux His INR is subtherapeutic so we will utilize Lovenox until his warfarin is therapeutic and then discontinue the Lovenox. We will monitor his atrial fibrillation on telemetry. He appears to have a viral syndrome. He has been coughing. He is worse. Covid and influenza serology are pending. He will start on supplements and azithromycin in the interim. We will supply oxygen as needed. - Time Time Spent with patient: 35 or more minutes Medications reviewed and adjusted accordingly: Yes Anticipated Discharge Disposition: Home, Self Care Anticipated Discharge Timeframe: Unknown - Inpatient Certification Based on my medical assessment, after consideration of the patient's funmi rbidities, presenting symptoms, or acuity I expect that the services needed warrant INPATIENT care.: Yes I certify that my determination is in accordance with my understanding of Medicare's requirements for reasonable and necessary INPATIENT services [42 CFR 412.3e].: Yes Medical Necessity: Significant Comorbidiites Make Outpatient Treatment Too Risky, Need Close Monitoring Due to Risk of Patient Decompensation, Need For Continuous Telemetry Monitoring
[2020-04-23] MEDS ORDERED: ZINC SULFATE 220 MG CAPSULE PO SCH (10:00)
[2020-04-23] MEDS ORDERED: CHOLECALCIFEROL (D3) 1,000 UNIT (25 MCG) TABLET PO SCH (10:00)
[2020-04-23 10:04] LABS: HEMATOCRIT 45.7 % (37.9-51.0); HEMOGLOBIN 15.6 g/dL (13.5-17.0); MEAN CORPUSCULAR HGB CONC 34.2 g/dL (32.0-36.0); MEAN CORPUSCULAR VOLUME 91 fl (80-97); PLATELET COUNT 192 10^3/uL (150-450); RED BLOOD COUNT 5.04 10^6/uL (4.35-5.55); RED CELL DISTRIBUTION WIDTH 14.6 % (11.5-14.0); WHITE BLOOD COUNT 8.5 10^3/uL (4.0-10.5)
--- NOTE | 2020-04-23 10:04 | ADVANCED CARE ---
- Diagnosis (1) Viral syndrome Diagnosis Current: Yes (2) Atrial fibrillation with RVR Diagnosis Current: Yes (3) Elevated troponin I level Diagnosis Current: Yes (4) Acute on chronic combined systolic (congestive) and diastolic (congestive) heart failure Diagnosis Current: Yes (5) Longstanding persistent atrial fibrillation Diagnosis Current: Yes (6) CKD (chronic kidney disease) stage 3, GFR 30-59 ml/min Diagnosis Current: Yes (7) Hypertension Diagnosis Current: Yes (8) COPD (chronic obstructive pulmonary disease) Diagnosis Current: Yes (9) History of DVT (deep vein thrombosis) Diagnosis Current: Yes (10) Gastroesophageal reflux disease Diagnosis Current: Yes Attendance: Discussion was held at the bedside with the patient Resuscitation Status: Full Code Discussion: With the patient's significant cardiovascular history I reviewed carefully the options for resuscitation. The decision between full code and DO NOT RESUSCITATE was difficult for the patient. He understands the severity of his heart disease. He did just lose his and his mother and last 6 months. At this time he wishes to be full code. I think this is understandable given his recent losses. I spent some time reassuring him that if he was DO NOT RESUSCITATE we would treat very aggressively and that decision only comes into play if his heart were to stop or his breathing were to fail him. He wants us to "at least try ". We can review this further during his hospitalization. Care Planning Goals: Continue to educate regarding the resuscitation status options and realistic expectations for this patient with multiple comorbidities. Document(s) Completed: None Time Spent: 20 minutes
[2020-04-23] MEDS: ASPIRIN 81 MG TABLET, ENT COATED PO SCH (10:27)
[2020-04-23] MEDS: VALSARTAN 80 MG TABLET PO SCH (10:27)
[2020-04-23] MEDS: SERTRALINE HCL 50 MG TABLET PO SCH (10:28)
[2020-04-23] MEDS: FUROSEMIDE 40 MG TABLET PO SCH ×2 (10:28→17:30)
[2020-04-23] MEDS: POTASSIUM CHLORIDE 10 MEQ TABLET.ER PO SCH (10:29)
[2020-04-23] MEDS: ASCORBIC ACID 500 MG TABLET PO SCH ×2 (10:29→17:30)
[2020-04-23] MEDS: METOPROLOL SUCCINATE 50 MG TAB.SR.24H PO SCH (10:29)
[2020-04-23] MEDS: ENOXAPARIN SODIUM INJ 100 MG/1 ML DISP.SYRIN SUBCUT SCH ×2 (10:30→21:25)
[2020-04-23 10:31] LABS: C-REACTIVE PROTEIN 31.7 mg/L (<10.0)
[2020-04-23] MEDS: TAMSULOSIN HCL 0.4 MG CAP.SR.24H PO SCH (17:30)
--- NOTE | 2020-04-23 17:55 | EKG REPORT ---
SEVERITY:- ABNORMAL ECG - ATRIAL FIBRILLATION, V-RATE 103-181 LVH WITH SECONDARY REPOLARIZATION ABNORMALITY BORDERLINE PROLONGED QT INTERVAL : Confirmed by: Agnes Colón 23-Apr-2020 17:54:31
[2020-04-23] MEDS ORDERED: IPRATROPIUM/ALBUTEROL 0.5-2.5 MG/3 ML AMPUL NEB PRN (19:32)
[2020-04-23] MEDS: WARFARIN SODIUM 5 MG TABLET PO SCH (21:25)
[2020-04-23] MEDS: METHYLPREDNISOLONE INJ 40 MG/1 ML SDV IV SCH (21:26)
[2020-04-23] MEDS: DIPHENHYDRAMINE HCL 25 MG CAPSULE PO PRN (22:43)
[2020-04-24] MEDS: IPRATROPIUM/ALBUTEROL 0.5-2.5 MG/3 ML AMPUL NEB SCH ×3 (00:23→16:07)
[2020-04-24] MEDS ORDERED: METOPROLOL TARTRATE PF/INJ 5 MG/5 ML SDV IV ONE (03:08)
[2020-04-24] MEDS: PANTOPRAZOLE SODIUM 40 MG TABLET.DR PO SCH (05:22)
[2020-04-24 06:49] LABS: HEMATOCRIT 41.9 % (37.9-51.0); MEAN CORPUSCULAR HEMOGLOBIN 30.2 pg (27.0-33.4); MEAN CORPUSCULAR HGB CONC 33.3 g/dL (32.0-36.0); MEAN CORPUSCULAR VOLUME 91 fl (80-97); PLATELET COUNT 192 10^3/uL (150-450); RED BLOOD COUNT 4.62 10^6/uL (4.35-5.55); RED CELL DISTRIBUTION WIDTH 14.3 % (11.5-14.0); WHITE BLOOD COUNT 15.9 10^3/uL (4.0-10.5)
[2020-04-24 06:55] LABS: INTERNATIONAL RATION (INR) 1.16
[2020-04-24] MEDS ORDERED: INFLUENZA QUAD (6MOS+) 2020-21 VAC 0.5 ML SYR IM ONE (08:00)
[2020-04-24] MEDS: ENOXAPARIN SODIUM INJ 100 MG/1 ML DISP.SYRIN SUBCUT SCH ×2 (09:21→22:25)
[2020-04-24] MEDS: ASCORBIC ACID 500 MG TABLET PO SCH ×2 (09:22→17:44)
[2020-04-24] MEDS: VALSARTAN 80 MG TABLET PO SCH (09:22)
[2020-04-24] MEDS: METOPROLOL SUCCINATE 50 MG TAB.SR.24H PO SCH (09:22)
[2020-04-24] MEDS: POTASSIUM CHLORIDE 10 MEQ TABLET.ER PO SCH (09:22)
[2020-04-24] MEDS: SERTRALINE HCL 50 MG TABLET PO SCH (09:22)
[2020-04-24] MEDS: FUROSEMIDE 40 MG TABLET PO SCH ×2 (09:22→17:44)
[2020-04-24] MEDS: ASPIRIN 81 MG TABLET, ENT COATED PO SCH (09:22)
[2020-04-24] MEDS: METHYLPREDNISOLONE INJ 40 MG/1 ML SDV IV SCH ×2 (09:22→22:26)
[2020-04-24] MEDS: AZITHROMYCIN 250 MG TABLET PO SCH (09:23)
[2020-04-24] MEDS ORDERED: DEXAMETHASONE 4 MG TABLET PO SCH (10:00)
[2020-04-24 12:20] LABS: APPEARANCE,URINE CLEAR; BILIRUBIN,URINE NEGATIVE (NEGATIVE); COLOR,URINE LIGHT YELLOW; GLUCOSE, URINE NEGATIVE (NEGATIVE); KETONES,URINE NEGATIVE (NEGATIVE); LEUKOCYTE ESTERASE,URINE NEGATIVE (NEGATIVE); NITRITE,URINE NEGATIVE (NEGATIVE); PROTEIN,URINE 100 mg/dL (NEGATIVE); URINE SPECIFIC GRAVITY 1.016; UROBILINOGEN,URINE NEGATIVE mg/dL (<2.0)
[2020-04-24 12:21] LABS: ADD MANUAL MICROSCOPIC YES; BACTERIA,URINE TRACE /HPF; YEAST,URINE PRESENT
[2020-04-24] MEDS: DIPHENHYDRAMINE HCL 25 MG CAPSULE PO PRN (12:48)
[2020-04-24] MEDS ORDERED: DIPHENHYDRAMINE HCL 50 MG CAPSULE PO PRN (13:44)
--- NOTE | 2020-04-24 15:01 | PDOC PROGRESS REPORT ---
Subjective Date:: 04/24/20 Subjective:: Resting in the chair. He still has a very hoarse voice. Rate is under better control. INR still subtherapeutic. Reason For Visit: POSSIBLE COVID-19, ATRIAL FIBRILLATION W/RAPID VE- Physical Exam Vital Signs: Temp Pulse Resp BP Pulse Ox 97.9 F 100 16 136/98 H 100 04/24/20 08:48 04/24/20 14:00 04/24/20 08:39 04/24/20 08:04 04/24/20 08:39 Intake & Output 04/23/20 04/24/20 04/25/20 06:59 06:59 06:59 Intake Total 856 590 Output Total 1275 Balance -419 590 Weight 95.254 kg 98.9 kg Throat exam: ABSENT: post pharyngeal erythema Respiratory exam: PRESENT: clear to auscultation lita, symmetrical, unlabored. ABSENT: rales, rhonchi, tachypnea, wheezes Cardiovascular exam: PRESENT: irregular rhythm, tachycardia. ABSENT: bradycardia, diastolic murmur, +S1, +S2, systolic murmur GI/Abdominal exam: PRESENT: normal bowel sounds, soft. ABSENT: tenderness Rectal exam: PRESENT: deferred Gentrourinary exam: ABSENT: indwelling catheter Extremities exam: ABSENT: pedal edema Musculoskeletal exam: PRESENT: ambulatory, normal inspection. ABSENT: deformity, dislocation Neurological exam: PRESENT: alert, awake, oriented to person, oriented to place, oriented to time, oriented to situation, CN II-XII grossly intact. ABSENT: altered Psychiatric exam: PRESENT: appropriate affect. ABSENT: agitated, anxious Focused psych exam: ABSENT: delusional, paranoid, restlessness Results Laboratory Results: 04/24/20 06:26 04/23/20 05:59 04/24/20 04/24/20 06:26 11:46 WBC 15.9 H RBC 4.62 Hgb 14.0 Hct 41.9 MCV 91 MCH 30.2 MCHC 33.3 RDW 14.3 H Plt Count 192 Urine Color LIGHT YELLOW Urine Appearance CLEAR Urine pH 6.0 Ur Specific [place] 1.016 Urine Protein 100 H Urine Glucose (UA) NEGATIVE Urine Ketones NEGATIVE Urine Blood NEGATIVE Urine Nitrite NEGATIVE Ur Leukocyte Esterase NEGATIVE 04/23/20 04/23/20 04/23/20 05:59 05:59 09:58 Creatine Kinase 123 Troponin I 0.158 0.134 NT-Pro-B Natriuret Pep 22931 H 04/23/20 15:10 Creatine Kinase Troponin I 0.089 NT-Pro-B Natriuret Pep Impressions: Chest X-Ray 04/23/20 04:36 IMPRESSION: No acute abnormality as above. copyright 2010 [employer]- All Rights Reserved Assessment and Plan - Diagnosis (1) Viral syndrome Is this a current diagnosis for this admission?: Yes (2) Atrial fibrillation with RVR Is this a current diagnosis for this admission?: Yes (3) Elevated troponin I level Is this a current diagnosis for this admission?: Yes (4) Acute on chronic combined systolic (congestive) and diastolic (congestive) heart failure Is this a current diagnosis for this admission?: Yes (5) Longstanding persistent atrial fibrillation Is this a current diagnosis for this admission?: Yes (6) CKD (chronic kidney disease) stage 3, GFR 30-59 ml/min Is this a current diagnosis for this admission?: Yes (7) Hypertension Qualifiers: Hypertension type: essential hypertension Qualified Code(s): I10 - Essential (primary) hypertension Is this a current diagnosis for this admission?: Yes (8) COPD (chronic obstructive pulmonary disease) Qualifiers: COPD type: unspecified COPD Qualified Code(s): J44.9 - Chronic obstructive pulmonary disease, unspecified Is this a current diagnosis for this admission?: Yes (9) History of DVT (deep vein thrombosis) Is this a current diagnosis for this admission?: Yes (10) Gastroesophageal reflux disease Qualifiers: Esophagitis presence: esophagitis presence not specified Qualified Code(s): K21.9 - Gastro-esophageal reflux disease without esophagitis Is this a current diagnosis for this admission?: Yes - Plan Summary Summary: (1) Viral syndrome (2) Atrial fibrillation with RVR (3) Elevated troponin I level (4) Acute on chronic combined systolic (congestive) and diastolic (congestive) heart failure (5) Longstanding persistent atrial fibrillation (6) CKD (chronic kidney disease) stage 3, GFR 30-59 ml/min (7) Hypertension (8) COPD (chronic obstructive pulmonary disease) (9) History of DVT (deep vein thrombosis) (10) Gastroesophageal reflux disease We will continue valsartan, Lasix and metoprolol. We will try and investigate the missing antihypertensive medication. He was on isosorbide mononitrate previously. We will hold on this for the time being. We will check serial troponins. He does have an echocardiogram performed at this hospital in June. EF is 20 to 25% with grade 2/4 diastolic failure. Continue current medications and adjust diuresis accordingly He is status post nephrectomy with chronic renal insufficiency. We will monitor his renal function as well as intake and output. We will start proton pump inhibitor for suspected reflux His INR is subtherapeutic so we will utilize Lovenox until his warfarin is therapeutic and then discontinue the Lovenox. We will monitor his atrial fibrillation on telemetry. He appears to have a viral syndrome. He has been coughing. He is worse. Covid and influenza serology are pending. He will start on supplements and azithromycin in the interim. We will supply oxygen as needed. 04/24/2020 White blood cell count elevated likely due to steroids Continue aggressive diuresis Will increase beta-ann therapy due to episodes of RVR Continue warfarin to reach INR 2.0-3.0 - Time Time Spent with patient: 15-24 minutes Medications reviewed and adjusted accordingly: Yes Anticipated Discharge Disposition: Home, Self Care Anticipated Discharge Timeframe: within 24 hours
[2020-04-24] MEDS: TAMSULOSIN HCL 0.4 MG CAP.SR.24H PO SCH (17:43)
[2020-04-24] MEDS: WARFARIN SODIUM 5 MG TABLET PO SCH (22:25)
[2020-04-24] MEDS: GUAIFENESIN 600 MG TABLET.SA PO SCH (22:25)
[2020-04-25] MEDS: IPRATROPIUM/ALBUTEROL 0.5-2.5 MG/3 ML AMPUL NEB SCH ×2 (00:38→09:03)
[2020-04-25] MEDS ORDERED: METOPROLOL TARTRATE PF/INJ 5 MG/5 ML SDV IV ONE ×2 (02:48→03:00)
[2020-04-25] MEDS: PANTOPRAZOLE SODIUM 40 MG TABLET.DR PO SCH (05:45)
[2020-04-25 06:22] LABS: HEMATOCRIT 41.4 % (37.9-51.0); HEMOGLOBIN 13.9 g/dL (13.5-17.0); MEAN CORPUSCULAR HEMOGLOBIN 30.5 pg (27.0-33.4); MEAN CORPUSCULAR HGB CONC 33.4 g/dL (32.0-36.0); MEAN CORPUSCULAR VOLUME 91 fl (80-97); PLATELET COUNT 176 10^3/uL (150-450); RED BLOOD COUNT 4.54 10^6/uL (4.35-5.55); RED CELL DISTRIBUTION WIDTH 14.5 % (11.5-14.0); WHITE BLOOD COUNT 17.8 10^3/uL (4.0-10.5)
[2020-04-25 06:30] LABS: INTERNATIONAL RATION (INR) 1.27; PROTHROMBIN TIME 16.1 SEC (11.4-15.4)
[2020-04-25 06:49] LABS: ALBUMIN 3.7 g/dL (3.5-5.0); ALKALINE PHOSPHATASE 81 U/L (38-126); ANION GAP 9 (5-19); ASPARTATE AMINO TRANSFERASE 24 U/L (17-59); BILIRUBIN,DIRECT 0.4 mg/dL (0.0-0.4); BILIRUBIN,TOTAL 0.7 mg/dL (0.2-1.3); BLOOD UREA NITROGEN 42 mg/dL (7-20); CALCIUM 9.2 mg/dL (8.4-10.2); CARBON DIOXIDE 23 mmol/L (22-30); CHLORIDE 106 mmol/L (98-107); GLUCOSE 176 mg/dL (75-110); PHOSPHORUS 3.8 mg/dL (2.5-4.5); POTASSIUM 4.3 mmol/L (3.6-5.0); TOTAL PROTEIN 6.1 g/dL (6.3-8.2)
[2020-04-25 06:53] LABS: ABSOLUTE LYMPHOCYTES# (MANUAL) 0.7 10^3/uL (0.5-4.7); ABSOLUTE MONOCYTES # (MANUAL) 0.7 10^3/uL (0.1-1.4); BASOPHILS % (MANUAL) 0 % (0-2); EOSINOPHILS % (MANUAL) 0 % (0-6); LYMPHOCYTES % (MANUAL) 4 % (13-45); MONOCYTES % (MANUAL) 4 % (3-13); OVALOCYTES SLIGHT; SEGMENTED NEUTROPHILS % (MAN) 92 % (42-78); TOTAL CELLS COUNTED 100
[2020-04-25 06:54] LABS: ANISOCYTOSIS SLIGHT; PLATELET COMMENT ADEQUATE
[2020-04-25] MEDS: METHYLPREDNISOLONE INJ 40 MG/1 ML SDV IV SCH (09:23)
[2020-04-25] MEDS: GUAIFENESIN 600 MG TABLET.SA PO SCH (09:24)
[2020-04-25] MEDS: FUROSEMIDE 40 MG TABLET PO SCH (09:24)
[2020-04-25] MEDS: AZITHROMYCIN 250 MG TABLET PO SCH (09:24)
[2020-04-25] MEDS: ENOXAPARIN SODIUM INJ 100 MG/1 ML DISP.SYRIN SUBCUT SCH (09:24)
[2020-04-25] MEDS: ASCORBIC ACID 500 MG TABLET PO SCH (09:24)
[2020-04-25] MEDS: POTASSIUM CHLORIDE 10 MEQ TABLET.ER PO SCH (09:24)
[2020-04-25] MEDS: ASPIRIN 81 MG TABLET, ENT COATED PO SCH (09:24)
[2020-04-25] MEDS: SERTRALINE HCL 50 MG TABLET PO SCH (09:24)
[2020-04-25] MEDS: VALSARTAN 80 MG TABLET PO SCH (09:24)
[2020-04-25] MEDS ORDERED: METOPROLOL SUCCINATE 50 MG TAB.SR.24H PO SCH (10:00)
[2020-04-25 13:35] VITALS: BP 133/110
--- NOTE | 2020-04-25 13:36 | PDOC DISCHARGE SUMMARY ---
Impression - Admit/DC Date/PCP Admission Date/Primary Care Provider: 04/23/20 08:03 RACHANA GARCIA PA-C Discharge Date: 04/25/20 - Discharge Diagnosis (1) Viral syndrome Is this a current diagnosis for this admission?: Yes (2) Atrial fibrillation with RVR Is this a current diagnosis for this admission?: Yes (3) Elevated troponin I level Is this a current diagnosis for this admission?: Yes (4) Acute on chronic combined systolic (congestive) and diastolic (congestive) heart failure Is this a current diagnosis for this admission?: Yes (5) Longstanding persistent atrial fibrillation Is this a current diagnosis for this admission?: Yes (6) CKD (chronic kidney disease) stage 3, GFR 30-59 ml/min Is this a current diagnosis for this admission?: Yes (7) Hypertension Is this a current diagnosis for this admission?: Yes (8) COPD (chronic obstructive pulmonary disease) Is this a current diagnosis for this admission?: Yes (9) History of DVT (deep vein thrombosis) Is this a current diagnosis for this admission?: Yes (10) Gastroesophageal reflux disease Is this a current diagnosis for this admission?: Yes - Assessment Summary: (1) Viral syndrome (2) Atrial fibrillation with RVR (3) Elevated troponin I level (4) Acute on chronic combined systolic (congestive) and diastolic (congestive) heart failure (5) Longstanding persistent atrial fibrillation (6) CKD (chronic kidney disease) stage 3, GFR 30-59 ml/min (7) Hypertension (8) COPD (chronic obstructive pulmonary disease) (9) History of DVT (deep vein thrombosis) (10) Gastroesophageal reflux disease We will continue valsartan, Lasix and metoprolol. We will try and investigate the missing antihypertensive medication. He was on isosorbide mononitrate previously. We will hold on this for the time being. We will check serial troponins. He does have an echocardiogram performed at this hospital in June. EF is 20 to 25% with grade 2/4 diastolic failure. Continue current medications and adjust diuresis accordingly He is status post nephrectomy with chronic renal insufficiency. We will monitor his renal function as well as intake and output. We will start proton pump inhibitor for suspected reflux His INR is subtherapeutic so we will utilize Lovenox until his warfarin is therapeutic and then discontinue the Lovenox. We will monitor his atrial fibrillation on telemetry. He appears to have a viral syndrome. He has been coughing. He is worse. Covid and influenza serology are pending. He will start on supplements and azithromycin in the interim. We will supply oxygen as needed. 04/24/2020 White blood cell count elevated likely due to steroids Continue aggressive diuresis Will increase beta-ann therapy due to episodes of RVR Continue warfarin to reach INR 2.0-3.0 - Additional Information Resuscitation Status: Full Code Discharge Diet: Cardiac Discharge Activity: Activity As Tolerated, Balance Activity w/Rest, Weigh Daily Referrals: RACHANA GARCIA PA-C [Primary Care Provider] - 05/02/20 9:15 am Prescriptions: Warfarin Sodium [Coumadin] 1 mg PO DAILY #30 tablet Warfarin Sodium [Coumadin] 5 mg PO DAILY #30 tablet Valsartan [Diovan 80 mg Tablet] 80 mg PO DAILY #30 tablet Pantoprazole Sodium [Protonix [address] Tablet] 40 mg PO Q6AM #30 tablet. Sertraline HCl 100 mg PO DAILY #30 tablet Metoprolol Succinate [Toprol Xl 50 mg Tab.sr] 150 mg PO DAILY #45 tab.sr.24h Albuterol Sulfate [Ventolin Hfa 8 gm Mdi] 2 puff IH Q4HP PRN #1 inhaler PRN Reason: Home Medications: Valsartan [Diovan 80 mg Tablet] 80 mg PO DAILY 08/16/19 Warfarin Sodium [Jantoven 5 mg Tablet] 5 mg PO DAILY 11/15/19 Albuterol Sulfate [Ventolin Hfa 8 gm Mdi] 2 puff IH Q4HP PRN #1 inhaler 04/25/20 Aspirin [Ecotrin 81 mg EC Tablet] 81 mg PO DAILY tabec 04/25/20 Diphenhydramine HCl [Benadryl 50 mg Capsule] 50 mg PO Q6HP PRN capsule 04/25/20 Guaifenesin [Mucinex Sr 600 mg Tablet.sa] 600 mg PO Q12 tablet.sa 04/25/20 Metoprolol Succinate [Toprol Xl 50 mg Tab.sr] 150 mg PO DAILY #45 tab.sr.24h 04/25/20 Pantoprazole Sodium [Protonix [address] Tablet] 40 mg PO Q6AM #30 tablet. 04/25/20 Sertraline HCl 100 mg PO DAILY #30 tablet 04/25/20 Valsartan [Diovan 80 mg Tablet] 80 mg PO DAILY #30 tablet 04/25/20 Warfarin Sodium [Coumadin] 1 mg PO DAILY #30 tablet 04/25/20 Warfarin Sodium [Coumadin] 5 mg PO DAILY #30 tablet 04/25/20 History of Present Illiness History of Present Illness: JOHN PADILLA is a 54 year old male with a past medical history of atrial fibrillation, congestive heart failure with ejection fraction of 20 to 25%, DVT and hypertension. He also has a history of COPD and reflux. His vascular surgery history includes femoral bypass and dissecting aortic aneurysm. He reports that he required a nephrectomy when he had the dissecting aneurysm. He reports that he has been coughing and slightly short of breath for approximately 1 week. He has been out of one of his blood pressure medicines and he cannot remember the name of the medicine. His stomach was hurting and this was the primary reason for him to present to the emergency department. He has been coughing a lot. He reports coughing up white frothy sputum and admits to fever but does not have an exact temperature reading. His coughing was so bad that his abdomen began to hurt. He also noticed a tight feeling when breathing and possibly when trying to swallow. There was no evidence that food actually stuck in his throat. His BNP was elevated as was his troponin (0.158). With his cardiovascular history and slightly elevated troponin as well as markedly elevated brain natruretic peptide he will be admitted. Because of his cough and shortness of breath he will have influenza and Covid testing. In addition we will be treating him for possible COPD and exacerbation of heart failure. His atrial fibrillation with rapid ventricular response will be treated with metoprolol primarily. We will also try and investigate the second medication in use. 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 Lastly his INR was subtherapeutic at 1.12. Will bridge with Lovenox until INR is therapeutic. Hospital Course Hospital Course: Stable course. We continue to adjust his metoprolol for his rapid atrial fibrillation. He was out of warfarin and therefore not likely taking any that would explain his subtherapeutic INR. He is now on the dry side from diuresis. We will hold his Lasix tomorrow and resume at a lower dose on Wednesday. Physical Exam Vital Signs: Temp Pulse Resp BP Pulse Ox 97.4 F 72 16 129/98 H 97 04/25/20 11:23 04/25/20 11:23 04/25/20 11:23 04/25/20 11:23 04/25/20 11:23 Intake & Output 04/24/20 04/25/20 04/26/20 06:59 06:59 06:59 Intake Total 856 1802 Output Total 1275 1050 Balance -419 752 Weight 98.9 kg 100.1 kg General appearance: PRESENT: no acute distress, well-developed Head exam: PRESENT: atraumatic, normocephalic Mouth exam: PRESENT: other - Still with hoarse voice Respiratory exam: PRESENT: clear to auscultation lita, symmetrical, unlabored. ABSENT: rales, rhonchi, tachypnea, wheezes Cardiovascular exam: PRESENT: irregular rhythm GI/Abdominal exam: PRESENT: normal bowel sounds, soft. ABSENT: distended, guarding, tenderness Rectal exam: PRESENT: deferred Gentrourinary exam: ABSENT: indwelling catheter Extremities exam: ABSENT: pedal edema Musculoskeletal exam: PRESENT: ambulatory, normal inspection. ABSENT: deformity, dislocation Neurological exam: PRESENT: alert, awake, oriented to person, oriented to place, oriented to time, oriented to situation. ABSENT: altered Psychiatric exam: PRESENT: appropriate affect. ABSENT: agitated, anxious Focused psych exam: ABSENT: delusional, paranoid, restlessness Results Laboratory Results: WBC 17.8 10^3/uL (4.0-10.5) H 04/25/20 05:35 RBC 4.54 10^6/uL (4.35-5.55) 04/25/20 05:35 Hgb 13.9 g/dL (13.5-17.0) 04/25/20 05:35 Hct 41.4 % (37.9-51.0) 04/25/20 05:35 MCV 91 fl (80-97) 04/25/20 05:35 MCH 30.5 pg (27.0-33.4) 04/25/20 05:35 MCHC 33.4 g/dL (32.0-36.0) 04/25/20 05:35 RDW 14.5 % (11.5-14.0) H 04/25/20 05:35 Plt Count 176 10^3/uL (150-450) 04/25/20 05:35 Lymph % (Auto) Not Reportable 04/25/20 05:35 Mower % (Auto) Not Reportable 04/25/20 05:35 Eos % (Auto) Not Reportable 04/25/20 05:35 Baso % (Auto) Not Reportable 04/25/20 05:35 Absolute Neuts (auto) Not Reportable 04/25/20 05:35 Absolute Lymphs (auto) Not Reportable 04/25/20 05:35 Absolute Monos (auto) Not Reportable 04/25/20 05:35 Absolute Eos (auto) Not Reportable 04/25/20 05:35 Absolute Basos (auto) Not Reportable 04/25/20 05:35 Total Counted 100 04/25/20 05:35 Seg Neutrophils % Not Reportable 04/25/20 05:35 Seg Neuts % (Manual) 92 % (42-78) H 04/25/20 05:35 Lymphocytes % (Manual) 4 % (13-45) L 04/25/20 05:35 Monocytes % (Manual) 4 % (3-13) 04/25/20 05:35 Eosinophils % (Manual) 0 % (0-6) 04/25/20 05:35 Basophils % (Manual) 0 % (0-2) 04/25/20 05:35 Abs Neuts (Manual) 16.4 10^3/uL (1.7-8.2) H 04/25/20 05:35 Abs Lymphs (Manual) 0.7 10^3/uL (0.5-4.7) 04/25/20 05:35 Abs Monocytes (Manual) 0.7 10^3/uL (0.1-1.4) 04/25/20 05:35 Absolute Eos (Manual) 0.0 10^3/uL (0.0-0.6) 04/25/20 05:35 Abs Basophils (Manual) 0.0 10^3/uL (0.0-0.2) 04/25/20 05:35 Platelet Comment ADEQUATE 04/25/20 05:35 Anisocytosis SLIGHT 04/25/20 05:35 Ovalocytes SLIGHT 04/25/20 05:35 PT 16.1 SEC (11.4-15.4) H 04/25/20 05:35 INR 1.27 04/25/20 05:35 APTT 34.2 SEC (23.5-35.8) 04/23/20 05:59 VBG pH 7.36 (7.30-7.42) 04/23/20 05:59 VBG pCO2 43.9 mmHg (35-63) 04/23/20 05:59 VBG HCO3 24.4 mmol/L (20-32) 04/23/20 05:59 VBG Base Excess -1.2 mmol/L 04/23/20 05:59 Sodium 138.0 mmol/L (137-145) 04/25/20 05:35 Potassium 4.3 mmol/L (3.6-5.0) 04/25/20 05:35 Chloride 106 mmol/L (98-107) 04/25/20 05:35 Carbon Dioxide 23 mmol/L (22-30) 04/25/20 05:35 Anion Gap 9 (5-19) 04/25/20 05:35 BUN 42 mg/dL (7-20) H 04/25/20 05:35 Creatinine 2.01 mg/dL (0.52-1.25) H 04/25/20 05:35 Est GFR ( Amer) 42 (>60) L 04/25/20 05:35 Est GFR (MDRD) Non-Af 35 (>60) L 04/25/20 05:35 Glucose 176 mg/dL (75-110) H 04/25/20 05:35 Calcium 9.2 mg/dL (8.4-10.2) 04/25/20 05:35 Phosphorus 3.8 mg/dL (2.5-4.5) 04/25/20 05:35 Ferritin 135.00 ng/mL (17.9-464.0) 04/23/20 09:58 Total Bilirubin 0.7 mg/dL (0.2-1.3) 04/25/20 05:35 Direct Bilirubin 0.4 mg/dL (0.0-0.4) 04/25/20 05:35 Neonat Total Bilirubin Not Reportable 04/25/20 05:35 Neonat Direct Bilirubin Not Reportable 04/25/20 05:35 Neonat Indirect Bili Not Reportable 04/25/20 05:35 AST 24 U/L (17-59) 04/25/20 05:35 ALT 28 U/L (<50) 04/25/20 05:35 Alkaline Phosphatase 81 U/L (38-126) 04/25/20 05:35 Creatine Kinase 123 U/L (55-170) 04/23/20 05:59 Troponin I 0.089 ng/mL 04/23/20 15:10 C-Reactive Protein 31.7 mg/L (<10.0) H 04/23/20 09:58 NT-Pro-B Natriuret Pep 09721 pg/mL (<125) H 04/25/20 05:35 Total Protein 6.1 g/dL (6.3-8.2) L 04/25/20 05:35 Albumin 3.7 g/dL (3.5-5.0) 04/25/20 05:35 Urine Color LIGHT YELLOW 04/24/20 11:46 Urine Appearance CLEAR 04/24/20 11:46 Urine pH 6.0 (5.0-9.0) 04/24/20 11:46 Ur Specific [place] 1.016 04/24/20 11:46 Urine Protein 100 mg/dL (NEGATIVE) H 04/24/20 11:46 Urine Glucose (UA) NEGATIVE mg/dL (NEGATIVE) 04/24/20 11:46 Urine Ketones NEGATIVE mg/dL (NEGATIVE) 04/24/20 11:46 Urine Blood NEGATIVE (NEGATIVE) 04/24/20 11:46 Urine Nitrite NEGATIVE (NEGATIVE) 04/24/20 11:46 Urine Bilirubin NEGATIVE (NEGATIVE) 04/24/20 11:46 Urine Urobilinogen NEGATIVE mg/dL (<2.0) 04/24/20 11:46 Ur Leukocyte Esterase NEGATIVE (NEGATIVE) 04/24/20 11:46 Urine RBC 1-5 /HPF 04/24/20 11:46 Urine WBC 1-5 /HPF 04/24/20 11:46 Urine Bacteria TRACE /HPF 04/24/20 11:46 Urine Yeast PRESENT 04/24/20 11:46 Urine Ascorbic Acid 20 (NEGATIVE) H 04/24/20 11:46 Influenza A (Rapid) Cancelled 04/23/20 08:36 Influenza A (RT-PCR) NEGATIVE (NEGATIVE) 04/23/20 08:36 Influenza B (Rapid) Cancelled 04/23/20 08:36 Influenza B (RT-PCR) NEGATIVE (NEGATIVE) 04/23/20 08:36 RSV (RT-PCR) NEGATIVE (NEGATIVE) 04/23/20 08:36 SARS-CoV-2 Rap RNA(RT-PCR) NEGATIVE (NEGATIVE) 04/23/20 08:36 04/23/20 04/23/20 04/23/20 05:59 09:58 15:10 Troponin I 0.158 0.134 0.089 NT-Pro-B Natriuret Pep 59446 H 04/25/20 05:35 Troponin I NT-Pro-B Natriuret Pep 46657 H Impressions: Chest X-Ray 04/23/20 04:36 IMPRESSION: No acute abnormality as above. copyright 2011 [employer]- All Rights Reserved Plan Health Concerns: Patient with multiple comorbidities. Without insurance medication compliance is questionable. Plan of Treatment: As above Goals: Therapeutic INR. Improved medication regimen to control in a heart failure and his atrial fibrillation. Increased antidepressant Time Spent: Greater than 30 Minutes Stroke Is this a Stroke Patient?: No Acute Heart Failure Is this a Heart Failure Patient?: Yes Documentation of LVEF assessment?: Planned for after discharge LVEF: LVEF Greater Than 40% Anticoagulant Therapy: Yes Discharged on Evidence-Based Beta Blockers: Yes Discharged on ARNI?: No-Document Contraindications Reason(s) not discharged on ARNI: Other ARNI Reason - Other: Discharged on angiotensin receptor ann. Cannot afford ARNI Discharged on ARB?: Yes Discharged on ACEI?: N/A Discharged on ARB For LVEF <35%, discharged on Aldosterone Antagonist?: N/A (LVEF > or = 35%) Follow-up Appointment scheduled within 7 days?: Yes
[2020-04-25] MEDS ORDERED: WARFARIN SODIUM 3 MG TABLET PO SCH (22:00)
== END 2020-04-25 14:46 | disposition home or self-care (01) | DRG 865 ==
LOC: ER 03:51 → EH 08:03 → 3S 11:36
PROVIDERS: ADMIT Hospitalist; ATTEND Hospitalist
DX: B34.9 Viral infection, unspecified (principal); I50.43 Acute on chronic combined systolic (congestive) and diastolic (congestive) heart failure; I48.11 Longstanding persistent atrial fibrillation; I13.0 Hypertensive heart and chronic kidney disease with heart failure and stage 1 through stage 4 chronic kidney disease, or unspecified chronic kidney disease; J44.1 Chronic obstructive pulmonary disease with (acute) exacerbation; R79.89 Other specified abnormal findings of blood chemistry; N18.30 Chronic kidney disease, stage 3 unspecified; K21.9 Gastro-esophageal reflux disease without esophagitis; Z20.828 Contact with and (suspected) exposure to other viral communicable diseases; Z86.718 Personal history of other venous thrombosis and embolism; Z79.899 Other long term (current) drug therapy; Z90.5 Acquired absence of kidney; Z79.01 Long term (current) use of anticoagulants; Z79.82 Long term (current) use of aspirin; Z87.891 Personal history of nicotine dependence; Z95.820 Peripheral vascular angioplasty status with implants and grafts; Z82.49 Family history of ischemic heart disease and other diseases of the circulatory system; Z60.2 Problems related to living alone
CPT/HCPCS: 36415; 71045; 80053; 80069; 80076; 81001; 82550; 82728; 82803; 83880; 84484; 85025; 85027; 85610; 85730; 86140; 93005; 93010; 94640; 96374; 96375; 99285; 0241U; C9803; J1650; J2920; J2930; J3490

== ENCOUNTER 2020-04-26 06:53 | Inpatient (IN) | payer SELFPAY ==
[2020-04-26] MEDS ORDERED: NITROGLYCERIN 2% OINTMENT 1 GM PACKET TP ONE (08:43)
[2020-04-26] MEDS ORDERED: FUROSEMIDE INJ/PF 40 MG/4 ML SDV IV ONE ×2 (08:43→10:11)
[2020-04-26] MEDS ORDERED: METOPROLOL TARTRATE PF/INJ 5 MG/5 ML SDV IV ONE ×2 (08:44→10:11)
[2020-04-26 08:46] LABS: HEMATOCRIT 46.8 % (37.9-51.0); HEMOGLOBIN 15.3 g/dL (13.5-17.0); MEAN CORPUSCULAR HEMOGLOBIN 30.2 pg (27.0-33.4); MEAN CORPUSCULAR HGB CONC 32.7 g/dL (32.0-36.0); MEAN CORPUSCULAR VOLUME 92 fl (80-97); PLATELET COUNT 250 10^3/uL (150-450); RED BLOOD COUNT 5.07 10^6/uL (4.35-5.55); RED CELL DISTRIBUTION WIDTH 14.7 % (11.5-14.0); WHITE BLOOD COUNT 21.5 10^3/uL (4.0-10.5)
[2020-04-26 08:52] LABS: INTERNATIONAL RATION (INR) 1.46; PROTHROMBIN TIME 17.9 SEC (11.4-15.4)
[2020-04-26 08:53] LABS: PARTIAL THROMBOPLASTIN TIME 32.2 SEC (23.5-35.8)
[2020-04-26 09:08] LABS: ALBUMIN 3.8 g/dL (3.5-5.0); ALKALINE PHOSPHATASE 76 U/L (38-126); ANION GAP 10 (5-19); ASPARTATE AMINO TRANSFERASE 31 U/L (17-59); BILIRUBIN,DIRECT 0.4 mg/dL (0.0-0.4); BLOOD UREA NITROGEN 55 mg/dL (7-20); CALCIUM 9.8 mg/dL (8.4-10.2); CARBON DIOXIDE 24 mmol/L (22-30); CHLORIDE 104 mmol/L (98-107); GLUCOSE 120 mg/dL (75-110); POTASSIUM 4.8 mmol/L (3.6-5.0); TOTAL PROTEIN 6.6 g/dL (6.3-8.2)
--- NOTE | 2020-04-26 09:08 | RADIOLOGY REPORT (SQ) ---
EXAM DESCRIPTION: ACUTE ABDOMEN SERIES IMAGES COMPLETED DATE/TIME: 04/26/2020 8:50 am REASON FOR STUDY: sobr/ ascites COMPARISON: AP view of the abdomen from 06/30/2019 an AP view of the chest from April 23 NUMBER OF VIEWS: Three views. TECHNIQUE: Frontal chest, supine abdomen and upright/decubitus abdomen radiographic images acquired. LIMITATIONS: None. FINDINGS: CHEST: The cardiac silhouette is enlarged. There is a stent graft in the aortic arch. Th ere is no mediastinal or hilar contour abnormality. There is no consolidation, pleural effusion or p neumothorax. FREE AIR: None. BOWEL GAS PATTERN: No dilated loops of bowel or differential air-fluid levels. CALCIFICATIONS: Calcifications projecting within the inferior renal fossae. HARDWARE: Stent in the right renal artery. SOFT TISSUES: No acute gross abnormality. BONES: No acute abnormality. OTHER: No other findings. IMPRESSION: 1. Cardiomegaly without a superimposed acute cardiopulmonary process. 2. Nonobstructive bowel gas pattern. TECHNICAL DOCUMENTATION: JOB ID: [id number] 2010 [employer]- All Rights Reserved Reading location - IP/workstation name: [email or web address]
[2020-04-26 09:15] LABS: ABSOLUTE LYMPHOCYTES# (MANUAL) 2.8 10^3/uL (0.5-4.7); ABSOLUTE MONOCYTES # (MANUAL) 1.5 10^3/uL (0.1-1.4); BASOPHILS % (MANUAL) 0 % (0-2); EOSINOPHILS % (MANUAL) 0 % (0-6); LYMPHOCYTES % (MANUAL) 13 % (13-45); MONOCYTES % (MANUAL) 7 % (3-13); PLATELET COMMENT ADEQUATE; RBC MORPHOLOGY COMMENT NORMO-CYTIC/CHROMIC; SEGMENTED NEUTROPHILS % (MAN) 80 % (42-78); TOTAL CELLS COUNTED 100
[2020-04-26 09:31] LABS: TROPONIN I 0.103 ng/mL
--- NOTE | 2020-04-26 10:24 | ER Document Report ---
Entered by AMNA FIGUEROA SCRIBE 04/26/20 0836 Acting as scribe for:ALBERTO MCKINNEY MD ED General - General Chief Complaint: Abdominal Injury Stated Complaint: ABDOMINAL PAIN Time Seen by Provider: 04/26/20 07:19 Mode of Arrival: Ambulatory Information source: Patient Notes: This 54 year old male patient with a history of HTN, CHF, A fib, COPD, and DVT presents to the ED today with a chief complaint of generalized abdominal pain. Patient states that he has a history of diverticulitis and that his symptoms feel similar. He also reports orthopnea, abdominal distension, chest congestion, productive cough with white sputum, and decreased urinary output. Patient was admitted here on 04/23 for acute on chronic combined systolic and diastolic heart failure and atrial fibrillation with RVR; he was just discharged yesterday. TRAVEL OUTSIDE OF THE [place] IN LAST 30 DAYS: No - Related Data Allergies/Adverse Reactions: No Known Allergies Allergy (Verified 01/27/20 08:29) Past Medical History - General Information source: Patient, [facility] Records - Social History Smoking Status: Former Smoker - Pt reports smoking for the past x25 years, but quit x1-2 weeks ago Cigarette use (# per day): No Chew tobacco use (# tins/day): No Smoking Education Provided: No Family History: Reviewed & Not Pertinent, Hypertension, Malignancy, Other - Past Medical History Cardiac Medical History: Reports: Hx Atrial Fibrillation, Hx Congestive Heart Failure, Hx DVT, Hx Hypertension, Hx Peripheral Vascular Disease Pulmonary Medical History: Reports: Hx COPD Renal/ Medical History: Reports: Hx Kidney Stones, Hx Renal Insufficiency GI Medical History: Reports: Hx Gastroesophageal Reflux Disease Psychiatric Medical History: Reports: Hx Anxiety, Hx Depression Past Surgical History: Reports: Hx Cardiac Surgery - stent aorta, Hx Kidney (Aaron al Surgery) - Right renal artery stent, nephrectomy (left), Hx Valve Replacement - Possibly had an aortic valve replacement, patient is a very vague and poor, Hx Vascular Surgery - Aortic arch & upper thoracic aorta endovascular graft, Other - Femorofemoral bypass graft, - Immunizations Immunizations up to date: Yes Hx Diphtheria, Pertussis, Tetanus Vaccination: Yes Review of Systems - Review of Systems Constitutional: No symptoms reported EENT: No symptoms reported Cardiovascular: See HPI, Orthopnea Respiratory: Cough, Sputum Gastrointestinal: See HPI, Abdomen distended, Abdominal pain, Diarrhea. denies: Blood streaked bowels Genitourinary: See HPI, Other - Decreased urinary output Male Genitourinary: No symptoms reported Musculoskeletal: No symptoms reported Skin: No symptoms reported Hematologic/Lymphatic: No symptoms reported Neurological/Psychological: No symptoms reported -: Yes All other systems reviewed and negative Physical Exam - Vital signs Vitals: Pulse BP Pulse Ox 80 124/109 H 93 04/26/20 07:13 04/26/20 07:13 04/26/20 07:13 - General General appearance: Alert In distress: None - HEENT Head: Normocephalic, Atraumatic Eyes: Normal Pupils: PERRL Mucous membranes: Dry - Respiratory Respiratory status: No respiratory distress Chest status: Nontender Breath sounds: Decreased air movement - Diminished breath sounds in the bases Chest palpation: Normal - Cardiovascular Rhythm: Irregularly irregular, Tachycardia Murmur: No Friction rub: No Gallop: None auscultated - Abdominal Distension: Distended, Fluid wave - Ascites Organomegaly: No organomegaly - Back Back: Normal, Nontender - Extremities General upper extremity: Normal inspection General lower extremity: Normal inspection. No: Edema - Neurological Neuro grossly intact: Yes [place] Coma Scale Eye Opening: Spontaneous [place] Coma Scale Verbal: Oriented [place] Coma Scale Motor: Obeys Commands João Coma Scale Total: 15 - Psychological Associated symptoms: Normal affect, Normal mood - Skin Skin Temperature: Warm Skin Moisture: Dry Skin Color: Normal Course - Re-evaluation Re-evalutation: 04/26/20 16:16 Patient showing signs of respiratory distress with shortness of breath atrial fibrillation with RVR and ascites. - Vital Signs Vital signs: Temp Pulse Resp BP Pulse Ox 98.6 F 108 H 18 130/96 H 94 04/26/20 16:04 04/26/20 16:04 04/26/20 16:04 04/26/20 16:04 04/26/20 16:04 04/26/20 16:17 Vital signs as above pulse ox 94% afebrile - Laboratory Results Result Diagrams: 04/26/20 08:20 04/26/20 08:20 Laboratory Results Interpreted: 04/26/20 04/26/20 04/26/20 08:20 08:20 08:20 WBC 21.5 H RDW 14.7 H Seg Neuts % (Manual) 80 H Abs Neuts (Manual) 17.2 H Abs Monocytes (Manual) 1.5 H PT 17.9 H BUN 55 H Creatinine 2.49 H Est GFR ( Amer) 33 L Est GFR (MDRD) Non-Af 27 L Glucose 120 H Creatine Kinase NT-Pro-B Natriuret Pep Urine Protein Ur Leukocyte Esterase Urine Ascorbic Acid 04/26/20 04/26/20 04/26/20 08:20 08:20 10:13 WBC RDW Seg Neuts % (Manual) Abs Neuts (Manual) Abs Monocytes (Manual) PT BUN Creatinine Est GFR ( Amer) Est GFR (MDRD) Non-Af Glucose Creatine Kinase 45 L NT-Pro-B Natriuret Pep 33880 H Urine Protein 100 H Ur Leukocyte Esterase TRACE H Urine Ascorbic Acid 20 H Patient with elevated white blood cell count 21.5 increased from 1 day ago with 17,000 white blood cell count. BNP 16,300 elevated over 10,000 BNP 1 day ago. Patient's BUN/creatinine elevated 55/2.49. Acute on chronic renal failure. Critical Laboratory Results Reviewed: Yes Attending or Supervising Physician who Reviewed Labs: ALBERTO MCKINNEY - Radiology Results Radiology Results Interpreted: 04/26/20 16:21 Acute Abdomen Series 04/26/20 08:34 IMPRESSION: 1. Cardiomegaly without a superimposed acute cardiopulmonary process. 2. Nonobstructive bowel gas pattern. Acute abdominal series shows cardiomegaly without any superimposed acute cardiopulmonary process. Nonobstructive bowel gas pattern. Critical Radiology Results Reviewed: No Critical Results - EKG Interpretation by Me Additional EKG results interpreted by me: 04/26/20 16:19 Twelve-lead EKG shows atrial fibrillation with a ventricular rate between 71 and 155. Left ventricular hypertrophy with repolarization abnormality borderline prolonged QT interval AK interval irregular indeterminate interval QRS within normal interval range QT interval variable due to atrial fibrillation with RVR normal axis no acute ST elevation to suggest STEMI. Critical Care Note - Critical Care Note Total time excluding time spent on procedures (mins): 40 - Treatment of congestive heart failure atrial fib with RVR requiring IV antiarrhythmic medications and management of blood pressure. Discharge - Discharge Clinical Impression: CHF exacerbation, Atrial fibrillation with RVR, Ascites Condition: Fair Disposition: ADMITTED INPATIENT Admitting Provider: Chucky (Hospitalist) Unit Admitted: Telemetry I personally performed the services described in the documentation, reviewed and edited the documentation which was dictated to the scribe in my presence, and it accurately records my words and actions.
[2020-04-26 10:44] LABS: APPEARANCE,URINE CLEAR; BILIRUBIN,URINE NEGATIVE (NEGATIVE); COLOR,URINE YELLOW; GLUCOSE, URINE NEGATIVE (NEGATIVE); KETONES,URINE NEGATIVE (NEGATIVE); LEUKOCYTE ESTERASE,URINE TRACE (NEGATIVE); NITRITE,URINE NEGATIVE (NEGATIVE); PROTEIN,URINE 100 mg/dL (NEGATIVE); URINE SPECIFIC GRAVITY 1.014; UROBILINOGEN,URINE NEGATIVE mg/dL (<2.0)
[2020-04-26 11:04] LABS: URINE AMPHETAMINES SCREEN NEGATIVE; URINE BARBITURATES SCREEN NEGATIVE; URINE BENZODIAZEPINES SCREEN NEGATIVE; URINE COCAINE SCREEN NEGATIVE; URINE METHADONE SCREEN NEGATIVE; URINE PHENCYCLIDINE SCREEN NEGATIVE
[2020-04-26 11:11] LABS: URINE MARIJUANA (THC) SCREEN UNCONFIRMED POSITIVE
[2020-04-26] MEDS ORDERED: OXYCODONE-ACETAMINOPHEN 5-325 MG TABLET PO PRN (13:13)
[2020-04-26] MEDS ORDERED: MAG HYDROX/AL HYDROX/SIMETH SUSP 30 ML UDCUP PO PRN (13:13)
[2020-04-26] MEDS ORDERED: ACETAMINOPHEN 325 MG TABLET PO PRN (13:13)
[2020-04-26] MEDS ORDERED: LEVALBUTEROL HCL NEB 1.25 MG/3 ML AMPUL NEB PRN (13:13)
[2020-04-26] MEDS ORDERED: MAGNESIUM HYDROXIDE SUSP 30 ML UDCUP PO PRN (13:13)
--- NOTE | 2020-04-26 13:39 | EKG REPORT ---
SEVERITY:- ABNORMAL ECG - ATRIAL FIBRILLATION, V-RATE 71-155 LVH WITH SECONDARY REPOLARIZATION ABNORMALITY BORDERLINE PROLONGED QT INTERVAL : Confirmed by: Agnes Colón 26-Apr-2020 13:38:50
[2020-04-26] MEDS ORDERED: METOPROLOL TARTRATE 50 MG TABLET PO ONE (13:47)
[2020-04-26] MEDS ORDERED: METOPROLOL TARTRATE PF/INJ 5 MG/5 ML SDV IV PRN (13:47)
--- NOTE | 2020-04-26 13:58 | PDOC H&P ---
History of Present Illness Admission Date/PCP: 04/26/20 10:27 RACHANA GARCIA PA-C Patient complains of: Abdominal discomfort, shortness of breath History of Present Illness: JOHN PADILLA is a 54 year old male who was just discharged yesterday. He states that his breathing got worse and noticed his heart rate increased. He was still short of breath. He had discomfort in the abdomen. He remains in atrial fibrillation with rapid ventricular response. Brain natruretic peptide is elevated. Serum creatinine is elevated as well. Past Medical History Cardiac Medical History: Reports: Atrial Fibrillation, Congestive Heart Failure, DVT, Hypertension, Peripheral Vascular Disease Pulmonary Medical History: Reports: Chronic Obstructive Pulmonary Disease (COPD) Denies: Asthma GI Medical History: Reports: Gastroesophageal Reflux Disease Psychiatric Medical History: Reports: Depression Past Surgical History Past Surgical History: Reports: Valve Replacement - Possibly had an aortic valve replacement, patient is a very vague and poor, Vascular Surgery - Aortic arch & upper thoracic aorta endovascular graft, Other - Femorofemoral bypass graft, aortic stent, renal artery stent Social History Information Source: Patient, [facility] Records Lives with: Alone - in September, mother in March Smoking Status: Former Smoker Electronic Cigarette use?: No Frequency of Alcohol Use: None Hx Recreational Drug Use: Yes - Unconfirmed positive screen marijuana Drugs: Marijuana Hx Prescription Drug Abuse: No - Advance Directive Resuscitation Status: Full Code Surrogate healthcare decision maker:: Will discuss with patient as his and mother recently Family History Family History: Hypertension, Malignancy, Other Parental Family History Reviewed: Yes Children Family History Reviewed: Yes Sibling(s) Family History Reviewed.: Yes Medication/Allergy Home Medications: Albuterol Sulfate [Ventolin Hfa 8 gm Mdi] 2 puff IH Q4HP PRN #1 inhaler 04/25/20 Pantoprazole Sodium [Protonix [address] Tablet] 40 mg PO Q6AM #30 tablet.dr 04/25/20 Warfarin Sodium [Coumadin] 1 mg PO DAILY #30 tablet 04/25/20 Warfarin Sodium [Coumadin] 5 mg PO DAILY #30 tablet 04/25/20 Furosemide [Lasix 40 mg Tablet] 40 mg PO BID 04/26/20 Hydralazine HCl [Apresoline 50 mg Tablet] 50 mg PO Q8 04/26/20 Metoprolol Succinate [Toprol Xl 50 mg Tab.sr] 50 mg PO DAILY 04/26/20 Potassium Chloride 20 meq PO BID 04/26/20 Sertraline HCl [Zoloft 50 mg Tablet] 50 mg PO DAILY 04/26/20 Valsartan [Diovan 80 mg Tablet] 80 mg PO Q12 04/26/20 Allergies/Adverse Reactions: No Known Allergies Allergy (Verified 01/27/20 08:29) Review of Systems All systems: reviewed and no additional remarkable complaints except as stated Constitutional: PRESENT: fatigue Cardiovascular: PRESENT: dyspnea on exertion, edema Respiratory: PRESENT: cough, dyspnea Gastrointestinal: PRESENT: abdominal pain Integumentary: PRESENT: pruritus Physical Exam Vital Signs: Temp Pulse Resp BP Pulse Ox 97.3 F 86 18 134/105 H 92 04/26/20 12:13 04/26/20 12:13 04/26/20 12:13 04/26/20 12:13 04/26/20 12:13 Intake & Output 04/25/20 04/26/20 04/27/20 06:59 06:59 06:59 Weight 87.4 kg General appearance: PRESENT: cooperative, mild distress, well-developed Head exam: PRESENT: atraumatic, normocephalic Eye exam: PRESENT: conjunctiva pink. ABSENT: scleral icterus Ear exam: PRESENT: normal external ear exam. ABSENT: bleeding, drainage Mouth exam: PRESENT: dry mucosa, tongue midline Teeth exam: PRESENT: poor dentation Respiratory exam: PRESENT: rales, symmetrical, unlabored, wheezes. ABSENT: rhonchi, tachypnea Cardiovascular exam: PRESENT: irregular rhythm. ABSENT: bradycardia, diastolic murmur, systolic murmur, tachycardia GI/Abdominal exam: PRESENT: normal bowel sounds, soft, tenderness - Nonfocal mid abdomen. ABSENT: distended, guarding Rectal exam: PRESENT: deferred Gentrourinary exam: ABSENT: indwelling catheter Extremities exam: PRESENT: pedal edema Musculoskeletal exam: PRESENT: ambulatory, normal inspection. ABSENT: deformity, dislocation Neurological exam: PRESENT: alert, awake, oriented to person, oriented to place, oriented to time, oriented to situation, CN II-XII grossly intact. ABSENT: altered Psychiatric exam: PRESENT: anxious. ABSENT: agitated Focused psych exam: ABSENT: delusional, paranoid, restlessness Skin exam: PRESENT: dry, normal color, warm. ABSENT: rash Results Laboratory Results: 04/26/20 08:20 12/11/20 08:20 04/26/20 04/26/20 04/26/20 08:20 08:20 08:20 WBC 21.5 H RBC 5.07 Hgb 15.3 Hct 46.8 MCV 92 MCH 30.2 MCHC 32.7 RDW 14.7 H Plt Count 250 Seg Neutrophils % Not Reportable Sodium 137.9 Potassium 4.8 Chloride 104 Carbon Dioxide 24 Anion Gap 10 BUN 55 H Creatinine 2.49 H Est GFR ( Amer) 33 L Glucose 120 H Calcium 9.8 Total Bilirubin 1.0 AST 31 Alkaline Phosphatase 76 Total Protein 6.6 Albumin 3.8 Lipase 148.9 Urine Color Urine Appearance Urine pH Ur Specific [place] Urine Protein Urine Glucose (UA) Urine Ketones Urine Blood Urine Nitrite Ur Leukocyte Esterase Urine WBC (Auto) Urine RBC (Auto) 04/26/20 10:13 WBC RBC Hgb Hct MCV MCH MCHC RDW Plt Count Seg Neutrophils % Sodium Potassium Chloride Carbon Dioxide Anion Gap BUN Creatinine Est GFR ( Amer) Glucose Calcium Total Bilirubin AST Alkaline Phosphatase Total Protein Albumin Lipase Urine Color YELLOW Urine Appearance CLEAR Urine pH 6.0 Ur Specific [place] 1.014 Urine Protein 100 H Urine Glucose (UA) NEGATIVE Urine Ketones NEGATIVE Urine Blood NEGATIVE Urine Nitrite NEGATIVE Ur Leukocyte Esterase TRACE H Urine WBC (Auto) 6 Urine RBC (Auto) 2 04/26/20 04/26/20 04/26/20 08:20 08:20 12:17 Creatine Kinase 45 L Troponin I 0.103 0.102 NT-Pro-B Natriuret Pep 25560 H Impressions: Acute Abdomen Series 04/26/20 08:34 IMPRESSION: 1. Cardiomegaly without a superimposed acute cardiopulmonary process. 2. Nonobstructive bowel gas pattern. Assessment and Plan - Diagnosis (1) Acute on chronic combined systolic (congestive) and diastolic (congestive) heart failure Is this a current diagnosis for this admission?: Yes (2) Atrial fibrillation with RVR Is this a current diagnosis for this admission?: Yes (3) Longstanding persistent atrial fibrillation Is this a current diagnosis for this admission?: Yes (4) CKD (chronic kidney disease), stage III Is this a current diagnosis for this admission?: Yes (5) Hypertension Qualifiers: Hypertension type: essential hypertension Qualified Code(s): I10 - Essential (primary) hypertension Is this a current diagnosis for this admission?: Yes (6) COPD exacerbation Is this a current diagnosis for this admission?: Yes (7) Abdominal pain Qualifiers: Abdominal location: left lower quadrant Qualified Code(s): R10.32 - Left lower quadrant pain Is this a current diagnosis for this admission?: Yes (8) Gastroesophageal reflux disease Qualifiers: Esophagitis presence: esophagitis presence not specified Qualified Code(s): K21.9 - Gastro-esophageal reflux disease without esophagitis Is this a current diagnosis for this admission?: Yes (9) Chronic anticoagulation Is this a current diagnosis for this admission?: Yes (10) Leukocytosis Qualifiers: Leukocytosis type: other Qualified Code(s): D72.828 - Other elevated white blood cell count Is this a current diagnosis for this admission?: Yes (11) Hypertensive cardiomyopathy Qualifiers: Heart failure presence: with heart failure Qualified Code(s): I11.0 - Hypertensive heart disease with heart failure; I43 - Cardiomyopathy in diseases classified elsewhere Is this a current diagnosis for this admission?: Yes (12) Atherosclerosis of arteries Is this a current diagnosis for this admission?: Yes (13) Pulmonary hypertension Is this a current diagnosis for this admission?: Yes - Plan Summary Summary: Acute on chronic combined systolic (congestive) and diastolic (congestive) heart failure -We will utilize intravenous furosemide. -We will need to monitor electrolytes and blood pressure. -Will monitor strict intake and output as well. -Low-fat low-sodium diet -The systolic Atrial fibrillation with RVR Longstanding persistent atrial fibrillation -We will increase metoprolol. -Monitor on telemetry Hypertensive cardiomyopathy -Echocardiogram earlier this year showed depressed ejection fraction of 20 to 25% -There is also grade 2/4 diastolic dysfunction -Medication management at this time. CKD (chronic kidney disease), stage III -Nephrology will be seeing the patient. -We will need to diuresis for the heart failure at this time. -There is a stent that appears to be in the right renal artery. -This could be hypertensive nephropathy due to his systemic atherosclerosis. Diffuse atherosclerosis -The patient has a stent in the aortic arch as well as the right renal artery. -Continue aspirin and statin therapy -Achieve good blood pressure control Hypertension -Poorly controlled hypertension -May need increased valsartan -Already increased metoprolol -Adjusting furosemide Pulmonary hypertension -Possibly due to COPD -Medication management at this time COPD exacerbation -Initiate combination inhaler with nebulizers available as needed -Supplement oxygen as needed Abdominal pain -With his history of diffuse atherosclerosis a vascular etiology is possible. He cannot have an angiogram due to his current renal function. -Consider studies of the abdomen Gastroesophageal reflux disease -Continue proton pump inhibitor Chronic anticoagulation -Continue warfarin. Pharmacy to dose. Leukocytosis -The patient was on steroids during his last admission. -Assess for infection -Monitor white blood cell count - Time Time Spent with patient: 35 or more minutes Medications reviewed and adjusted accordingly: Yes Anticipated Discharge Disposition: Home, Self Care Anticipated Discharge Timeframe: Unknown - Inpatient Certification Based on my medical assessment, after consideration of the patient's comorbidities, presenting symptoms, or acuity I expect that the services needed warrant INPATIENT care.: Yes I certify that my determination is in accordance with my understanding of Medicare's requirements for reasonable and necessary INPATIENT services [42 CFR 412.3e].: Yes Medical Necessity: Failure to Improve With Outpatient Therapy, Significant Comorbidiites Make Outpatient Treatment Too Risky, Need Close Monitoring Due to Risk of Patient Decompensation, Need For Continuous Telemetry Monitoring, Need for Nebulizer Therapy and Monitoring of Response, Risk of Complication if Not Cared For in Hospital Post Hospital Care: D/C or Transfer Summary
[2020-04-26] MEDS ORDERED: FUROSEMIDE INJ/PF 20 MG/2 ML SDV IV SCH (14:00)
[2020-04-26] MEDS: FLUTICASONE/VILANTEROL 200-25 MCG/DOSE IH SCH (15:22)
[2020-04-26] MEDS: DOXYCYCLINE HYCLATE 100 MG TABLET PO SCH ×2 (15:22→22:28)
--- NOTE | 2020-04-26 15:29 | PDOC CONSULTATION ---
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 Review of his chart demonstrates that the patient had been admitted at least 6 prior times to this facility for decompensated heart failure and had been seen in the emergency room at least another 2 or 3 times for the same issues. It appears that the patient is non-compliant with his medications secondary to financial issues. He was admitted to this facility for heart failure and rapid A. fib on 04/23/2020 and was just discharged yesterday but reported again today back to the emergency room today complaining of abdominal discomfort. He was found to be in rapid atrial fibrillation with a proBNP of 16,300. At the time of my examination, the patient is found laying in bed, comfortable and asking for a turkey sandwich. Physical exam on 04/26/2020: GENERAL: Pleasant and conversational. Oriented x3 with normal mood. Not in acute distress. Well groomed and well developed. HEENT: Normocephalic, atraumatic. Pupils equal. Sclerae anicteric. Oropharynx moist. NECK: No JVD. No carotid bruits. LUNGS: Clear to auscultation bilaterally. Normal respiratory effort without the use of accessory muscles or intercostal retractions. CARDIOVASCULAR: Irregularly irregular rate and rhythm, no murmurs, rubs, or gallops. PMI not displaced. EXTREMITIES: 1+ pitting edema bilaterally, no cyanosis, no clubbing. +2 pulses femoral and pedal pulses bilaterally. SKIN: No lesions or rashes. MUSCULOSKELETAL: No chest tenderness to palpation. NEUROLOGIC: Nonfocal. No gross sensory or motor deficits bilateral upper or lower extremities. Cardiac studies: Echocardiogram on 06/27/2019: -Systolic function is severely reduced. -EF 20 to 25%. -Mild MR, trace to mild AI. -Mild pulmonary hypertension. Past Medical History Cardiac Medical History: Reports: Atrial Fibrillation, Congestive Heart Failure, DVT, Hypertension, Peripheral Vascular Disease Pulmonary Medical History: Reports: Chronic Obstructive Pulmonary Disease (COPD) Denies: Asthma GI Medical History: Reports: Gastroesophageal Reflux Disease Psychiatric Medical History: Reports: Depression Past Surgical History Past Surgical History: Reports: Valve Replacement - Possibly had an aortic valve replacement, patient is a very vague and poor, Vascular Surgery - Aortic arch & upper thoracic aorta endovascular graft, Other - Femorofemoral bypass graft, Social History Smoking Status: Former Smoker Frequency of Alcohol Use: None Hx Recreational Drug Use: No Drugs: None Hx Prescription Drug Abuse: No Family History Family History: Reviewed & Not Pertinent, Hypertension, Malignancy, Other Parental Family History Reviewed: Yes Children Family History Reviewed: Yes Sibling(s) Family History Reviewed.: Yes Medication/Allergy Home Medications: Albuterol Sulfate [Ventolin Hfa 8 gm Mdi] 2 puff IH Q4HP PRN #1 inhaler 04/25/20 Pantoprazole Sodium [Protonix [address] Tablet] 40 mg PO Q6AM #30 tablet.dr 04/25/20 Warfarin Sodium [Coumadin] 1 mg PO DAILY #30 tablet 04/25/20 Warfarin Sodium [Coumadin] 5 mg PO DAILY #30 tablet 04/25/20 Furosemide [Lasix 40 mg Tablet] 40 mg PO BID 04/26/20 Hydralazine HCl [Apresoline 50 mg Tablet] 50 mg PO Q8 04/26/20 Metoprolol Succinate [Toprol Xl 50 mg Tab.sr] 50 mg PO DAILY 04/26/20 Potassium Chloride 20 meq PO BID 04/26/20 Sertraline HCl [Zoloft 50 mg Tablet] 50 mg PO DAILY 04/26/20 Valsartan [Diovan 80 mg Tablet] 80 mg PO Q12 04/26/20 Allergies/Adverse Reactions: No Known Allergies Allergy (Verified 01/27/20 08:29) Physical Exam Vital Signs: Temp Pulse Resp BP Pulse Ox 97.3 F 86 18 134/105 H 92 04/26/20 12:13 04/26/20 12:13 04/26/20 12:13 04/26/20 12:13 04/26/20 12:13 Intake & Output 04/25/20 04/26/20 04/27/20 06:59 06:59 06:59 Weight 87.4 kg Results Laboratory Results: 04/26/20 08:20 04/26/20 08:20 04/26/20 04/26/20 04/26/20 08:20 08:20 08:20 WBC 21.5 H RBC 5.07 Hgb 15.3 Hct 46.8 MCV 92 MCH 30.2 MCHC 32.7 RDW 14.7 H Plt Count 250 Seg Neutrophils % Not Reportable Sodium 137.9 Potassium 4.8 Chloride 104 Carbon Dioxide 24 Anion Gap 10 BUN 55 H Creatinine 2.49 H Est GFR ( Amer) 33 L Glucose 120 H Calcium 9.8 Total Bilirubin 1.0 AST 31 Alkaline Phosphatase 76 Total Protein 6.6 Albumin 3.8 Lipase 148.9 Urine Color Urine Appearance Urine pH Ur Specific [place] Urine Protein Urine Glucose (UA) Urine Ketones Urine Blood Urine Nitrite Ur Leukocyte Esterase Urine WBC (Auto) Urine RBC (Auto) 04/26/20 10:13 WBC RBC Hgb Hct MCV MCH MCHC RDW Plt Count Seg Neutrophils % Sodium Potassium Chloride Carbon Dioxide Anion Gap BUN Creatinine Est GFR ( Amer) Glucose Calcium Total Bilirubin AST Alkaline Phosphatase Total Protein Albumin Lipase Urine Color YELLOW Urine Appearance CLEAR Urine pH 6.0 Ur Specific [place] 1.014 Urine Protein 100 H Urine Glucose (UA) NEGATIVE Urine Ketones NEGATIVE Urine Blood NEGATIVE Urine Nitrite NEGATIVE Ur Leukocyte Esterase TRACE H Urine WBC (Auto) 6 Urine RBC (Auto) 2 04/26/20 04/26/20 08:20 08:20 Creatine Kinase 45 L Troponin I 0.103 NT-Pro-B Natriuret Pep 67501 H Impressions: Acute Abdomen Series 04/26/20 08:34 IMPRESSION: 1. Cardiomegaly without a superimposed acute cardiopulmonary process. 2. Nonobstructive bowel gas pattern. 04/26/20 08:20 04/26/20 08:20 MCV 92 fl (80-97) 04/26/20 08:20 MCH 30.2 pg (27.0-33.4) 04/26/20 08:20 MCHC 32.7 g/dL (32.0-36.0) 04/26/20 08:20 RDW 14.7 % (11.5-14.0) H 04/26/20 08:20 Seg Neutrophils % Not Reportable 12/11/20 08:20 Chloride 104 mmol/L (98-107) 04/26/20 08:20 Carbon Dioxide 24 mmol/L (22-30) 04/26/20 08:20 Anion Gap 10 (5-19) 04/26/20 08:20 Est GFR ( Amer) 33 (>60) L 04/26/20 08:20 Glucose 120 mg/dL (75-110) H 04/26/20 08:20 Calcium 9.8 mg/dL (8.4-10.2) 04/26/20 08:20 Total Bilirubin 1.0 mg/dL (0.2-1.3) 04/26/20 08:20 AST 31 U/L (17-59) 04/26/20 08:20 Alkaline Phosphatase 76 U/L (38-126) 04/26/20 08:20 Total Protein 6.6 g/dL (6.3-8.2) 04/26/20 08:20 Albumin 3.8 g/dL (3.5-5.0) 04/26/20 08:20 Lipase 148.9 U/L (23-300) 04/26/20 08:20 Urine Color YELLOW 04/26/20 10:13 Urine Appearance CLEAR 04/26/20 10:13 Urine pH 6.0 (5.0-9.0) 04/26/20 10:13 Ur Specific [place] 1.014 04/26/20 10:13 Urine Protein 100 mg/dL (NEGATIVE) H 04/26/20 10:13 Urine Glucose (UA) NEGATIVE mg/dL (NEGATIVE) 04/26/20 10:13 Urine Ketones NEGATIVE mg/dL (NEGATIVE) 04/26/20 10:13 Urine Blood NEGATIVE (NEGATIVE) 04/26/20 10:13 Urine Nitrite NEGATIVE (NEGATIVE) 04/26/20 10:13 Ur Leukocyte Esterase TRACE (NEGATIVE) H 04/26/20 10:13 Urine WBC (Auto) 6 /HPF 04/26/20 10:13 Urine RBC (Auto) 2 /HPF 04/26/20 10:13 04/26/20 04/26/20 08:20 08:20 Creatine Kinase 45 L Troponin I 0.103 NT-Pro-B Natriuret Pep 54780 H Current Medication List Generic Name Dose Route Start Last Admin Trade Name Freq PRN Reason Stop Dose Admin Influenza Virus Vaccine Quadrival 0.5 ml 04/27/20 08:00 Influenza Quad (6mos+) Vac 0.5 Ml Syr IM 04/27/20 08:01 .ONCE ONE Discontinued Medications Generic Name Dose Route Start Last Admin Trade Name Monica PRN Reason Stop Dose Admin Furosemide 40 mg 04/26/20 08:43 04/26/20 09:45 Furosemide Inj/Pf 40 Mg/4 Ml Sdv IV 04/26/20 08:44 40 mg NOW ONE Administration Furosemide 40 mg 04/26/20 10:11 04/26/20 10:23 Furosemide Inj/Pf 40 Mg/4 Ml Sdv IV 04/26/20 10:12 40 mg NOW ONE Administration Metoprolol Tartrate 5 mg 04/26/20 08:44 04/26/20 09:45 Metoprolol Tartrate Pf/Inj 5 Mg/5 Ml Sdv IV 04/26/20 08:45 5 mg NOW ONE Administration Metoprolol Tartrate 5 mg 04/26/20 10:11 04/26/20 10:26 Metoprolol Tartrate Pf/Inj 5 Mg/5 Ml Sdv IV 04/26/20 10:12 5 mg NOW ONE Administration Nitroglycerin 1 gm 04/26/20 08:43 04/26/20 09:46 Nitroglycerin 2% Ointment 1 Gm Packet TP 04/26/20 08:44 1 gm NOW ONE Administration Assessment & Plan - Diagnosis (1) Acute on chronic systolic (congestive) heart failure Plan: The patient appears very comfortable but with some LE edema which, in discussing the case with Dr. Yancey (hospitalist), it is essentially unchanged from his recent admission however his BNP is 53% higher today than when checked in the most recent admission and he complains of mild shortness of breath. Unfortunate ly the patient is unable to afford Entresto but is already on BB, ARB and diuretics. Aldactone needs to be considered however, given his renal dysfunction and risk of hyperkalemia, we will hold off on it. Recommendations: -Continue with IV lasix. -Low sodium diet. -Daily weight. -Strict intake and output. -Daily BMP/Mg and replace as needed. -Cardiology does not have further recommendations, therefore we will sign off the case for now. (2) Atrial fibrillation with RVR Plan: The patient continues to be in atrial fibrillation with a better controlled heart rate although not at goal. Recommendations: -Uptitrate BB. -Continue with anticoagulation. -Follow up with Dr. Simons. (3) Dilated cardiomyopathy Is this a current diagnosis for this admission?: Yes Plan: The patient will eventually need cardiac catheterization as planned by my partner Dr. Simons. He will also need a Life-Vest prior to discharge. Continue with BB and ARB.
[2020-04-26] MEDS: ONDANSETRON 4 MG TAB.RAPDIS PO PRN (17:13)
[2020-04-26] MEDS: FUROSEMIDE INJ/PF 20 MG/2 ML SDV IV SCH (17:14)
--- NOTE | 2020-04-26 19:13 | RADIOLOGY REPORT (SQ) ---
EXAM DESCRIPTION: U/S ABDOMEN COMPLETE W/DOPPLER IMAGES COMPLETED DATE/TIME: 04/26/2020 7:02 pm REASON FOR STUDY: abdo pain,Hx Aneurysm Aorta,Stent Aaron Art,kid fail COMPARISON: None. TECHNIQUE: Dynamic and static grayscale images acquired of the abdomen and recorded on PACS. Additio nal selected color Doppler and spectral images recorded. Note: Study does not meet criteria for complete doppler/duplex scan LIMITATIONS: None. FINDINGS: PANCREAS: No masses. The tail is poorly seen. LIVER: No masses. Echotexture normal. LIVER VASCULATURE: Normal directional flow of the main portal vein and hepatic veins. GALLBLADDER: There is edema in the thickened gallbladder wall. No gallstones are seen. ULTRASOUND-DETECTED BIRD'S SIGN: Negative. INTRAHEPATIC DUCTS AND COMMON DUCT: CBD and intrahepatic ducts normal caliber. No filling defects. INFERIOR VENA CAVA: Normal flow. AORTA: Questionable echogenic flap in the proximal aorta. RIGHT KIDNEY: Normal size, 9.5 cm. Normal echogenicity. No solid or suspicious masses. No hydr onephrosis. 13 mm calculus. LEFT KIDNEY: Atrophic. Normal echogenicity. No solid or suspicious masses. No hydronephrosis. 14 mm calculus. SPLEEN: Normal size. No solid masses. PERITONEAL AND PLEURAL SPACES: There is trace ascites around the liver and spleen. OTHER: No other significant finding. IMPRESSION: 1. Possible echogenic flap in the proximal aorta. 2. Thickened, edematous gallbladder wall. No gallstones. Correlate for acalculous cholecystitis. 3. Bilateral renal calculi. Atrophic left kidney. TECHNICAL DOCUMENTATION: JOB ID: [id number] [employer]- All Rights Reserved Reading location - IP/workstation name: [email or web address]
--- NOTE | 2020-04-26 21:12 | PDOC CONSULTATION ---
Consultation Consult Date: 04/26/20 Provider Consulted: GIULIANO SUTTON Consult reason:: KOBE/CKD History of Present Illness Admission Date/PCP: 04/26/20 10:27 RACHANA GARCIA PA-C History of Present Illness: JOHN PADILLA is a 54 year old male with history of atrial fibrillation, cardiomyopathy with ejection fraction of 20 to 25%, hypertension, DVT, COPD, history of aortic dissection type B with endovascular graft/aortic stent/right renal artery stent, peripheral vascular disease with left femorofemoral bypass graft, chronic kidney disease stage IIIb who presented to the ED today for abdominal discomfort and shortness of breath. The patient also has some on and off cough with whitish phlegm. He tested negative for Covid on 04/23/2020. The patient was just discharged yesterday. He was found to be in atrial fibrillation with rapid ventricular response and elevated BNP. In the ED he was given 2 doses of furosemide 40 mg IV and 2 doses of metoprolol 5 mg IV plus an oral metoprolol 50 mg. Cardiology was also consulted care of Dr. Lentz. Records show that the patient has family of nonadherence to treatment and medications for some financial reasons. He also presented with elevated BUN of 55, creatinine of 2.49 with EGFR of 27. Yesterday he had a BUN of 42, creatinine of 2.01 with EGFR of 35, on 04/23 he had a BUN of 24, creatinine 1.74 with EGFR 41 and on 01/27/2020 he had a BUN of 32, creatinine 1.77 with EGFR 40. Patient states that in 2017 he was told that he had left kidney failure at [facility]. He states that he required hemodialysis while in the house at all for a few weeks but apparently he recovered because he did not require any further hemodialysis as an outpatient after discharge at that time. He did not follow-up with hse manager as an outpatient. Currently he said he has some problem initially with initiation of urination. He admits seeing some foam in the urine. Due to diuretics he has urinary urgency and frequency. He admits some leg swelling. He denies any gross hematuria. He denies any nausea, vomiting nor diarrhea. Currently denies any chest pains. He admits having history of kidney stones and passing a kidney stone once. CT scan abdomen/pelvis without contrast on November 15, 2019 described left small atrophic kidney, this atrophic calcification without hydronephrosis. On December 17, 2019 another abdomen/pelvic CT scan without contrast showed no suspicious masses, lower pole staghorn calculus without hydronephrosis. Past Medical History Cardiac Medical History: Reports: Atrial Fibrillation, CHF-Systolic - Most recent EF of 20 to 25%, DVT, Hypertension-primary, Peripheral Vascular Disease, Other - Type B aortic dissection Pulmonary Medical History: Reports: Chronic Obstructive Pulmonary Disease (COPD) Renal/ Medical History: Reports: Chronic Kidney Disease Stage III, Other - History of KOBE requiring temporary hemodialysis in 2017 GI Medical History: Reports: Gastroesophageal Reflux Disease Psychiatric Medical History: Reports: Depression Past Surgical History Past Surgical History: Reports: Renal Stent, Valve Replacement - Possibly had an aortic valve replacement, patient is a very vague and poor, Vascular Surgery - Aortic arch & upper thoracic aorta endovascular graft, Other - Femorofemoral bypass graft, aortic stent, right renal artery stent Social History Information Source: Patient, [facility] Records Lives with: Alone - in September, mother in March Smoking Status: Former Smoker Electronic Cigarette use?: No Frequency of Alcohol Use: None Hx Recreational Drug Use: Yes - Unconfirmed positive screen marijuana Drugs: Marijuana Hx Prescription Drug Abuse: No - Advance Directive Resuscitation Status: Full Code Family History Family History: Chronic Kidney Disease - Mother with unknown nature of kidney disease, Hypertension - Brother Parental Family History Reviewed: Yes Children Family History Reviewed: NA Sibling(s) Family History Reviewed.: Yes Medication/Allergy Home Medications: Albuterol Sulfate [Ventolin Hfa 8 gm Mdi] 2 puff IH Q4HP PRN #1 inhaler 04/25/20 Pantoprazole Sodium [Protonix [address] Tablet] 40 mg PO Q6AM #30 tablet.dr 04/25/20 Warfarin Sodium [Coumadin] 1 mg PO DAILY #30 tablet 04/25/20 Warfarin Sodium [Coumadin] 5 mg PO DAILY #30 tablet 04/25/20 Furosemide [Lasix 40 mg Tablet] 40 mg PO BID 04/26/20 Hydralazine HCl [Apresoline 50 mg Tablet] 50 mg PO Q8 04/26/20 Metoprolol Succinate [Toprol Xl 50 mg Tab.sr] 50 mg PO DAILY 04/26/20 Potassium Chloride 20 meq PO BID 04/26/20 Sertraline HCl [Zoloft 50 mg Tablet] 50 mg PO DAILY 04/26/20 Valsartan [Diovan 80 mg Tablet] 80 mg PO Q12 04/26/20 Allergies/Adverse Reactions: No Known Allergies Allergy (Verified 01/27/20 08:29) Review of Systems All systems: reviewed and no additional remarkable complaints except as stated Review of Systems: Constitutional: ABSENT: chills, fatigue, fever(s), headache(s), weight gain, weight loss Eyes: ABSENT: visual disturbances Ears: ABSENT: hearing changes Cardiovascular: ABSENT: chest pain, edema, orthropnea, palpitations; admits dyspnea Respiratory: ABSENT: Dyspnea, hemoptysis; admits cough Gastrointestinal: ABSENT: Constipation, diarrhea, hematemesis, hematochezia, nausea, vomiting; admits abdominal discomfort Genitourinary: ABSENT: dysuria, hematuria; admits urinary urgency and frequency with diuretics Musculoskeletal: ABSENT: joint swelling Integumentary: ABSENT: rash, wounds Neurological: ABSENT: abnormal gait, abnormal speech, confusion, dizziness, focal weakness, numbness, syncope Psychiatric: ABSENT: anxiety, depression Endocrine: ABSENT: cold intolerance, heat intolerance, polydipsia, polyuria Hematologic/Lymphatic: ABSENT: easy bleeding, easy bruising, lymphadenopathy Physical Exam Vital Signs: Temp Pulse Resp BP Pulse Ox 98.6 F 108 H 18 130/96 H 94 04/26/20 16:04 04/26/20 16:04 04/26/20 16:04 04/26/20 16:04 04/26/20 16:04 Intake & Output 04/25/20 04/26/20 04/27/20 06:59 06:59 06:59 Weight 87.4 kg Exam: General appearance: No acute distress, cooperative, well-developed, well- nourished Head exam: PRESENT: atraumatic, normocephalic Eye exam: PRESENT: Conjunctiva slightly pale, EOMI, PERRLA. ABSENT: conjunctival injection, scleral icterus Mouth exam: PRESENT: moist, neck supple, tongue midline Neck exam: PRESENT: full ROM. ABSENT: carotid bruit, JVD, lymphadenopathy, thyromegaly Respiratory exam: PRESENT: Diminished to auscultation bilaterally. ABSENT: rales, rhonchi, stridor, wheezes Cardiovascular exam: PRESENT: Irregularly irregular, +S1, +S2. ABSENT: systolic murmur Pulses: PRESENT: normal radial pulses, normal dorsalis pedis pulses GI/Abdominal exam: PRESENT: normal bowel sounds, soft. ABSENT: guarding, mass, tenderness Rectal exam: Deferred Extremities exam: PRESENT: full ROM. ABSENT: calf tenderness, pedal edema Musculoskeletal: PRESENT: full ROM. ABSENT: deformity Neurological exam: PRESENT: alert, Awake, Oriented to person, Oriented to place, Oriented to time, reflexes normal, CN II-XII grossly intact. ABSENT: motor sensory deficit Psychiatric exam: PRESENT: appropriate affect, normal mood. ABSENT: homicidal ideation, suicidal ideation Skin exam: PRESENT: intact, dry, warm. ABSENT: rash Results Laboratory Results: 04/26/20 08:20 04/26/20 08:20 04/26/20 04/26/20 04/26/20 08:20 08:20 08:20 WBC 21.5 H RBC 5.07 Hgb 15.3 Hct 46.8 MCV 92 MCH 30.2 MCHC 32.7 RDW 14.7 H Plt Count 250 Seg Neutrophils % Not Reportable Sodium 137.9 Potassium 4.8 Chloride 104 Carbon Dioxide 24 Anion Gap 10 BUN 55 H Creatinine 2.49 H Est GFR ( Amer) 33 L Glucose 120 H Lactic Acid Calcium 9.8 Total Bilirubin 1.0 AST 31 Alkaline Phosphatase 76 Total Protein 6.6 Albumin 3.8 Lipase 148.9 Urine Color Urine Appearance Urine pH Ur Specific [place] Urine Protein Urine Glucose (UA) Urine Ketones Urine Blood Urine Nitrite Ur Leukocyte Esterase Urine WBC (Auto) Urine RBC (Auto) 04/26/20 04/26/20 10:13 14:28 WBC RBC Hgb Hct MCV MCH MCHC RDW Plt Count Seg Neutrophils % Sodium Potassium Chloride Carbon Dioxide Anion Gap BUN Creatinine Est GFR ( Amer) Glucose Lactic Acid 1.3 Calcium Total Bilirubin AST Alkaline Phosphatase Total Protein Albumin Lipase Urine Color YELLOW Urine Appearance CLEAR Urine pH 6.0 Ur Specific [place] 1.014 Urine Protein 100 H Urine Glucose (UA) NEGATIVE Urine Ketones NEGATIVE Urine Blood NEGATIVE Urine Nitrite NEGATIVE Ur Leukocyte Esterase TRACE H Urine WBC (Auto) 6 Urine RBC (Auto) 2 04/26/20 04/26/20 04/26/20 08:20 08:20 12:17 Creatine Kinase 45 L Troponin I 0.103 0.102 NT-Pro-B Natriuret Pep 31810 H Impressions: Acute Abdomen Series 04/26/20 08:34 IMPRESSION: 1. Cardiomegaly without a superimposed acute cardiopulmonary process. 2. Nonobstructive bowel gas pattern. Assessment & Plan - Diagnosis (1) Acute kidney injury superimposed on chronic kidney disease Is this a current diagnosis for this admission?: Yes Plan: Baseline creatinine ranges around 1.7-2.0. Patient has some proteinuria without microhematuria. Acute worsening of the patient's kidney function is most likely secondary to acute prerenal hemodynamic factors including atrial fibrillation acute decompensated congestive heart failure. Patient is currently nonoliguric. No indication for any urgent acute renal replacement therapy. Treatment would include controlling heart rate and congestive heart failure. Agree with IV diuretics. I will check the patient's kidney ultrasound and duplex of renal artery due to history of right renal artery stent to ensure patency with left atrophic kidney. Monitor kidney function and electrolytes. Avoid nephrotoxic medications. Monitor urine output. (2) Atrial fibrillation with RVR Is this a current diagnosis for this admission?: Yes Plan: Needs heart rate control. On anticoagulation. (3) Acute on chronic systolic (congestive) heart failure Is this a current diagnosis for this admission?: Yes Plan: Ejection fraction about 20 to 25%. Currently on IV diuretics. (4) CKD (chronic kidney disease) stage 3, GFR 30-59 ml/min Is this a current diagnosis for this admission?: Yes Plan: Associated with some proteinuria without microhematuria. This is most likely secondary to atherosclerotic vascular disease. Left atrophic kidney. Status post right renal artery stent. Has remote history of KOBE in 2017 requiring temporary hemodialysis in hospital. We will check urine for microalbumin to creatinine ratio, phosphorus and PTH. (5) Dilated cardiomyopathy Is this a current diagnosis for this admission?: Yes (6) Hypertension Qualifiers: Hypertension type: essential hypertension Qualified Code(s): I10 - Essential (primary) hypertension Is this a current diagnosis for this admission?: Yes Plan: Suboptimally controlled. Resume blood pressure medications and adjust accordingly. - Notes Notes: Thank you very much for this consultation.
[2020-04-26] MEDS: ENOXAPARIN SODIUM INJ 100 MG/1 ML DISP.SYRIN SUBCUT SCH (22:27)
[2020-04-26] MEDS: ASPIRIN 81 MG TABLET, ENT COATED PO SCH (22:28)
[2020-04-26] MEDS: SERTRALINE HCL 50 MG TABLET PO SCH (22:29)
[2020-04-26] MEDS: WARFARIN SODIUM 3 MG TABLET PO SCH (22:30)
[2020-04-27] MEDS: ONDANSETRON 4 MG TAB.RAPDIS PO PRN ×2 (01:53→11:15)
--- NOTE | 2020-04-27 02:55 | RADIOLOGY REPORT (SQ) ---
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 COMPARISON: Abdominal ultrasound from 04/26/2020; CT of abdomen and pelvis from 06/30/2019 TECHNIQUE: Limited sonographic evaluation of the kidneys was performed. FINDINGS: Both kidneys demonstrates normal cortical echogenicity. The right kidney measures up to 11.9 cm in length. The left kidney measures up to 5.1 cm in length. No hydronephrosis is noted in either kidney. There are echogenic foci both kidneys measuring up to 1.5 cm on the left and 1.33 on the right consistent with nonobstructive calculi. No free intraperitoneal fluid is seen. The visualized portions of the urinary bladder appear grossly unremarkable. The abdominal aorta has a peak systolic velocity of 70.9 cm/s. The renal veins appear patent. The renal artery to aortic ratios are 1.47 on the right and 1.53 on the left, which are within normal limits. The peak systolic velocity of the right renal artery measures up to 104.5 cm/s on the left measure up to 109.1 cm/s. Evaluation of the waveforms is limited by some respiratory motion artifact. The visualized resistive indices do not appear to be significantly elevated. IMPRESSION: There is no evidence of hydronephrosis. The renal artery to aortic ratios are within normal limits. Evaluation of the waveforms is mildly limited by respiratory motion artifact. Bilateral echogenic structures are seen at the kidneys consistent with nonobstructive calculi.
[2020-04-27] MEDS: PANTOPRAZOLE SODIUM 40 MG TABLET.DR PO SCH (05:19)
[2020-04-27 07:20] LABS: HEMATOCRIT 42.8 % (37.9-51.0); HEMOGLOBIN 14.4 g/dL (13.5-17.0); MEAN CORPUSCULAR HEMOGLOBIN 30.8 pg (27.0-33.4); MEAN CORPUSCULAR HGB CONC 33.7 g/dL (32.0-36.0); MEAN CORPUSCULAR VOLUME 92 fl (80-97); PLATELET COUNT 217 10^3/uL (150-450); RED BLOOD COUNT 4.68 10^6/uL (4.35-5.55); RED CELL DISTRIBUTION WIDTH 14.4 % (11.5-14.0); WHITE BLOOD COUNT 12.2 10^3/uL (4.0-10.5)
[2020-04-27 07:33] LABS: INTERNATIONAL RATION (INR) 1.34; PROTHROMBIN TIME 16.8 SEC (11.4-15.4)
[2020-04-27 07:40] LABS: ALBUMIN 3.4 g/dL (3.5-5.0); ANION GAP 6 (5-19); BLOOD UREA NITROGEN 62 mg/dL (7-20); CALCIUM 9.2 mg/dL (8.4-10.2); CARBON DIOXIDE 28 mmol/L (22-30); CHLORIDE 103 mmol/L (98-107); GLUCOSE 116 mg/dL (75-110); PHOSPHORUS 4.3 mg/dL (2.5-4.5)
[2020-04-27] MEDS ORDERED: INFLUENZA QUAD (6MOS+) 2020-21 VAC 0.5 ML SYR IM ONE (08:00)
[2020-04-27 08:05] LABS: ABSOLUTE LYMPHOCYTES# (MANUAL) 1.8 10^3/uL (0.5-4.7); ABSOLUTE MONOCYTES # (MANUAL) 0.5 10^3/uL (0.1-1.4); BASOPHILS % (MANUAL) 0 % (0-2); EOSINOPHILS % (MANUAL) 1 % (0-6); LYMPHOCYTES % (MANUAL) 15 % (13-45); MONOCYTES % (MANUAL) 4 % (3-13); SEGMENTED NEUTROPHILS % (MAN) 80 % (42-78); TOTAL CELLS COUNTED 100
[2020-04-27 08:06] LABS: ANISOCYTOSIS SLIGHT; OVALOCYTES 1+; PLATELET COMMENT ADEQUATE
[2020-04-27] MEDS: FUROSEMIDE INJ/PF 20 MG/2 ML SDV IV SCH ×2 (09:28→17:44)
[2020-04-27] MEDS: DOXYCYCLINE HYCLATE 100 MG TABLET PO SCH (09:28)
[2020-04-27] MEDS: VALSARTAN 80 MG TABLET PO SCH (09:28)
[2020-04-27] MEDS: FLUTICASONE/VILANTEROL 200-25 MCG/DOSE IH SCH (09:32)
[2020-04-27] MEDS: ENOXAPARIN SODIUM INJ 100 MG/1 ML DISP.SYRIN SUBCUT SCH ×2 (09:32→21:27)
[2020-04-27] MEDS ORDERED: METOPROLOL SUCCINATE 50 MG TAB.SR.24H PO SCH ×2 (10:00→22:00)
[2020-04-27] MEDS: DIPHENHYDRAMINE HCL 50 MG CAPSULE PO PRN ×2 (10:30→21:52)
--- NOTE | 2020-04-27 13:13 | PDOC PROGRESS REPORT ---
Subjective Date:: 04/27/20 Subjective:: Patient is complaining of nausea. He has coughed up brown mucus. He feels poor ly in general. He remains with rapid ventricular response. Reason For Visit: CHF EXACERBATION Physical Exam Vital Signs: Temp Pulse Resp BP Pulse Ox 97.3 F 95 18 145/100 H 97 04/27/20 11:02 04/27/20 11:02 04/27/20 11:02 04/27/20 11:02 04/27/20 11:02 Intake & Output 04/26/20 04/27/20 04/28/20 06:59 06:59 06:59 Intake Total 260 Output Total 1575 500 Balance -1575 -240 Weight 85.9 kg General appearance: PRESENT: cooperative, mild distress, well-developed Head exam: PRESENT: atraumatic, normocephalic Ear exam: PRESENT: normal external ear exam. ABSENT: bleeding, drainage Mouth exam: PRESENT: dry mucosa, tongue midline Respiratory exam: PRESENT: clear to auscultation lita, symmetrical, unlabored. ABSENT: rales, rhonchi, tachypnea, wheezes Cardiovascular exam: PRESENT: irregular rhythm, tachycardia GI/Abdominal exam: PRESENT: normal bowel sounds, soft, tenderness - Diffuse n onspecific Rectal exam: PRESENT: deferred Gentrourinary exam: ABSENT: indwelling catheter Extremities exam: PRESENT: pedal edema Neurological exam: PRESENT: alert, awake, oriented to person, oriented to place, oriented to situation Psychiatric exam: PRESENT: appropriate affect. ABSENT: agitated, anxious Focused psych exam: ABSENT: delusional, paranoid, restlessness Results Laboratory Results: 04/27/20 07:06 04/27/20 07:06 04/26/20 04/27/20 04/27/20 14:28 07:06 07:06 WBC 12.2 H RBC 4.68 Hgb 14.4 Hct 42.8 MCV 92 MCH 30.8 MCHC 33.7 RDW 14.4 H Plt Count 217 Seg Neutrophils % Not Reportable Sodium Potassium Chloride Carbon Dioxide Anion Gap BUN Creatinine Est GFR ( Amer) Glucose Lactic Acid 1.3 Calcium Phosphorus Magnesium Albumin PTH Intact 162.6 H 04/27/20 07:06 WBC RBC Hgb Hct MCV MCH MCHC RDW Plt Count Seg Neutrophils % Sodium 137.0 Potassium 4.0 Chloride 103 Carbon Dioxide 28 Anion Gap 6 BUN 62 H Creatinine 2.19 H Est GFR ( Amer) 38 L Glucose 116 H Lactic Acid Calcium 9.2 Phosphorus 4.3 Magnesium 2.2 Albumin 3.4 L PTH Intact 04/26/20 04/26/20 04/26/20 08:20 08:20 12:17 Creatine Kinase 45 L Troponin I 0.103 0.102 NT-Pro-B Natriuret Pep 75638 H Impressions: Abdomen Ultrasound 04/26/20 00:00 IMPRESSION: 1. Possible echogenic flap in the proximal aorta. 2. Thickened, edematous gallbladder wall. No gallstones. Correlate for acalculous cholecystitis. 3. Bilateral renal calculi. Atrophic left kidney. Renal Artery Duplex 04/26/20 00:00 IMPRESSION: There is no evidence of hydronephrosis. The renal artery to aortic ratios are within normal limits. Evaluation of the waveforms is mildly limited by respiratory motion artifact. Bilateral echogenic structures are seen at the kidneys consistent with nonobstructive calculi. Acute Abdomen Series 04/26/20 08:34 IMPRESSION: 1. Cardiomegaly without a superimposed acute cardiopulmonary process. 2. Nonobstructive bowel gas pattern. Assessment and Plan - Diagnosis (1) Acute on chronic combined systolic (congestive) and diastolic (congestive) heart failure Is this a current diagnosis for this admission?: Yes (2) Atrial fibrillation with RVR Is this a current diagnosis for this admission?: Yes (3) Longstanding persistent atrial fibrillation Is this a current diagnosis for this admission?: Yes (4) CKD (chronic kidney disease), stage III Is this a current diagnosis for this admission?: Yes (5) Hypertension Qualifiers: Hypertension type: essential hypertension Qualified Code(s): I10 - Essential (primary) hypertension Is this a current diagnosis for this admission?: Yes (6) COPD exacerbation Is this a current diagnosis for this admission?: Yes (7) Abdominal pain Qualifiers: Abdominal location: left lower quadrant Qualified Code(s): R10.32 - Left lower quadrant pain Is this a current diagnosis for this admission?: Yes (8) Gastroesophageal reflux disease Qualifiers: Esophagitis presence: esophagitis presence not specified Qualified Code(s): K21.9 - Gastro-esophageal reflux disease without esophagitis Is this a current diagnosis for this admission?: Yes (9) Chronic anticoagulation Is this a current diagnosis for this admission?: Yes (10) Leukocytosis Qualifiers: Leukocytosis type: other Qualified Code(s): D72.828 - Other elevated white blood cell count Is this a current diagnosis for this admission?: Yes (11) Hypertensive cardiomyopathy Qualifiers: Heart failure presence: with heart failure Qualified Code(s): I11.0 - Hypertensive heart disease with heart failure; I43 - Cardiomyopathy in diseases classified elsewhere Is this a current diagnosis for this admission?: Yes (12) Atherosclerosis of arteries Is this a current diagnosis for this admission?: Yes (13) Pulmonary hypertension Is this a current diagnosis for this admission?: Yes (14) Staghorn calculus Is this a current diagnosis for this admission?: Yes - Plan Summary Summary: Acute on chronic combined systolic (congestive) and diastolic (congestive) heart failure -We will utilize intravenous furosemide. -We will need to monitor electrolytes and blood pressure. -Will monitor strict intake and output as well. -Low-fat low-sodium diet -The current medication regimen has the patient in a net negative fluid balance. Atrial fibrillation with RVR Longstanding persistent atrial fibrillation -We will increase metoprolol. -Monitor on telemetry -Nursing reports heart rates as high as 125 today. I did discuss the case with cardiology. Will change from metoprolol to carvedilol 25 mg twice daily. Hypertensive cardiomyopathy -Echocardiogram earlier this year showed depressed ejection fraction of 20 to 25% -There is also grade 2/4 diastolic dysfunction -Medication management at this time. -Blood pressure still not adequately controlled. I have added hydralazine. CKD (chronic kidney disease), stage III -Nephrology will be seeing the patient. -We will need to diuresis for the heart failure at this time. -There is a stent that appears to be in the right renal artery. -This could be hypertensive nephropathy due to his systemic atherosclerosis. -Renal function is slightly improved. Appreciate Dr. Gamez's input. Diffuse atherosclerosis -The patient has a stent in the aortic arch as well as the right renal artery. -Continue aspirin and statin therapy -Achieve good blood pressure control Hypertension -Poorly controlled hypertension -May need increased valsartan -Already increased metoprolol -Adjusting furosemide -Hydralazine added to the regimen. Metoprolol discontinued in favor of carvedilol. Pulmonary hypertension -Possibly due to COPD -Medication management at this time COPD exacerbation -Initiate combination inhaler with nebulizers available as needed -Supplement oxygen as needed Abdominal pain -With his history of diffuse atherosclerosis a vascular etiology is possible. He cannot have an angiogram due to his current renal function. -Consider studies of the abdomen -Abdominal imaging showed no vascular compromise. It may be due to the oral doxycycline. If change doxycycline to intravenous. We will also increase the Protonix to twice daily. We may need to institute a trial of Carafate. Gastroesophageal reflux disease -Continue proton pump inhibitor -Increase Protonix Chronic anticoagulation -Continue warfarin. Pharmacy to dose. -INR is lower today. He likely did not take his dose when he went home thus slowing the process. Leukocytosis -The patient was on steroids during his last admission. -Assess for infection -Monitor white blood cell count - Time Time Spent with patient: 15-24 minutes Medications reviewed and adjusted accordingly: Yes Anticipated Discharge Disposition: Home, Self Care Anticipated Discharge Timeframe: Unknown
[2020-04-27] MEDS: HYDRALAZINE HCL 10 MG TABLET PO SCH ×2 (14:09→21:27)
[2020-04-27] MEDS: CARVEDILOL 12.5 MG TABLET PO SCH ×2 (14:09→21:27)
[2020-04-27] MEDS: DOXYCYCLINE HYCLATE 100 MG in DEXTROSE 5%-WATER 250 ML IV SCH (21:26)
[2020-04-27] MEDS: WARFARIN SODIUM 3 MG TABLET PO SCH (21:27)
[2020-04-27] MEDS: SERTRALINE HCL 50 MG TABLET PO SCH (21:27)
[2020-04-27] MEDS: ASPIRIN 81 MG TABLET, ENT COATED PO SCH (21:27)
[2020-04-28] MEDS: HYDRALAZINE HCL 10 MG TABLET PO SCH ×3 (05:24→21:15)
[2020-04-28] MEDS: PANTOPRAZOLE SODIUM 40 MG TABLET.DR PO SCH (05:24)
[2020-04-28 05:32] LABS: INTERNATIONAL RATION (INR) 1.46; PROTHROMBIN TIME 17.9 SEC (11.4-15.4)
[2020-04-28 07:37] LABS: CREATININE URINE 25.9 mg/dL (Not Estab.); MICROALBUMIN URINE 108.7 ug/mL (Not Estab.)
[2020-04-28] MEDS: FLUTICASONE/VILANTEROL 200-25 MCG/DOSE IH SCH (09:40)
[2020-04-28] MEDS: ENOXAPARIN SODIUM INJ 100 MG/1 ML DISP.SYRIN SUBCUT SCH (09:40)
[2020-04-28] MEDS: CARVEDILOL 12.5 MG TABLET PO SCH ×2 (09:41→21:15)
[2020-04-28] MEDS: FUROSEMIDE INJ/PF 20 MG/2 ML SDV IV SCH ×2 (09:41→17:55)
[2020-04-28] MEDS: VALSARTAN 80 MG TABLET PO SCH (09:41)
[2020-04-28] MEDS: DOXYCYCLINE HYCLATE 100 MG in DEXTROSE 5%-WATER 250 ML IV SCH ×2 (09:41→21:17)
--- NOTE | 2020-04-28 13:10 | PDOC PROGRESS REPORT ---
Subjective Date:: 04/28/20 Subjective:: Patient states that he is feeling better. He still has discomfort in the epigas trium and feels that he has reflux. Heart rate is significantly improved on carvedilol. Also complains of early satiety. Reason For Visit: CHF EXACERBATION Physical Exam Vital Signs: Temp Pulse Resp BP Pulse Ox 97.9 F 79 17 117/94 H 97 04/28/20 13:02 04/28/20 13:02 04/28/20 13:02 04/28/20 13:02 04/28/20 13:02 Intake & Output 04/27/20 04/28/20 04/29/20 06:59 06:59 06:59 Intake Total 1410 670 Output Total 1575 3055 1100 Balance -1575 -1645 -430 Weight 85.9 kg 84.8 kg General appearance: PRESENT: cooperative, mild distress, well-developed Head exam: PRESENT: atraumatic, normocephalic Ear exam: PRESENT: normal external ear exam. ABSENT: bleeding, drainage Mouth exam: PRESENT: moist, tongue midline Teeth exam: PRESENT: poor dentation Neck exam: ABSENT: carotid bruit, JVD, lymphadenopathy, tenderness Respiratory exam: PRESENT: clear to auscultation lita, symmetrical, unlabored. ABSENT: accessory muscle use, prolonged expiratory phas, rales, rhonchi, tachypnea, wheezes Cardiovascular exam: PRESENT: RRR, +S1, +S2, systolic murmur. ABSENT: bradycardia, diastolic murmur, irregular rhythm, tachycardia GI/Abdominal exam: PRESENT: normal bowel sounds, soft, tenderness - Epigastrium. ABSENT: distended Rectal exam: PRESENT: deferred Gentrourinary exam: ABSENT: indwelling catheter Extremities exam: ABSENT: pedal edema Musculoskeletal exam: PRESENT: ambulatory, normal inspection. ABSENT: deformity, dislocation Neurological exam: PRESENT: alert, awake, oriented to person, oriented to place, oriented to time, oriented to situation, CN II-XII grossly intact. ABSENT: altered Psychiatric exam: PRESENT: appropriate affect. ABSENT: agitated, anxious Focused psych exam: ABSENT: delusional, paranoid, restlessness Skin exam: PRESENT: dry, normal color, warm Results Laboratory Results: 04/27/20 07:06 04/27/20 07:06 04/26/20 04/26/20 04/26/20 08:20 08:20 12:17 Creatine Kinase 45 L Troponin I 0.103 0.102 NT-Pro-B Natriuret Pep 24809 H Impressions: Abdomen Ultrasound 04/26/20 00:00 IMPRESSION: 1. Possible echogenic flap in the proximal aorta. 2. Thickened, edematous gallbladder wall. No gallstones. Correlate for acalculous cholecystitis. 3. Bilateral renal calculi. Atrophic left kidney. Renal Artery Duplex 04/26/20 00:00 IMPRESSION: There is no evidence of hydronephrosis. The renal artery to aortic ratios are within normal limits. Evaluation of the waveforms is mildly limited by respiratory motion artifact. Bilateral echogenic structures are seen at the kidneys consistent with nonobstructive calculi. Acute Abdomen Series 04/26/20 08:34 IMPRESSION: 1. Cardiomegaly without a superimposed acute cardiopulmonary process. 2. Nonobstructive bowel gas pattern. Assessment and Plan - Diagnosis (1) Acute on chronic combined systolic (congestive) and diastolic (congestive) heart failure Is this a current diagnosis for this admission?: Yes (2) Atrial fibrillation with RVR Is this a current diagnosis for this admission?: Yes (3) Longstanding persistent atrial fibrillation Is this a current diagnosis for this admission?: Yes (4) CKD (chronic kidney disease), stage III Is this a current diagnosis for this admission?: Yes (5) Hypertension Qualifiers: Hypertension type: essential hypertension Qualified Code(s): I10 - Essential (primary) hypertension Is this a current diagnosis for this admission?: Yes (6) COPD exacerbation Is this a current diagnosis for this admission?: Yes (7) Abdominal pain Qualifiers: Abdominal location: left lower quadrant Qualified Code(s): R10.32 - Left lower quadrant pain Is this a current diagnosis for this admission?: Yes (8) Gastroesophageal reflux disease Qualifiers: Esophagitis presence: esophagitis presence not specified Qualified Code(s): K21.9 - Gastro-esophageal reflux disease without esophagitis Is this a current diagnosis for this admission?: Yes (9) Chronic anticoagulation Is this a current diagnosis for this admission?: Yes (10) Leukocytosis Qualifiers: Leukocytosis type: other Qualified Code(s): D72.828 - Other elevated white blood cell count Is this a current diagnosis for this admission?: Yes (11) Hypertensive cardiomyopathy Qualifiers: Heart failure presence: with heart failure Qualified Code(s): I11.0 - Hypertensive heart disease with heart failure; I43 - Cardiomyopathy in diseases classified elsewhere Is this a current diagnosis for this admission?: Yes (12) Atherosclerosis of arteries Is this a current diagnosis for this admission?: Yes (13) Pulmonary hypertension Is this a current diagnosis for this admission?: Yes (14) Staghorn calculus Is this a current diagnosis for this admission?: Yes - Plan Summary Summary: Acute on chronic combined systolic (congestive) and diastolic (congestive) heart failure -We will utilize intravenous furosemide. -We will need to monitor electrolytes and blood pressure. -Will monitor strict intake and output as well. -Low-fat low-sodium diet -The current medication regimen has the patient in a net negative fluid balance. -04/28/2020-no changes to current medication regimen Atrial fibrillation with RVR Longstanding persistent atrial fibrillation -We will increase metoprolol. -Monitor on telemetry -Nursing reports heart rates as high as 125 today. I did discuss the case with cardiology. Will change from metoprolol to carvedilol 25 mg twice daily. -04/28/2020-much better control on carvedilol Hypertensive cardiomyopathy -Echocardiogram earlier this year showed depressed ejection fraction of 20 to 25% -There is also grade 2/4 diastolic dysfunction -Medication management at this time. -Blood pressure still not adequately controlled. I have added hydralazine. -04/28/2020-blood pressures improved with transition to carvedilol and the added hydralazine CKD (chronic kidney disease), stage III -Nephrology will be seeing the patient. -We will need to diuresis for the heart failure at this time. -There is a stent that appears to be in the right renal artery. -This could be hypertensive nephropathy due to his systemic atherosclerosis. -Renal function is slightly improved. Appreciate Dr. Gamez's input. -04/28/2020-creatinine is improved. Recheck tomorrow. Diffuse atherosclerosis -The patient has a stent in the aortic arch as well as the right renal artery. -Continue aspirin and statin therapy -Achieve good blood pressure control Hypertension -Poorly controlled hypertension -May need increased valsartan -Already increased metoprolol -Adjusting furosemide -Hydralazine added to the regimen. Metoprolol discontinued in favor of carv edilol. -04/28/2020-better blood pressure control on the new medication regimen Pulmonary hypertension -Possibly due to COPD -Medication management at this time COPD exacerbation -Initiate combination inhaler with nebulizers available as needed -Supplement oxygen as needed Abdominal pain -With his history of diffuse atherosclerosis a vascular etiology is possible. He cannot have an angiogram due to his current renal function. -Consider studies of the abdomen -Abdominal imaging showed no vascular compromise. It may be due to the oral doxycycline. If change doxycycline to intravenous. We will also increse the Protonix to twice daily. We may need to institute a trial of Carafate. -04/28/2020-as the patient describes that considerations would be gastroparesis if he were diabetic. Hiatal hernia would cause similar symptoms to those he describes. May need to get an upper GI series as well. Gastroesophageal reflux disease -Continue proton pump inhibitor -Increase Protonix -04/28/2020-now on Protonix twice a day. Chronic anticoagulation -Continue warfarin. Pharmacy to dose. -INR is lower today. He likely did not take his dose when he went home thus s lowing the process. -04/28/2020-INR is 1.46 today. I believe he will be therapeutic tomorrow. We c an then stop the Lovenox. Leukocytosis -The patient was on steroids during his last admission. -Assess for infection -Monitor white blood cell count - Time Time Spent with patient: 15-24 minutes Medications reviewed and adjusted accordingly: Yes Anticipated Discharge Disposition: Home, Self Care Anticipated Discharge Timeframe: within 72 hours
[2020-04-28] MEDS: DIPHENHYDRAMINE HCL 50 MG CAPSULE PO PRN (15:06)
[2020-04-28] MEDS: SERTRALINE HCL 50 MG TABLET PO SCH (21:15)
[2020-04-28] MEDS: ASPIRIN 81 MG TABLET, ENT COATED PO SCH (21:15)
[2020-04-28] MEDS: WARFARIN SODIUM 3 MG TABLET PO SCH (21:16)
[2020-04-29] MEDS: DIPHENHYDRAMINE HCL 50 MG CAPSULE PO PRN ×2 (03:26→22:14)
[2020-04-29] MEDS: PANTOPRAZOLE SODIUM 40 MG TABLET.DR PO SCH (05:24)
[2020-04-29] MEDS: HYDRALAZINE HCL 10 MG TABLET PO SCH ×3 (05:24→22:08)
[2020-04-29 05:32] LABS: HEMATOCRIT 43.6 % (37.9-51.0); HEMOGLOBIN 14.9 g/dL (13.5-17.0); MEAN CORPUSCULAR HGB CONC 34.1 g/dL (32.0-36.0); MEAN CORPUSCULAR VOLUME 91 fl (80-97); PLATELET COUNT 179 10^3/uL (150-450); RED CELL DISTRIBUTION WIDTH 14.5 % (11.5-14.0); WHITE BLOOD COUNT 7.7 10^3/uL (4.0-10.5)
[2020-04-29 05:42] LABS: ANION GAP 5 (5-19); BLOOD UREA NITROGEN 39 mg/dL (7-20); CALCIUM 8.9 mg/dL (8.4-10.2); CARBON DIOXIDE 33 mmol/L (22-30); CHLORIDE 101 mmol/L (98-107); GLUCOSE 136 mg/dL (75-110); POTASSIUM 3.8 mmol/L (3.6-5.0)
[2020-04-29 05:50] LABS: PROTHROMBIN TIME 18.3 SEC (11.4-15.4)
[2020-04-29] MEDS: FUROSEMIDE INJ/PF 20 MG/2 ML SDV IV SCH (10:02)
[2020-04-29] MEDS: CARVEDILOL 12.5 MG TABLET PO SCH ×2 (10:03→22:07)
[2020-04-29] MEDS: VALSARTAN 80 MG TABLET PO SCH (10:03)
[2020-04-29] MEDS: DOXYCYCLINE HYCLATE 100 MG in DEXTROSE 5%-WATER 250 ML IV SCH ×2 (10:04→22:06)
[2020-04-29] MEDS: FLUTICASONE/VILANTEROL 200-25 MCG/DOSE IH SCH (10:04)
--- NOTE | 2020-04-29 14:38 | PDOC PROGRESS REPORT ---
Subjective Date:: 04/29/20 Subjective:: Patient was sleeping soundly when I entered the room. He complains of left ches t wall tenderness Reason For Visit: CHF EXACERBATION Physical Exam Vital Signs: Temp Pulse Resp BP Pulse Ox 98.2 F 106 H 19 130/99 H 97 04/29/20 12:00 04/29/20 14:00 04/29/20 12:00 04/29/20 12:00 04/29/20 12:00 Intake & Output 04/28/20 04/29/20 04/30/20 06:59 06:59 06:59 Intake Total 1410 2780 400 Output Total 3055 4075 600 Balance -1645 -1295 -200 Weight 84.8 kg 84.8 kg General appearance: PRESENT: no acute distress, cooperative, well-developed Head exam: PRESENT: atraumatic, normocephalic Ear exam: PRESENT: normal external ear exam. ABSENT: bleeding, drainage Respiratory exam: PRESENT: chest wall tenderness - Left side, symmetrical, unlabored. ABSENT: rales, rhonchi, tachypnea, wheezes Cardiovascular exam: PRESENT: irregular rhythm, +S1, +S2 GI/Abdominal exam: PRESENT: normal bowel sounds, soft. ABSENT: tenderness Rectal exam: PRESENT: deferred Gentrourinary exam: ABSENT: indwelling catheter Extremities exam: ABSENT: pedal edema Musculoskeletal exam: PRESENT: ambulatory Neurological exam: PRESENT: alert, awake, oriented to person, oriented to place, oriented to time, oriented to situation, CN II-XII grossly intact. ABSENT: altered Psychiatric exam: PRESENT: anxious. ABSENT: agitated Results Laboratory Results: 04/29/20 04:26 04/29/20 04:26 04/29/20 04/29/20 04:26 04:26 WBC 7.7 RBC 4.80 Hgb 14.9 Hct 43.6 MCV 91 MCH 31.0 MCHC 34.1 RDW 14.5 H Plt Count 179 Sodium 138.6 Potassium 3.8 Chloride 101 Carbon Dioxide 33 H Anion Gap 5 BUN 39 H Creatinine 2.01 H Est GFR ( Amer) 42 L Glucose 136 H Calcium 8.9 Magnesium 2.3 04/26/20 04/26/20 04/26/20 08:20 08:20 12:17 Creatine Kinase 45 L Troponin I 0.103 0.102 NT-Pro-B Natriuret Pep 06054 H Impressions: Abdomen Ultrasound 04/26/20 00:00 IMPRESSION: 1. Possible echogenic flap in the proximal aorta. 2. Thickened, edematous gallbladder wall. No gallstones. Correlate for sandor lculous cholecystitis. 3. Bilateral renal calculi. Atrophic left kidney. Renal Artery Duplex 04/26/20 00:00 IMPRESSION: There is no evidence of hydronephrosis. The renal artery to aortic ratios are within normal limits. Evaluation of the waveforms is mildly limited by respiratory motion artifact. Bilateral echogenic structures are seen at the kidneys consistent with nonobstructive calculi. Acute Abdomen Series 04/26/20 08:34 IMPRESSION: 1. Cardiomegaly without a superimposed acute cardiopulmonary process. 2. Nonobstructive bowel gas pattern. Assessment and Plan - Diagnosis (1) Acute on chronic combined systolic (congestive) and diastolic (congestive) heart failure Is this a current diagnosis for this admission?: Yes (2) Atrial fibrillation with RVR Is this a current diagnosis for this admission?: Yes (3) Longstanding persistent atrial fibrillation Is this a current diagnosis for this admission?: Yes (4) CKD (chronic kidney disease), stage III Is this a current diagnosis for this admission?: Yes (5) Hypertension Qualifiers: Hypertension type: essential hypertension Qualified Code(s): I10 - Essential (primary) hypertension Is this a current diagnosis for this admission?: Yes (6) COPD exacerbation Is this a current diagnosis for this admission?: Yes (7) Abdominal pain Qualifiers: Abdominal location: left lower quadrant Qualified Code(s): R10.32 - Left lower quadrant pain Is this a current diagnosis for this admission?: Yes (8) Gastroesophageal reflux disease Qualifiers: Esophagitis presence: esophagitis presence not specified Qualified Code(s): K21.9 - Gastro-esophageal reflux disease without esophagitis Is this a current diagnosis for this admission?: Yes (9) Chronic anticoagulation Is this a current diagnosis for this admission?: Yes (10) Leukocytosis Qualifiers: Leukocytosis type: other Qualified Code(s): D72.828 - Other elevated white blood cell count Is this a current diagnosis for this admission?: Yes (11) Hypertensive cardiomyopathy Qualifiers: Heart failure presence: with heart failure Qualified Code(s): I11.0 - Hypertensive heart disease with heart failure; I43 - Cardiomyopathy in diseases classified elsewhere Is this a current diagnosis for this admission?: Yes (12) Atherosclerosis of arteries Is this a current diagnosis for this admission?: Yes (13) Pulmonary hypertension Is this a current diagnosis for this admission?: Yes (14) Staghorn calculus Is this a current diagnosis for this admission?: Yes - Plan Summary Summary: Acute on chronic combined systolic (congestive) and diastolic (congestive) heart failure -We will utilize intravenous furosemide. -We will need to monitor electrolytes and blood pressure. -Will monitor strict intake and output as well. -Low-fat low-sodium diet -The current medication regimen has the patient in a net negative fluid balance. -04/28/2020-no changes to current medication regimen -04/29/2020-change to p.o. Lasix Atrial fibrillation with RVR Longstanding persistent atrial fibrillation -We will increase metoprolol. -Monitor on telemetry -Nursing reports heart rates as high as 125 today. I did discuss the case with cardiology. Will change from metoprolol to carvedilol 25 mg twice daily. -04/28/2020-much better control on carvedilol -04/29/2020-add 0.0625 mg digoxin once a day we will need to monitor digoxin for toxicity considering renal failure Hypertensive cardiomyopathy -Echocardiogram earlier this year showed depressed ejection fraction of 20 to 25% -There is also grade 2/4 diastolic dysfunction -Medication management at this time. -Blood pressure still not adequately controlled. I have added hydralazine. -04/28/2020-blood pressures improved with transition to carvedilol and the added hydralazine CKD (chronic kidney disease), stage III -Nephrology will be seeing the patient. -We will need to diuresis for the heart failure at this time. -There is a stent that appears to be in the right renal artery. -This could be hypertensive nephropathy due to his systemic atherosclerosis. -Renal function is slightly improved. Appreciate Dr. Gamez's input. -04/28/2020-creatinine is improved. Recheck tomorrow. -04/29/2020-renal function continues to improve on current regimen Diffuse atherosclerosis -The patient has a stent in the aortic arch as well as the right renal artery. -Continue aspirin and statin therapy -Achieve good blood pressure control Hypertension -Poorly controlled hypertension -May need increased valsartan -Already increased metoprolol -Adjusting furosemide -Hydralazine added to the regimen. Metoprolol discontinued in favor of carvedilol. -04/28/2020-better blood pressure control on the new medication regimen Pulmonary hypertension -Possibly due to COPD -Medication management at this time COPD exacerbation -Initiate combination inhaler with nebulizers available as needed -Supplement oxygen as needed Abdominal pain -With his history of diffuse atherosclerosis a vascular etiology is possible. He cannot have an angiogram due to his current renal function. -Consider studies of the abdomen -Abdominal imaging showed no vascular compromise. It may be due to the oral doxycycline. If change doxycycline to intravenous. We will also increse the Protonix to twice daily. We may need to institute a trial of Carafate. -04/28/2020-as the patient describes that considerations would be gastroparesis if he were diabetic. Hiatal hernia would cause similar symptoms to those he describes. May need to get an upper GI series as well. -04/29/2020-no complaints of GI discomfort today Gastroesophageal reflux disease -Continue proton pump inhibitor -Increase Protonix -04/28/2020-now on Protonix twice a day. Chronic anticoagulation -Continue warfarin. Pharmacy to dose. -INR is lower today. He likely did not take his dose when he went home thus slowing the process. -04/28/2020-INR is 1.46 today. I believe he will be therapeutic tomorrow. We can then stop the Lovenox. -04/29/2020-INR is 1.50 today. Goal is 2.0-3.0. Leukocytosis -The patient was on steroids during his last admission. -Assess for infection -Monitor white blood cell count -04/29/2020-white blood cell count is now normal - Time Time Spent with patient: 15-24 minutes Medications reviewed and adjusted accordingly: Yes Anticipated Discharge Disposition: Home, Self Care Anticipated Discharge Timeframe: within 72 hours
[2020-04-29 16:01] LABS: APPEARANCE,URINE CLEAR; BILIRUBIN,URINE NEGATIVE (NEGATIVE); COLOR,URINE YELLOW; GLUCOSE, URINE NEGATIVE (NEGATIVE); KETONES,URINE NEGATIVE (NEGATIVE); LEUKOCYTE ESTERASE,URINE TRACE (NEGATIVE); NITRITE,URINE NEGATIVE (NEGATIVE); PROTEIN,URINE 30 mg/dL (NEGATIVE); URINE SPECIFIC GRAVITY 1.011; UROBILINOGEN,URINE NEGATIVE mg/dL (<2.0)
[2020-04-29] MEDS: FUROSEMIDE 40 MG TABLET PO SCH (17:10)
[2020-04-29] MEDS: SERTRALINE HCL 50 MG TABLET PO SCH (22:07)
[2020-04-29] MEDS: ASPIRIN 81 MG TABLET, ENT COATED PO SCH (22:08)
[2020-04-29] MEDS: WARFARIN SODIUM 3 MG TABLET PO SCH (22:08)
[2020-04-30] MEDS: HYDRALAZINE HCL 10 MG TABLET PO SCH (05:16)
[2020-04-30] MEDS: PANTOPRAZOLE SODIUM 40 MG TABLET.DR PO SCH (05:17)
[2020-04-30 05:49] LABS: ALBUMIN 3.2 g/dL (3.5-5.0); ANION GAP 7 (5-19); BLOOD UREA NITROGEN 36 mg/dL (7-20); CARBON DIOXIDE 31 mmol/L (22-30); CHLORIDE 102 mmol/L (98-107); GLUCOSE 93 mg/dL (75-110); PHOSPHORUS 3.6 mg/dL (2.5-4.5); POTASSIUM 4.3 mmol/L (3.6-5.0)
[2020-04-30 05:55] LABS: INTERNATIONAL RATION (INR) 1.41; PROTHROMBIN TIME 17.4 SEC (11.4-15.4)
[2020-04-30] MEDS: FLUTICASONE/VILANTEROL 200-25 MCG/DOSE IH SCH (09:12)
[2020-04-30] MEDS: FUROSEMIDE 40 MG TABLET PO SCH (09:12)
[2020-04-30] MEDS: CARVEDILOL 12.5 MG TABLET PO SCH (09:12)
[2020-04-30] MEDS: DOXYCYCLINE HYCLATE 100 MG in DEXTROSE 5%-WATER 250 ML IV SCH (09:16)
[2020-04-30] MEDS ORDERED: DIGOXIN 0.125 MG TABLET PO SCH (10:00)
[2020-04-30] MEDS ORDERED: VALSARTAN 160 MG TABLET PO SCH (10:00)
[2020-04-30 12:53] VITALS: BP 147/110
[2020-04-30] MEDS ORDERED: WARFARIN SODIUM 5 MG TABLET PO SCH (22:00)
[2020-04-30] MEDS ORDERED: WARFARIN SODIUM 2 MG TABLET PO SCH (22:00)
--- NOTE | 2020-05-01 16:21 | PDOC DISCHARGE SUMMARY ---
Impression - Admit/DC Date/PCP Admission Date/Primary Care Provider: 04/26/20 10:27 RACHANA GARCIA PA-C Discharge Date: 05/01/20 - Discharge Diagnosis (1) Acute combined systolic and diastolic heart failure Is this a current diagnosis for this admission?: Yes (2) Acute kidney injury superimposed on chronic kidney disease Is this a current diagnosis for this admission?: Yes (3) Atrial fibrillation with RVR Is this a current diagnosis for this admission?: Yes (4) CKD (chronic kidney disease) stage 3, GFR 30-59 ml/min Is this a current diagnosis for this admission?: Yes (5) COPD (chronic obstructive pulmonary disease) Is this a current diagnosis for this admission?: Yes (6) Chronic anticoagulation Is this a current diagnosis for this admission?: Yes (7) Chronic atrial fibrillation Is this a current diagnosis for this admission?: Yes (8) Dilated cardiomyopathy Is this a current diagnosis for this admission?: Yes (9) Elevated troponin I level Is this a current diagnosis for this admission?: Yes (10) Gastroesophageal reflux disease Is this a current diagnosis for this admission?: Yes (11) Hypertension Is this a current diagnosis for this admission?: Yes (12) Hypertensive cardiomyopathy Is this a current diagnosis for this admission?: Yes (13) Leukocytosis Is this a current diagnosis for this admission?: Yes (14) Pulmonary hypertension Is this a current diagnosis for this admission?: Yes (15) Shortness of breath Is this a current diagnosis for this admission?: Yes - Assessment Summary: Acute on chronic combined systolic (congestive) and diastolic (congestive) heart failure: He received diuresis with intravenous furosemide. Atrial fibrillation with RVR: We changed his home metoprolol to carvedilol and added 0.0625 mg digoxin once a day. He will need close outpatient PCP and cardiology follow up to monitor renal function and digoxin level. Hypertensive cardiomyopathy: Echocardiogram earlier this year showed depressed ejection fraction of 20 to 25% and grade 2/4 diastolic dysfunction. He was discharged with a life vest and close outpatient cardiology for continued medication management follow up. He will need a repeat TTE in 4-6 weeks to reassess LV EF and may need ICD placement if not improved. CKD (chronic kidney disease), stage III: Nephrology consulted. Renal function i mproved with diuresis. Diffuse atherosclerosis: The patient has stents in the aortic arch as well as the right renal artery. Continue aspirin and statin therapy. Strict BP control. Essential Hypertension: poorly controlled. Home regimen adjusted with good effect. Pulmonary hypertension: due to COPD, CHF. COPD: Initiate combination inhaler. Gastroesophageal reflux disease: started on PPI therapy. Chronic anticoagulation: Continue warfarin. Goal INR 2.0-3.0. - Additional Information Resuscitation Status: Full Code Discharge Diet: Cardiac Discharge Activity: Activity As Tolerated, Balance Activity w/Rest, Keep Legs Elevated, Weigh Daily Referrals: RACHANA GARCIA PA-C [Primary Care Provider] - 05/02/20 9:15 am () ALEJANDRO MANCINI MD [ACTIVE STAFF] - 05/07/20 9:30 am Prescriptions: Hydralazine HCl [Apresoline 50 mg Tablet] 50 mg PO Q8 #90 Carvedilol 25 mg PO BID #60 tablet Warfarin Sodium [Coumadin] 1 mg PO DAILY #30 tablet Warfarin Sodium [Coumadin] 5 mg PO DAILY #30 tablet Valsartan [Diovan 80 mg Tablet] 80 mg PO Q12 #60 Digoxin [Lanoxin] 62.5 mcg PO DAILY #30 tablet Furosemide [Lasix 40 mg Tablet] 40 mg PO BID #60 Atorvastatin Calcium [Lipitor 40 mg Tablet] 40 mg PO QHS #30 tablet Potassium Chloride 20 meq PO BID #60 Pantoprazole Sodium [Protonix [address] Tablet] 40 mg PO Q6AM #30 tablet. Sertraline HCl 100 mg PO QHS #30 tablet Home Medications: Albuterol Sulfate [Ventolin Hfa 8 gm Mdi] 2 puff IH Q4HP PRN #1 inhaler 04/25/20 Aspirin [Ecotrin 81 mg EC Tablet] 81 mg PO QHS tabec 04/30/20 Atorvastatin Calcium [Lipitor 40 mg Tablet] 40 mg PO QHS #30 tablet 04/30/20 Carvedilol 25 mg PO BID #60 tablet 04/30/20 Digoxin [Lanoxin] 62.5 mcg PO DAILY #30 tablet 04/30/20 Furosemide [Lasix 40 mg Tablet] 40 mg PO BID #60 04/30/20 Hydralazine HCl [Apresoline 50 mg Tablet] 50 mg PO Q8 #90 04/30/20 Pantoprazole Sodium [Protonix [address] Tablet] 40 mg PO Q6AM #30 tablet. 04/30/20 Potassium Chloride 20 meq PO BID #60 04/30/20 Sertraline HCl 100 mg PO QHS #30 tablet 04/30/20 Valsartan [Diovan 80 mg Tablet] 80 mg PO Q12 #60 04/30/20 Warfarin Sodium [Coumadin] 1 mg PO DAILY #30 tablet 04/30/20 Warfarin Sodium [Coumadin] 5 mg PO DAILY #30 tablet 04/30/20 History of Present Illiness History of Present Illness: JOHN PADILLA is a 54 year old male Physical Exam Vital Signs: Temp Pulse Resp BP Pulse Ox 97.5 F 83 16 147/110 H 96 04/30/20 12:53 04/30/20 12:53 04/30/20 12:53 04/30/20 12:53 04/30/20 12:53 Intake & Output 04/30/20 05/01/20 05/02/20 06:59 06:59 06:59 Intake Total 1866 710 Output Total 2500 325 Balance -634 385 Weight 84.8 kg Results Laboratory Results: WBC 7.7 10^3/uL (4.0-10.5) 04/29/20 04:26 RBC 4.80 10^6/uL (4.35-5.55) 04/29/20 04:26 Hgb 14.9 g/dL (13.5-17.0) 04/29/20 04:26 Hct 43.6 % (37.9-51.0) 04/29/20 04:26 MCV 91 fl (80-97) 04/29/20 04:26 MCH 31.0 pg (27.0-33.4) 04/29/20 04:26 MCHC 34.1 g/dL (32.0-36.0) 04/29/20 04:26 RDW 14.5 % (11.5-14.0) H 04/29/20 04:26 Plt Count 179 10^3/uL (150-450) 04/29/20 04:26 Lymph % (Auto) Not Reportable 04/27/20 07:06 Edmunds % (Auto) Not Reportable 04/27/20 07:06 Eos % (Auto) Not Reportable 04/27/20 07:06 Baso % (Auto) Not Reportable 04/27/20 07:06 Absolute Neuts (auto) Not Reportable 04/27/20 07:06 Absolute Lymphs (auto) Not Reportable 04/27/20 07:06 Absolute Monos (auto) Not Reportable 04/27/20 07:06 Absolute Eos (auto) Not Reportable 04/27/20 07:06 Absolute Basos (auto) Not Reportable 04/27/20 07:06 Total Counted 100 04/27/20 07:06 Seg Neutrophils % Not Reportable 04/27/20 07:06 Seg Neuts % (Manual) 80 % (42-78) H 04/27/20 07:06 Lymphocytes % (Manual) 15 % (13-45) 04/27/20 07:06 Monocytes % (Manual) 4 % (3-13) 04/27/20 07:06 Eosinophils % (Manual) 1 % (0-6) 04/27/20 07:06 Basophils % (Manual) 0 % (0-2) 04/27/20 07:06 Abs Neuts (Manual) 9.8 10^3/uL (1.7-8.2) H 04/27/20 07:06 Abs Lymphs (Manual) 1.8 10^3/uL (0.5-4.7) 04/27/20 07:06 Abs Monocytes (Manual) 0.5 10^3/uL (0.1-1.4) 04/27/20 07:06 Absolute Eos (Manual) 0.1 10^3/uL (0.0-0.6) 04/27/20 07:06 Abs Basophils (Manual) 0.0 10^3/uL (0.0-0.2) 04/27/20 07:06 Platelet Comment ADEQUATE 04/27/20 07:06 Anisocytosis SLIGHT 04/27/20 07:06 Ovalocytes 1+ 04/27/20 07:06 RBC Morph Comment NORMO-CYTIC/CHROMIC 04/26/20 08:20 PT 17.4 SEC (11.4-15.4) H 04/30/20 04:11 INR 1.41 04/30/20 04:11 APTT 32.2 SEC (23.5-35.8) 04/26/20 08:20 Sodium 139.5 mmol/L (137-145) 04/30/20 04:11 Potassium 4.3 mmol/L (3.6-5.0) 04/30/20 04:11 Chloride 102 mmol/L (98-107) 04/30/20 04:11 Carbon Dioxide 31 mmol/L (22-30) H 04/30/20 04:11 Anion Gap 7 (5-19) 04/30/20 04:11 BUN 36 mg/dL (7-20) H 04/30/20 04:11 Creatinine 1.90 mg/dL (0.52-1.25) H 04/30/20 04:11 Est GFR ( Amer) 45 (>60) L 04/30/20 04:11 Est GFR (MDRD) Non-Af 37 (>60) L 04/30/20 04:11 Glucose 93 mg/dL (75-110) 04/30/20 04:11 Lactic Acid 1.3 mmol/L (0.7-2.1) 04/26/20 14:28 Calcium 9.0 mg/dL (8.4-10.2) 04/30/20 04:11 Phosphorus 3.6 mg/dL (2.5-4.5) 04/30/20 04:11 Magnesium 2.3 mg/dL (1.6-2.3) 04/29/20 04:26 Total Bilirubin 1.0 mg/dL (0.2-1.3) 04/26/20 08:20 Direct Bilirubin 0.4 mg/dL (0.0-0.4) 04/26/20 08:20 Neonat Total Bilirubin Not Reportable 04/26/20 08:20 Neonat Direct Bilirubin Not Reportable 04/26/20 08:20 Neonat Indirect Bili Not Reportable 04/26/20 08:20 AST 31 U/L (17-59) 04/26/20 08:20 ALT 36 U/L (<50) 04/26/20 08:20 Alkaline Phosphatase 76 U/L (38-126) 04/26/20 08:20 Creatine Kinase 45 U/L (55-170) L 04/26/20 08:20 Troponin I 0.102 ng/mL 04/26/20 12:17 NT-Pro-B Natriuret Pep 60777 pg/mL (<125) H 04/26/20 08:20 Total Protein 6.6 g/dL (6.3-8.2) 04/26/20 08:20 Albumin 3.2 g/dL (3.5-5.0) L 04/30/20 04:11 Lipase 148.9 U/L (23-300) 04/26/20 08:20 PTH Intact 162.6 pg/mL (10.0-65.0) H 04/27/20 07:06 Urine Color YELLOW 04/29/20 15:45 Urine Appearance CLEAR 04/29/20 15:45 Urine pH 7.0 (5.0-9.0) 04/29/20 15:45 Ur Specific [place] 1.011 04/29/20 15:45 Urine Protein 30 mg/dL (NEGATIVE) H 04/29/20 15:45 Urine Glucose (UA) NEGATIVE mg/dL (NEGATIVE) 04/29/20 15:45 Urine Ketones NEGATIVE mg/dL (NEGATIVE) 04/29/20 15:45 Urine Blood NEGATIVE (NEGATIVE) 04/29/20 15:45 Urine Nitrite NEGATIVE (NEGATIVE) 04/29/20 15:45 Urine Bilirubin NEGATIVE (NEGATIVE) 04/29/20 15:45 Urine Urobilinogen NEGATIVE mg/dL (<2.0) 04/29/20 15:45 Ur Leukocyte Esterase TRACE (NEGATIVE) H 04/29/20 15:45 Urine WBC (Auto) 1 /HPF 04/29/20 15:45 Urine RBC (Auto) 0 /HPF 04/29/20 15:45 U Hyaline Cast (Auto) 8 /LPF 04/26/20 10:13 Urine Bacteria (Auto) TRACE /HPF 04/26/20 10:13 Squamous Epi Cells Auto <1 /HPF 04/29/20 15:45 WBC Casts (Auto) 1 /LPF 04/26/20 10:13 Urine Mucus (Auto) RARE /LPF 04/26/20 10:13 Urine Creatinine 25.9 mg/dL (Not Estab.) 04/26/20 17:30 Urine Microalbumin 108.7 ug/mL (Not Estab.) 04/26/20 17:30 Microalb/Creat Ratio 420 mg/g creat (0-29) H 04/26/20 17:30 Urine Ascorbic Acid 20 (NEGATIVE) H 04/29/20 15:45 Urine Opiates Screen NEGATIVE 04/26/20 10:13 Urine Methadone Screen NEGATIVE 04/26/20 10:13 Ur Barbiturates Screen NEGATIVE 04/26/20 10:13 Ur Phencyclidine Scrn NEGATIVE 04/26/20 10:13 Ur Amphetamines Screen NEGATIVE 04/26/20 10:13 U Benzodiazepines Scrn NEGATIVE 04/26/20 10:13 Urine Cocaine Screen NEGATIVE 04/26/20 10:13 U Marijuana (THC) Screen UNCONFIRMED POSITIVE 04/26/20 10:13 04/26/20 04/26/20 08:20 12:17 Troponin I 0.103 0.102 NT-Pro-B Natriuret Pep 86221 H Impressions: Abdomen Ultrasound 04/26/20 00:00 IMPRESSION: 1. Possible echogenic flap in the proximal aorta. 2. Thickened, edematous gallbladder wall. No gallstones. Correlate for acalculous cholecystitis. 3. Bilateral renal calculi. Atrophic left kidney. Renal Artery Duplex 04/26/20 00:00 IMPRESSION: There is no evidence of hydronephrosis. The renal artery to aortic ratios are within normal limits. Evaluation of the waveforms is mildly limited by respiratory motion artifact. Bilateral echogenic structures are seen at the kidneys consistent with nonobstructive calculi. Acute Abdomen Series 04/26/20 08:34 IMPRESSION: 1. Cardiomegaly without a superimposed acute cardiopulmonary process. 2. Nonobstructive bowel gas pattern. Stroke Is this a Stroke Patient?: No Acute Heart Failure Is this a Heart Failure Patient?: Yes Documentation of LVEF assessment?: Yes LVEF: LVEF Less Than or Equal to 35% Anticoagulant Therapy: Yes Discharged on Evidence-Based Beta Blockers: Yes Discharged on ARNI?: Yes For LVEF <35%, discharged on Aldosterone Antagonist?: Yes
== END 2020-04-30 14:40 | disposition home or self-care (01) | DRG 291 ==
LOC: ER 06:53 → EH 10:27 → 4N 11:48
PROVIDERS: ADMIT Hospitalist; ATTEND Hospitalist
DX: I13.0 Hypertensive heart and chronic kidney disease with heart failure and stage 1 through stage 4 chronic kidney disease, or unspecified chronic kidney disease (principal); I50.43 Acute on chronic combined systolic (congestive) and diastolic (congestive) heart failure; N17.9 Acute kidney failure, unspecified; I48.19 Other persistent atrial fibrillation; I48.11 Longstanding persistent atrial fibrillation; J44.1 Chronic obstructive pulmonary disease with (acute) exacerbation; I42.0 Dilated cardiomyopathy; R77.8 Other specified abnormalities of plasma proteins; N18.32 Chronic kidney disease, stage 3b; K21.9 Gastro-esophageal reflux disease without esophagitis; I43 Cardiomyopathy in diseases classified elsewhere; I27.23 Pulmonary hypertension due to lung diseases and hypoxia; I27.22 Pulmonary hypertension due to left heart disease; R39.15 Urgency of urination; R35.0 Frequency of micturition; T50.2X5A Adverse effect of carbonic-anhydrase inhibitors, benzothiadiazides and other diuretics, initial encounter; F32.9 Major depressive disorder, single episode, unspecified; I70.0 Atherosclerosis of aorta; I70.1 Atherosclerosis of renal artery; N20.0 Calculus of kidney; I73.9 Peripheral vascular disease, unspecified; Z60.2 Problems related to living alone; Z59.8 Other problems related to housing and economic circumstances; Z91.14 Patient's other noncompliance with medication regimen; Z79.01 Long term (current) use of anticoagulants; Z23 Encounter for immunization; Z79.82 Long term (current) use of aspirin; Z79.899 Other long term (current) drug therapy; Z86.718 Personal history of other venous thrombosis and embolism; Z87.891 Personal history of nicotine dependence; Z84.1 Family history of disorders of kidney and ureter; Z82.49 Family history of ischemic heart disease and other diseases of the circulatory system
CPT/HCPCS: 36415; 74022; 76700; 80048; 80053; 80069; 80307; 81001; 82043; 82550; 82570; 83605; 83690; 83735; 83880; 83970; 84484; 85025; 85027; 85610; 85730; 87040; 90471; 90686; 93005; 93010; 93975; 93976; 96374; 96375; 96376; 99285; G0008; J1650; J1940; J3490; J7060; S0119